=== PATIENT | female | born 1955 | race Caucasian/White ===

== ENCOUNTER 2017-11-02 14:14 | Inpatient (IN) | payer OTHER ==
[~2017-11-02] VITALS: Ht 167.6 cm; Wt 173.3 kg
[~2017-11-02 14:14] MED LIST: AMT25 PO; ASCO500T3 PO; ASPI81TA28 PO; COEN1CAP PO; FRS/40 PO; GABA-113 PO; INSDGIPEN SC; LEVO25TA5 PO; LOSA100T65 PO; LSX40 PO; MAGN30TA4 PO; METO50TA7 PO; NVLGI/PEN SC; NVLGIPEN SC; NXM/40 PO
--- NOTE | 2017-11-02 16:45 | DIAGNOSTIC IMAGING REPORT ---
SINGLE VIEW CHEST CLINICAL HISTORY: Lower extremity edema. FINDINGS: An AP, portable, upright chest radiograph is compared to study dated 09/16/2016. The examination is degraded by portable technique, large body habitus, and patient rotation. The heart is enlarged and there is atherosclerotic calcification of the thoracic aorta. There is pulmonary vascular congestion. Small pleural effusions are identified and there are bibasilar airspace opacities. No pneumothorax is seen. The skeletal structures are osteopenic. The bony thorax is grossly intact. IMPRESSION: 1. Cardiomegaly with evidence of congestive failure. 2. Layering pleural effusions. 3. Bibasilar airspace opacities likely represent atelectasis. Correlate clinically for evidence of superimposed pneumonia. Electronically signed by: Rohan Falcon M.D. 11/02/2017 4:43 PM Dictated Date/Time: 11/02/2017 4:42 PM
[2017-11-02 17:08] LABS: BASO % 0.3 %; BASO ABS # 0.03 K/uL (0-0.2); COMPLETE YES; EOS % 1.4 %; HEMATOCRIT 47.5 % (37-47); IG% 0.8 %; LYMPH % 18.7 %; LYMPH ABS # 1.74 K/uL (1.2-3.4); MEAN CELL VOLUME 100.6 fL (80-100); MEAN CORPUSCULAR HEMOGLOBIN 32.4 pg (25-34); MEAN CORPUSCULAR HGB CONC 32.2 g/dl (32-36); MEAN PLATELET VOLUME 10.9 fL (7.4-10.4); MONO % 8.4 %; NEUT % 70.4 %; PLATELET COUNT 162 K/uL (130-400); RED BLOOD COUNT 4.72 M/uL (4.2-5.4)
[2017-11-02 17:42] LABS: ALB/GLOB RATIO 0.7 (0.9-2); ALKALINE PHOSPHATASE 132 U/L (45-117); ALT/SGPT 31 U/L (12-78); BLOOD UREA NITROGEN 66 mg/dl (7-18); BUN/CREATININE RATIO 45.9 (10-20); CALCIUM 9.8 mg/dl (8.5-10.1); CARBON DIOXIDE 30 mmol/L (21-32); CHLORIDE 101 mmol/L (98-107); CREATININE 1.43 mg/dl (0.60-1.20); GLUCOSE 89 mg/dl (70-99); SODIUM 135 mmol/L (136-145)
[2017-11-02 19:08] LABS: POTASSIUM 5.1 mmol/L (3.5-5.1)
[2017-11-02 19:13] LABS: MAGNESIUM 2.5 mg/dl (1.8-2.4)
[2017-11-02 19:41] LABS: MANUAL MICROSCOPIC REQUIRED? NO; REVIEW REQ? NO; URINE APPEARANCE CLEAR (CLEAR); URINE BILIRUBIN NEG (NEG); URINE COLOR YELLOW; URINE EPITHELIAL CELL AUTO >30 /lpf (0-5); URINE NITRITE NEG (NEG); URINE SPECIFIC GRAVITY 1.014 (1.000-1.030); UROBILINOGEN NEG (NEG); ZZUR CULT IF INDIC CLEAN CATCH NO
[2017-11-02] MEDS ORDERED: LEVO50TA6 PO (19:52)
[2017-11-02] MEDS ORDERED: FRS/40 PO (19:58)
[2017-11-02] MEDS ORDERED: NVLGI/PEN SQ (20:04)
[2017-11-02] MEDS ORDERED: INSDGIPEN SQ (20:06)
[2017-11-02] MEDS ORDERED: FUROSEMIDE INJ 60 MG in SYRINGE 0 ML IV STA (20:18)
[2017-11-02 20:37] LABS: PARTIAL THROMBOPLASTIN RATIO 1.1
[2017-11-02] MEDS: FUROSEMIDE 40 MG/4 ML VIAL ONE ×2 (20:43→20:48)
[2017-11-02] MEDS ORDERED: FUROSEMIDE 40 MG/4 ML VIAL ONE (20:45)
[2017-11-02] MEDS ORDERED: DEXTROSE 50% 50 ML SYR IV PRN (22:30)
[2017-11-02] MEDS ORDERED: ACETAMINOPHEN 325 MG TAB PO PRN (22:30)
[2017-11-02] MEDS ORDERED: GLUCOSE 40% GEL 15 GM TUBE PO PRN (22:30)
[2017-11-02] MEDS ORDERED: GLUCOSE 10 TABS/TUBE PO PRN (22:30)
[2017-11-02] MEDS ORDERED: GLUCAGON FOR INJ 1 MG VIAL SQ PRN (22:30)
[2017-11-02] MEDS ORDERED: NITROGLYCERIN 0.4 MG SL PER TAB CHARGE SL PRN (22:30)
[2017-11-02] MEDS ORDERED: HYDROmorphone INJ 0.5 MG/0.5 ML SYR IV PRN (22:45)
[2017-11-02] MEDS ORDERED: TRAMADOL HCL 50 MG TAB PO PRN (22:45)
[2017-11-02] MEDS ORDERED: PROCHLORPERAZINE INJ 5 MG in SYRINGE 4 ML IV PRN (22:45)
[2017-11-02] MEDS ORDERED: INSULIN ASPART 100 UNITS/ML 3 ML PEN SC STA (23:02)
[2017-11-02] MEDS ORDERED: DOXYCYCLINE IV 100 MG in DEXTROSE 5% 100ML 100 ML IV STA (23:03)
[2017-11-02 23:55] LABS: INR 1.1 (0.9-1.1); PROTHROMBIN TIME (PATIENT) 11.1 SECONDS (9.0-12.0)
[2017-11-03] VITALS (10 sets, daily range): BP systolic 144–196; BP diastolic 68–101; PULSE 95–104; TEMP 36.5–37.4; O2SAT 91–96; BMI 65.9; BMI 65.7
--- NOTE | 2017-11-03 00:45 | EMERGENCY ROOM VISIT NOTE ---
History First contact with patient: 15:58 Chief Complaint: SWELLING TO EXTREMITY Stated Complaint: ARF, ELEVATED TROPONIN History of Present Illness The patient is a 62 year old female who presents to the Emergency Room via private vehicle accompanied by male with complaints of "retaining fluid". The patient states that for the past week she has been noticing increased size of her legs bilaterally. It is worse in her feet. She has a history of retaining fluid. She takes Lasix. She states that she double dose the Lasix morning without relief. There is been no shortness of breath or chest pain. She does note that upon her arrival here her oxygen was lowered therefore they placed upon oxygen. Review of Systems A complete 10-point Review of Systems was discussed with the patient, with pertinent positives and negatives listed in the History of Present Illness. All remaining Review of Systems questions can be considered negative unless otherwise specified. Past Medical/Surgical History Medical Problems: (1) ARF (acute renal failure) (2) CKD (chronic kidney disease) stage 2, GFR 60-89 ml/min (3) Depression (4) DM2 (diabetes mellitus, type 2) (5) Elevated troponin (6) HTN (hypertension) (7) Ichthyosis (8) Neuropathy Surgical Problems: (1) H/O bilateral breast reduction surgery (2) H/O oophorectomy (3) H/O: hysterectomy (4) S/P total knee arthroplasty Family History Heart disease Social History Smoking Status: Never Smoker Alcohol Use: none Drug Use: none Marital Status: Housing Status: lives with family Occupation Status: employed Current/Historical Medications Scheduled Amitriptyline HCl (Amitriptyline HCl), 25 MG PO HS Esomeprazole Magnesium (Nexium), 40 MG PO BID Furosemide (Lasix), 40 MG PO DAILY Furosemide (Lasix), 40 MG PO 3XWK Gabapentin (Neurontin), 1,200 MG PO HS Insulin Aspart (Novolog Flexpen), SQ AC Insulin Glargine (Lantus Solostar), 50 UNITS SQ AMPM Levothyroxine Sodium (Levothyroxine Sodium), 50 MCG PO DAILY Losartan Potassium (Cozaar), 100 MG PO DAILY Metoprolol Succ (Toprol Xl) (Toprol-Xl), 50 MG PO BID Physical Exam Vital Signs Date Time Temp Pulse Resp B/P (MAP) Pulse Ox O2 Delivery O2 Flow Rate FiO2 11/02/17 19:30 97 20 128/77 94 Room Air 11/02/17 17:30 95 20 147/69 95 Nasal Cannula 2.0 11/02/17 16:46 98 11/02/17 14:28 Nasal Cannula 2.0 11/02/17 14:26 36.4 97 22 199/77 89 Room Air Physical Exam VITAL SIGNS - Vital signs and nursing notes were reviewed. Hypertensive. Hypoxic. GENERAL -62-year-old female appearing her stated age who is in no acute distress. Communicates well with provider and answers questions appropriately. SKIN - Without rashes. There is evidence of poor vascular return in the lower extremity. HEAD - NC/AT. EYES - Sclera anicteric. EARS - No deformities of external structures noted on gross examination bilaterally. NOSE - Midline and without cyanosis. No epistaxis or purulent drainage noted. MOUTH/OROPHARYNX - Without perioral cyanosis. LUNGS - Chest wall symmetric without accessory muscle use, intercostals retractions, or central cyanosis. Normal vesicular breath sounds CTA B/L. No wheezes, rales, or rhonchi appreciated. CARDIAC - RRR with S1/S2. No murmur, rubs, or gallops appreciated. EXTREMITIES - No clubbing or peripheral cyanosis. There is lower extremity edema noted. NEUROLOGIC - Cranial nerves II through XII grossly intact. Medical Decision & Procedures ER Provider Diagnostic Interpretation: SINGLE VIEW CHEST CLINICAL HISTORY: Lower extremity edema. FINDINGS: An AP, portable, upright chest radiograph is compared to study dated 09/16/2016. The examination is degraded by portable technique, large body habitus, and patient rotation. The heart is enlarged and there is atherosclerotic calcification of the thoracic aorta. There is pulmonary vascular congestion. Small pleural effusions are identified and there are bibasilar airspace opacities. No pneumothorax is seen. The skeletal structures are osteopenic. The bony thorax is grossly intact. IMPRESSION: 1. Cardiomegaly with evidence of congestive failure. 2. Layering pleural effusions. 3. Bibasilar airspace opacities likely represent atelectasis. Correlate clinically for evidence of superimposed pneumonia. Electronically signed by: Rohan Falcon M.D. 11/02/2017 4:43 PM Dictated Date/Time: 11/02/2017 4:42 PM Laboratory Results 11/02/17 16:55 Red Blood Count 4.72, Mean Corpuscular Volume 100.6, Mean Corpuscular Hemoglobin 32.4, Mean Corpuscular Hemoglobin Concent 32.2, Mean Platelet Volume 10.9, Neutrophils (%) (Auto) 70.4, Lymphocytes (%) (Auto) 18.7, Monocytes (%) ( Auto) 8.4, Eosinophils (%) (Auto) 1.4, Basophils (%) (Auto) 0.3, Neutrophils # ( Auto) 6.55, Lymphocytes # (Auto) 1.74, Monocytes # (Auto) 0.78, Eosinophils # ( Auto) 0.13, Basophils # (Auto) 0.03 11/02/17 16:55 11/02/17 18:35 Test 11/02/17 16:39 11/02/17 16:55 11/02/17 18:35 11/02/17 20:50 Urine Color YELLOW Urine Appearance CLEAR (CLEAR) Urine pH 5.0 (4.5-7.5) Urine Specific [place] 1.014 (1.000-1.030) Urine Protein TRACE (NEG) Urine Glucose (UA) NEG (NEG) Urine Ketones NEG (NEG) Urine Occult Blood TRACE (NEG) Urine Nitrite NEG (NEG) Urine Bilirubin NEG (NEG) Urine Urobilinogen NEG (NEG) Urine Leukocyte Esterase SMALL (NEG) Urine WBC (Auto) 1-5 /hpf (0-5) Urine RBC (Auto) 0-4 /hpf (0-4) Urine Hyaline Casts (Auto) 1-5 /lpf (0-5) Urine Epithelial Cells (Auto) >30 /lpf (0-5) Urine Bacteria (Auto) NEG (NEG) White Blood Count 9.30 K/uL (4.8-10.8) Red Blood Count 4.72 M/uL (4.2-5.4) Hemoglobin 15.3 g/dL (12.0-16.0) Hematocrit 47.5 % (37-47) Mean Corpuscular Volume 100.6 fL (80-100) Mean Corpuscular Hemoglobin 32.4 pg (25-34) Mean Corpuscular Hemoglobin Concent 32.2 g/dl (32-36) Platelet Count 162 K/uL (130-400) Mean Platelet Volume 10.9 fL (7.4-10.4) Neutrophils (%) (Auto) 70.4 % Lymphocytes (%) (Auto) 18.7 % Monocytes (%) (Auto) 8.4 % Eosinophils (%) (Auto) 1.4 % Basophils (%) (Auto) 0.3 % Neutrophils # (Auto) 6.55 K/uL (1.4-6.5) Lymphocytes # (Auto) 1.74 K/uL (1.2-3.4) Monocytes # (Auto) 0.78 K/uL (0.11-0.59) Eosinophils # (Auto) 0.13 K/uL (0-0.5) Basophils # (Auto) 0.03 K/uL (0-0.2) RDW Standard Deviation 56.7 fL (36.4-46.3) RDW Coefficient of Variation 15.7 % (11.5-14.5) Immature Granulocyte % (Auto) 0.8 % Immature Granulocyte # (Auto) 0.07 K/uL (0.00-0.02) Prothrombin Time 11.1 SECONDS (9.0-12.0) Prothromb Time International Ratio 1.1 (0.9-1.1) Anion Gap 4.0 mmol/L (3-11) Estimated GFR () 45.7 Estimated GFR (Non- 39.4 BUN/Creatinine Ratio 45.9 (10-20) Calcium Level 9.8 mg/dl (8.5-10.1) Total Bilirubin 1.2 mg/dl (0.2-1) Alanine Aminotransferase (ALT/SGPT) 31 U/L (12-78) Alkaline Phosphatase 132 U/L (45-117) Pro-B-Type Natriuretic Peptide 1919 pg/ml (0-900) Total Protein 8.2 gm/dl (6.4-8.2) Albumin 3.3 gm/dl (3.4-5.0) Globulin 4.9 gm/dl (2.5-4.0) Albumin/Globulin Ratio 0.7 (0.9-2) Activated Partial Thromboplast Time 27.6 SECONDS (21.0-31.0) Partial Thromboplastin Ratio 1.1 Magnesium Level 2.5 mg/dl (1.8-2.4) Aspartate Amino Transf (AST/SGOT) 21 U/L (15-37) Troponin I 0.137 ng/ml (0-0.045) Medications Administered Medications (Trade) Dose Ordered Sig/Vani Route Start Time Stop Time Status Last Admin Dose Admin Furosemide (Lasix Inj) 40 mg STK-MED ONCE .ROUTE 11/02/17 20:31 11/02/17 20:32 DC 11/02/17 20:48 40 MG Furosemide (Lasix Inj) 40 mg STK-MED ONCE .ROUTE 11/02/17 20:45 11/02/17 20:46 DC 11/02/17 20:49 20 MG Medical Decision Patient was seen and evaluated as above. She presents to us today with lower extremity edema. IV access was initiated, and the above workup was performed. Bedside EKG was performed and reveals sinus tachycardia with first-degree AV block. Nonspecific T wave abnormality noted. Chest x-ray reveals congestion. CBC reveals no concern of leukocytosis or anemia. Coag is normal. Metabolic panel reveals creatinine high at 1.43 with BUN high at 66. Bilirubin high at 1.2, troponin I at 0.133. BNP elevated at 1919. Urine reveals trace protein, trace blood, trace leukocytes with epithelial cells. I suspect contaminant sample. I believe that the patient would be better served in the inpatient setting to further delineate the reason for her troponin elevation, and her acute renal failure. I discussed the case with the attending physician and subsequently the on-call radiosonde operator Dr. Tello. I felt the patient should be admitted, therefore was recommended she be admitted to medicine, and the cardiology could be consult. I then consult with Dr. Goldsmith. Please refer to further documentation regarding the patient's stay. In evaluation treatment this patient the following differential diagnoses were entertained: NV, PE, CHF, among others. It is important that the patient did receive a full dose of aspirin prior to coming to the hospital today therefore more was not given. Impression Primary Impression: ARF (acute renal failure) Additional Impressions: Elevated troponin Swelling of lower extremity Departure Information Dispostion Admitted as an inpatient Condition FAIR Referrals Selene Webb D.O. (PCP) Forms WORK / SCHOOL INSTRUCTIONS, HOME CARE DOCUMENTATION FORM, IMPORTANT VISIT INFORMATION Patient Instructions [facility] Problem Qualifiers
--- NOTE | 2017-11-03 03:50 | HISTORY & PHYSICAL EXAMINATION ---
DATE OF ADMISSION: 11/02/2017 PRIMARY CARE DOCTOR: Dr. Selene Webb. CHIEF COMPLAINT: Retaining fluid. HISTORY OF PRESENT ILLNESS: Medical history significant for chronic diastolic heart failure (R side HF as per records, EF 55-60%, TTE 2016), HTN, DM2 insulin requiring, sleep apnea not on CPAP as per patient, DM2 insulin requiring Recent confinement last March 2016 for fluid overload. The patient presented with peripheral edema and shortness of breath for a week and increased abdominal distention, weight gain. A 2D echo showed moderate concentric LVH, LV wall motion, normal mitral valve leaflet, moderately thickened with mild restriction, mild mitral regurgitation, no mitral valve stenosis, trace MR. The patient responded to fluid restriction. The last week, the patient noted increased abdominal distention, bilateral leg swelling again. No chest pain, no shortness of breath. Denies dietary indiscretion or excessive NSAID intake. Both legs noted to be red as per family. No fever no chills. The patient denies cough symptoms. Compliant with home diuretics. Patient brought to the Emergency Room. MEDICAL HISTORY: As above. SURGERIES: She has had bilateral breast reduction, oophorectomy, hysterectomy, knee surgery. HOME MEDICATIONS: Include amitriptyline, Nexium, Lasix, Neurontin, NovoLog, Lantus, levothyroxine, Cozaar, Toprol. ALLERGIES: CEPHALEXIN, MORPHINE, CIPRO. FAMILY HISTORY: Heart disease. PERSONAL AND SOCIAL HISTORY: Nonsmoker, no chronic intake of alcoholic beverages., had a daycare business. REVIEW OF SYSTEMS: As per HPI, all 10 systems reviewed. All other ROS negative. PHYSICAL EXAMINATION: VITAL SIGNS: Blood pressure was noted to be 199/77, pulse rate 95, RR 20, temperature 36.4, sats 89 on room air, later 95 on 3 liters. GENERAL: Noted to be morbidly obese, no respiratory distress, anxious. SKIN: Normal color. Warm. Scaly lesions on both lower extremities. HEENT: [place] palpebral conjunctivae. No ptosis. Dry buccal mucosa. NECK: Short neck. JVD not assessed. No tenderness. LUNGS: Decreased breath sounds. No tenderness. HEART: Regular rate and rhythm. No appreciable murmurs, palpable LE pulses. ABDOMEN: Some distention, nontender. EXTREMITIES: Bilateral lower extremity erythema/induration . Minimal tenderness. No other gross deformities. NEUROLOGIC: Coherent. No gross focality. LABORATORY DATA: Hemoglobin was noted to be 15.3, hematocrit 47.5, white cell count 7.3, platelets noted to be 162. Sodium noted to be 135, potassium 5.1, chloride 101, CO2 30, BUN 16, creatinine 1.4, glucose was noted to be 89. Troponin noted to be 0.133. EKG as per my interpretation 100, normal sinus rhythm, diffuse T-wave flattening , poor R-wave progression, low voltage. Chest x-ray showed cardiomegaly with CHF, left pleural effusion and atelectasis. ASSESSMENT: 1. Fluid retention, weight gain. hx right-sided heart failure, hx [place]YS[place] not on CPAP Decompensated disease ro cirrhosis 2 to NAFLD, history splenomegaly on a CAT scan from few years back 2. Troponin elevation secondary to renal failure. Patient denies chest pain, shortness of breath. 3. Hypoxemic respiratory failure Possibly chronic from sleep-disordered breathing 4. Hypertension, stable. 5 DM2, insulin requiring, suboptimal control as of recent outpatient A1c of 8.1 in August 2017. blood sugars in the lower side, 6. Bilateral lower extremity cellulitis No sepsis, ro dvt PLAN: PCU mainly for troponin elevation. Strict IOs, daily weights, CHF education Diuretic Rx Cardiology consult RE decompensated right-sided heart failure Nephrology consult RE acute renal failure, fluid retention. Abdominal ultrasound RE ascites. Liver ultrasound ro liver cirrhosis. May need GI consult pending above imaging results. Supplemental O2, baseline ABG Updated TTE to rule out underlying pulmonary hypertension not evident on 2016 study Updated sleep study, Pulmonology/sleep medicine evaluation outpatient. basal insulin, ISS BG goal 140-180. May need to recheck a hemoglobin A1c if blood sugars persistently on the lower side. Doxycycline, local measures for bilateral lower extremity cellulitis Lower extremity venous Dopplers rule out DVT DVT prophylaxis, Heparin subQ. Full code. Patient's , Mr. Thomas Enrique, requesting updates from providers. DEEJAYD
[2017-11-03] MEDS: LEVOTHYROXINE 50 MCG TAB PO SCH (05:59)
[2017-11-03] MEDS: HEPARIN SOD 5000 UNIT/0.5 ML CARP SQ SCH ×3 (06:00→21:19)
--- NOTE | 2017-11-03 06:48 | DIAGNOSTIC IMAGING REPORT ---
BILATERAL LOWER EXTREMITY VENOUS DOPPLER HISTORY: Acute swelling of the bilateral lower extremities leg swelling COMPARISON STUDY: Duplex venous Doppler 09/16/2016. FINDINGS: There is normal compressibility, flow, and augmentation within the bilateral lower extremity deep venous systems. The calf vessels are not well seen secondary to patient body habitus. IMPRESSION: No sonographic evidence of deep venous thrombosis within the right or left lower extremity. Electronically signed by: Kervin Reed M.D. 11/03/2017 6:46 AM Dictated Date/Time: 11/03/2017 6:45 AM
--- NOTE | 2017-11-03 06:53 | DIAGNOSTIC IMAGING REPORT ---
CT OF THE ABDOMEN AND PELVIS WITHOUT CONTRAST CLINICAL HISTORY: Abdominal distention. Acute renal failure. Abnormal liver ultrasound. COMPARISON STUDY: CT of the abdomen and pelvis October 30, 2014 and right upper quadrant ultrasound November 02, 2017. TECHNIQUE: Axial images of the abdomen and pelvis were obtained without IV contrast. Images were reviewed in the axial, sagittal, and coronal planes. A dose lowering technique was utilized adhering to the principles of ALARA. FINDINGS: Visualized portions of the lower chest demonstrate small right and trace left pleural effusions. Segmental right lower lobe opacity with volume loss favors atelectasis. Moderate cardiomegaly is noted. Evaluation of the abdomen and pelvis is suboptimal on this unenhanced exam. In addition, the study is compromised due to artifact related to body wall contacting the gantry. The liver is mildly enlarged. A small amount of ascites is noted within the abdomen and pelvis. Mild splenomegaly is unchanged. The liver is not overtly cirrhotic. There may be fatty infiltration of the liver. Unenhanced images of the adrenal glands, kidneys and pancreas are normal. There is no hydronephrosis. Layering hyperdense material is noted within the dependent aspect of the bladder. There is no evidence for a bowel obstruction. No pneumatosis, free air or portal venous gas is present. There is extensive atherosclerotic plaque of the abdominal aorta and major branch vessels. A Gallagher balloon is present within the bladder which is collapsed. There is skin thickening and subcutaneous edema of the lower anterior abdominal wall. There may be tiny radiodensities within the appendix without evidence for acute appendicitis. No suspicious osseous lesions are identified. IMPRESSION: 1. Small right and trace left pleural effusions with findings suggestive of mild pulmonary edema. Segmental right lower lobe opacity favors atelectasis over pneumonia. 2. Mild hepatosplenomegaly. Possible fatty infiltration of the liver. Liver not overtly cirrhotic. 3. Small amount of ascites. 4. Hyperdense material within the dependent aspect of the gallbladder which favors gallstones although sludge could appear similar. No evidence for acute cholecystitis. 5. Study compromised given lack of contrast and artifact from body wall contacting the gantry. 6. Skin thickening and subcutaneous edema of the lower anterior abdominal wall. This may reflect body wall edema and could be related to volume overload. However, cellulitis could appear similar. Electronically signed by: Keshawn Paige M.D. 11/03/2017 6:51 AM Dictated Date/Time: 11/03/2017 6:41 AM
--- NOTE | 2017-11-03 06:57 | DIAGNOSTIC IMAGING REPORT ---
ABDOMINAL ULTRASOUND, RIGHT UPPER QUADRANT HISTORY: Abdominal distention. Evaluate for cirrhosis. COMPARISON: CT of the abdomen and pelvis October 30, 2014. FINDINGS: Liver is mildly enlarged. The liver is not overtly cirrhotic by sonography. A small amount of ascites is noted. There is no biliary ductal dilatation. There may be a 7 mm gallbladder polyp. Layering echogenic nonshadowing material within the gallbladder is noted. There is no gallbladder wall thickening. The pancreatic body is normal. The head and tail are obscured. There is no right hydronephrosis. IMPRESSION: 1. Echogenic layering nonshadowing material within the gallbladder which may reflect gallstones or sludge. No gallbladder wall thickening. No evidence for acute cholecystitis. 2. No biliary ductal dilatation. 3. Mild hepatomegaly. Liver not overtly cirrhotic by sonography. Electronically signed by: Keshawn Paige M.D. 11/03/2017 6:56 AM Dictated Date/Time: 11/03/2017 6:52 AM
--- NOTE | 2017-11-03 07:10 | DIAGNOSTIC IMAGING REPORT ---
ULTRASOUND ASCITES CHECK CLINICAL HISTORY: Abdominal distention. COMPARISON STUDY: Abdominal CT dated 11/02/2017. FINDINGS: Real-time grayscale sonography of all 4 quadrants of the abdomen was performed to assess for abdominal ascites. There is a small volume of abdominal ascites seen in the lower abdomen and pelvis. IMPRESSION: Small volume of abdominopelvic ascites. This is insufficient for paracentesis. Electronically signed by: Rohan Falcon M.D. 11/03/2017 7:08 AM Dictated Date/Time: 11/03/2017 7:07 AM
[2017-11-03] MEDS ORDERED: PERFLUTREN LIPID MICROSPHERE (DEFINITY) IV ONE (07:28)
[2017-11-03 07:50] LABS: ESTIMATED AVERAGE GLUCOSE 174 mg/dl; HA1C FLAG Normal (Normal)
[2017-11-03 08:09] LABS: BASO % 0.5 %; BASO ABS # 0.04 K/uL (0-0.2); EOS % 2.3 %; HEMATOCRIT 46.6 % (37-47); IG% 0.5 %; LYMPH % 23.2 %; LYMPH ABS # 1.88 K/uL (1.2-3.4); MEAN CELL VOLUME 99.8 fL (80-100); MEAN CORPUSCULAR HEMOGLOBIN 32.1 pg (25-34); MEAN CORPUSCULAR HGB CONC 32.2 g/dl (32-36); MEAN PLATELET VOLUME 10.7 fL (7.4-10.4); MONO % 10.4 %; NEUT % 63.1 %; PLATELET COUNT 143 K/uL (130-400); RED BLOOD COUNT 4.67 M/uL (4.2-5.4); WHITE BLOOD COUNT 8.09 K/uL (4.8-10.8)
[2017-11-03 08:10] LABS: ARTERIAL BLD GAS O2 SATURATION 93.5 % (90-95); ARTERIAL BLOOD GAS BASE EXCESS 7.1 mEq/L (-9-1.8); ARTERIAL BLOOD GAS HCO3 34 mmol/L (19-24); ARTERIAL BLOOD GAS PO2 69 mm/Hg (80-95)
[2017-11-03 08:11] LABS: ALLEN TEST POS (POS); O2 ADMINISTRATION 2 L
[2017-11-03] MEDS: INSULIN ASPART 100 UNITS/ML 3 ML PEN SC SCH ×4 (08:31→21:00)
[2017-11-03] MEDS: INSULIN GLARGINE SOLOSTAR 100 UNITS/ML 3 ML PEN SQ SCH ×2 (08:39→21:19)
[2017-11-03] MEDS: FUROSEMIDE INJ 60 MG in SYRINGE 0 ML IV SCH ×2 (08:40→17:35)
[2017-11-03 08:41] LABS: BUN/CREATININE RATIO 46.1 (10-20); CALCIUM 9.9 mg/dl (8.5-10.1); CREATININE 1.07 mg/dl (0.60-1.20); POTASSIUM 4.5 mmol/L (3.5-5.1)
[2017-11-03] MEDS: DOXYCYCLINE HYCLATE 100 MG CAP PO SCH ×2 (08:41→21:13)
[2017-11-03] MEDS: PANTOprazole SOD 40 MG TAB PO SCH ×2 (08:42→21:15)
[2017-11-03 08:44] LABS: COMPLETE YES
--- NOTE | 2017-11-03 08:57 | ECHOCARDIOGRAM REPORT ---
*NOTICE TO RECEIVING DEMOCRAT AGENCY This information is strictly Confidential and protected under [place] law. [place] law prohibits you from making any further disclosure of this information unless further disclosure is expressly permitted by the written consent of the person to whom it pertains or is authorized by law. A general authorization for the release of medical or other information is not sufficient for this purpose. Hospital accepts no responsibility if the information is made available to any other person, INCLUDING THE PATIENT. Interpretation Summary * Name: SANDRA BRANDON Study Date: 11/03/2017 06:48 AM BP: 144/71 mmHg * Patient Location: C.2T\S\S240\S\2 HR: 98 * : 1955 (M/d/y) Gender: Female Height: 66 in * Age: 62 yrs Ethnicity: CA Weight: 408 lb * Ordering Physician: Naveen Car * Referring Physician: Self, Referred * Performed By: Jessie Zayas RDCS * * Reason For Study: ELEVATED TROPONIN * BSA: 2.7 m2 * -- Conclusions -- * The left ventricle is normal in size. * There is moderate concentric left ventricular hypertrophy. * Septal motion is consistent with conduction abnormality. * No regional wall motion abnormalities noted. * Ejection Fraction = 50-55%. * No hemodynamically significant valvular aortic stenosis. * There is mild to moderate mitral annular calcification. * The mitral valve leaflets are moderately thickened with mild restriction in leaflet mobility. * No significant mitral valve stenosis. Procedure Details * A contrast injection of Definity was performed to improve assessment of LV function. * Contrast was injected into an intravenous site in the right arm. * One vial of Definity ultrasound contrast was diluted in normal saline to a total volume of 10 ml. A total of '2' ml of solution was administered during imaging. * Lot # [id number] of Definity utilized for procedure. * Expiration date 1 JAN 18. * The attending nurse who injected the contrast agent was FATOUMATA REDDY. * A complete two-dimensional transthoracic echocardiogram was performed (2D, M-mode, Doppler and color flow Doppler). Left Ventricle * The left ventricle is normal in size. * There is moderate concentric left ventricular hypertrophy. * Ejection Fraction = 50-55%. * Septal motion is consistent with conduction abnormality. * No regional wall motion abnormalities noted. Right Ventricle * The right ventricle is normal in size and function. Atria * The left atrium is mildly dilated. * Right atrial size is normal. * No ASD detected; PFO is not assessed. Mitral Valve * There is mild to moderate mitral annular calcification. * The mitral valve leaflets are moderately thickened with mild restriction in leaflet mobility. * No significant mitral valve stenosis. * There is trace mitral regurgitation. Tricuspid Valve * The tricuspid valve is not well visualized. Aortic Valve * The aortic valve is trileaflet. * No hemodynamically significant valvular aortic stenosis. * No aortic regurgitation is present. Pulmonic Valve * The pulmonic valve is not well visualized. Great Vessels * The aortic root is normal size. Pericardium/Pleural * There is no pericardial effusion. MMode 2D Measurements and Calculations IVSd 1.0 cm IVSs 1.6 cm LVIDd 5.3 cm LVIDs 3.8 cm LVPWd 1.8 cm LVPWs 2.1 cm IVS/LVPW 0.58 FS 27.8 % EDV(Teich) 137.1 ml ESV(Teich) 63.8 ml EF(Teich) 53.5 % EDV(cubed) 151.4 ml ESV(cubed) 56.9 ml EF(cubed) 62.4 % % IVS thick 56.0 % % LVPW thick 18.8 % LV mass(C)d 321.2 grams LV mass(C)dI 118.6 grams/m\S\2 LV mass(C)s 312.0 grams LV mass(C)sI 115.2 grams/m\S\2 SV(Teich) 73.3 ml SI(Teich) 27.1 ml/m\S\2 SV(cubed) 94.5 ml SI(cubed) 34.9 ml/m\S\2 Doppler Measurements and Calculations Ao V2 max 147.7 cm/sec Ao max PG 8.7 mmHg Ao max PG (full) 5.3 mmHg LV V1 max PG 3.4 mmHg LV V1 max 92.5 cm/sec
[2017-11-03] MEDS ORDERED: FUROSEMIDE INJ 60 MG in SYRINGE 0 ML IV SCH (09:00)
[2017-11-03] MEDS ORDERED: METOPROLOL SUCC 50MG EXT REL TAB PO SCH (09:00)
[2017-11-03] MEDS ORDERED: INSULIN GLARGINE SOLOSTAR 100 UNITS/ML 3 ML PEN SQ SCH ×2 (09:00)
--- NOTE | 2017-11-03 11:22 | CARDIOLOGY CONSULTATION ---
DATE OF CONSULTATION: 11/03/2017 DATE OF CONSULTATION: 11/03/2017 REFERRING PHYSICIAN: Dr. Car. INDICATIONS: Worsening lower extremity edema, right heart failure. HISTORY OF PRESENT ILLNESS: The patient is a 62-year-old female whose history is notable for: 1. Morbid obesity with past right heart failure. 2. Longstanding diabetes mellitus, insulin requiring. 3. Hypertension. 4. Hyperlipidemia. 5. Past history of diabetic stasis ulcers now resolved. The patient presents now noting clinical decline over the past 6-12 months' time after treatment of diabetic ulcers as the patient was recommended to remain sedentary and has essentially been immobile since that time with minimal activities. She has had gradual decline, weakness, has increasing shortness of breath, lower extremity edema despite current diuretic dosing, though patient does note some intermittent compliance issues with diuretics. Weight is up at least 10-15 pounds. She denies any chest pains. Notes no tachypalpitations. Notes no dizziness. Has had some increasing edema and erythema of both lower extremities and in addition to lower extremity edema she is now began experiencing symptoms of edema radiating up into the abdomen and legs. She presented to the Emergency Room due to complaints. She is referred now for further evaluation. She notes no fevers, chills or unexplained infections. Notes no melena, hematochezia, dysuria or hematuria. Appetite has been fair. She does not wear oxygen at home. Overnight, she has received IV diuretics with prompt 4 liter diuresis though blood pressures are mildly elevated this morning. REVIEW OF SYSTEMS: Otherwise negative. ALLERGIES: ADHESIVES, CEPHALEXIN, CIPRO, MORPHINE, NYSTATIN. MEDICATIONS: Per reconciliation list include amitriptyline 25 mg at bedtime, Nexium 40 mg b.i.d., furosemide 40 mg p.o. daily with an additional 40 mg 3 days per week though the patient notes intermittent usage only gabapentin 300 mg 4 tablets at bedtime, levothyroxine 50 mcg per day, Cozaar 100 mg p.o. daily, metoprolol succinate 50 mg twice per day. PAST SURGICAL HISTORY: Notable for right total knee replacement in 2002, prior breast biopsy 2013, remote history of bilateral breast reduction and oophorectomy and total abdominal hysterectomy. FAMILY HISTORY: Noncontributory. SOCIAL HISTORY: The patient is a nonsmoker, nondrinker. She has had markedly reduced activity tolerance over the past 6 months. PHYSICAL EXAMINATION: VITAL SIGNS: Heart rate is 90, blood pressure is 199/77 on presentation, 196/98 this morning. HEAD, EYES, EARS, NOSE, AND THROAT EXAMINATION: Normocephalic, atraumatic. Nares without discharge. Throat was clear. NECK: Thick. There is no distinct jugular venous distention, though evaluation limited. LUNGS: Reveal markedly diminished breath sounds. CARDIOVASCULAR EXAMINATION: Regular but tachycardic. There is no audible murmur. There is no S3 gallop. ABDOMEN: Obese with a large panniculus. EXTREMITIES: Reveal 3+ edema of the legs all the way to the hips as well as presacral edema on examination. NEUROLOGIC: The patient is answering questions appropriately. LABORATORY DATA: On presentation, blood gas revealed a pH 74, pCO2 of 55, pO2 69 on 2 liters nasal cannula. White cell count 8.0, hemoglobin is 15.0, hematocrit is 46.6. Sodium is 139, potassium is 4.5 chloride 101, bicarb 32, BUN 49, creatinine 1.0, troponins are elevated but flat at 0.14. EKG reveals sinus and sinus tachycardia with first degree AV block, nonspecific intraventricular conduction delay. Echocardiogram demonstrates conduction changes septum, otherwise ejection fraction of 50-55%. No significant valvular pathology. Chest x-ray on presentation revealed small pleural effusions and increased pulmonary vasculature. CT scan of the abdomen and pelvis demonstrated no acute findings. IMPRESSION: The patient is a 62-year-old female with history of morbid obesity and past right heart failure/Pickwickian phenomena presents now with increasing lower extremity edema, abdominal bloating and leg edema. This appears to be consistent with patient's decreased diuretic dosage and volume overload. Echocardiogram demonstrates generally preserved left ventricular systolic function. No signs of acute myocardial infarction suspected, at least at this time. Will initiate IV diuretics. The patient has at least 20 pounds of known fluid per her own description and by examination and will require several days IV diuretics to push towards normal weight. Oxygen assessment and pulmonary subsequently will be reassessed given CO2 retention on presentation, especially nocturnally. Will continue to follow patient in the hospital.
[2017-11-03] MEDS: NITROGLYCERIN OINT 2% 1GM PACKET EXT SCH ×3 (11:29→22:24)
--- NOTE | 2017-11-03 12:16 | NEPHROLOGY CONSULTATION ---
DATE OF CONSULTATION: 11/03/2017 ATTENDING OF RECORD: Dr. aCr. REASON FOR CONSULTATION: NICOLETTE and volume overload. HISTORY OF PRESENT ILLNESS: This is a 62-year-old female with type 2 diabetes with neuropathy, sleep apnea, and chronic diastolic heart failure with right-sided hypertension, who had a recent echo in house with an EF of 50%-55%, moderate concentric LVH, septal motion consistent with conduction abnormality, no significant mitral stenosis, no significant aortic stenosis. The right ventricle is normal in size and function. The patient's creatinine on admission was 1.43. This morning, it is down to 1.07. Troponins mildly elevated at 0.13. So far, she has diuresed about 5 liters on Lasix 60 mg IV b.i.d. PAST MEDICAL HISTORY: Chronic diastolic heart failure, type 2 diabetes, hypertension, mild sleep apnea, and obesity. PAST SURGICAL HISTORY: Bilateral breast reduction and hysterectomy. FAMILY HISTORY: Significant for heart disease. SOCIAL HISTORY: No smoking, no alcohol, and no drugs. Lives at home with . REVIEW OF SYSTEMS: Positive ambulatory dysfunction. Positive shortness of breath with exertion. Positive significant lower extremity edema. No headaches, no blurry vision, no dysphagia, no nausea or vomiting, no diarrhea or constipation. All other review of systems otherwise negative. CURRENT MEDICATIONS: Elavil 25 mg at night, Neurontin 600 mg at night, Toprol-XL 75 mg twice a day, Protonix 40 mg p.o. b.i.d., doxycycline 100 mg p.o. b.i.d., Lasix 60 mg IV b.i.d., Lantus 10 units subQ b.i.d., levothyroxine 50 mcg daily, and heparin 5000 units subQ q. 8 hours. PHYSICAL EXAMINATION: VITAL SIGNS: Temperature is 36.5, pulse in the 90s, respiratory rate 16, blood pressure 180/78, and satting 96% on room air. GENERAL: Awake, alert, and oriented x3, morbidly obese. EYES: No scleral icterus. ENT: Moist mucous membranes. NECK: Supple. LUNGS: Decreased at the bases. CARDIAC: Regular rate and rhythm. ABDOMEN: Bowel sounds are positive. Does have a pannus with some pitting edema. EXTREMITIES: Significant nonpitting edema with some chronic venous stasis changes of the lower extremities. NEUROLOGICALLY: Does have some neuropathy. LABORATORIES: Sodium level is 139, potassium is 4.5, chloride is 101, bicarb is 32, BUN is 49, creatinine is 1.07, glucose 100, and calcium 9.9. Troponin 0.14. White count is 8, H&H 15 and 46, and platelet count 143. INR is 1.1. UA with specific gravity 1.014, trace protein, trace blood, and small leukocyte esterase. Blood gas shows a pH of 7.4, pCO2 of 55, pO2 of 69, and bicarbonate of 34. Abdominal pelvis CT was done, which showed trace pleural effusions. Mild hepatosplenomegaly with possible fatty liver, possible gallstones, and some body-wall edema, likely related to volume overload. Venous Dopplers of the lower extremities were negative. ASSESSMENT AND PLAN: Acute kidney injury with creatinine 1.4 and this morning is down to 1.0 in the setting of appropriate diuresis. She does have significant lymphedema. Echo of her heart does not show significant right-sided heart failure. So, I feel this is most likely lymphedema from obesity. We will check a TSH level to be thorough. We have an albumin of 3.3 and that could benefit from albumin resuscitation to try to help mobilize the extra fluid. For now, doing well on Lasix 60 IV b.i.d. and we will follow electrolytes and kidney function while we appropriately diurese. We will discuss the case further with the hospitalist. For now, no changes, continue current diuretics with the possibility of adding albumin after we take off appropriate fluid. I appreciate the consultation. TALIA
--- NOTE | 2017-11-03 15:53 | Progress Note ---
Medicine Progress Note Date & Time of Visit: Nov 03, 2017 at 15:22. Subjective Pt was seen and examined Lying in bed with no distress Pt said that she feels good She said that she was more swelling yesterday She put out more than 3L yesterday denies any chest pain, palpitation, dizziness and SOB Objective Last 8 Hrs Date Time Temp Pulse Resp B/P (MAP) Pulse Ox O2 Delivery O2 Flow Rate FiO2 11/03/17 12:00 Nasal Cannula 2.0 11/03/17 11:54 36.8 104 18 163/79 (107) 95 Nasal Cannula 11/03/17 08:31 36.5 102 16 196/98 (130) 96 Room Air 180/78 (112) 11/03/17 08:00 Nasal Cannula 2.0 Physical Exam: General- No acute distress, Head- atraumatic Eyes- PERRL, EOMI ENT- oropharynx clear Neck- supple, no JVD Lungs- No wheezing Heart- regular rhythm Abdomen- normal bowel sounds, Non tenderness Extremities- no calf tenderness Neuro- alert, oriented x 3; PERRL, EOMI; no facial palsy Skin- warm & dry Laboratory Results: Last 24 Hours Test 11/02/17 16:39 11/02/17 16:55 11/02/17 18:35 11/02/17 20:50 Urine Color YELLOW Urine Appearance CLEAR Urine pH 5.0 Urine Specific [place] 1.014 Urine Protein TRACE Urine Glucose (UA) NEG Urine Ketones NEG Urine Occult Blood TRACE Urine Nitrite NEG Urine Bilirubin NEG Urine Urobilinogen NEG Urine Leukocyte Esterase SMALL Urine WBC (Auto) 1-5 /hpf Urine RBC (Auto) 0-4 /hpf Urine Hyaline Casts (Auto) 1-5 /lpf Urine Epithelial Cells (Auto) >30 /lpf Urine Bacteria (Auto) NEG White Blood Count 9.30 K/uL Red Blood Count 4.72 M/uL Hemoglobin 15.3 g/dL Hematocrit 47.5 % Mean Corpuscular Volume 100.6 fL Mean Corpuscular Hemoglobin 32.4 pg Mean Corpuscular Hemoglobin Concent 32.2 g/dl Platelet Count 162 K/uL Mean Platelet Volume 10.9 fL Neutrophils (%) (Auto) 70.4 % Lymphocytes (%) (Auto) 18.7 % Monocytes (%) (Auto) 8.4 % Eosinophils (%) (Auto) 1.4 % Basophils (%) (Auto) 0.3 % Neutrophils # (Auto) 6.55 K/uL Lymphocytes # (Auto) 1.74 K/uL Monocytes # (Auto) 0.78 K/uL Eosinophils # (Auto) 0.13 K/uL Basophils # (Auto) 0.03 K/uL RDW Standard Deviation 56.7 fL RDW Coefficient of Variation 15.7 % Immature Granulocyte % (Auto) 0.8 % Immature Granulocyte # (Auto) 0.07 K/uL Prothrombin Time 11.1 SECONDS Prothromb Time International Ratio 1.1 Sodium Level 135 mmol/L Potassium Level mmol/L 5.1 mmol/L Chloride Level 101 mmol/L Carbon Dioxide Level 30 mmol/L Anion Gap 4.0 mmol/L Blood Urea Nitrogen 66 mg/dl Creatinine 1.43 mg/dl Estimated GFR () 45.7 Estimated GFR (Non- 39.4 BUN/Creatinine Ratio 45.9 Random Glucose 89 mg/dl Estimated Average Glucose 174 mg/dl Hemoglobin A1c 7.7 % Calcium Level 9.8 mg/dl Magnesium Level mg/dl 2.5 mg/dl Total Bilirubin 1.2 mg/dl Aspartate Amino Transf (AST/SGOT) U/L 21 U/L Alanine Aminotransferase (ALT/SGPT) 31 U/L Alkaline Phosphatase 132 U/L Troponin I 0.133 ng/ml 0.137 ng/ml Pro-B-Type Natriuretic Peptide 1919 pg/ml Total Protein 8.2 gm/dl Albumin 3.3 gm/dl Globulin 4.9 gm/dl Albumin/Globulin Ratio 0.7 Activated Partial Thromboplast Time 27.6 SECONDS Partial Thromboplastin Ratio 1.1 Test 11/02/17 23:24 11/02/17 23:52 11/03/17 06:39 11/03/17 07:45 Bedside Glucose 67 mg/dl 72 mg/dl 102 mg/dl White Blood Count 8.09 K/uL Red Blood Count 4.67 M/uL Hemoglobin 15.0 g/dL Hematocrit 46.6 % Mean Corpuscular Volume 99.8 fL Mean Corpuscular Hemoglobin 32.1 pg Mean Corpuscular Hemoglobin Concent 32.2 g/dl Platelet Count 143 K/uL Mean Platelet Volume 10.7 fL Neutrophils (%) (Auto) 63.1 % Lymphocytes (%) (Auto) 23.2 % Monocytes (%) (Auto) 10.4 % Eosinophils (%) (Auto) 2.3 % Basophils (%) (Auto) 0.5 % Neutrophils # (Auto) 5.10 K/uL Lymphocytes # (Auto) 1.88 K/uL Monocytes # (Auto) 0.84 K/uL Eosinophils # (Auto) 0.19 K/uL Basophils # (Auto) 0.04 K/uL RDW Standard Deviation 57.1 fL RDW Coefficient of Variation 15.8 % Immature Granulocyte % (Auto) 0.5 % Immature Granulocyte # (Auto) 0.04 K/uL Nucleated RBC Absolute Count (auto) 0.02 K/uL Nucleated Red Blood Cells % 0.2 % Red Blood Cell Morphology Unremarkable Sodium Level 139 mmol/L Potassium Level 4.5 mmol/L Chloride Level 101 mmol/L Carbon Dioxide Level 32 mmol/L Anion Gap 7.0 mmol/L Blood Urea Nitrogen 49 mg/dl Creatinine 1.07 mg/dl Est Creatinine Clear Calc Drug Dose 95.3 ml/min Estimated GFR () 64.9 Estimated GFR (Non- 56.0 BUN/Creatinine Ratio 46.1 Random Glucose 100 mg/dl Calcium Level 9.9 mg/dl Troponin I 0.140 ng/ml Test 11/03/17 07:55 11/03/17 13:29 Arterial Blood pH 7.40 Arterial Blood Partial Pressure CO2 55 mmHg Arterial Blood Partial Pressure O2 69 mm/Hg Arterial Blood HCO3 34 mmol/L Arterial Blood Oxygen Saturation 93.5 % Arterial Blood Base Excess 7.1 mEq/L Arterial Blood Gas Delivery 2 L Blaise Test POS Troponin I 0.147 ng/ml Assessment & Plan Right sided heart failure Present with weight gain and fluid retention CXR showed cardiomegaly with evidence of congestive failure Received IV lasix Output about 4L Continue diuresis Monitor BMP ECHO showed * The left ventricle is normal in size. * There is moderate concentric left ventricular hypertrophy. * Septal motion is consistent with conduction abnormality. * No regional wall motion abnormalities noted. * Ejection Fraction = 50-55%. * No hemodynamically significant valvular aortic stenosis. * There is mild to moderate mitral annular calcification. * The mitral valve leaflets are moderately thickened with mild restriction in leaflet mobility. * No significant mitral valve stenosis. Elevated Troponin Possible related to acute kidney failure Troponin slightly trending up Denies any chest pain EKG showed no ischemic changes continue monitor in telemetry Acute Kidney Injury Creatine on admission 1.4 creatine today 1 Nephrology on board Continue diuresis Monitor BMP closely Hypertension BP improved stable. DM2 Hba1c 8.1 in 08/2017 On Lantus Continue insulin coverage Bilateral lower extremity erythema Possible related to cellulitis On doxycycline Afebrile, No leukocytosis Stable DVT px on heparin subq Full code. Consultants: Cardio Nephro Current Inpatient Medications: Current Inpatient Medications Medications (Trade) Dose Ordered Sig/Vani Route Start Time Stop Time Status Last Admin Dose Admin Heparin Sodium (Porcine) (Heparin Sq 5000 Unit/0.5ml) 5,000 unit Q8 SQ 11/03/17 06:00 12/03/17 05:59 11/03/17 14:02 5,000 UNIT Acetaminophen (Tylenol Tab) 325 mg Q6H PRN PO 11/02/17 22:30 12/02/17 22:29 Nitroglycerin (Nitrostat Tab) 0.4 mg UD PRN SL 11/02/17 22:30 12/02/17 22:29 Insulin Aspart (novoLOG ASPART) SLIDING SCALE If C... ACHS SC 11/03/17 07:00 12/03/17 06:59 11/03/17 12:07 2 UNITS Glucose (Glucose 40% Gel) 15-30 GRAMS 15 GRAMS... UD PRN PO 11/02/17 22:30 12/02/17 22:29 Glucose (Glucose Chew Tab) 4-8 Tablets 4 Tabl... UD PRN PO 11/02/17 22:30 12/02/17 22:29 Dextrose (Dextrose 50% 50ML Syringe) 25-50ML OF 50% DW IV FOR... UD PRN IV 11/02/17 22:30 12/02/17 22:29 Glucagon (Glucagon Inj) 1 mg UD PRN SQ 11/02/17 22:30 12/02/17 22:29 Amitriptyline HCl (Elavil Tab) 25 mg HS PO 11/03/17 21:00 12/03/17 20:59 Gabapentin (Neurontin Tab) 600 mg HS PO 11/03/17 21:00 12/03/17 20:59 Levothyroxine Sodium (Synthroid Tab) 50 mcg DAILYBB PO 11/03/17 06:00 12/03/17 05:59 11/03/17 05:59 50 MCG Pantoprazole Sodium (Protonix Tab) 40 mg BID PO 11/03/17 09:00 12/03/17 08:59 11/03/17 08:42 40 MG Hydromorphone HCl (Dilaudid Inj) 0.5 mg Q3H PRN IV 11/02/17 22:45 11/16/17 22:44 Tramadol HCl (Ultram Tab) not relieved ... Q6H PRN PO 11/02/17 22:45 12/02/17 22:44 Prochlorperazine Edisylate 5 mg/ Syringe 5 ml @ 5 mls/min Q6H PRN IV 11/02/17 22:45 12/02/17 22:44 Doxycycline Hyclate (Vibramycin Cap) 100 mg BID PO 11/03/17 09:00 11/12/17 23:59 11/03/17 08:41 100 MG Furosemide 60 mg/ Syringe 6 ml @ 4 mls/min BID17 IV 11/03/17 09:00 11/04/17 08:59 11/03/17 08:40 4 MLS/MIN Insulin Glargine (Lantus Solostar Pen) 10 units BID SQ 11/03/17 09:00 12/03/17 08:59 11/03/17 08:39 10 UNITS Metoprolol Succinate (Toprol Xl Tab) 75 mg BID PO 11/03/17 21:00 12/03/17 08:59 Nitroglycerin (Nitroglycerin 2% Oint) 0.5 inch Q6H EXT 11/03/17 11:00 12/03/17 10:59 11/03/17 11:29 0.5 INCH
[2017-11-03] MEDS ORDERED: NURSING VERBAL MED ORDER ONE (17:15)
[2017-11-03] MEDS ORDERED: LABETALOL HCL IV 5 MG/ML 20ML IV ONE (17:30)
[2017-11-03] MEDS: AMITRIPTYLINE HCL 25 MG TAB PO SCH (21:13)
[2017-11-03] MEDS: METOPROLOL SUCC 25MG EXT REL TAB PO SCH (21:14)
[2017-11-03] MEDS: GABAPENTIN 600 MG TAB PO SCH (21:15)
[2017-11-04] VITALS (10 sets, daily range): BP systolic 127–185; BP diastolic 73–95; PULSE 91–95; TEMP 36.4–37.3; O2SAT 93–97
[2017-11-04] MEDS: NITROGLYCERIN OINT 2% 1GM PACKET EXT SCH ×4 (05:14→22:24)
[2017-11-04] MEDS: LEVOTHYROXINE 50 MCG TAB PO SCH (05:15)
[2017-11-04] MEDS: HEPARIN SOD 5000 UNIT/0.5 ML CARP SQ SCH ×3 (05:16→21:03)
[2017-11-04 07:37] LABS: BUN/CREATININE RATIO 35.8 (10-20); CALCIUM 9.8 mg/dl (8.5-10.1); CREATININE 1.06 mg/dl (0.60-1.20); POTASSIUM 4.1 mmol/L (3.5-5.1)
[2017-11-04] MEDS: METOPROLOL SUCC 25MG EXT REL TAB PO SCH (09:22)
[2017-11-04] MEDS: DOXYCYCLINE HYCLATE 100 MG CAP PO SCH ×2 (09:22→20:56)
[2017-11-04] MEDS: PANTOprazole SOD 40 MG TAB PO SCH ×2 (09:22→20:57)
[2017-11-04] MEDS: INSULIN ASPART 100 UNITS/ML 3 ML PEN SC SCH ×4 (09:24→20:59)
[2017-11-04] MEDS: INSULIN GLARGINE SOLOSTAR 100 UNITS/ML 3 ML PEN SQ SCH ×2 (09:26→21:01)
[2017-11-04] MEDS ORDERED: FUROSEMIDE INJ 40 MG in SYRINGE 0 ML IV ONE (12:15)
[2017-11-04] MEDS ORDERED: FUROSEMIDE INJ 60 MG in SYRINGE 0 ML IV ONE (12:30)
--- NOTE | 2017-11-04 12:38 | CARDIOLOGY PROGRESS NOTE ---
DATE: 11/04/2017 DATE: 11/04/2017 The patient seen and examined. Chart, medications, telemetry reviewed. SUBJECTIVE: The patient feels improved this morning, has demonstrated profound diuresis overnight greater than 9 liters. Notes no chest pains, dizziness, lightheadedness, syncope or near syncope. Blood pressures are still trending higher. She is wearing oxygen. OBJECTIVE: VITAL SIGNS: Heart rate is 94, blood pressure is 158/76. NECK: Thick. There is no distinct jugular venous distention, though likely present. LUNGS: Reveal markedly diminished breath sounds. CARDIOVASCULAR: Regular. There is no S3 gallop. ABDOMEN: Obese, soft with large panniculus. EXTREMITIES: Reveal chronic lower extremity edema 3+ slightly improved from prior examination. LABORATORY DATA: Sodium is 140, potassium is 4.1, chloride 99, bicarb 35, BUN is 38, creatinine is 1.06, hemoglobin is 15.0. IMPRESSION: A 62-year-old female with morbid obesity, pickwickian syndrome, admitted with right heart/diastolic heart failure secondary to chronic pulmonary issues, preserved LV systolic function. PLAN: Will increase metoprolol to 100 mg twice per day for heart rate and blood pressure control. This may also need to be intensified. We will continue topical nitrates. Continue IV diuretics. We will hold a.m. dose tomorrow given very prompt diuresis today. I will continue to follow patient in the hospital. Pulmonary evaluation as planned.
--- NOTE | 2017-11-04 20:18 | Progress Note ---
Medicine Progress Note Date & Time of Visit: Nov 04, 2017 at 20:11. Subjective Pt was seen and examined Sitting in bed with no distress Pt said that she feels better Denies any chest pain, palpitation, dizziness and SOB Objective Last 8 Hrs Date Time Temp Pulse Resp B/P (MAP) Pulse Ox O2 Delivery O2 Flow Rate FiO2 11/04/17 19:19 37.1 95 20 185/95 (125) 97 Nasal Cannula 2.0 11/04/17 16:00 96 Nasal Cannula 2.0 11/04/17 15:33 37.3 91 18 150/77 (101) 96 Nasal Cannula 2.0 Physical Exam: General- No acute distress, Head- atraumatic Eyes- PERRL, EOMI ENT- oropharynx clear Neck- supple, no JVD Lungs- No wheezing Heart- regular rhythm Abdomen- normal bowel sounds, Non tenderness Extremities- no calf tenderness Neuro- alert, oriented x 3; PERRL, EOMI; no facial palsy Skin- warm & dry Laboratory Results: Last 24 Hours Test 11/03/17 20:14 11/04/17 06:19 11/04/17 06:50 11/04/17 11:11 Bedside Glucose 174 mg/dl 141 mg/dl 229 mg/dl Sodium Level 140 mmol/L Potassium Level 4.1 mmol/L Chloride Level 99 mmol/L Carbon Dioxide Level 35 mmol/L Anion Gap 6.0 mmol/L Blood Urea Nitrogen 38 mg/dl Creatinine 1.06 mg/dl Est Creatinine Clear Calc Drug Dose 93.4 ml/min Estimated GFR () 65.6 Estimated GFR (Non- 56.6 BUN/Creatinine Ratio 35.8 Random Glucose 148 mg/dl Calcium Level 9.8 mg/dl Troponin I 0.125 ng/ml Test 11/04/17 16:07 Bedside Glucose 161 mg/dl Assessment & Plan Right sided heart failure Present with weight gain and fluid retention CXR showed cardiomegaly with evidence of congestive failure Received IV lasix Output about 13L Continue diuresis Lasix 40mg IV today Hold in am to assess renal function Cardiology on board Monitor BMP ECHO showed * The left ventricle is normal in size. * There is moderate concentric left ventricular hypertrophy. * Septal motion is consistent with conduction abnormality. * No regional wall motion abnormalities noted. * Ejection Fraction = 50-55%. * No hemodynamically significant valvular aortic stenosis. * There is mild to moderate mitral annular calcification. * The mitral valve leaflets are moderately thickened with mild restriction in leaflet mobility. * No significant mitral valve stenosis. Elevated Troponin Possible related to acute kidney failure Troponin trending down Denies any chest pain EKG showed no ischemic changes continue monitor in telemetry Acute Kidney Injury Creatine on admission 1.4 creatine today 1 Nephrology on board Continue diuresis Monitor BMP closely Hypertension Metoprolol increased to 100mg BID stable. DM2 Hba1c 8.1 in 08/2017 On Lantus Continue insulin coverage Bilateral lower extremity erythema Pt said that it is chronic On doxycycline Afebrile, No leukocytosis Stable DVT px on heparin subq Full code. Consultants: Cardio Nephro Current Inpatient Medications: Current Inpatient Medications Medications (Trade) Dose Ordered Sig/Vani Route Start Time Stop Time Status Last Admin Dose Admin Heparin Sodium (Porcine) (Heparin Sq 5000 Unit/0.5ml) 5,000 unit Q8 SQ 11/03/17 06:00 12/03/17 05:59 11/04/17 12:14 5,000 UNIT Acetaminophen (Tylenol Tab) 325 mg Q6H PRN PO 11/02/17 22:30 12/02/17 22:29 Nitroglycerin (Nitrostat Tab) 0.4 mg UD PRN SL 11/02/17 22:30 12/02/17 22:29 Insulin Aspart (novoLOG ASPART) SLIDING SCALE If C... ACHS SC 11/03/17 07:00 12/03/17 06:59 11/04/17 12:14 3 UNITS Glucose (Glucose 40% Gel) 15-30 GRAMS 15 GRAMS... UD PRN PO 11/02/17 22:30 12/02/17 22:29 Glucose (Glucose Chew Tab) 4-8 Tablets 4 Tabl... UD PRN PO 11/02/17 22:30 12/02/17 22:29 Dextrose (Dextrose 50% 50ML Syringe) 25-50ML OF 50% DW IV FOR... UD PRN IV 11/02/17 22:30 12/02/17 22:29 Glucagon (Glucagon Inj) 1 mg UD PRN SQ 11/02/17 22:30 12/02/17 22:29 Amitriptyline HCl (Elavil Tab) 25 mg HS PO 11/03/17 21:00 12/03/17 20:59 12/5/17 21:13 25 MG Gabapentin (Neurontin Tab) 600 mg HS PO 11/03/17 21:00 12/03/17 20:59 11/03/17 21:15 600 MG Levothyroxine Sodium (Synthroid Tab) 50 mcg DAILYBB PO 11/03/17 06:00 12/03/17 05:59 11/04/17 05:15 50 MCG Pantoprazole Sodium (Protonix Tab) 40 mg BID PO 11/03/17 09:00 12/03/17 08:59 11/04/17 09:22 40 MG Hydromorphone HCl (Dilaudid Inj) 0.5 mg Q3H PRN IV 11/02/17 22:45 11/16/17 22:44 Tramadol HCl (Ultram Tab) not relieved ... Q6H PRN PO 11/02/17 22:45 12/02/17 22:44 Prochlorperazine Edisylate 5 mg/ Syringe 5 ml @ 5 mls/min Q6H PRN IV 11/02/17 22:45 12/02/17 22:44 Doxycycline Hyclate (Vibramycin Cap) 100 mg BID PO 11/03/17 09:00 11/12/17 23:59 11/04/17 09:22 100 MG Insulin Glargine (Lantus Solostar Pen) 10 units BID SQ 11/03/17 09:00 12/03/17 08:59 11/04/17 09:26 10 UNITS Nitroglycerin (Nitroglycerin 2% Oint) 0.5 inch Q6H EXT 11/03/17 11:00 12/03/17 10:59 11/04/17 16:31 0.5 INCH Metoprolol Succinate (Toprol Xl Tab) 100 mg BID PO 11/04/17 21:00 12/03/17 08:59
[2017-11-04] MEDS: METOPROLOL SUCC 50MG EXT REL TAB PO SCH (20:56)
[2017-11-04] MEDS: AMITRIPTYLINE HCL 25 MG TAB PO SCH (20:56)
[2017-11-04] MEDS: GABAPENTIN 600 MG TAB PO SCH (20:57)
[2017-11-05] VITALS (8 sets, daily range): BP systolic 128–178; BP diastolic 72–98; PULSE 85–89; TEMP 36.4–37; O2SAT 90–100
[2017-11-05] MEDS ORDERED: ZOLPIDEM TARTRATE 5 MG TAB PO PRN
[2017-11-05] MEDS: NITROGLYCERIN OINT 2% 1GM PACKET EXT SCH ×4 (06:09→23:36)
[2017-11-05] MEDS: LEVOTHYROXINE 50 MCG TAB PO SCH (06:10)
[2017-11-05] MEDS: HEPARIN SOD 5000 UNIT/0.5 ML CARP SQ SCH ×3 (06:10→20:23)
[2017-11-05] MEDS: INSULIN ASPART 100 UNITS/ML 3 ML PEN SC SCH ×4 (07:00→20:16)
[2017-11-05 08:21] LABS: BUN/CREATININE RATIO 31.2 (10-20); CALCIUM 9.6 mg/dl (8.5-10.1); CREATININE 1.02 mg/dl (0.60-1.20); POTASSIUM 3.7 mmol/L (3.5-5.1)
[2017-11-05] MEDS: DOXYCYCLINE HYCLATE 100 MG CAP PO SCH (09:01)
[2017-11-05] MEDS: METOPROLOL SUCC 50MG EXT REL TAB PO SCH ×2 (09:01→20:22)
[2017-11-05] MEDS: PANTOprazole SOD 40 MG TAB PO SCH ×2 (09:02→20:22)
[2017-11-05] MEDS: INSULIN GLARGINE SOLOSTAR 100 UNITS/ML 3 ML PEN SQ SCH ×2 (09:07→20:23)
[2017-11-05] MEDS ORDERED: SPIRONOLACTONE 25 MG TAB PO ONE (09:45)
[2017-11-05] MEDS ORDERED: FUROSEMIDE INJ 40 MG in SYRINGE 0 ML IV ONE (09:45)
[2017-11-05] MEDS ORDERED: POTASSIUM CHLORIDE 10 MEQ TABCR PO STA (12:51)
--- NOTE | 2017-11-05 13:18 | CARDIOLOGY PROGRESS NOTE ---
DATE: 11/05/2017 DATE: 11/05/2017 The patient seen and examined. Chart, medications, telemetry reviewed. SUBJECTIVE: The patient once again demonstrates improvement. Weight is down 10 kilograms with significant diuresis over 2 days to proportion. She is wearing oxygen at night. Notes no chest pains. Notes no dizziness or lightheadedness. Notes no fevers or chills. OBJECTIVE: VITAL SIGNS: Heart rate is 87, blood pressure is 162/80, pulse ox 95% on 2 liters nasal cannula. HEAD, EYES, EARS, NOSE, AND THROAT: Normocephalic, atraumatic. NECK: Thick. LUNGS: Reveal diminished breath sounds diffusely. CARDIOVASCULAR: Regular with distant heart sounds. ABDOMEN: Soft, obese with large panniculus. EXTREMITIES: Reveal chronic stasis changes in lower extremities, significant improvement in lower extremity edema. LABORATORY DATA: Sodium is 139, potassium is 3.7, chloride is 99, bicarb 36, BUN is 32, creatinine is 1.02. IMPRESSION: A 62-year-old female with history of morbid obesity, acute on chronic right heart failure secondary to pickwickian phenomena clinically responding to IV diuretics. We will give an additional dose of IV furosemide today, spironolactone will be added at 12.5 mg daily for diuretic purposes as well as to aid in potassium retention. Additional 20 mEq of potassium will be also given. Will follow patient as clinical responds. Blood pressures are trending slightly higher during hospitalization. She has been treated with increased dose of metoprolol succinate and topical nitrates. We will continue topical nitrates for time being. Further antihypertensive regimen may be warranted. Suspect blood pressure may improve as volume status improves.
--- NOTE | 2017-11-05 17:26 | Progress Note ---
Medicine Progress Note Date & Time of Visit: Nov 05, 2017 at 10:49. Subjective Pt was seen and examined Sitting in the recliner chair with no distress Pt said that she feels much better Denies any chest pain, palpitation, dizziness sob Objective Last 8 Hrs Date Time Temp Pulse Resp B/P (MAP) Pulse Ox O2 Delivery O2 Flow Rate FiO2 11/05/17 15:40 37.0 88 22 172/82 (112) 94 178/98 (124) 11/05/17 12:00 100 Nasal Cannula 2.0 11/05/17 11:39 36.4 86 20 178/74 (108) 97 11/05/17 08:00 36.9 87 20 162/80 (107) 95 Nasal Cannula 2.0 11/05/17 08:00 95 Nasal Cannula 2.0 Physical Exam: General- No acute distress, Head- atraumatic Eyes- PERRL, EOMI ENT- oropharynx clear Neck- supple, no JVD Lungs- No wheezing Heart- regular rhythm Abdomen- normal bowel sounds, Non tenderness Extremities- no calf tenderness Neuro- alert, oriented x 3; PERRL, EOMI; no facial palsy Skin- warm & dry Laboratory Results: Last 24 Hours Test 11/04/17 16:07 11/04/17 20:23 11/05/17 06:15 11/05/17 07:13 Bedside Glucose 161 mg/dl 150 mg/dl 144 mg/dl Sodium Level 139 mmol/L Potassium Level 3.7 mmol/L Chloride Level 99 mmol/L Carbon Dioxide Level 36 mmol/L Anion Gap 5.0 mmol/L Blood Urea Nitrogen 32 mg/dl Creatinine 1.02 mg/dl Est Creatinine Clear Calc Drug Dose 96.4 ml/min Estimated GFR () 68.8 Estimated GFR (Non- 59.3 BUN/Creatinine Ratio 31.2 Random Glucose 156 mg/dl Calcium Level 9.6 mg/dl Test 11/05/17 11:39 Bedside Glucose 154 mg/dl Assessment & Plan Right sided heart failure Present with weight gain and fluid retention CXR showed cardiomegaly with evidence of congestive failure Received IV lasix Output about 15L Continue diuresis Lasix 40mg IV given today starting on spironolactone 12.5 mg daily Creatine has been stable Hold in am to assess renal function Cardiology on board Monitor BMP ECHO showed * The left ventricle is normal in size. * There is moderate concentric left ventricular hypertrophy. * Septal motion is consistent with conduction abnormality. * No regional wall motion abnormalities noted. * Ejection Fraction = 50-55%. * No hemodynamically significant valvular aortic stenosis. * There is mild to moderate mitral annular calcification. * The mitral valve leaflets are moderately thickened with mild restriction in leaflet mobility. * No significant mitral valve stenosis. Elevated Troponin Possible related to acute kidney failure Troponin trending down Denies any chest pain EKG showed no ischemic changes continue monitor in telemetry Acute Kidney Injury Creatine on admission 1.4 creatine stable Nephrology on board Continue diuresis Monitor BMP closely Hypertension Metoprolol increased to 100mg BID stable. DM2 Hba1c 8.1 in 08/2017 On Lantus Continue insulin coverage Bilateral lower extremity erythema Pt said that it is chronic Does not look like cellulitis Will D/C doxycycline Afebrile, No leukocytosis Stable DVT px on heparin subq Full code. Consultants: Cardio Nephro Current Inpatient Medications: Current Inpatient Medications Medications (Trade) Dose Ordered Sig/Vani Route Start Time Stop Time Status Last Admin Dose Admin Heparin Sodium (Porcine) (Heparin Sq 5000 Unit/0.5ml) 5,000 unit Q8 SQ 11/03/17 06:00 12/03/17 05:59 11/05/17 12:59 5,000 UNIT Acetaminophen (Tylenol Tab) 325 mg Q6H PRN PO 11/02/17 22:30 12/02/17 22:29 11/04/17 20:54 325 MG Nitroglycerin (Nitrostat Tab) 0.4 mg UD PRN SL 11/02/17 22:30 12/02/17 22:29 Insulin Aspart (novoLOG ASPART) SLIDING SCALE If C... ACHS SC 11/03/17 07:00 12/03/17 06:59 11/04/17 12:14 3 UNITS Glucose (Glucose 40% Gel) 15-30 GRAMS 15 GRAMS... UD PRN PO 11/02/17 22:30 12/02/17 22:29 Glucose (Glucose Chew Tab) 4-8 Tablets 4 Tabl... UD PRN PO 11/02/17 22:30 12/02/17 22:29 Dextrose (Dextrose 50% 50ML Syringe) 25-50ML OF 50% DW IV FOR... UD PRN IV 11/02/17 22:30 1/3/18 22:29 Glucagon (Glucagon Inj) 1 mg UD PRN SQ 11/02/17 22:30 12/02/17 22:29 Amitriptyline HCl (Elavil Tab) 25 mg HS PO 11/03/17 21:00 12/03/17 20:59 11/04/17 20:56 25 MG Gabapentin (Neurontin Tab) 600 mg HS PO 11/03/17 21:00 12/03/17 20:59 11/04/17 20:57 600 MG Levothyroxine Sodium (Synthroid Tab) 50 mcg DAILYBB PO 11/03/17 06:00 12/03/17 05:59 11/05/17 06:10 50 MCG Pantoprazole Sodium (Protonix Tab) 40 mg BID PO 11/03/17 09:00 12/03/17 08:59 11/05/17 09:02 40 MG Hydromorphone HCl (Dilaudid Inj) 0.5 mg Q3H PRN IV 11/02/17 22:45 11/16/17 22:44 Tramadol HCl (Ultram Tab) not relieved ... Q6H PRN PO 11/02/17 22:45 12/02/17 22:44 Prochlorperazine Edisylate 5 mg/ Syringe 5 ml @ 5 mls/min Q6H PRN IV 11/02/17 22:45 12/02/17 22:44 Doxycycline Hyclate (Vibramycin Cap) 100 mg BID PO 11/03/17 09:00 11/12/17 23:59 11/05/17 09:01 100 MG Nitroglycerin (Nitroglycerin 2% Oint) 0.5 inch Q6H EXT 11/03/17 11:00 12/03/17 10:59 11/05/17 10:14 0.5 INCH Metoprolol Succinate (Toprol Xl Tab) 100 mg BID PO 11/04/17 21:00 12/03/17 08:59 11/05/17 09:01 100 MG Insulin Glargine (Lantus Solostar Pen) 30 units BID SQ 11/04/17 21:00 12/03/17 08:59 11/05/17 09:07 30 UNITS Zolpidem Tartrate (Ambien Tab) 5 mg HS PRN PO 11/05/17 00:00 12/05/17 00:00 11/05/17 00:28 5 MG Spironolactone (Aldactone Tab) 12.5 mg QAM PO 11/06/17 09:00 12/06/17 08:59
[2017-11-05] MEDS: AMITRIPTYLINE HCL 25 MG TAB PO SCH (20:21)
[2017-11-05] MEDS: GABAPENTIN 600 MG TAB PO SCH (20:21)
[2017-11-06] VITALS (7 sets, daily range): BP systolic 129–163; BP diastolic 60–85; PULSE 78–89; TEMP 36.7–37.1; O2SAT 93–95
[2017-11-06] MEDS: LEVOTHYROXINE 50 MCG TAB PO SCH (06:16)
[2017-11-06] MEDS: NITROGLYCERIN OINT 2% 1GM PACKET EXT SCH ×4 (06:16→22:48)
[2017-11-06] MEDS: HEPARIN SOD 5000 UNIT/0.5 ML CARP SQ SCH ×3 (06:17→21:41)
[2017-11-06] MEDS: GABAPENTIN 600 MG TAB PO SCH (07:41)
[2017-11-06] MEDS: SPIRONOLACTONE 25 MG TAB PO SCH (07:42)
[2017-11-06] MEDS: METOPROLOL SUCC 50MG EXT REL TAB PO SCH ×2 (07:42→21:36)
[2017-11-06] MEDS: PANTOprazole SOD 40 MG TAB PO SCH ×2 (07:42→21:35)
[2017-11-06] MEDS: INSULIN GLARGINE SOLOSTAR 100 UNITS/ML 3 ML PEN SQ SCH ×2 (07:44→21:39)
[2017-11-06] MEDS: INSULIN ASPART 100 UNITS/ML 3 ML PEN SC SCH ×4 (07:44→21:39)
--- NOTE | 2017-11-06 09:41 | CARDIOLOGY PROGRESS NOTE ---
DATE: 11/06/2017 DATE: 11/06/2017 The patient seen and examined. Chart, medications, telemetry reviewed. SUBJECTIVE: The patient once again feels improved. Blood pressures remain mildly elevated. She notes no chest pain or shortness of breath. Did desaturate significantly last night on nocturnal oximetry. She has continued to manifest good diuresis. Electrolytes and renal function are pending from this morning. PHYSICAL EXAMINATION: VITAL SIGNS: Heart rate 88, blood pressure is 161/72 and O2 saturations are 95% on 2 liters nasal cannula. Weight is 175.3 kilograms today. HEAD, EYES, EARS, NOSE, AND THROAT: Normocephalic, atraumatic. NECK: Thick. LUNGS: Reveal diminished breath sounds in all lung downey. CARDIOVASCULAR: Regular. There is no S3 gallop. ABDOMEN: Obese, soft with large panniculus. EXTREMITIES: Without cyanosis or clubbing. There are chronic stasis changes and 3+ lower extremity edema. IMPRESSION: A 62-year-old female with issues as follows: 1. Marked right heart failure secondary to obesity hypoventilation syndrome (Pickwickian) manifesting good diuresis as noted on nocturnal oximetry, significant nocturnal hypoxia will need to be addressed. Dietary assessment has been requested by patient to aid in diet caloric and sodium restriction. 2. Hypertension. We will continue diuretics depending on results of BMP this morning. Will likely supplement magnesium in addition to potassium to hopefully avoid atrial arrhythmias. PLAN: Will be to switch topical nitrates to oral antihypertensive depending on what the results of renal function testing. Will follow patient as clinical course progresses.
[2017-11-06 09:56] LABS: BUN/CREATININE RATIO 30.2 (10-20); CALCIUM 9.7 mg/dl (8.5-10.1); CREATININE 1.02 mg/dl (0.60-1.20); POTASSIUM 3.7 mmol/L (3.5-5.1)
--- NOTE | 2017-11-06 16:11 | Progress Note ---
Medicine Progress Note Date & Time of Visit: Nov 06, 2017 at 16:06. Subjective Pt was seen and examined Lying in bed comfortable with at bedside Pt said that she feels fine Denies any chest pain, palpitation and SOB Objective Last 8 Hrs Date Time Temp Pulse Resp B/P (MAP) Pulse Ox O2 Delivery O2 Flow Rate FiO2 11/06/17 12:00 Nasal Cannula 2.0 11/06/17 12:00 36.8 78 19 129/73 (91) 93 Nasal Cannula 2.0 Physical Exam: General- No acute distress, Head- atraumatic Eyes- PERRL, EOMI ENT- oropharynx clear Neck- supple, no JVD Lungs- No wheezing Heart- regular rhythm Abdomen- normal bowel sounds, Non tenderness Extremities- no calf tenderness Neuro- alert, oriented x 3; PERRL, EOMI; no facial palsy Skin- warm & dry Laboratory Results: Last 24 Hours Test 11/05/17 16:19 11/05/17 20:11 11/06/17 06:53 11/06/17 08:49 Bedside Glucose 137 mg/dl 147 mg/dl 141 mg/dl Sodium Level 136 mmol/L Potassium Level 3.7 mmol/L Chloride Level 97 mmol/L Carbon Dioxide Level 31 mmol/L Anion Gap 8.0 mmol/L Blood Urea Nitrogen 31 mg/dl Creatinine 1.02 mg/dl Est Creatinine Clear Calc Drug Dose 96.6 ml/min Estimated GFR () 68.8 Estimated GFR (Non- 59.3 BUN/Creatinine Ratio 30.2 Random Glucose 151 mg/dl Calcium Level 9.7 mg/dl Test 11/06/17 11:16 Bedside Glucose 134 mg/dl Assessment & Plan Right sided heart failure Present with weight gain and fluid retention CXR showed cardiomegaly with evidence of congestive failure Received IV lasix Output about 15L Continue diuresis Lasix 40mg IV given today Continue spironolactone 12.5 mg daily Creatine has been stable Hold in am to assess renal function Cardiology on board Monitor BMP ECHO showed * The left ventricle is normal in size. * There is moderate concentric left ventricular hypertrophy. * Septal motion is consistent with conduction abnormality. * No regional wall motion abnormalities noted. * Ejection Fraction = 50-55%. * No hemodynamically significant valvular aortic stenosis. * There is mild to moderate mitral annular calcification. * The mitral valve leaflets are moderately thickened with mild restriction in leaflet mobility. * No significant mitral valve stenosis. Hypoxia overnight pulse oximetry suggest pt is qualify for oxygen case discuss with case picker to arrange for oxygen on discharge Will need a sleep study test for CPAP Will need to follow with pulmonary Elevated Troponin Possible related to acute kidney failure Troponin trending down Denies any chest pain EKG showed no ischemic changes continue monitor in telemetry Acute Kidney Injury Creatine on admission 1.4 creatine stable Nephrology on board Continue diuresis Monitor BMP closely Hypertension Metoprolol increased to 100mg BID stable. DM2 Hba1c 8.1 in 08/2017 On Lantus Continue insulin coverage Bilateral lower extremity erythema Pt said that it is chronic Does not look like cellulitis Will D/C doxycycline Afebrile, No leukocytosis Stable DVT px on heparin subq Full code. Consultants: Cardio Nephro Current Inpatient Medications: Current Inpatient Medications Medications (Trade) Dose Ordered Sig/Vani Route Start Time Stop Time Status Last Admin Dose Admin Heparin Sodium (Porcine) (Heparin Sq 5000 Unit/0.5ml) 5,000 unit Q8 SQ 11/03/17 06:00 12/03/17 05:59 11/06/17 13:21 5,000 UNIT Acetaminophen (Tylenol Tab) 325 mg Q6H PRN PO 11/02/17 22:30 12/02/17 22:29 11/04/17 20:54 325 MG Nitroglycerin (Nitrostat Tab) 0.4 mg UD PRN SL 11/02/17 22:30 12/02/17 22:29 Insulin Aspart (novoLOG ASPART) SLIDING SCALE If C... ACHS SC 11/03/17 07:00 12/03/17 06:59 11/06/17 07:44 1 UNITS Glucose (Glucose 40% Gel) 15-30 GRAMS 15 GRAMS... UD PRN PO 11/02/17 22:30 12/02/17 22:29 Glucose (Glucose Chew Tab) 4-8 Tablets 4 Tabl... UD PRN PO 11/02/17 22:30 12/02/17 22:29 Dextrose (Dextrose 50% 50ML Syringe) 25-50ML OF 50% DW IV FOR... UD PRN IV 11/02/17 22:30 12/02/17 22:29 Glucagon (Glucagon Inj) 1 mg UD PRN SQ 11/02/17 22:30 12/02/17 22:29 Amitriptyline HCl (Elavil Tab) 25 mg HS PO 11/03/17 21:00 12/03/17 20:59 11/05/17 20:21 25 MG Gabapentin (Neurontin Tab) 600 mg HS PO 11/03/17 21:00 12/03/17 20:59 11/06/17 07:41 600 MG Levothyroxine Sodium (Synthroid Tab) 50 mcg DAILYBB PO 11/03/17 06:00 12/03/17 05:59 11/06/17 06:16 50 MCG Pantoprazole Sodium (Protonix Tab) 40 mg BID PO 11/03/17 09:00 12/03/17 08:59 11/06/17 07:42 40 MG Hydromorphone HCl (Dilaudid Inj) 0.5 mg Q3H PRN IV 11/02/17 22:45 11/16/17 22:44 Tramadol HCl (Ultram Tab) not relieved ... Q6H PRN PO 11/02/17 22:45 12/02/17 22:44 Prochlorperazine Edisylate 5 mg/ Syringe 5 ml @ 5 mls/min Q6H PRN IV 11/02/17 22:45 12/02/17 22:44 Nitroglycerin (Nitroglycerin 2% Oint) 0.5 inch Q6H EXT 11/03/17 11:00 12/03/17 10:59 11/06/17 10:32 0.5 INCH Metoprolol Succinate (Toprol Xl Tab) 100 mg BID PO 11/04/17 21:00 12/03/17 08:59 11/06/17 07:42 100 MG Insulin Glargine (Lantus Solostar Pen) 30 units BID SQ 11/04/17 21:00 12/03/17 08:59 11/06/17 07:44 30 UNITS Zolpidem Tartrate (Ambien Tab) 5 mg HS PRN PO 11/05/17 00:00 12/05/17 00:00 11/05/17 00:28 5 MG Spironolactone (Aldactone Tab) 12.5 mg QAM PO 11/06/17 09:00 12/06/17 08:59 11/06/17 07:42 12.5 MG
[2017-11-06] MEDS ORDERED: FUROSEMIDE INJ 40 MG in SYRINGE 0 ML IV ONE (16:45)
[2017-11-06] MEDS ORDERED: POTASSIUM CHLORIDE 20 MEQ TABCR PO ONE (16:45)
[2017-11-06] MEDS: AMITRIPTYLINE HCL 25 MG TAB PO SCH (21:35)
[2017-11-07 03:50] VITALS: BP 147/72; PULSE 96; TEMP 37.2; O2SAT 93
[2017-11-07] MEDS: NITROGLYCERIN OINT 2% 1GM PACKET EXT SCH ×2 (06:06→10:47)
[2017-11-07] MEDS: LEVOTHYROXINE 50 MCG TAB PO SCH (06:06)
[2017-11-07] MEDS: HEPARIN SOD 5000 UNIT/0.5 ML CARP SQ SCH ×3 (06:09→20:35)
[2017-11-07 07:15] LABS: BUN/CREATININE RATIO 27.5 (10-20); CALCIUM 9.4 mg/dl (8.5-10.1); CREATININE 1.03 mg/dl (0.60-1.20); POTASSIUM 3.8 mmol/L (3.5-5.1)
[2017-11-07 07:25] VITALS: BP 162/78; PULSE 79; TEMP 37; O2SAT 92
[2017-11-07] MEDS: INSULIN ASPART 100 UNITS/ML 3 ML PEN SC SCH ×4 (07:57→20:34)
[2017-11-07] MEDS: METOPROLOL SUCC 50MG EXT REL TAB PO SCH ×2 (08:02→20:33)
[2017-11-07] MEDS: SPIRONOLACTONE 25 MG TAB PO SCH (08:02)
[2017-11-07] MEDS: PANTOprazole SOD 40 MG TAB PO SCH ×2 (08:02→20:33)
[2017-11-07] MEDS: INSULIN GLARGINE SOLOSTAR 100 UNITS/ML 3 ML PEN SQ SCH ×2 (08:04→20:35)
[2017-11-07] MEDS ORDERED: POTASSIUM CHLORIDE 20 MEQ TABCR PO ONE (10:00)
[2017-11-07] MEDS ORDERED: FUROSEMIDE INJ 40 MG in SYRINGE 0 ML IV ONE (10:00)
[2017-11-07] MEDS ORDERED: LISINOPRIL 5 MG TAB PO ONE (10:45)
--- NOTE | 2017-11-07 11:02 | CARDIOLOGY PROGRESS NOTE ---
DATE: 11/07/2017 DATE: 11/07/2017 The patient seen and examined. Chart, medications, telemetry reviewed. SUBJECTIVE: The patient notes no complaints, lower extremity edema is improving though still feels like the balls of her feet are full. I's and O's reflect negative outputs. OBJECTIVE: VITAL SIGNS: Heart rate 79, blood pressure is 162/78. NECK: Thick. There is no distinct jugular venous distention. LUNGS: Reveal diminished breath sounds. CARDIOVASCULAR: Regular. There is no S3 gallop. ABDOMEN: Soft, nontender. EXTREMITIES: Without cyanosis or clubbing. There are chronic stasis changes and edema. LABORATORY DATA: Sodium is 137, potassium 3.8, chloride 99, bicarbonate 32, BUN is 28, creatinine is 1.0. IMPRESSION: A 62-year-old female with significant right heart failure secondary to hypoventilation obesity syndrome. The patient is gradually diuresing. Once again will continue IV diuretics increasing furosemide to 40 mg twice per day today. We will add lisinopril 5 mg per day to begin today for additional blood pressure control. Topical nitrates will be changed to oral MTDD
[2017-11-07 12:00] VITALS: BP 178/89; PULSE 82; TEMP 36.4; O2SAT 94
[2017-11-07] MEDS: ISOSORBIDE DINITRATE 20 MG TAB PO SCH (13:23)
[2017-11-07] MEDS ORDERED: FUROSEMIDE INJ 40 MG in SYRINGE 0 ML IV SCH (16:00)
[2017-11-07 16:09] VITALS: BP 168/80; PULSE 74; TEMP 36.9; O2SAT 96
--- NOTE | 2017-11-07 18:28 | Progress Note ---
Medicine Progress Note Date & Time of Visit: Nov 07, 2017 at 09:19. Subjective Pt was seen and examined Lying in chair with no distress Pt said that she feels much better Denies any chest pain, palpitation and SOB Objective Last 8 Hrs Date Time Temp Pulse Resp B/P (MAP) Pulse Ox O2 Delivery O2 Flow Rate FiO2 11/07/17 16:09 36.9 74 18 168/80 (109) 96 11/07/17 16:00 Nasal Cannula 2.0 11/07/17 12:00 36.4 82 20 178/89 (118) 94 Nasal Cannula 2.0 11/07/17 12:00 Nasal Cannula 2.0 Physical Exam: General- No acute distress, Head- atraumatic Eyes- PERRL, EOMI ENT- oropharynx clear Neck- supple, no JVD Lungs- No wheezing Heart- regular rhythm Abdomen- normal bowel sounds, Non tenderness Extremities- no calf tenderness Neuro- alert, oriented x 3; PERRL, EOMI; no facial palsy Skin- warm & dry Laboratory Results: Last 24 Hours Test 11/06/17 20:08 11/07/17 06:26 11/07/17 07:02 11/07/17 16:31 Bedside Glucose 215 mg/dl 137 mg/dl 136 mg/dl Sodium Level 137 mmol/L Potassium Level 3.8 mmol/L Chloride Level 99 mmol/L Carbon Dioxide Level 32 mmol/L Anion Gap 6.0 mmol/L Blood Urea Nitrogen 28 mg/dl Creatinine 1.03 mg/dl Est Creatinine Clear Calc Drug Dose 95.7 ml/min Estimated GFR () 67.9 Estimated GFR (Non- 58.6 BUN/Creatinine Ratio 27.5 Random Glucose 139 mg/dl Calcium Level 9.4 mg/dl Assessment & Plan Right sided heart failure Present with weight gain and fluid retention CXR showed cardiomegaly with evidence of congestive failure Received IV lasix Output about 17L Continue diuresis Will get lasix 40mg BID IV today Continue spironolactone 12.5 mg daily Creatine has been stable Hold in am to assess renal function Cardiology on board Monitor BMP ECHO showed * The left ventricle is normal in size. * There is moderate concentric left ventricular hypertrophy. * Septal motion is consistent with conduction abnormality. * No regional wall motion abnormalities noted. * Ejection Fraction = 50-55%. * No hemodynamically significant valvular aortic stenosis. * There is mild to moderate mitral annular calcification. * The mitral valve leaflets are moderately thickened with mild restriction in leaflet mobility. * No significant mitral valve stenosis. Hypoxia overnight pulse oximetry suggest pt is qualify for oxygen case discuss with director of casework services to arrange for oxygen on discharge Will need a sleep study test for CPAP as an outpatient Will need to follow with pulmonary to arrange for the sleep study Elevated Troponin Possible related to acute kidney failure Troponin trending down Denies any chest pain EKG showed no ischemic changes continue monitor in telemetry Acute Kidney Injury Creatine on admission 1.4 creatine stable at 1.03 Nephrology on board Continue diuresis Monitor BMP closely Hypertension BP elevated Metoprolol increased to 100mg BID On spironolactone 12.5 mg Starting on Lisinopril 5 mg stable. DM2 Hba1c 8.1 in 08/2017 On Lantus Continue insulin coverage Diabetic education consult Bilateral lower extremity erythema Pt said that it is chronic Does not look like cellulitis D/C doxycycline Afebrile, No leukocytosis Stable DVT px on heparin subq Full code. Disposition Will transfer to medical Consultants: Cardio Nephro Current Inpatient Medications: Current Inpatient Medications Medications (Trade) Dose Ordered Sig/Vani Route Start Time Stop Time Status Last Admin Dose Admin Heparin Sodium (Porcine) (Heparin Sq 5000 Unit/0.5ml) 5,000 unit Q8 SQ 11/03/17 06:00 12/03/17 05:59 11/07/17 13:27 5,000 UNIT Acetaminophen (Tylenol Tab) 325 mg Q6H PRN PO 11/02/17 22:30 12/02/17 22:29 11/04/17 20:54 325 MG Nitroglycerin (Nitrostat Tab) 0.4 mg UD PRN SL 11/02/17 22:30 12/02/17 22:29 Insulin Aspart (novoLOG ASPART) SLIDING SCALE If C... ACHS SC 11/03/17 07:00 12/03/17 06:59 11/06/17 21:39 2 UNITS Glucose (Glucose 40% Gel) 15-30 GRAMS 15 GRAMS... UD PRN PO 11/02/17 22:30 12/02/17 22:29 Glucose (Glucose Chew Tab) 4-8 Tablets 4 Tabl... UD PRN PO 11/02/17 22:30 12/02/17 22:29 Dextrose (Dextrose 50% 50ML Syringe) 25-50ML OF 50% DW IV FOR... UD PRN IV 11/02/17 22:30 12/02/17 22:29 Glucagon (Glucagon Inj) 1 mg UD PRN SQ 11/02/17 22:30 12/02/17 22:29 Amitriptyline HCl (Elavil Tab) 25 mg HS PO 11/03/17 21:00 12/03/17 20:59 11/06/17 21:35 25 MG Gabapentin (Neurontin Tab) 600 mg HS PO 11/03/17 21:00 12/03/17 20:59 11/06/17 07:41 600 MG Levothyroxine Sodium (Synthroid Tab) 50 mcg DAILYBB PO 11/03/17 06:00 12/03/17 05:59 11/07/17 06:06 50 MCG Pantoprazole Sodium (Protonix Tab) 40 mg BID PO 11/03/17 09:00 12/03/17 08:59 11/07/17 08:02 40 MG Hydromorphone HCl (Dilaudid Inj) 0.5 mg Q3H PRN IV 11/02/17 22:45 11/16/17 22:44 Tramadol HCl (Ultram Tab) not relieved ... Q6H PRN PO 11/02/17 22:45 12/02/17 22:44 Prochlorperazine Edisylate 5 mg/ Syringe 5 ml @ 5 mls/min Q6H PRN IV 11/02/17 22:45 12/02/17 22:44 Metoprolol Succinate (Toprol Xl Tab) 100 mg BID PO 11/04/17 21:00 12/03/17 08:59 11/07/17 08:02 100 MG Insulin Glargine (Lantus Solostar Pen) 30 units BID SQ 11/04/17 21:00 12/03/17 08:59 11/07/17 08:04 30 UNITS Zolpidem Tartrate (Ambien Tab) 5 mg HS PRN PO 11/05/17 00:00 12/05/17 00:00 11/05/17 00:28 5 MG Spironolactone (Aldactone Tab) 12.5 mg QAM PO 11/06/17 09:00 12/06/17 08:59 12/9/17 08:02 12.5 MG Lisinopril (Zestril Tab) 5 mg QAM PO 11/08/17 09:00 12/08/17 08:59 Isosorbide Dinitrate (Isordil Tab) 20 mg BID@0700,1200 PO 11/07/17 12:00 12/07/17 11:59 11/07/17 13:23 20 MG
[2017-11-07 19:34] VITALS: BP 161/74; PULSE 79; TEMP 36.8; O2SAT 95
[2017-11-07] MEDS: AMITRIPTYLINE HCL 25 MG TAB PO SCH (20:33)
[2017-11-07] MEDS: GABAPENTIN 600 MG TAB PO SCH (20:33)
[2017-11-08] VITALS (7 sets, daily range): BP systolic 135–180; BP diastolic 63–85; PULSE 74–92; TEMP 36.5–36.9; O2SAT 89–98
[2017-11-08 06:19] LABS: BUN/CREATININE RATIO 28.4 (10-20); CALCIUM 9.5 mg/dl (8.5-10.1); CREATININE 1.12 mg/dl (0.60-1.20); MAGNESIUM 1.7 mg/dl (1.8-2.4); POTASSIUM 3.6 mmol/L (3.5-5.1)
[2017-11-08] MEDS: LEVOTHYROXINE 50 MCG TAB PO SCH (06:33)
[2017-11-08] MEDS: HEPARIN SOD 5000 UNIT/0.5 ML CARP SQ SCH ×3 (06:35→21:25)
[2017-11-08] MEDS: INSULIN ASPART 100 UNITS/ML 3 ML PEN SC SCH ×4 (08:00→21:00)
[2017-11-08] MEDS: LISINOPRIL 5 MG TAB PO SCH (08:06)
[2017-11-08] MEDS: METOPROLOL SUCC 50MG EXT REL TAB PO SCH ×2 (08:06→19:33)
[2017-11-08] MEDS: PANTOprazole SOD 40 MG TAB PO SCH ×2 (08:06→19:36)
[2017-11-08] MEDS: ISOSORBIDE DINITRATE 20 MG TAB PO SCH ×2 (08:06→11:29)
[2017-11-08] MEDS: SPIRONOLACTONE 25 MG TAB PO SCH (08:07)
[2017-11-08] MEDS: INSULIN GLARGINE SOLOSTAR 100 UNITS/ML 3 ML PEN SQ SCH ×2 (08:08→21:24)
[2017-11-08] MEDS ORDERED: POTASSIUM CHLORIDE 10 MEQ TABCR PO ONE (08:30)
[2017-11-08] MEDS ORDERED: MAGNESIUM OXIDE 400 MG TAB PO ONE ×2 (08:30→21:00)
[2017-11-08] MEDS ORDERED: FUROSEMIDE 80 MG TAB PO ONE (10:42)
[2017-11-08] MEDS ORDERED: SPIRONOLACTONE 25 MG TAB PO ONE (10:45)
--- NOTE | 2017-11-08 12:55 | PROGRESS NOTE ---
DATE: 11/08/2017 CARDIOLOGY CONSULTATION FOLLOWUP NOTE The patient seen and examined. Chart, medications, telemetry reviewed. SUBJECTIVE: The patient continues to demonstrate ongoing diuresis and improvement in leg edema and abdominal bloating. Weight now down 12 kilograms. She denies fevers, chills or productive cough. She is tolerating current medications well. OBJECTIVE: VITAL SIGNS: Heart rate is 74, blood pressure is 147/85, O2 saturations 93% on room air. NECK: Thick. There is no distinct jugular venous distention. LUNGS: Reveal diminished breath sounds diffusely, but are clear. CARDIOVASCULAR: Regular. There is no S3 gallop. ABDOMEN: Obese, soft with large panniculus, less distended. EXTREMITIES: Reveal chronic stasis changes and 2+ lower extremity edema improved, prior presacral leg edema and thigh edema is improved. IMPRESSION: A 62-year-old female with morbid obesity, admitted with hypoventilation syndrome, pickwickian syndrome induced right heart failure. The patient is clinically responding. We will discontinue IV diuretics today. Would begin on oral furosemide 80 mg twice per day, increase spironolactone 25 mg per day. Gradually increasing activity in hospital, given generally sedentary status, accessibility to ambulate and proceed safely at home as clinical course progresses.
[2017-11-08] MEDS: FUROSEMIDE 80 MG TAB PO SCH (17:00)
--- NOTE | 2017-11-08 17:13 | Progress Note ---
Medicine Progress Note Date & Time of Visit: Nov 08, 2017 at 17:02. Subjective Pt was seen and examined Lying in bed with no distress with at bedside Pt cried yesterday after mentioning that i would transfer her to medical Pt said that she had a bad experience at another floor She said that we have been very nice to her in telemetry and she does not want to leave to go to another floor. Pt said that she feels fine Denies any chest pain, palpitation, dizziness and SOB Objective Last 8 Hrs Date Time Temp Pulse Resp B/P (MAP) Pulse Ox O2 Delivery O2 Flow Rate FiO2 11/08/17 15:56 36.5 80 22 149/63 (91) 98 11/08/17 15:27 Room Air 11/08/17 12:00 Room Air 11/08/17 10:58 36.8 74 20 147/85 (105) 93 Room Air Physical Exam: General- No acute distress, Head- atraumatic Eyes- PERRL, EOMI ENT- oropharynx clear Neck- supple, no JVD Lungs- No wheezing Heart- regular rhythm Abdomen- normal bowel sounds, Non tenderness Extremities- no calf tenderness Neuro- alert, oriented x 3; PERRL, EOMI; no facial palsy Skin- warm & dry Laboratory Results: Last 24 Hours Test 11/07/17 20:29 11/08/17 05:28 11/08/17 06:28 11/08/17 10:43 Bedside Glucose 132 mg/dl 146 mg/dl 146 mg/dl Sodium Level 136 mmol/L Potassium Level 3.6 mmol/L Chloride Level 98 mmol/L Carbon Dioxide Level 33 mmol/L Anion Gap 5.0 mmol/L Blood Urea Nitrogen 32 mg/dl Creatinine 1.12 mg/dl Est Creatinine Clear Calc Drug Dose 87.3 ml/min Estimated GFR () 61.4 Estimated GFR (Non- 53.0 BUN/Creatinine Ratio 28.4 Random Glucose 148 mg/dl Calcium Level 9.5 mg/dl Magnesium Level 1.7 mg/dl Assessment & Plan Right sided heart failure Present with weight gain and fluid retention CXR showed cardiomegaly with evidence of congestive failure Received IV Lasix Output about 19L has been getting IV Lasix and diuresis well Continue diuresis Lasix changed to 80mg BID Continue spironolactone 12.5 mg daily Creatine has been stable Continue monitor BMP Cardiology on board ECHO showed * The left ventricle is normal in size. * There is moderate concentric left ventricular hypertrophy. * Septal motion is consistent with conduction abnormality. * No regional wall motion abnormalities noted. * Ejection Fraction = 50-55%. * No hemodynamically significant valvular aortic stenosis. * There is mild to moderate mitral annular calcification. * The mitral valve leaflets are moderately thickened with mild restriction in leaflet mobility. * No significant mitral valve stenosis. Hypoxia overnight pulse oximetry suggest pt is qualify for oxygen case discuss with embedded case manager to arrange for oxygen on discharge Will need a sleep study test for CPAP as an outpatient Will need to follow with pulmonary to arrange for the sleep study As per case lorrieer pulse oximetry needs to repeat if pt does not discharge within 48hrs after the last overnight pulse oximetry will schedule for overnight pulse oximetry again Elevated Troponin Possible related to acute kidney failure Troponin trending down Denies any chest pain EKG showed no ischemic changes continue monitor in telemetry Acute Kidney Injury Creatine on admission 1.4 creatine stable at 1.12 Nephrology on board Continue diuresis Monitor [facility] closely Electrolytes Imbalance Mg and K replaced Continue monitor Hypertension BP elevated Metoprolol increased to 100mg BID On spironolactone 12.5 mg Starting on Lisinopril 5 mg stable. DM2 Hba1c 8.1 in 08/2017 On Lantus Continue insulin coverage Diabetic education consult Bilateral lower extremity erythema Pt said that it is chronic Does not look like cellulitis D/C doxycycline Afebrile, No leukocytosis Stable DVT px on heparin subq Full code. Disposition Possible discharge tomorrow is stable Consultants: Cardio Nephro Current Inpatient Medications: Current Inpatient Medications Medications (Trade) Dose Ordered Sig/Vani Route Start Time Stop Time Status Last Admin Dose Admin Heparin Sodium (Porcine) (Heparin Sq 5000 Unit/0.5ml) 5,000 unit Q8 SQ 11/03/17 06:00 12/03/17 05:59 11/08/17 13:15 5,000 UNIT Acetaminophen (Tylenol Tab) 325 mg Q6H PRN PO 11/02/17 22:30 12/02/17 22:29 11/04/17 20:54 325 MG Nitroglycerin (Nitrostat Tab) 0.4 mg UD PRN SL 11/02/17 22:30 12/02/17 22:29 Insulin Aspart (novoLOG ASPART) SLIDING SCALE If C... ACHS SC 11/03/17 07:00 12/03/17 06:59 11/08/17 11:47 3 UNITS Glucose (Glucose 40% Gel) 15-30 GRAMS 15 GRAMS... UD PRN PO 11/02/17 22:30 12/02/17 22:29 Glucose (Glucose Chew Tab) 4-8 Tablets 4 Tabl... UD PRN PO 11/02/17 22:30 12/02/17 22:29 Dextrose (Dextrose 50% 50ML Syringe) 25-50ML OF 50% DW IV FOR... UD PRN IV 11/02/17 22:30 12/02/17 22:29 Glucagon (Glucagon Inj) 1 mg UD PRN SQ 11/02/17 22:30 12/02/17 22:29 Amitriptyline HCl (Elavil Tab) 25 mg HS PO 11/03/17 21:00 12/03/17 20:59 11/07/17 20:33 25 MG Gabapentin (Neurontin Tab) 600 mg HS PO 11/03/17 21:00 12/03/17 20:59 11/07/17 20:33 600 MG Levothyroxine Sodium (Synthroid Tab) 50 mcg DAILYBB PO 11/03/17 06:00 12/03/17 05:59 11/08/17 06:33 50 MCG Pantoprazole Sodium (Protonix Tab) 40 mg BID PO 11/03/17 09:00 12/03/17 08:59 11/08/17 08:06 40 MG Hydromorphone HCl (Dilaudid Inj) 0.5 mg Q3H PRN IV 11/02/17 22:45 11/16/17 22:44 Tramadol HCl (Ultram Tab) not relieved ... Q6H PRN PO 11/02/17 22:45 12/02/17 22:44 Prochlorperazine Edisylate 5 mg/ Syringe 5 ml @ 5 mls/min Q6H PRN IV 11/02/17 22:45 12/02/17 22:44 Metoprolol Succinate (Toprol Xl Tab) 100 mg BID PO 11/04/17 21:00 12/03/17 08:59 11/08/17 08:06 100 MG Insulin Glargine (Lantus Solostar Pen) 30 units BID SQ 11/04/17 21:00 12/03/17 08:59 11/08/17 08:08 30 UNITS Zolpidem Tartrate (Ambien Tab) 5 mg HS PRN PO 11/05/17 00:00 12/05/17 00:00 11/05/17 00:28 5 MG Lisinopril (Zestril Tab) 5 mg QAM PO 11/08/17 09:00 12/08/17 08:59 11/08/17 08:06 5 MG Isosorbide Dinitrate (Isordil Tab) 20 mg BID@0700,1200 PO 11/07/17 12:00 12/07/17 11:59 11/08/17 11:29 20 MG Spironolactone (Aldactone Tab) 25 mg QAM PO 11/09/17 09:00 12/06/17 08:59 Furosemide (Lasix Tab) 80 mg BID17 PO 11/08/17 17:00 12/08/17 16:59
[2017-11-08] MEDS: AMITRIPTYLINE HCL 25 MG TAB PO SCH (19:31)
[2017-11-08] MEDS: GABAPENTIN 600 MG TAB PO SCH (19:32)
[2017-11-09] VITALS (8 sets, daily range): BP systolic 144–163; BP diastolic 73–80; PULSE 80–89; TEMP 36.6–37.1; O2SAT 87–94; Ht 167.6 cm; Wt 173.3 kg
[2017-11-09] MEDS: LEVOTHYROXINE 50 MCG TAB PO SCH (05:42)
[2017-11-09] MEDS: HEPARIN SOD 5000 UNIT/0.5 ML CARP SQ SCH ×2 (05:44→12:17)
[2017-11-09] MEDS: ISOSORBIDE DINITRATE 20 MG TAB PO SCH ×2 (07:35→12:15)
[2017-11-09] MEDS: PANTOprazole SOD 40 MG TAB PO SCH (07:36)
[2017-11-09] MEDS: METOPROLOL SUCC 50MG EXT REL TAB PO SCH (07:36)
[2017-11-09] MEDS: FUROSEMIDE 80 MG TAB PO SCH (07:36)
[2017-11-09] MEDS: LISINOPRIL 5 MG TAB PO SCH (07:36)
[2017-11-09 07:42] LABS: CALCIUM 9.6 mg/dl (8.5-10.1); CREATININE 1.26 mg/dl (0.60-1.20); MAGNESIUM 1.9 mg/dl (1.8-2.4); POTASSIUM 3.8 mmol/L (3.5-5.1)
[2017-11-09] MEDS: INSULIN ASPART 100 UNITS/ML 3 ML PEN SC SCH ×3 (07:42→17:34)
[2017-11-09] MEDS: INSULIN GLARGINE SOLOSTAR 100 UNITS/ML 3 ML PEN SQ SCH (07:42)
[2017-11-09] MEDS ORDERED: SPIRONOLACTONE 25 MG TAB PO SCH (09:00)
--- NOTE | 2017-11-09 14:08 | CARDIOLOGY PROGRESS NOTE ---
DATE: 11/09/2017 CARDIOLOGY CONSULTATION FOLLOWUP NOTE The patient seen and examined. Chart, medications, telemetry reviewed. SUBJECTIVE: The patient feels improved. Weight demonstrated dramatic decline, now down nearly 12 kilograms, ongoing diuresis. Notes no chest pains, dizziness, lightheadedness, syncope or near syncope. OBJECTIVE: VITAL SIGNS: Heart rate is 80, blood pressure is 144/75 and O2 saturations 93% on room air with prompt desaturation with ambulation. NECK: Thick. LUNGS: Notable for diminished breath sounds diffusely. CARDIOVASCULAR: Regular. There is no S3 gallop. ABDOMEN: Soft, obese with large panniculus. EXTREMITIES: Without cyanosis or clubbing. There are chronic stasis changes. IMPRESSION AND PLAN: A 62-year-old female with obesity hypoventilation syndrome and associated marked right heart failure, clinically responding to diuresis. The patient anticipates discharge today. We would recommend discharge on 80 mg furosemide once per day and continue dosing of spironolactone 25 mg per day, lisinopril 5 mg per day for blood pressure. Renal function should be checked later this week to assess potassium and electrolytes. Follow up with primary care physician in the next 1- to 2-week's time. Cardiology would be glad to follow the patient, aid in management of underlying pulmonary issues. Recommend referral to high-risk obesity clinic. Congestive heart failure instructions were given to the patient including sodium restriction and daily weight recommendations.
--- NOTE | 2017-11-09 14:50 | Progress Note ---
Medicine Progress Note Date & Time of Visit: Nov 09, 2017 at 14:20. Subjective Pt was seen and examined Lying in bed comfortable with no distress Pt said that she is feeling much better today She said that she feels ready to go home Pt said that she is not going to use the oxygen during the day and no need to get the 2 steps to order oxygen during day Denies any chest pain, palpitation, dizziness and SOB Objective Last 8 Hrs Date Time Temp Pulse Resp B/P (MAP) Pulse Ox O2 Delivery O2 Flow Rate FiO2 11/09/17 12:00 90 Room Air 11/09/17 10:53 36.6 80 20 144/75 (98) 93 Room Air 11/09/17 08:00 89 Room Air 11/09/17 07:27 37.1 89 22 146/77 (100) 88 Room Air Physical Exam: General- No acute distress, Head- atraumatic Eyes- PERRL, EOMI ENT- oropharynx clear Neck- supple, no JVD Lungs- No wheezing Heart- regular rhythm Abdomen- normal bowel sounds, Non tenderness Extremities- no calf tenderness Neuro- alert, oriented x 3; PERRL, EOMI; no facial palsy Skin- warm & dry Laboratory Results: Last 24 Hours Test 11/08/17 16:16 11/08/17 20:14 11/09/17 06:39 11/09/17 06:53 Bedside Glucose 164 mg/dl 134 mg/dl 140 mg/dl Sodium Level 136 mmol/L Potassium Level 3.8 mmol/L Chloride Level 98 mmol/L Carbon Dioxide Level 31 mmol/L Anion Gap 7.0 mmol/L Blood Urea Nitrogen 37 mg/dl Creatinine 1.26 mg/dl Est Creatinine Clear Calc Drug Dose 77.6 ml/min Estimated GFR () 53.3 Estimated GFR (Non- 45.9 BUN/Creatinine Ratio 29.0 Random Glucose 146 mg/dl Calcium Level 9.6 mg/dl Magnesium Level 1.9 mg/dl Test 11/09/17 11:23 Bedside Glucose 131 mg/dl Assessment & Plan Right sided heart failure Present with weight gain and fluid retention CXR showed cardiomegaly with evidence of congestive failure Output about 19.5L has been getting IV Lasix and diuresis well Continue diuresis Will discharge on lasx 80mg daily Spironolactone increased to 25mg daily Will monitor renal function and electrolytes Check BMP within 1 week Cardiology on board ECHO showed * The left ventricle is normal in size. * There is moderate concentric left ventricular hypertrophy. * Septal motion is consistent with conduction abnormality. * No regional wall motion abnormalities noted. * Ejection Fraction = 50-55%. * No hemodynamically significant valvular aortic stenosis. * There is mild to moderate mitral annular calcification. * The mitral valve leaflets are moderately thickened with mild restriction in leaflet mobility. * No significant mitral valve stenosis. Hypoxia Obesity hypoventilation overnight pulse oximetry suggest pt is qualify for oxygen case discuss with case managers to arrange for oxygen on discharge Will need a sleep study test for CPAP as an outpatient Will need to follow with pulmonary to arrange for the sleep study Overnight oximetry done and suggests pt qualified for nocturnal oxygen Pt said that she will not use the oxygen during the day because she cannot tolerate it She said no need to do the 2 steps exercise to get oxygen during the day She agreed to wear it at bedtime Complications discussed with patient about low oxygen saturation such as SOB and cause increase work load on the heart Elevated Troponin Possible related to acute kidney failure Troponin trending down Denies any chest pain EKG showed no ischemic changes continue monitor in telemetry Acute Kidney Injury Creatine on admission 1.4 creatine slightly increase today to 1.2 Nephrology on board Continue diuresis Monitor BMP closely Electrolytes Imbalance Mg and K replaced Continue monitor Hypertension BP elevated Metoprolol increased to 100mg BID Spironolactone 25mg daily On Lisinopril 5 mg stable. DM2 Hba1c 8.1 in 08/2017 On Lantus Continue insulin coverage Diabetic education consult Bilateral lower extremity erythema Pt said that it is chronic Does not look like cellulitis D/C doxycycline Afebrile, No leukocytosis Stable DVT px on heparin subq Full code. Disposition Will discharge home today Consultants: Cardio Nephro Current Inpatient Medications: Current Inpatient Medications Medications (Trade) Dose Ordered Sig/Vani Route Start Time Stop Time Status Last Admin Dose Admin Heparin Sodium (Porcine) (Heparin Sq 5000 Unit/0.5ml) 5,000 unit Q8 SQ 11/03/17 06:00 12/03/17 05:59 11/09/17 12:17 5,000 UNIT Acetaminophen (Tylenol Tab) 325 mg Q6H PRN PO 11/02/17 22:30 12/02/17 22:29 11/04/17 20:54 325 MG Nitroglycerin (Nitrostat Tab) 0.4 mg UD PRN SL 11/02/17 22:30 12/02/17 22:29 Insulin Aspart (novoLOG ASPART) SLIDING SCALE If C... ACHS SC 11/03/17 07:00 12/03/17 06:59 11/09/17 12:17 1 UNITS Glucose (Glucose 40% Gel) 15-30 GRAMS 15 GRAMS... UD PRN PO 11/02/17 22:30 12/02/17 22:29 Glucose (Glucose Chew Tab) 4-8 Tablets 4 Tabl... UD PRN PO 11/02/17 22:30 12/02/17 22:29 Dextrose (Dextrose 50% 50ML Syringe) 25-50ML OF 50% DW IV FOR... UD PRN IV 11/02/17 22:30 12/02/17 22:29 Glucagon (Glucagon Inj) 1 mg UD PRN SQ 11/02/17 22:30 12/02/17 22:29 Amitriptyline HCl (Elavil Tab) 25 mg HS PO 11/03/17 21:00 12/03/17 20:59 11/08/17 19:31 25 MG Gabapentin (Neurontin Tab) 600 mg HS PO 11/03/17 21:00 12/03/17 20:59 11/08/17 19:32 600 MG Levothyroxine Sodium (Synthroid Tab) 50 mcg DAILYBB PO 11/03/17 06:00 12/03/17 05:59 11/09/17 05:42 50 MCG Pantoprazole Sodium (Protonix Tab) 40 mg BID PO 11/03/17 09:00 12/03/17 08:59 11/09/17 07:36 40 MG Hydromorphone HCl (Dilaudid Inj) 0.5 mg Q3H PRN IV 11/02/17 22:45 11/16/17 22:44 Tramadol HCl (Ultram Tab) not relieved ... Q6H PRN PO 11/02/17 22:45 12/02/17 22:44 Prochlorperazine Edisylate 5 mg/ Syringe 5 ml @ 5 mls/min Q6H PRN IV 11/02/17 22:45 12/02/17 22:44 Metoprolol Succinate (Toprol Xl Tab) 100 mg BID PO 11/04/17 21:00 12/03/17 08:59 11/09/17 07:36 100 MG Insulin Glargine (Lantus Solostar Pen) 30 units BID SQ 11/04/17 21:00 12/03/17 08:59 11/09/17 07:42 30 UNITS Zolpidem Tartrate (Ambien Tab) 5 mg HS PRN PO 11/05/17 00:00 12/05/17 00:00 11/05/17 00:28 5 MG Lisinopril (Zestril Tab) 5 mg QAM PO 11/08/17 09:00 12/08/17 08:59 11/09/17 07:36 5 MG Isosorbide Dinitrate (Isordil Tab) 20 mg BID@0700,1200 PO 11/07/17 12:00 12/07/17 11:59 11/09/17 12:15 20 MG Spironolactone (Aldactone Tab) 25 mg QAM PO 11/09/17 09:00 12/06/17 08:59 11/09/17 07:36 25 MG Furosemide (Lasix Tab) 80 mg DAILY PO 11/10/17 09:00 12/08/17 16:59 UNV
[2017-11-09] MEDS ORDERED: SPR25 PO (15:03)
[2017-11-09] MEDS ORDERED: ISR20 PO (15:03)
[2017-11-09] MEDS ORDERED: LSX80 PO (15:03)
[2017-11-09] MEDS ORDERED: TPRSR50 PO (15:03)
[2017-11-09] MEDS ORDERED: LSN5 PO (15:03)
--- NOTE | 2017-11-09 15:20 | Discharge Instructions ---
Discharge Instructions Date of Service Nov 09, 2017. Admission Reason for Admission: Arf, Elevated Troponin Discharge Discharge Diagnosis / Problem: Right sided heart failure, Hypoxia/ Obesity/ Elevated troponin/ Diabetes Discharge Goals Goal(s): Decrease discomfort, Improve function, Improve disease control Activity Recommendations Activity Limitations: resume your previous activity (as tolerated) . Instructions / Follow-Up Instructions / Follow-Up Follow up with your primary care provider Dr. Webb on 11/12 @ 2:05 You will need to follow with Pulmonary to arrange for a sleep study ( Your physician will arrange for the referral) Call to schedule follow up appointment with cardiology in the next few weeks Check BMP within 3-5 days to check renal function and electrolytes Follow up with the Obesity clinic ( Clinic will call you for the appointment) Continue using oxygen at bedtime Follow up a low salt diet and check your weight regularly Monitor your blood sugar Follow up a low carb diet and limited concentrated sugar intake Current Hospital Diet Patient's current hospital diet: Diabetes Type 2 Diet, Low Sodium Diet (2gm Na) Discharge Diet Recommended Diet: AHA Diet (Heart Healthy), Low Sodium Diet (2gm Na), Diabetes Type 2 Diet Pending Studies Studies pending at discharge: no Laboratory Results Hemoglobin A1c Test 11/02/17 16:55 Range/Units Estimated Average Glucose 174 mg/dl Hemoglobin A1c 7.7 H 4.5-5.6 % Medical Emergencies . Who to Call and When: Medical Emergencies: If at any time you feel your situation is an emergency, please call 911 immediately. . Non-Emergent Contact Non-Emergency issues call your: Primary Care Provider Call Non-Emergent contact if: you have any medication questions . . "Provider Documentation" section prepared by Lexy Mcmahan. . VTE Core Measure Inpt VTE Proph given/why not?: Unfractionated heparin SQ
[2017-11-10] MEDS ORDERED: FUROSEMIDE 80 MG TAB PO SCH (09:00)
== END 2017-11-09 18:25 | disposition home or self-care (01) | DRG 292 ==
LOC: C.EDB 14:18 → C.2T 21:06 → ENRESERV 21:20
PROVIDERS: ADMIT Internal Medicine; ATTEND Internal Medicine
DX: I13.0 Hypertensive heart and chronic kidney disease with heart failure and stage 1 through stage 4 chronic kidney disease, or unspecified chronic kidney disease (principal); N17.9 Acute kidney failure, unspecified; I50.32 Chronic diastolic (congestive) heart failure; L03.116 Cellulitis of left lower limb; L03.115 Cellulitis of right lower limb; Z68.44 Body mass index [BMI] 60.0-69.9, adult; E66.2 Morbid (severe) obesity with alveolar hypoventilation; N18.2 Chronic kidney disease, stage 2 (mild); F32.9 Major depressive disorder, single episode, unspecified; E11.22 Type 2 diabetes mellitus with diabetic chronic kidney disease; E11.40 Type 2 diabetes mellitus with diabetic neuropathy, unspecified; Z79.4 Long term (current) use of insulin; Z79.899 Other long term (current) drug therapy

== ENCOUNTER 2019-10-21 01:24 | Inpatient (IN) ==
--- NOTE | 2019-10-21 01:51 | Emergency Department Note ---
History of Present Illness General Chief complaint: Back Injury/Pain Stated complaint: BACK PAIN,CHILLS History of Present Illness Maximum Pain Intensity: 5 This 64-year-old presents to the ER complaining of shortness of breath and upper back pain with subjective fever and chills and generalized weakness for the past few days steadily getting worse Location: Upper back and chest and mid abdomen Quality: Hard to breathe Severity: Moderate Duration: Past few days Timing: Started few days ago Context: Patient was worried she was having a heart attack and came in Modifying factors: better with rest; worse with activity Patient states she saw the chiropractor today because of her back pain with no change in symptoms. She has pain in her upper mid back. She feels short of breath. She has a history of heart failure. Patient states she is more winded than normal. Patient states her upper abdomen has been more comfortable for her recently has not been drinking any fluids. She has been moving her bowels. Patient denies prior heart attack, stroke, blood clot. She does not smoke. Patient denies vomiting, diarrhea. Patient states she feels weak with chills. Home Medications Home Medications Medication Instructions Recorded Confirmed Type Esomeprazole Magnesium (Nexium) 40 mg PO BID #0 cap 10/26/14 History Gabapentin (Neurontin) 600 mg PO HS #0 cap 10/26/14 History Amitriptyline HCl 25 mg PO HS #0 04/27/16 History Insulin Aspart (NOVOLOG FLEXPEN) SUBCUT AC #0 11/02/17 History Insulin Glargine (Lantus Solostar) 35 unit SUBCUT AMPM #0 pen 11/02/17 History LEVOTHYROXINE SODIUM 50 mcg PO DAILY #0 tab 11/02/17 History Furosemide 80 mg PO DAILY 30 Days #30 tab 11/09/17 Rx ISOSORBIDE DINITRATE (ISORDIL) 20 mg PO BID@0700,1200 30 Days #0 11/09/17 Rx tab Lisinopril 5 mg PO QAM 30 Days #30 tab 11/09/17 Rx Metoprolol Succinate (Metoprolol 100 mg PO BID 30 Days #0 11/09/17 Rx Succinate ER) Spironolactone 25 mg PO QAM 30 Days #30 tab 11/09/17 Rx Allergies Allergy/AdvReac Type Severity Reaction Status Date / Time adhesive Allergy Mild RASH Verified 04/27/16 14:14 Cipro Allergy Unknown HIVES Verified 06/19/16 14:58 nystatin Allergy Unknown MYCOLOG Verified 04/27/16 14:14 CREAM cephalexin AdvReac Intermediate GI SYMPTOMS Verified 08/12/16 09:23 morphine AdvReac Mild N/V Verified 04/27/16 14:14 CONFUSION Past Med/Surg History Social History Preferred Language: Arabic Feels Safe at Home: Yes Smoking Status: Never smoker Review of Systems A total of 10 systems reviewed and were otherwise negative Physical Exam Vital Signs Vital Signs - 24 hr 10/21/19 01:26 10/21/19 01:47 10/21/19 01:56 Temperature 37.2 C Temperature Source Oral Pulse Rate 87 Pulse Rate [Apical] 82 Pulse Rhythm [Apical] Regular Respiratory Rate 18 19 Respiratory Effort / Characteristics Respiratory Depth Normal Blood Pressure 100/54 L Blood Pressure [Left Arm] 135/53 L Blood Pressure Mean 69 Blood Pressure Mean [Left Arm] 80 Pulse Oximetry 98 96 Oxygen Delivery Method Room Air Room Air Room Air Sepsis Recent Fever Within 48 Hours No Sepsis New/Unexplained Change in Mental Status No Sepsis Action Taken by Nursing No Action Required 10/21/19 02:53 Temperature Temperature Source Pulse Rate Pulse Rate [Apical] 68 Pulse Rhythm [Apical] Regular Respiratory Rate 16 Respiratory Effort / Characteristics Non-Labored Spontaneous Respiratory Depth Normal Blood Pressure Blood Pressure [Left Arm] 109/52 L Blood Pressure Mean Blood Pressure Mean [Left Arm] 71 Pulse Oximetry 96 Oxygen Delivery Method Room Air Sepsis Recent Fever Within 48 Hours Sepsis New/Unexplained Change in Mental Status Sepsis Action Taken by Nursing VITALS: Vitals are noted on the nurse's note and reviewed by myself. Vital si gns stable. GENERAL: Pleasant female working to breathe, in no acute distress, nondiaphoretic, well-developed well-nourished. SKIN: Capillary reflex less than 2 seconds. HEENT: Normocephalic. PERRLA. EOMI. Nares patent. Mucous membranes moist. Neck is supple without nuchal rigidity. HEART: Regular rate and rhythm LUNGS: Clear to auscultation bilaterally without wheezes, rales or rhonchi. No retractions or accessory muscle use. ABDOMEN: Positive bowel sounds x 4. Normal tympanic percussion. Soft, nontender, without masses or organomegaly. Jackson sign negative. No guarding or rebound tenderness. MUSCULOSKELETAL: No gross musculoskeletal defects. NEURO: Patient was alert and oriented to person place and time. Normal sensation to light and sharp touch. Deep tendon reflexes 2+[]. No focal neurological deficits. Medical Decision Making Medical Records Attestation: I reviewed the patient's medical records. Home Medications Current Medication List: was personally reviewed by me Laboratory Data Attestation: I reviewed the patient's lab results. Result diagrams: 10/21/19 01:48 10/21/19 01:48 Lab Results 10/21/19 10/21/19 10/21/19 Range/Units 01:48 01:48 01:55 WBC 16.59 H (4.8-10.8) K/uL RBC 3.71 L (4.2-5.4) M/uL Hgb 12.5 (12.0-16.0) g/dL POC Hgb (12.0-16.0) g/dl Hct 37.0 (37-47) % POC Hct (37-47) % MCV 99.7 (80-100) fL MCH 33.7 (25-34) pg MCHC 33.8 (32-36) g/dL RDW Std Deviation 49.3 H (36.4-46.3) fL RDW Coeff of Avery 13.7 (11.5-14.5) % Plt Count 171 (130-400) K/uL MPV 10.7 H (7.4-10.4) fL Immature Gran % (Auto) 0.4 % Neut % (Auto) 79.1 % Lymph % (Auto) 10.0 % [place] % (Auto) 9.9 % Eos % (Auto) 0.4 % Baso % (Auto) 0.2 % Immature Gran # (Auto) 0.07 H (0.00-0.02) K/uL Neut # (Auto) 13.13 H (1.4-6.5) K/uL Lymph # (Auto) 1.66 (1.2-3.4) K/uL [place] # (Auto) 1.64 H (0.11-0.59) K/uL Eos # (Auto) 0.06 (0-0.5) K/uL Baso # (Auto) 0.03 (0-0.2) K/uL POC Sodium (135-144) mEq/L Sodium 134 L (136-145) mmol/L POC Potassium (3.3-5.0) mEq/L Potassium 3.9 (3.5-5.1) mmol/L POC Chloride (101-112) mEq/L Chloride 99 (98-107) mmol/L Carbon Dioxide 27 (21-32) mmol/L POC Total CO2 (24-31) mEq/l Anion Gap 8.0 (3-11) POC Anion Gap (16-25) mmol/L POC BUN (7-18) mg/dl BUN 45 H (7-18) mg/dl Creatinine 2.30 H (0.6-1.2) mg/dl POC Creatinine (0.6-1.3) mg/dl Est Cr Clr Drug Dosing 40.1 ml/min Est GFR ( Amer) 25.4 Est GFR (Non-Af Amer) 21.9 BUN/Creatinine Ratio 19.7 (10-20) Glucose 66 L (70-99) mg/dl POC Glucose (70-99) POC Glucose (other) (70-99) mg/dl Calcium 10.0 (8.5-10.1) mg/dl POC Ioniz Calcium Nadeem (1.12-1.32) mmol/l Magnesium 2.1 (1.8-2.4) mg/dl Total Bilirubin 1.3 H (0.2-1) mg/dl AST 13 L (15-37) U/L ALT 19 (12-78) U/L Alkaline Phosphatase 90 (45-117) U/L Total Creatine Kinase 92 (26-192) U/L POC Troponin I < 0.03 (0-0.045) ng/ml Troponin I 0.016 (0-0.045) ng/ml NT-Pro-B Natriuret Pep 891 (0-900) pg/ml Total Protein 7.7 (6.4-8.2) gm/dl Albumin 3.1 L (3.4-5.0) gm/dl Globulin 4.6 H (2.5-4.0) gm/dl Albumin/Globulin Ratio 0.7 L (0.9-2) Lipase 55 L (73-393) U/L TSH 3.040 (0.300-4.500) uIu/ml 10/21/19 10/21/19 Range/Units 01:58 02:01 WBC (4.8-10.8) K/uL RBC (4.2-5.4) M/uL Hgb (12.0-16.0) g/dL POC Hgb 12.6 (12.0-16.0) g/dl Hct (37-47) % POC Hct 37 (37-47) % MCV (80-100) fL MCH (25-34) pg MCHC (32-36) g/dL RDW Std Deviation (36.4-46.3) fL RDW Coeff of Avery (11.5-14.5) % Plt Count (130-400) K/uL MPV (7.4-10.4) fL Immature Gran % (Auto) % Neut % (Auto) % Lymph % (Auto) % [place] % (Auto) % Eos % (Auto) % Baso % (Auto) % Immature Gran # (Auto) (0.00-0.02) K/uL Neut # (Auto) (1.4-6.5) K/uL Lymph # (Auto) (1.2-3.4) K/uL [place] # (Auto) (0.11-0.59) K/uL Eos # (Auto) (0-0.5) K/uL Baso # (Auto) (0-0.2) K/uL POC Sodium 134 L (135-144) mEq/L Sodium (136-145) mmol/L POC Potassium 4.0 (3.3-5.0) mEq/L Potassium (3.5-5.1) mmol/L POC Chloride 98 L (101-112) mEq/L Chloride (98-107) mmol/L Carbon Dioxide (21-32) mmol/L POC Total CO2 27 (24-31) mEq/l Anion Gap (3-11) POC Anion Gap 15.0 L (16-25) mmol/L POC BUN 40 H (7-18) mg/dl BUN (7-18) mg/dl Creatinine (0.6-1.2) mg/dl POC Creatinine 2.5 H (0.6-1.3) mg/dl Est Cr Clr Drug Dosing ml/min Est GFR ( Amer) Est GFR (Non-Af Amer) BUN/Creatinine Ratio (10-20) Glucose (70-99) mg/dl POC Glucose 80 (70-99) POC Glucose (other) 66 L* (70-99) mg/dl Calcium (8.5-10.1) mg/dl POC Ioniz Calcium Nadeem 1.21 (1.12-1.32) mmol/l Magnesium (1.8-2.4) mg/dl Total Bilirubin (0.2-1) mg/dl AST (15-37) U/L ALT (12-78) U/L Alkaline Phosphatase (45-117) U/L Total Creatine Kinase (26-192) U/L POC Troponin I (0-0.045) ng/ml Troponin I (0-0.045) ng/ml NT-Pro-B Natriuret Pep (0-900) pg/ml Total Protein (6.4-8.2) gm/dl Albumin (3.4-5.0) gm/dl Globulin (2.5-4.0) gm/dl Albumin/Globulin Ratio (0.9-2) Lipase (73-393) U/L TSH (0.300-4.500) uIu/ml Imaging Data Attestation: I personally reviewed and interpreted this imaging study as follows: MDM Narrative Prior records/ancillary studies reviewed and summarized above. Nursing notes reviewed. Additional history obtained from family. The patient's history was concerning for dyspnea, upper back pain, weakness and chills. Differential diagnosis: Etiologies such as metabolic, infection, hypo/hyperglycemia, electrolyte abnormalities, cardiac sources, intracerebral event, toxicologic, neurologic, as well as others were entertained. Physical examination: As above. ER treatment provided: IV Lock, zantac, zofran po fluids On reassessment the patient felt better. Diagnostics interpretation by me: ECG: Ordered for dyspnea EKG: Normal sinus, occasional sinus arrhythmia, no acute ST-T wave changes, rate of 89. Impression normal sinus rhythm with occasional sinus arrhythmia interpreted by myself I think arrhythmia is unlikely. EKG shows normal sinus rhythm with no interval abnormalities such as QT prolongation or WPW. There are no findings to suggest Brugada syndrome. Cardiac monitoring in the emergency department reveals no tachycardic or bradycardic dysrhythmia. Hypertrophic cardiomyopathy was considered but there are no clear historical elements pointing toward this. EKG is not suggestive. The QRS voltage is not extremely large and there are no suggestive Q waves. The labs revealed fingerstick is 80. Glucose in the lab was 66 but repeat was 80. Leukocytosis. Elevated creatinine. I did review the records in the [facility] system and patient normally has a creatinine of 1.2. Imaging studies: Chest x-ray with some pulmonary congestion without overt consolidation or pneumothorax per my interpretation CT CHEST Without Contrast: Subsegmental linear changes in the inferior and posterior lingular segments is presumed subsegmental atelectasis. No lobar consolidation. No pleural effusion or pneumothorax. No radiographic evidence for florid CHF. The thoracic aorta demonstrates atherosclerotic calcification without enl argement. The cardiac chambers are unremarkable. No pericardial effusion. No significant mediastinal adenopathy with nonspecific paratracheal lymph nodes. No acute osseous or significant overlying soft tissue abnormality identified with incidental multilevel degenerative changes of the thoracic spine. Radiologist: Jah Lemos MD CT ABDOMEN & PELVIS Without Contrast: Limited by patient body habitus with partial obscuration and beam hardening artifact involving the anterior and left anterolateral abdomen from direct contact of soft tissues with the CT gantry. No evidence for bowel obstruction. Evaluation of bowel mucosa is limited without contrast. However, no significant focal abnormality identified or significant interval change from the examination dated 11/03/2017. No intraperitoneal fluid or obvious pneumoperitoneum. Minimal hyperdensity in the gallbladder is presumed echogenic sludge or small gallstones, stable. No CT evidence for pericholecystic fluid or biliary dilatation. The unenhanced liver, pancreas, spleen, adrenal glands and kidneys demonstrate no significant abnormality or interval change from the previous exam. The bladder is mildly distended without significant wall abnormalities. Degenerative changes of the thoracic spine. No acute osseous abnormality. No obvious significant acute overlying soft tissue abnormality, where visible. Minimal dermal thickening in the periumbilical region and anterior pelvic region is similar suggesting dependent edema. Radiologist: Jah Lemos MD Consultation: A consultation was placed with the hospitalist, Dr Car. The case was discussed and diagnostics were reviewed. The patient was evaluated in the ER for further treatment. Exam and history seem consistent with acute renal failure. No acute findings on CT imaging. Medicine was consulted. Patient is agreeable to treatment plan of admission. By the evaluation outlined above emergent etiologies such as infection, electrolyte abnormalities, cardiac sources, intracerebral event, toxologic, neurologic, as well as others were deemed relatively unlikely. The pt informed about the findings as listed above. All questions were answered and pleased with the treatment. Case reviewed with my attending The chart was completed utilizing [employer] Speech voice recognition software. Grammatical errors, random word insertions, pronoun errors, and incomplete sentences are an occassional consequence of this system due to software limitations, ambient noise, and hardware issues. Any formal questions or concerns about the content, text, or information contained within the body of this dictation should be directly addressed to the physician assistant to the vice president for clarification. Impression & Plan ARF (acute renal failure), DM2 (diabetes mellitus, type 2), Acute dyspnea Discharge Plan Visit Data Chief Complaint: Back Injury/Pain Stated Complaint: BACK PAIN,CHILLS ED Provider: Jeimy Siddiqui ED Midlevel Provider: Maureen Riggs Discharge Problem: ARF (acute renal failure), DM2 (diabetes mellitus, type 2), Acute dyspnea Patient Disposition: Being Evaluated by Hospitalist Condition: Fair Forms Stand Alone Forms: My [facility] Prescriptions Prescriptions: No Action Esomeprazole Magnesium (Nexium) 40 MG CONTR REL CAP 40 mg PO BID Qty: 0 RF: 0 Gabapentin (Neurontin) 300 MG capsule 600 mg PO HS Qty: 0 RF: 0 Amitriptyline HCl 25 MG tablet 25 mg PO HS Qty: 0 RF: 0 LEVOTHYROXINE SODIUM 50 MCG tablet 50 mcg PO DAILY Qty: 0 RF: 0 Insulin Aspart (NOVOLOG FLEXPEN) 100 UNITS/ML INJECTION subcut AC Qty: 0 RF: 0 Insulin Glargine (Lantus Solostar) 100 UNIT/ML INJECTION 35 unit subcut AMPM Qty: 0 RF: 0 Furosemide 80 MG tablet 80 mg PO DAILY 30 Days Qty: 30 RF: 0 ISOSORBIDE DINITRATE (ISORDIL) 20 MG tablet 20 mg PO BID@0700,1200 30 Days Qty: 0 RF: 0 Lisinopril 5 MG tablet 5 mg PO QAM 30 Days Qty: 30 RF: 0 Metoprolol Succinate (Metoprolol Succinate ER) 50 MG OIAMN-IFY-LPB 100 mg PO BID 30 Days Qty: 0 RF: 0 Spironolactone 25 MG tablet 25 mg PO QAM 30 Days Qty: 30 RF: 0 Referrals Referrals: Selene Webb DO [Primary Care Provider] - Discharge Problem: ARF (acute renal failure) Qualifiers: Acute renal failure type: unspecified Qualified Code(s): N17.9 - Acute kidney failure, unspecified
[2019-10-21 01:59] LABS: Basophils # (auto) 0.03 K/uL (0-0.2); Basophils % (auto) 0.2 %; Eosinophils # (auto) 0.06 K/uL (0-0.5); Eosinophils % (auto) 0.4 %; Hemoglobin 12.5 g/dL (12.0-16.0); Immature Granulocytes # (auto) 0.07 K/uL (0.00-0.02); Immature Granulocytes % (auto) 0.4 %; Lymphocytes # (auto) 1.66 K/uL (1.2-3.4); Mean Corpuscular Hemoglobin 33.7 pg (25-34); Mean Corpuscular Hgb Conc 33.8 g/dL (32-36); Mean Corpuscular Volume 99.7 fL (80-100); Mean Platelet Volume 10.7 fL (7.4-10.4); Monocytes # (auto) 1.64 K/uL (0.11-0.59); Monocytes % (auto) 9.9 %; Neutrophils # (auto) 13.13 K/uL (1.4-6.5); Neutrophils % (auto) 79.1 %; Platelet Count 171 K/uL (130-400); RDW Coefficient of Variation 13.7 % (11.5-14.5); RDW Standard Deviation 49.3 fL (36.4-46.3); Red Blood Count 3.71 M/uL (4.2-5.4); White Blood Count 16.59 K/uL (4.8-10.8)
[2019-10-21 02:11] LABS: iSTAT Creatinine 2.5 mg/dl (0.6-1.3); iSTAT Hemoglobin 12.6 g/dl (12.0-16.0); iSTAT Ionized Calcium 1.21 mmol/l (1.12-1.32)
[2019-10-21 02:15] LABS: Albumin Level 3.1 gm/dl (3.4-5.0); BUN Creatinine Ratio 19.7 (10-20); Creatinine Clr Calc Pharmacy 40.1 ml/min; Est GFR (African American) 25.4; Est GFR (Non-African American) 21.9; Magnesium 2.1 mg/dl (1.8-2.4); Potassium 3.9 mmol/L (3.5-5.1)
[2019-10-21 02:26] LABS: Albumin Globulin Ratio 0.7 (0.9-2); Bilirubin,Total 1.3 mg/dl (0.2-1); Globulin 4.6 gm/dl (2.5-4.0); Thyroid Stimulating Hormone 3.04 uIu/ml (0.300-4.500); Total Protein 7.7 gm/dl (6.4-8.2); Troponin I 0.016 ng/ml (0-0.045)
[2019-10-21] MEDS ORDERED: ONDANSETRON INJ 2 MG/ML 2 ML VIAL IV STA (03:22)
[2019-10-21] MEDS ORDERED: SODIUM CHLORIDE 0.9% 1000ML 1,000 ML IV STA (03:35)
--- NOTE | 2019-10-21 04:24 | History & Physical Report ---
Date of Service October 21, 2019 Assessment & Plan (1) ARF (acute renal failure): ARF on CRI ? Possible viral illness Home medications contributory chronic diastolic heart failure, patient on the dry side OHS as per records, patient yet to schedule sleep study HTN, BP on the lower side DM2 insulin requiring, hypoglycemia noted on admission blood work. Well-controlled as of recent outpatient hemoglobin A1c of 5.07 November 2018 OBS as per case management GMF Baseline UA, monitor creatinine response to IV fluids Appropriate to hold home diuretics and lisinopril for now until creatinine at baseline Nephrology consult if kidney function does not improve Appropriate to hold hold basal insulin for now given hypoglycemia, ISS BG goal 140-180, update hemoglobin A1c (Home insulin dose may need titration pending updated hemoglobin A1c result to avert hypoglycemia at home.) Patient counseled about need to pursue outpatient sleep study recommended by PCP upon discharge from the hospital. DVT prophylaxis. Heparin subcu Full code History of Present Illness Primary Care Provider: Selene Webb, History obtained from patient, family, and records. Medical history significant for chronic diastolic heart failure (R side HF as per records, EF 50-55%, TTE 2017), OHS as per records, HTN, DM2 insulin requiring, CRI (baseline creatinine 1.2 ) Recent confinement October 2017 for right-sided heart failure. Few days history of generalized weakness, poor appetite, upper/mid back pain from dry heaving food. Short of breath from generalized weakness. No actual chest pain as per patient. Patient denies abdominal pain. No fluid retention. Patient brought to the Emergency Room by her .. MEDICAL HISTORY: As above. SURGERIES: She has had bilateral breast reduction, oophorectomy, hysterectomy, knee surgery. FAMILY HISTORY: Heart disease. PERSONAL AND SOCIAL HISTORY: Nonsmoker, no chronic intake of alcoholic beverages., had a daycare business. Allergies Allergy/AdvReac Type Severity Reaction Status Date / Time adhesive Allergy Mild RASH Verified 10/21/19 04:06 Cipro Allergy Unknown HIVES Verified 06/19/16 14:58 ciprofloxacin Allergy Unknown HIVES Verified 10/21/19 04:06 nystatin Allergy Unknown MYCOLOG Verified 10/21/19 04:06 CREAM cephalexin AdvReac Intermediate GI SYMPTOMS Verified 10/21/19 04:06 morphine AdvReac Mild N/V Verified 10/21/19 04:06 CONFUSION Home Medications Home Medications Medication Instructions Recorded Confirmed Type esomeprazole magnesium 40 mg PO BID 10/21/19 10/21/19 History furosemide 80 mg PO QAM 10/21/19 10/21/19 History insulin aspart U-100 [Novolog 0 unit SUBCUT AC 10/21/19 10/21/19 History Flexpen U-100 Insulin] insulin glargine [Lantus Solostar 50 unit SUBCUT AMPM 10/21/19 10/21/19 History U-100 Insulin] isosorbide dinitrate 20 mg PO BID 10/21/19 10/21/19 History levothyroxine 50 mcg PO DAILY 10/21/19 10/21/19 History lisinopril 5 mg PO DAILY 10/21/19 10/21/19 History metoprolol succinate 100 mg PO BID 10/21/19 10/21/19 History spironolactone 25 mg PO QAM 10/21/19 10/21/19 History Past Med/Surg History Social History Preferred Language: [place] Communication Ability: Effective Production Repairer Required: No Beliefs That Will Affect Care: None Current Living Situation: Spouse Feels Safe at Home: Yes Safety Concerns: Feels Safe At This Time Smoking Status: Never smoker Hx Alcohol Use: No Hx Substance Use: No Review of Systems Review of Systems: As per HPI, all 10 systems reviewed, all other ROS negative Physical Exam Physical Exam: GENERAL: Comfortable, morbidly obese, no respiratory distress SKIN: Normal color, warm HEENT: [place] palpebral conjunctivae, no ptosis, dry buccal mucosa NECK : Supple, short neck, no tenderness CHEST : Decreased breath sounds, no tenderness HEART : RRR, no obvious murmurs ABDOMEN: distention, nontender EXTREMITIES : Bilateral LE swelling, no LE tenderness, no other conspicuous deformities noted NEUROLOGIC : Coherent, no facial asymmetry, no other gross focality Results & Data Vital Signs (Past 12 Hours) Vital Signs Temp Pulse Pulse Resp BP BP Pulse Ox 10/21/19 03:48 86 18 106/58 L 96 10/21/19 02:53 68 16 109/52 L 96 10/21/19 01:56 82 19 135/53 L 96 10/21/19 01:26 37.2 C 87 18 100/54 L 98 Laboratory Results Laboratory Results WBC 16.59 K/uL (4.8-10.8) H 10/21/19 01:48 RBC 3.71 M/uL (4.2-5.4) L 10/21/19 01:48 Hgb 12.5 g/dL (12.0-16.0) 10/21/19 01:48 POC Hgb 12.6 g/dl (12.0-16.0) 10/21/19 01:58 Hct 37.0 % (37-47) 10/21/19 01:48 POC Hct 37 % (37-47) 10/21/19 01:58 MCV 99.7 fL (80-100) 10/21/19 01:48 MCH 33.7 pg (25-34) 10/21/19 01:48 MCHC 33.8 g/dL (32-36) 10/21/19 01:48 RDW Std Deviation 49.3 fL (36.4-46.3) H 10/21/19 01:48 RDW Coeff of Avery 13.7 % (11.5-14.5) 10/21/19 01:48 Plt Count 171 K/uL (130-400) 10/21/19 01:48 MPV 10.7 fL (7.4-10.4) H 10/21/19 01:48 Immature Gran % (Auto) 0.4 % 10/21/19 01:48 Neut % (Auto) 79.1 % 10/21/19 01:48 Lymph % (Auto) 10.0 % 10/21/19 01:48 [place] % (Auto) 9.9 % 10/21/19 01:48 Eos % (Auto) 0.4 % 10/21/19 01:48 Baso % (Auto) 0.2 % 10/21/19 01:48 Immature Gran # (Auto) 0.07 K/uL (0.00-0.02) H 10/21/19 01:48 Neut # (Auto) 13.13 K/uL (1.4-6.5) H 10/21/19 01:48 Lymph # (Auto) 1.66 K/uL (1.2-3.4) 10/21/19 01:48 [place] # (Auto) 1.64 K/uL (0.11-0.59) H 10/21/19 01:48 Eos # (Auto) 0.06 K/uL (0-0.5) 10/21/19 01:48 Baso # (Auto) 0.03 K/uL (0-0.2) 10/21/19 01:48 POC Sodium 134 mEq/L (135-144) L 10/21/19 01:58 Sodium 134 mmol/L (136-145) L 10/21/19 01:48 POC Potassium 4.0 mEq/L (3.3-5.0) 10/21/19 01:58 Potassium 3.9 mmol/L (3.5-5.1) 10/21/19 01:48 POC Chloride 98 mEq/L (101-112) L 10/21/19 01:58 Chloride 99 mmol/L (98-107) 10/21/19 01:48 Carbon Dioxide 27 mmol/L (21-32) 10/21/19 01:48 POC Total CO2 27 mEq/l (24-31) 10/21/19 01:58 Anion Gap 8.0 (3-11) 10/21/19 01:48 POC Anion Gap 15.0 mmol/L (16-25) L 10/21/19 01:58 POC BUN 40 mg/dl (7-18) H 10/21/19 01:58 BUN 45 mg/dl (7-18) H 10/21/19 01:48 Creatinine 2.30 mg/dl (0.6-1.2) H 10/21/19 01:48 POC Creatinine 2.5 mg/dl (0.6-1.3) H 10/21/19 01:58 Est Cr Clr Drug Dosing 40.1 ml/min 10/21/19 01:48 Est GFR ( Amer) 25.4 10/21/19 01:48 Est GFR (Non-Af Amer) 21.9 10/21/19 01:48 BUN/Creatinine Ratio 19.7 (10-20) 10/21/19 01:48 Glucose 66 mg/dl (70-99) L 10/21/19 01:48 POC Glucose 80 (70-99) 10/21/19 02:01 POC Glucose (other) 66 mg/dl (70-99) L* 10/21/19 01:58 Calcium 10.0 mg/dl (8.5-10.1) 10/21/19 01:48 POC Ioniz Calcium Nadeem 1.21 mmol/l (1.12-1.32) 10/21/19 01:58 Magnesium 2.1 mg/dl (1.8-2.4) 10/21/19 01:48 Total Bilirubin 1.3 mg/dl (0.2-1) H 10/21/19 01:48 AST 13 U/L (15-37) L 10/21/19 01:48 ALT 19 U/L (12-78) 10/21/19 01:48 Alkaline Phosphatase 90 U/L (45-117) 10/21/19 01:48 Total Creatine Kinase 92 U/L (26-192) 10/21/19 01:48 POC Troponin I < 0.03 ng/ml (0-0.045) 10/21/19 01:55 Troponin I 0.016 ng/ml (0-0.045) 10/21/19 01:48 NT-Pro-B Natriuret Pep 891 pg/ml (0-900) 10/21/19 01:48 Total Protein 7.7 gm/dl (6.4-8.2) 10/21/19 01:48 Albumin 3.1 gm/dl (3.4-5.0) L 10/21/19 01:48 Globulin 4.6 gm/dl (2.5-4.0) H 10/21/19 01:48 Albumin/Globulin Ratio 0.7 (0.9-2) L 10/21/19 01:48 Lipase 55 U/L (73-393) L 10/21/19 01:48 TSH 3.040 uIu/ml (0.300-4.500) 10/21/19 01:[address] chest initial read: Subsegmental linear changes in the inferior and posterior lingular segments presumed to be subsegmental atelectasis. No lobar consolidation. No pleural effusion or pneumothorax. No radiographic evidence of florid CHF. Thoracic aorta demonstrates atherosclerotic calcification without enlargement. Cardiac chambers are unremarkable. No pericardial effusion. No significant mediastinal adenopathy with nonspecific paratracheal lymph nodes. CT abdomen pelvis initial read limited by patient body habitus/partial obs curation. No evidence of bowel obstruction. No significant focal abnormality from October 2017 exam. Minimal hyperdensity gallbladder presumed echogenic sludge or small gallstones stable. No CT evidence of pericholecystic fluid or biliary dilatation. Bladder is mildly distended without significant abnormalities. Minimal dermal thickening periumbilical region and anterior pelvic region suggesting dependent edema. Degenerative changes of the spine. EKG as per my interpretation: Rate 90, NSR, normal axis, incomplete LBBB, T wave flattening lateral leads (1) ARF (acute renal failure) Acute renal failure type: unspecified Qualified Code(s): N17.9 - Acute kidney failure, unspecified
[2019-10-21] MEDS ORDERED: PROMETHAZINE HCL 12.5 MG in SODIUM CHLORIDE 0.9% 50 ML IV PRN (05:21)
[2019-10-21] MEDS ORDERED: CARBOHYDRATES FOR HYPOGLYCEMIA PO PRN (05:21)
[2019-10-21] MEDS ORDERED: DEXTROSE 50% 50 ML SYRINGE IV PRN (05:21)
[2019-10-21] MEDS ORDERED: GLUCOSE 40% GEL 15 GM TUBE PO PRN (05:21)
[2019-10-21] MEDS ORDERED: GLUCAGON FOR INJ 1 MG VIAL SQ PRN (05:21)
[2019-10-21] MEDS ORDERED: GLUCOSE 10 TABS/TUBE PO PRN (05:21)
[2019-10-21] MEDS: INSULIN ASPART 100 UNITS/ML 3 ML PEN SC SCH ×5 (05:31→21:12)
[2019-10-21] MEDS ORDERED: NSS + 20MEQ KCL 20 MEQ/1,000 ML BAG IV ONE (05:45)
[2019-10-21] MEDS: HEPARIN SOD 5,000 UNIT/0.5 ML VIAL SQ SCH ×3 (05:47→20:12)
[2019-10-21] MEDS: LEVOTHYROXINE SODIUM 50 MCG TABLET PO SCH (05:47)
--- NOTE | 2019-10-21 06:23 | CT Scan Report ---
CT abd pelvis wo con CT DOSE: HISTORY: Pain mid abd pian TECHNIQUE: Multiaxial CT images of the abdomen and pelvis were performed without contrast. A dose lo wering technique was utilized adhering to the principles of ALARA. COMPARISON STUDY: 11/03/2017 FINDINGS: Minimal atelectasis anterior aspect right base as well as central aspect left base. Liver s pleen and pancreas are unremarkable. Liver is moderately enlarged. Probable gallbladder sludge. Nonobstructive bowel pattern. Kidneys negative for hydronephrosis. There is atherosclerotic change ab dominal and pelvic arterial vasculature. IMPRESSION: 1. Gallbladder sludge. 2. Nonobstructive bowel pattern. 3. Minimal bibasilar atelectatic and/or infiltrative change. 4. Otherwise negative study. The above report was generated using voice recognition software. It may contain grammatical, syntax or spelling errors. Electronically signed by: Raphael Turner M.D. 10/21/2019 6:22 AM
[2019-10-21 06:43] LABS: Estimated Average Glucose 146 mg/dl; Hemoglobin A1C 6.7 % (4.5-5.6)
[2019-10-21 07:01] LABS: Appearance Urine Cloudy (Clear); Bacteria Urine Automated 4+ (Negative); Bilirubin Urine Negative (Negative); Blood Urine Negative (Negative); Color Urine Dark Yellow; Epithelial Cell Urine Auto >30 /lpf (0-5); Glucose Urine UA Negative (Negative); Ketones Urine Trace (Negative); Leukocyte Esterase Urine 3+ (Negative); Nitrite Urine Negative (Negative); Protein Urine Negative (Negative); RBC Urine Automated 0-4 /hpf (0-4); Urobilinogen Urine Negative (Negative); WBC Urine Automated >30 /hpf (0-5)
--- NOTE | 2019-10-21 07:14 | CT Scan Report ---
CT chest wo con CT DOSE: 4550.84 mGy.cm HISTORY: Shortness of breath. Upper back pain. TECHNIQUE: Multiaxial CT images of the chest were performed without contrast. A dose lowering techni que was utilized adhering to the principles of ALARA. COMPARISON: None. FINDINGS: No pneumothorax. No pleural effusions. The central airways are patent. A 5 mm subpleural no dule within the right upper lobe anteriorly on image 132. There is a 4 mm subpleural nodule within th e right minor fissure on image 140. Bibasilar linear densities likely represent subsegmental atelecta sis. Otherwise, no focal lung consolidations to suggest pneumonia. No suspicious lytic or blastic oss eous lesions. The visualized unenhanced spleen and adrenal glands are unremarkable. There is a 2 cm h ypodense lesion within the right hepatic dome. This is incompletely characterized on this noncontrast study. No mediastinal or hilar lymphadenopathy. Normal esophagus. The heart is mildly enlarged. No p ericardial effusion. Mild calcified plaque within the normal caliber thoracic aorta. IMPRESSION: 1. Bibasilar linear densities likely represent subsegmental atelectasis. 2. Mild cardiomegaly. 3. A 2 cm hypodense lesion within the right hepatic dome. This is incompletely characterized on this noncontrast study 4. There are 2 subcentimeter indeterminate pulmonary nodule within the right lung with the largest me asuring 5 mm. Please refer to the chart below for recommended follow-up. Please refer to below summary of Fleischner criteria recommendations for follow-up of incidental CT n odules (Luc Castro, Guidelines for management of small pulmonary nodules detected on CT scans: A sta tement from the Fleischner Society, Radiology 237: [id number].) SOLID NODULES Solitary nodule size: <6 mm * Low risk patients: no follow-up needed * high risk patients: optional CT at 12 months Solitary nodule size: 6-8 mm * Low risk patients: follow-up at 6-12 months, then consider further follow-up at 18-24 months * high risk patients: initial follow-up CT at 6-12 months and then at 18-24 months if no change Solitary nodule size: >8 mm * either low or high risk patients - consider follow-up CT at 3 months, and/or CT-PET, and/or biopsy Multiple nodules size: <6 mm * Low risk patients: no routine follow-up * high risk patients: optional CT at 12 months Multiple nodules size: 6-8 mm * Low risk patients: follow-up at 3-6 months, then consider further follow-up at 18-24 months * high risk patients: follow-up at 3-6 months, then at 18-24 months if no change Multiple nodules size: >8 mm * Low risk patients: follow-up at 3-6 months, then consider further follow-up at 18-24 months * high risk patients: follow-up at 3-6 months, then at 18-24 months if no change Note: newly detected indeterminate nodule in persons 35 years of age or older. * Low risk patients: minimal or absent history of smoking and/or other known risk factors * high risk patients: history of smoking or of other known risk factors (e.g. first degree relative with lung cancer, or exposure to asbestos, radon, uranium) * if a nodule up to 8 mm is partly solid or is ground glass further follow-up is required after [address] to exclude possible slow growing adenocarcinoma (TRACI) SUBSOLID NODULES Solitary pure ground-glass nodule * nodule size <6 mm - no CT follow-up required * nodule size >=6 mm - follow-up CT at 6-12 months, then every 2 years until 5 years Solitary part-solid nodule * nodule size <6 mm - no CT follow-up required * nodule size >=6 mm - follow-up CT at 3-6 months. If unchanged, and solid component remains <6 mm, then annual follow-up for 5 years Multiple subsolid nodules * nodule size <6 mm - follow-up CT at 3-6 months, consider further follow-up at 2 and 4 years if sta ble * nodule size >=6 mm - follow-up CT at 3-6 months, subsequent management based on the most suspiciou s nodule(s) Electronically signed by: Estuardo Gupta M.D. 10/21/2019 7:12 AM
--- NOTE | 2019-10-21 07:20 | XRay Report ---
XR chest 1V portable CLINICAL HISTORY: 64 years-old Female presenting with Chest Pain. TECHNIQUE: Portable upright AP view of the chest was obtained. COMPARISON: 11/02/2017. FINDINGS: Atherosclerosis of the aortic arch. Cardiac silhouette enlarged. Pulmonary vascular prominence. Mild if any interstitial prominence is evident. No focal opacity. No large effusion or pneumothorax. Degen erative changes of the thoracic spine. Upper abdomen normal. IMPRESSION: 1. Cardiomegaly with volume overload. No advanced congestive change or laura pulmonary edema. Electronically signed by: Geo Sherman M.D. 10/21/2019 7:19 AM
[2019-10-21 07:24] LABS: BUN Creatinine Ratio 21.2 (10-20); Creatinine Clr Calc Pharmacy 41.8 ml/min; Est GFR (African American) 26.6; Potassium 3.9 mmol/L (3.5-5.1)
[2019-10-21] MEDS: ISOSORBIDE DINITRATE 20 MG TAB PO SCH ×2 (08:16→16:16)
[2019-10-21] MEDS: ACETAMINOPHEN 325 MG TAB PO PRN ×3 (08:16→21:11)
[2019-10-21] MEDS: PANTOprazole 40 MG TAB PO SCH ×2 (08:16→20:13)
[2019-10-21] MEDS: METOPROLOL SUCC 25MG EXT REL TAB PO SCH ×2 (08:17→20:12)
[2019-10-21] MEDS: TRAMADOL HCL 50 MG TABLET PO PRN ×3 (10:28→21:11)
[2019-10-21 16:11] LABS: BUN Creatinine Ratio 20.7 (10-20); Calcium 9.9 mg/dl (8.5-10.1); Creatinine Clr Calc Pharmacy 40.7 ml/min; Est GFR (African American) 25.8; Est GFR (Non-African American) 22.2; Potassium 4.4 mmol/L (3.5-5.1)
[2019-10-21] MEDS: SODIUM CHLORIDE 0.9% 1000ML 1,000 ML IV SCH (20:15)
--- NOTE | 2019-10-21 20:19 | Communication Note ---
Date of Service: October 21, 2019 Patient seen and examined by me at the bedside. Patient is an obese female sitting in the chair, comfortable in no acute distress. She complains about some lower back pain, mentions that she saw a chiropractor yesterday because of back pain and says that he "really worked on her", and wonders if she might have back pain from that as well. She is breathing comfortably, on room air, lung sounds are clear without any wheezing or rhonchi. Heart sounds regular no murmurs noted. Abdomen is very obese, and difficult to examine however soft on palpation and nontender to palpation. Normal bowel sounds. Patient received IV fluids after admission, rechecked her BMP this afternoon unfortunately creatinine is essentially unchanged, barely improved. Reviewed her labs and CT scan, patient had CT of the abdomen and pelvis, did not show any obstruction or hydronephrosis. Also updated her at the bedside. Will provide more IV fluids, patient mentions that she was not able to eat or drink for past 4 to 5 days which suggests dehydration. We will recheck her renal function in the morning.
[2019-10-21] MEDS ORDERED: SULFAMETHOXAZOLE/TRIMETHOPRIM DS 800/160MG TAB PO SCH (21:00)
[2019-10-21] MEDS ORDERED: AZTREONAM 2,000 MG in DEXTROSE 5% 100 ML IV STA (22:57)
--- NOTE | 2019-10-21 22:59 | Hospitalist Progress Note ---
Date of Service October 21, 2019 Results & Data Vital Signs (Past 12 Hours) Vital Signs Temp Pulse Resp BP Pulse Ox 10/21/19 20:36 37.9 C H 106 H 20 138/70 92 10/21/19 15:14 37.5 C 106 H 20 140/82 95
[2019-10-22] MEDS: SODIUM CHLORIDE 0.9% 1000ML 1,000 ML IV SCH ×2 (03:07→11:29)
[2019-10-22] MEDS: LEVOTHYROXINE SODIUM 50 MCG TABLET PO SCH (05:39)
[2019-10-22] MEDS: HEPARIN SOD 5,000 UNIT/0.5 ML VIAL SQ SCH ×3 (05:39→22:29)
[2019-10-22 06:03] LABS: Basophils # (auto) 0.02 K/uL (0-0.2); Basophils % (auto) 0.1 %; Eosinophils # (auto) 0.04 K/uL (0-0.5); Eosinophils % (auto) 0.2 %; Hematocrit (blood only) 35.5 % (37-47); Hemoglobin 11.5 g/dL (12.0-16.0); Immature Granulocytes # (auto) 0.08 K/uL (0.00-0.02); Immature Granulocytes % (auto) 0.3 %; Lymphocytes # (auto) 2.14 K/uL (1.2-3.4); Lymphocytes % (auto) 8.7 %; Mean Corpuscular Hemoglobin 32.8 pg (25-34); Mean Corpuscular Hgb Conc 32.4 g/dL (32-36); Mean Corpuscular Volume 101.1 fL (80-100); Mean Platelet Volume 11.3 fL (7.4-10.4); Monocytes # (auto) 2.61 K/uL (0.11-0.59); Monocytes % (auto) 10.6 %; Neutrophils # (auto) 19.84 K/uL (1.4-6.5); Neutrophils % (auto) 80.1 %; Platelet Count 183 K/uL (130-400); RDW Coefficient of Variation 13.9 % (11.5-14.5); RDW Standard Deviation 50.9 fL (36.4-46.3); Red Blood Count 3.51 M/uL (4.2-5.4); White Blood Count 24.73 K/uL (4.8-10.8)
[2019-10-22 06:36] LABS: BUN Creatinine Ratio 19.6 (10-20); Calcium 9.4 mg/dl (8.5-10.1); Creatinine Clr Calc Pharmacy 37.4 ml/min; Est GFR (African American) 23.3; Est GFR (Non-African American) 20.1; Potassium 4.6 mmol/L (3.5-5.1)
[2019-10-22] MEDS ORDERED: PIPERACILL/TAZOBAC CONSULT ACTIVE PRN (06:55)
--- NOTE | 2019-10-22 07:01 | Hospitalist Progress Note ---
Date of Service October 22, 2019 Assessment & Plan (1) Sepsis: Urosepsis Sepsis secondary to NICOLETTE Last night patient spiked fever, T-max 37.9 Celsius, tachypnea RR 20, tachycardia HR over 100 White blood cell count increased from 16.6K to 24.7K Creatinine elevated on admission, at 2.27 and increased to 2.48 (despite IVF) -UA positive for leuk esterase and bacteria, images of chest, abdomen pelvis negative - blood cltx obtained and antibiotic broadened to zosyn - will cont. to closely monitor (2) UTI (urinary tract infection): UA positive for leuk. esterase, and bacteria, nitrites negative Urine culture positive for E. coli, sensitivities pending - currently on zosyn d/t above (received one dose of Bactrim last night, as pt has multiple drug allergies, WBC increased then overnight to 24k) - Plan to narrow down antibiotics, after sensitivities available (3) NICOLETTE (acute kidney injury): Creatinine 2.27 -Possibly secondary to dehydration, patient reports poor p.o. intake for the past 4 to 5 days -However not much improved after IV hydration, therefore most likely secondary to above (UTI) -hold home diuretics -We will continue IV hydration, and antibiotics -We will continue to monitor renal function, will try to avoid nephrotoxic agents, such as NSAIDs and contrast (4) DM2 (diabetes mellitus, type 2): - DM2 insulin requiring, hypoglycemia noted on admission blood work - well controlled, Hemoglobin A1c 6.7% (10/21) - cont. SSI, plan to re-start basal insulin if BS poorly controlled - cont. to monitor BSG closely Chronic diastolic heart failure, patient on the dry side OHS as per records, patient yet to schedule sleep study HTN - BP on the lower side on admission - currently acceptable BP, in the setting of sepsis DVT prophylaxis. Heparin subcu Full code Subjective Patient was admitted, with NICOLETTE, creatinine elevated to 2.27 she was getting IVF and yesterday evening felt well, little bit weak with some backache. Patient felt that her back ache was musculoskeletal in origin, went to see chiropractor prior to admission. Her UA was found positive though for UTI and she was started on Bactrim last night (patient has multiple antibiotic allergies listed). However she developed fever yesterday, tachypnea tachycardia, and her white blood cell count which was already elevated increased overnight. This morning blood cultures were obtained, and antibiotic coverage was broadened to Zosyn, Bactrim was discontinued. She says that she feels better today, denies chest pain, shortness of breath, abdominal pain. However she still feels quite weak and complains of right-sided lower back pain. Review of Systems 2 Review of Systems: All systems reviewed & are unremarkable except as noted in HPI & below Constitutional: + chills and + body aches; no fever Respiratory: no cough and no dyspnea Cardiovascular: no chest pain, no dyspnea on exertion and no palpitations Gastrointestinal: no abdominal pain, no nausea and no vomiting Musculoskeletal: + back pain (Right lower back) Physical Exam Physical Exam: Morbidly obese female sitting up in the bed, tachypneic, tachycardic Constitutional: well developed, well nourished and + obese Neck: Supple Respiratory: Auscultation: lungs clear to auscultation bilaterally; no crackles, no rhonchi and no wheezes Tachypneic Cardiovascular: Tachycardic, regular, no murmurs noted Chest (Breasts): Chest: normal inspection of chest Gastrointestinal (Abdomen): Obese abdomen, soft, nontender, nondistended, normal bowel sounds, no guarding Musculoskeletal: Head/Neck/Chest: normocephalic, head atraumatic and neck supple Moves all 4 extremities spontaneously Skin: Warm, dry, with some rash/lesions in between her skin folds Neurologic: PERRL, EOMI, accommodation nl, no face palsy, no dysarthria moves all extremities Psychiatric: A+Ox3, euthymic affect Speech: normal rate/rhythm/volume of speech Genitourinary: + CVA tenderness (Right-sided) Lymphatic: + lymphedema (Bilateral lower extremity) Results & Data Vital Signs (Past 12 Hours) Vital Signs Temp Pulse Resp BP Pulse Ox 10/21/19 23:49 36.5 C 102 H 20 142/53 H 90 10/21/19 20:36 37.9 C H 106 H 20 138/70 92 Laboratory Results 10/22/19 10/22/19 10/21/19 Range/Units 05:14 05:14 20:35 WBC 24.73 H (4.8-10.8) K/uL RBC 3.51 L (4.2-5.4) M/uL Hgb 11.5 L (12.0-16.0) g/dL Hct 35.5 L (37-47) % MCV 101.1 H (80-100) fL MCH 32.8 (25-34) pg MCHC 32.4 (32-36) g/dL RDW Std Deviation 50.9 H (36.4-46.3) fL RDW Coeff of Avery 13.9 (11.5-14.5) % Plt Count 183 (130-400) K/uL MPV 11.3 H (7.4-10.4) fL Immature Gran % (Auto) 0.3 % Neut % (Auto) 80.1 % Lymph % (Auto) 8.7 % [place] % (Auto) 10.6 % Eos % (Auto) 0.2 % Baso % (Auto) 0.1 % Immature Gran # (Auto) 0.08 H (0.00-0.02) K/uL Neut # (Auto) 19.84 H (1.4-6.5) K/uL Lymph # (Auto) 2.14 (1.2-3.4) K/uL [place] # (Auto) 2.61 H (0.11-0.59) K/uL Eos # (Auto) 0.04 (0-0.5) K/uL Baso # (Auto) 0.02 (0-0.2) K/uL Sodium 132 L (136-145) mmol/L Potassium 4.6 (3.5-5.1) mmol/L Chloride 99 (98-107) mmol/L Carbon Dioxide 27 (21-32) mmol/L Anion Gap 6.0 (3-11) BUN 48 H (7-18) mg/dl Creatinine 2.47 H (0.6-1.2) mg/dl Est Cr Clr Drug Dosing 37.4 ml/min Est GFR ( Amer) 23.3 Est GFR (Non-Af Amer) 20.1 BUN/Creatinine Ratio 19.6 (10-20) Glucose 151 H (70-99) mg/dl POC Glucose 193 H (70-99) Calcium 9.4 (8.5-10.1) mg/dl Urine Color Urine Appearance (Clear) Urine pH (4.5-7.5) Ur Specific [place] (1.000-1.030) Urine Protein (Negative) Urine Glucose (UA) (Negative) Urine Ketones (Negative) Urine Blood (Negative) Urine Nitrite (Negative) Urine Bilirubin (Negative) Urine Urobilinogen (Negative) Ur Leukocyte Esterase (Negative) Urine WBC (Auto) (0-5) /hpf Urine RBC (Auto) (0-4) /hpf U Hyaline Cast (Auto) (0-5) /lpf U Epithel Cells (Auto) (0-5) /lpf Urine Bacteria (Auto) (Negative) Urine Yeast Hepatitis C Ab Screen (Neg) 10/21/19 10/21/19 10/21/19 Range/Units 16:30 15:36 12:38 WBC (4.8-10.8) K/uL RBC (4.2-5.4) M/uL Hgb (12.0-16.0) g/dL Hct (37-47) % MCV (80-100) fL MCH (25-34) pg MCHC (32-36) g/dL RDW Std Deviation (36.4-46.3) fL RDW Coeff of Avery (11.5-14.5) % Plt Count (130-400) K/uL MPV (7.4-10.4) fL Immature Gran % (Auto) % Neut % (Auto) % Lymph % (Auto) % [place] % (Auto) % Eos % (Auto) % Baso % (Auto) % Immature Gran # (Auto) (0.00-0.02) K/uL Neut # (Auto) (1.4-6.5) K/uL Lymph # (Auto) (1.2-3.4) K/uL [place] # (Auto) (0.11-0.59) K/uL Eos # (Auto) (0-0.5) K/uL Baso # (Auto) (0-0.2) K/uL Sodium 130 L (136-145) mmol/L Potassium 4.4 (3.5-5.1) mmol/L Chloride 97 L (98-107) mmol/L Carbon Dioxide 26 (21-32) mmol/L Anion Gap 8.0 (3-11) BUN 47 H (7-18) mg/dl Creatinine 2.27 H (0.6-1.2) mg/dl Est Cr Clr Drug Dosing 40.7 ml/min Est GFR ( Amer) 25.8 Est GFR (Non-Af Amer) 22.2 BUN/Creatinine Ratio 20.7 H (10-20) Glucose 164 H (70-99) mg/dl POC Glucose 161 H 176 H (70-99) Calcium 9.9 (8.5-10.1) mg/dl Urine Color Urine Appearance (Clear) Urine pH (4.5-7.5) Ur Specific [place] (1.000-1.030) Urine Protein (Negative) Urine Glucose (UA) (Negative) Urine Ketones (Negative) Urine Blood (Negative) Urine Nitrite (Negative) Urine Bilirubin (Negative) Urine Urobilinogen (Negative) Ur Leukocyte Esterase (Negative) Urine WBC (Auto) (0-5) /hpf Urine RBC (Auto) (0-4) /hpf U Hyaline Cast (Auto) (0-5) /lpf U Epithel Cells (Auto) (0-5) /lpf Urine Bacteria (Auto) (Negative) Urine Yeast Hepatitis C Ab Screen (Neg) 10/21/19 10/21/19 10/21/19 Range/Units 07:20 06:09 06:09 WBC (4.8-10.8) K/uL RBC (4.2-5.4) M/uL Hgb (12.0-16.0) g/dL Hct (37-47) % MCV (80-100) fL MCH (25-34) pg MCHC (32-36) g/dL RDW Std Deviation (36.4-46.3) fL RDW Coeff of Avery (11.5-14.5) % Plt Count (130-400) K/uL MPV (7.4-10.4) fL Immature Gran % (Auto) % Neut % (Auto) % Lymph % (Auto) % [place] % (Auto) % Eos % (Auto) % Baso % (Auto) % Immature Gran # (Auto) (0.00-0.02) K/uL Neut # (Auto) (1.4-6.5) K/uL Lymph # (Auto) (1.2-3.4) K/uL [place] # (Auto) (0.11-0.59) K/uL Eos # (Auto) (0-0.5) K/uL Baso # (Auto) (0-0.2) K/uL Sodium 132 L (136-145) mmol/L Potassium 3.9 (3.5-5.1) mmol/L Chloride 98 (98-107) mmol/L Carbon Dioxide 27 (21-32) mmol/L Anion Gap 8.0 (3-11) BUN 47 H (7-18) mg/dl Creatinine 2.21 H (0.6-1.2) mg/dl Est Cr Clr Drug Dosing 41.8 ml/min Est GFR ( Amer) 26.6 Est GFR (Non-Af Amer) 23.0 BUN/Creatinine Ratio 21.2 H (10-20) Glucose 110 H (70-99) mg/dl POC Glucose 121 H (70-99) Calcium 10.0 (8.5-10.1) mg/dl Urine Color Urine Appearance (Clear) Urine pH (4.5-7.5) Ur Specific [place] (1.000-1.030) Urine Protein (Negative) Urine Glucose (UA) (Negative) Urine Ketones (Negative) Urine Blood (Negative) Urine Nitrite (Negative) Urine Bilirubin (Negative) Urine Urobilinogen (Negative) Ur Leukocyte Esterase (Negative) Urine WBC (Auto) (0-5) /hpf Urine RBC (Auto) (0-4) /hpf U Hyaline Cast (Auto) (0-5) /lpf U Epithel Cells (Auto) (0-5) /lpf Urine Bacteria (Auto) (Negative) Urine Yeast Hepatitis C Ab Screen Neg (Neg) 10/21/19 Range/Units 05:40 WBC (4.8-10.8) K/uL RBC (4.2-5.4) M/uL Hgb (12.0-16.0) g/dL Hct (37-47) % MCV (80-100) fL MCH (25-34) pg MCHC (32-36) g/dL RDW Std Deviation (36.4-46.3) fL RDW Coeff of Avery (11.5-14.5) % Plt Count (130-400) K/uL MPV (7.4-10.4) fL Immature Gran % (Auto) % Neut % (Auto) % Lymph % (Auto) % [place] % (Auto) % Eos % (Auto) % Baso % (Auto) % Immature Gran # (Auto) (0.00-0.02) K/uL Neut # (Auto) (1.4-6.5) K/uL Lymph # (Auto) (1.2-3.4) K/uL [place] # (Auto) (0.11-0.59) K/uL Eos # (Auto) (0-0.5) K/uL Baso # (Auto) (0-0.2) K/uL Sodium (136-145) mmol/L Potassium (3.5-5.1) mmol/L Chloride (98-107) mmol/L Carbon Dioxide (21-32) mmol/L Anion Gap (3-11) BUN (7-18) mg/dl Creatinine (0.6-1.2) mg/dl Est Cr Clr Drug Dosing ml/min Est GFR ( Amer) Est GFR (Non-Af Amer) BUN/Creatinine Ratio (10-20) Glucose (70-99) mg/dl POC Glucose (70-99) Calcium (8.5-10.1) mg/dl Urine Color Dark Yellow Urine Appearance Cloudy A (Clear) Urine pH 5.0 (4.5-7.5) Ur Specific [place] 1.020 (1.000-1.030) Urine Protein Negative (Negative) Urine Glucose (UA) Negative (Negative) Urine Ketones Trace H (Negative) Urine Blood Negative (Negative) Urine Nitrite Negative (Negative) Urine Bilirubin Negative (Negative) Urine Urobilinogen Negative (Negative) Ur Leukocyte Esterase 3+ H (Negative) Urine WBC (Auto) >30 H (0-5) /hpf Urine RBC (Auto) 0-4 (0-4) /hpf U Hyaline Cast (Auto) 1-5 (0-5) /lpf U Epithel Cells (Auto) >30 H (0-5) /lpf Urine Bacteria (Auto) 4+ H (Negative) Urine Yeast Not Reportable Hepatitis C Ab Screen (Neg) Diagnostic Findings CT abdomen pelvis - initial read limited by patient body habitus/partial obscuration. No evidence of bowel obstruction. No significant focal abnormality from October 2017 exam. Minimal hyperdensity gallbladder presumed echogenic sludge or small gallstones stable. No CT evidence of pericholecystic fluid or biliary dilatation. Bladder is mildly distended without significant abnormalities. Minimal dermal thickening periumbilical region and anterior pelvic region suggesting dependent edema. Degenerative changes of the spine. FINDINGS: Minimal atelectasis anterior aspect right base as well as central aspect left base. Liver spleen and pancreas are unremarkable. Liver is moderately enlarged. Probable gallbladder sludge. Nonobstructive bowel pattern. Kidneys negative for hydronephrosis. There is atherosclerotic change abdominal and pelvic arterial vasculature. IMPRESSION: 1. Gallbladder sludge. 2. Nonobstructive bowel pattern. 3. Minimal bibasilar atelectatic and/or infiltrative change. 4. Otherwise negative study. Medications Administered Current Inpatient Medications Acetaminophen (Tylenol) 650 mg PO Q4H PRN PRN Reason: pain/fever Stop: 11/20/19 05:20 Last Admin: 10/21/19 21:11 Dose: 650 mg Documented by: Dextrose (Dextrose 50%) 25 - 50 ml IV UD PRN; Protocol PRN Reason: Hypoglycemia Protocol Stop: 11/20/19 05:20 Glucagon (Glucagen) 1 mg SQ UD PRN; Protocol PRN Reason: Hypoglycemia Protocol Stop: 11/20/19 05:20 Glucose (Dex4 Glucose) 4 - 8 tabs PO UD PRN; Protocol PRN Reason: Hypoglycemia Protocol Stop: 11/20/19 05:20 Glucose (Glucose 40%) 15 - 30 gm PO UD PRN; Protocol PRN Reason: Hypoglycemia Protocol Stop: 11/20/19 05:20 Heparin Sodium (Porcine) (Heparin Sodium (Porcine)) 5,000 units SQ Q8 JUANA Stop: 11/20/19 05:59 Last Admin: 10/22/19 05:39 Dose: 5,000 units Documented by: Promethazine HCl 12.5 mg/ (Sodium Chloride) 50.5 mls @ 202 mls/hr IV Q6H PRN PRN Reason: Nausea And Vomiting Stop: 11/20/19 05:20 Sodium Chloride (Nss 1000ml) 1,000 mls @ 125 mls/hr IV .Q8H JUANA Stop: 11/20/19 19:29 Last Admin: 10/22/19 03:07 Dose: 125 mls/hr Documented by: Piperacillin Sod/Tazobactam (Sod 3.375 gm/ Dextrose) 115 mls @ 28.75 mls/hr IV Q8H JUANA; Protocol Stop: 10/24/19 06:59 Insulin Aspart (Novolog Flexpen) 0 units SC ACHS [facility] Stop: 11/20/19 05:20 Last Admin: 10/21/19 21:12 Dose: 1 units Documented by: Isosorbide Dinitrate (Isordil) 20 mg PO BID17 [facility] Stop: 11/20/19 08:59 Last Admin: 10/21/19 16:16 Dose: 20 mg Documented by: Levothyroxine Sodium (Synthroid) 50 mcg PO DAILYBB [facility] Stop: 11/20/19 06:29 Last Admin: 10/22/19 05:39 Dose: 50 mcg Documented by: Metoprolol Succinate (Toprol Xl) 25 mg PO BID [facility] Stop: 11/20/19 08:59 Last Admin: 10/21/19 20:12 Dose: 25 mg Documented by: Miscellaneous (Carbohydrates For Hypoglycemia) 15 - 30 gm PO UD PRN PRN Reason: Hypoglycemia Protocol Stop: 11/20/19 05:20 Miscellaneous Information (Consult) 1 ea N/A UD PRN PRN Reason: Consult Stop: 11/21/19 06:54 Pantoprazole Sodium (Protonix) 40 mg PO BID [facility] Stop: 11/20/19 08:59 Last Admin: 10/21/19 20:13 Dose: 40 mg Documented by: Tramadol HCl (Ultram) 25 - 50 mg PO Q4H PRN PRN Reason: Pain Stop: 11/20/19 05:20 Last Admin: 10/21/19 21:11 Dose: 50 mg Documented by:
[2019-10-22] MEDS ORDERED: PIPERACILLIN/TAZOBACTAM 3.375 GM in DEXTROSE 5% 100 ML IV ONE (07:30)
[2019-10-22] MEDS: TRAMADOL HCL 50 MG TABLET PO PRN ×3 (07:47→16:37)
[2019-10-22] MEDS: ACETAMINOPHEN 325 MG TAB PO PRN ×2 (07:47→20:49)
[2019-10-22] MEDS: PANTOprazole 40 MG TAB PO SCH ×2 (07:48→20:50)
[2019-10-22] MEDS: ISOSORBIDE DINITRATE 20 MG TAB PO SCH ×2 (07:48→17:46)
[2019-10-22] MEDS: METOPROLOL SUCC 25MG EXT REL TAB PO SCH ×2 (07:48→21:39)
[2019-10-22] MEDS: INSULIN ASPART 100 UNITS/ML 3 ML PEN SC SCH ×4 (08:26→21:14)
[2019-10-22] MEDS ORDERED: CONSULT PHARMACY SCH (09:00)
[2019-10-22 11:15] LABS: Creatinine Clr Calc Pharmacy 37.2 ml/min; Est GFR (African American) 23.2
[2019-10-22] MEDS: PIPERACILLIN/TAZOBACTAM 3.375 GM in DEXTROSE 5% 100 ML IV SCH ×2 (12:52→20:49)
[2019-10-22] MEDS: MICONAZOLE NITRATE POWDER 43 GM EXT PRN (12:53)
[2019-10-22 17:33] LABS: Basophils # (auto) 0.04 K/uL (0-0.2); Basophils % (auto) 0.2 %; Eosinophils # (auto) 0.12 K/uL (0-0.5); Eosinophils % (auto) 0.6 %; Hematocrit (blood only) 33.7 % (37-47); Hemoglobin 11.4 g/dL (12.0-16.0); Immature Granulocytes # (auto) 0.08 K/uL (0.00-0.02); Immature Granulocytes % (auto) 0.4 %; Lymphocytes # (auto) 1.25 K/uL (1.2-3.4); Lymphocytes % (auto) 5.7 %; Mean Corpuscular Hemoglobin 33.5 pg (25-34); Mean Corpuscular Hgb Conc 33.8 g/dL (32-36); Mean Corpuscular Volume 99.1 fL (80-100); Mean Platelet Volume 10.5 fL (7.4-10.4); Monocytes # (auto) 1.44 K/uL (0.11-0.59); Monocytes % (auto) 6.6 %; Neutrophils # (auto) 18.87 K/uL (1.4-6.5); Neutrophils % (auto) 86.5 %; Platelet Count 181 K/uL (130-400); RDW Coefficient of Variation 13.7 % (11.5-14.5); RDW Standard Deviation 49.5 fL (36.4-46.3)
[2019-10-22 17:54] LABS: BUN Creatinine Ratio 20.2 (10-20); Calcium 9.3 mg/dl (8.5-10.1); Creatinine Clr Calc Pharmacy 38.3 ml/min; Est GFR (Non-African American) 20.7; Magnesium 1.9 mg/dl (1.8-2.4); Potassium 4.5 mmol/L (3.5-5.1)
[2019-10-22] MEDS ORDERED: ALBUMIN 25% 50 ML IV ONE (21:01)
[2019-10-22] MEDS ORDERED: NALOXONE HCL 0.4 MG/1 ML VIAL/CARP IV STA (21:06)
--- NOTE | 2019-10-22 21:07 | Hospitalist Progress Note ---
Date of Service October 22, 2019 Subjective Around 9 PM, patient noted to be lethargic, hypoxemic, tachycardic, and febrile as per RN. Falling asleep while on the commode. AP Encephalopathy Multifactorial : Sepsis secondary to complicated UTI, ongoing treatment with Zosyn Hyponatremia Respiratory failure, rule out hypercapnia, hx possible GREYSON as per records Tramadol intake Medical telemetry transfer for closer monitoring Continue Zosyn check serum sodium Chest x-ray, ABG Hold tramadol for now, Narcan trial Will relay to AM provider. Results & Data Vital Signs (Past 12 Hours) Vital Signs Temp Pulse Resp BP BP Pulse Ox 10/22/19 20:48 25 H 92 10/22/19 20:40 38.3 C H 114 H 25 H 106/61 91 10/22/19 20:14 111 H 92 10/22/19 20:11 38.2 C H 85 L 10/22/19 15:00 37.5 C 103 H 20 142/67 H 92
[2019-10-22] MEDS ORDERED: MAGNESIUM SULFATE / D5W 1 GM/100 ML BAG IV ONE (21:15)
--- NOTE | 2019-10-22 21:34 | XRay Report ---
SINGLE VIEW CHEST CLINICAL HISTORY: Hypoxia. FINDINGS: An AP, portable, upright chest radiograph is compared to chest x-ray and chest CT dated . The examination is degraded by portable technique, large body habitus, apical lordotic posit ioning, and patient rotation. The heart is enlarged noting atherosclerotic calcification of the thora cic aorta. There is pulmonary vascular congestion. There is pulmonary vascular congestion. Scarring/a telectasis is noted at the lung bases. No airspace consolidation or large pleural effusion is identif ied. No pneumothorax is seen. The skeletal structures are osteopenic. The bony thorax is grossly inta ct. IMPRESSION: 1. Cardiomegaly with mild pulmonary vascular congestion. 2. No airspace consolidation or large pleural effusion is identified.. Electronically signed by: Rohan Falcon M.D. 10/22/2019 9:32 PM
[2019-10-22 22:39] LABS: Base Excess ABG -3.2 mEq/L (-9-1.8); HCO3 ABG 21 mmol/L (19-24); Oxygen Saturation ABG 95.6 % (90-95); PCO2 ABG 37 mmHg (35-46); PO2 ABG 87 mm/Hg (80-95); pH ABG 7.38 (7.35-7.45)
[2019-10-22] MEDS: ALBUMIN 25% 50 ML IV ONE ×2 (22:39→23:46)
[2019-10-22 22:40] LABS: Allen Test Pos (Pos)
[2019-10-22 22:47] LABS: BUN Creatinine Ratio 20.8 (10-20); Calcium 9.1 mg/dl (8.5-10.1); Creatinine Clr Calc Pharmacy 38.2 ml/min; Est GFR (African American) 23.9; Est GFR (Non-African American) 20.6; Potassium 4.5 mmol/L (3.5-5.1)
[2019-10-22] MEDS ORDERED: INSULIN GLARGINE SOLOSTAR 100 UNITS/ML 3 ML PEN SC STA (23:06)
[2019-10-22] MEDS ORDERED: SODIUM CHLORIDE 0.9% 500 ML IV ONE (23:06)
[2019-10-23] MEDS: ACETAMINOPHEN 325 MG TAB PO PRN ×3 (01:28→16:20)
[2019-10-23] MEDS: PIPERACILLIN/TAZOBACTAM 3.375 GM in DEXTROSE 5% 100 ML IV SCH (05:31)
[2019-10-23] MEDS: HEPARIN SOD 5,000 UNIT/0.5 ML VIAL SQ SCH ×3 (05:32→20:26)
[2019-10-23 06:17] LABS: Basophils # (auto) 0.03 K/uL (0-0.2); Basophils % (auto) 0.2 %; Eosinophils # (auto) 0.07 K/uL (0-0.5); Eosinophils % (auto) 0.4 %; Hematocrit (blood only) 31.4 % (37-47); Hemoglobin 10.5 g/dL (12.0-16.0); Immature Granulocytes # (auto) 0.09 K/uL (0.00-0.02); Immature Granulocytes % (auto) 0.5 %; Lymphocytes # (auto) 1.59 K/uL (1.2-3.4); Lymphocytes % (auto) 8.3 %; Mean Corpuscular Hgb Conc 33.4 g/dL (32-36); Mean Corpuscular Volume 98.7 fL (80-100); Mean Platelet Volume 10.2 fL (7.4-10.4); Monocytes # (auto) 1.07 K/uL (0.11-0.59); Monocytes % (auto) 5.6 %; Platelet Count 175 K/uL (130-400); RDW Coefficient of Variation 13.7 % (11.5-14.5); Red Blood Count 3.18 M/uL (4.2-5.4); White Blood Count 19.25 K/uL (4.8-10.8)
[2019-10-23] MEDS: LEVOTHYROXINE SODIUM 50 MCG TABLET PO SCH (06:30)
[2019-10-23 06:53] LABS: BUN Creatinine Ratio 20.7 (10-20); Calcium 9.5 mg/dl (8.5-10.1); Creatinine Clr Calc Pharmacy 35.5 ml/min; Est GFR (African American) 21.9; Est GFR (Non-African American) 18.9; Potassium 4.4 mmol/L (3.5-5.1)
--- NOTE | 2019-10-23 07:06 | Hospitalist Progress Note ---
Date of Service October 23, 2019 Assessment & Plan (1) Sepsis: Sepsis secondary to pyelonephritis patient spiked fever, T-max 37.9 Celsius, tachypnea RR 20, tachycardia HR over 100 White blood cell count increased from 16.6K to 24.7K (now downtrending) Creatinine elevated on admission, at 2.27 and increased to 2.48 (despite IVF), continues to increase, currently 2.7 -UA positive for leuk esterase and bacteria, images of chest, abdomen pelvis negative -Urine culture positive for E. coli, antibiotics switched to Rocephin today (10/23) - blood cltx- pending - will cont. to closely monitor (2) UTI (urinary tract infection): Pyelonephritis UA positive for leuk. esterase, and bacteria, nitrites negative Urine culture positive for E. coli, sensitivities available now - pt received one dose of Bactrim (as pt has multiple drug allergies, WBC increased then overnight to 24k), she was then switched to Zosyn yesterday (10/22) - pt continues to have fevers while on zosyn (and hypoxic event last night) - now sensitivities are available for urine culture, E.coli sensit. to Rocephin, will switch to this antibiotic today (10/23) (3) NICOLETTE (acute kidney injury): Creatinine 2.27 on admission -Initially believed to be secondary to dehydration, as patient reported poor p.o. intake for the past 4 to 5 days prior to admission -However not much improved after IV hydration, therefore most likely secondary to above (urinary infection) -FeNa 0.2%, suggesting prerenal etiology, however urine sodium very low, 19, (and consequently low FeNa), suggests non-volume depleted state, and in fact can be secondary to ATN in this clinical setting -We will cont. IV antibiotics -We will continue to monitor renal function, will try to avoid nephrotoxic agents, such as NSAIDs and contrast -We will consider nephrology consult given worsening creatinine despite IV fluids and IV antibiotics (4) DM2 (diabetes mellitus, type 2): - DM2 insulin requiring, hypoglycemia noted on admission blood work - well controlled, Hemoglobin A1c 6.7% (10/21) - cont. SSI, plan to re-start basal insulin (with lower doses) - cont. to monitor BSG closely Chronic diastolic heart failure -Continue to monitor for fluid overload -Daily standing weights and strict I's and O's -Per current records, weight increased, patient received IV Lasix today however on physical exam did not seem to be fluid overloaded -Symmetrical to assess for fluid, given patient's body habitus Morbid obesity BMI over 60 Recommend weight loss, and significant lifestyle modifications OHS as per records - patient yet to schedule sleep study - Had hypoxic event last night (possibly secondary to tramadol use, or sepsis), was placed on 4 L of oxygen, however this morning back at room air HTN - BP on the lower side on admission - currently acceptable BP, in the setting of sepsis - We will continue to closely monitor DVT prophylaxis. Heparin subcu Full code Subjective Last evening, around 9 PM, patient became more lethargic, hypoxemic, tachycardic and febrile per RN, night physician Dr. Goldsmith was called, patient was falling asleep while on the commode. Supplemental oxygen was provided, 4 L/min, previously patient was on room air. Patient has been taking tramadol for pain, she was given Marcaine which helped somewhat her mental status. She was upgraded for closer monitoring. On my examination this morning, patient is sitting up in bed, comfortable, in no acute distress, also breathing comfortably on room air. Patient's at the bedside. On my review of data, patient's weight's been quite elevated, and there is concern for volume overload. Chest x-ray was obtained however seem to be unchanged from previous. On lung exam patient does not have rhonchi, crackles or wheezing. Serum creatinine continues to be slowly rising. Urine culture now positive for E. coli, updated the patient and her . White blood cell count continues to be elevated, however decreased from previous. Cont. strict I/Os and daily standing weight. Update: This evening, around 7 PM, informed 1 of the blood cultures being positive for gram positive cocci in clusters, repeated blood cultures and started patient on daptomycin. Review of Systems Constitutional: + fever and + chills Respiratory: no cough, no dyspnea and no pain on inspiration Cardiovascular: no chest pain and no palpitations Gastrointestinal: no abdominal pain, no nausea and no vomiting Musculoskeletal: + back pain (Right lower back pain) Physical Exam Constitutional: well developed, well nourished and + obese Eyes: PERRL, conjunctivae normal, anicteric sclerae ENMT: external ear and nose normal, oropharynx normal Neck: supple Respiratory: Auscultation: lungs clear to auscultation bilaterally; no crackles, no rhonchi and no wheezes Cardiovascular: Rate/Rhythm: regular rate and regular rhythm Heart Sounds: no murmur Chest (Breasts): Chest: normal inspection of chest Gastrointestinal (Abdomen): Inspection/Auscultation: normal bowel sounds Percussion/Palpation: abdomen soft; abdomen nontender and no guarding obese Musculoskeletal: Head/Neck/Chest: normocephalic, head atraumatic and neck supple Skin: Warm, dry,rash/lesions in between skin folds Neurologic: PERRL, EOMI, accommodation nl, no face palsy, no dysarthria moves all extremities Psychiatric: A+Ox3, euthymic affect Speech: normal rate/rhythm/volume of speech Genitourinary: + CVA tenderness (Right-sided) Lymphatic: + lymphedema (Bilateral lower extremity) Results & Data Vital Signs (Past 12 Hours) Vital Signs Temp Pulse Pulse Resp BP BP Pulse Ox 10/23/19 04:44 36.6 C 86 16 146/74 H 96 10/22/19 22:36 104 H 10/22/19 22:12 38.9 C H 104 H 22 144/67 H 95 10/22/19 20:48 25 H 92 10/22/19 20:40 38.3 C H 114 H 25 H 106/61 91 10/22/19 20:14 111 H 92 10/22/19 20:11 38.2 C H 85 L Laboratory Results 10/23/19 10/23/19 10/23/19 Range/Units 06:07 06:07 06:07 WBC 19.25 H (4.8-10.8) K/uL RBC 3.18 L (4.2-5.4) M/uL Hgb 10.5 L (12.0-16.0) g/dL Hct 31.4 L (37-47) % MCV 98.7 (80-100) fL MCH 33.0 (25-34) pg MCHC 33.4 (32-36) g/dL RDW Std Deviation 50.0 H (36.4-46.3) fL RDW Coeff of Avery 13.7 (11.5-14.5) % Plt Count 175 (130-400) K/uL MPV 10.2 (7.4-10.4) fL Immature Gran % (Auto) 0.5 % Neut % (Auto) 85.0 % Lymph % (Auto) 8.3 % [place] % (Auto) 5.6 % Eos % (Auto) 0.4 % Baso % (Auto) 0.2 % Immature Gran # (Auto) 0.09 H (0.00-0.02) K/uL Neut # (Auto) 16.40 H (1.4-6.5) K/uL Lymph # (Auto) 1.59 (1.2-3.4) K/uL [place] # (Auto) 1.07 H (0.11-0.59) K/uL Eos # (Auto) 0.07 (0-0.5) K/uL Baso # (Auto) 0.03 (0-0.2) K/uL ABG pH (7.35-7.45) ABG pCO2 (35-46) mmHg ABG pO2 (80-95) mm/Hg ABG HCO3 (19-24) mmol/L ABG O2 Saturation (90-95) % ABG Base Excess (-9-1.8) mEq/L Blaise Test (Pos) Barometric Pressure mm/Hg Oxygen Given Sodium 129 L (136-145) mmol/L Potassium 4.4 (3.5-5.1) mmol/L Chloride 98 (98-107) mmol/L Carbon Dioxide 23 (21-32) mmol/L Anion Gap 8.0 (3-11) BUN 54 H (7-18) mg/dl Creatinine 2.60 H (0.6-1.2) mg/dl Est Cr Clr Drug Dosing 35.5 ml/min Est GFR ( Amer) 21.9 Est GFR (Non-Af Amer) 18.9 BUN/Creatinine Ratio 20.7 H (10-20) Glucose 171 H (70-99) mg/dl POC Glucose (70-99) Osmolality (280-300) mOsm/kg Lactate (0.4-2.0) mmol/L Calcium 9.5 (8.5-10.1) mg/dl Magnesium (1.8-2.4) mg/dl Ammonia 37.1 H (11-32) umol/L Ur Random Creatinine mg/dl Ur Random Sodium mmol/L 10/22/19 10/22/19 10/22/19 Range/Units 22:47 21:25 21:24 WBC (4.8-10.8) K/uL RBC (4.2-5.4) M/uL Hgb (12.0-16.0) g/dL Hct (37-47) % MCV (80-100) fL MCH (25-34) pg MCHC (32-36) g/dL RDW Std Deviation (36.4-46.3) fL RDW Coeff of Avery (11.5-14.5) % Plt Count (130-400) K/uL MPV (7.4-10.4) fL Immature Gran % (Auto) % Neut % (Auto) % Lymph % (Auto) % [place] % (Auto) % Eos % (Auto) % Baso % (Auto) % Immature Gran # (Auto) (0.00-0.02) K/uL Neut # (Auto) (1.4-6.5) K/uL Lymph # (Auto) (1.2-3.4) K/uL [place] # (Auto) (0.11-0.59) K/uL Eos # (Auto) (0-0.5) K/uL Baso # (Auto) (0-0.2) K/uL ABG pH 7.38 (7.35-7.45) ABG pCO2 37 (35-46) mmHg ABG pO2 87 (80-95) mm/Hg ABG HCO3 21 (19-24) mmol/L ABG O2 Saturation 95.6 H (90-95) % ABG Base Excess -3.2 (-9-1.8) mEq/L Blaise Test Pos (Pos) Barometric Pressure 722.3 mm/Hg Oxygen Given 4L Sodium (136-145) mmol/L Potassium (3.5-5.1) mmol/L Chloride (98-107) mmol/L Carbon Dioxide (21-32) mmol/L Anion Gap (3-11) BUN (7-18) mg/dl Creatinine (0.6-1.2) mg/dl Est Cr Clr Drug Dosing ml/min Est GFR ( Amer) Est GFR (Non-Af Amer) BUN/Creatinine Ratio (10-20) Glucose (70-99) mg/dl POC Glucose (70-99) Osmolality 288 (280-300) mOsm/kg Lactate (0.4-2.0) mmol/L Calcium (8.5-10.1) mg/dl Magnesium (1.8-2.4) mg/dl Ammonia 42.7 H (11-32) umol/L Ur Random Creatinine mg/dl Ur Random Sodium mmol/L 10/22/19 10/22/19 10/22/19 Range/Units 21:24 20:02 17:17 WBC (4.8-10.8) K/uL RBC (4.2-5.4) M/uL Hgb (12.0-16.0) g/dL Hct (37-47) % MCV (80-100) fL MCH (25-34) pg MCHC (32-36) g/dL RDW Std Deviation (36.4-46.3) fL RDW Coeff of Avery (11.5-14.5) % Plt Count (130-400) K/uL MPV (7.4-10.4) fL Immature Gran % (Auto) % Neut % (Auto) % Lymph % (Auto) % [place] % (Auto) % Eos % (Auto) % Baso % (Auto) % Immature Gran # (Auto) (0.00-0.02) K/uL Neut # (Auto) (1.4-6.5) K/uL Lymph # (Auto) (1.2-3.4) K/uL [place] # (Auto) (0.11-0.59) K/uL Eos # (Auto) (0-0.5) K/uL Baso # (Auto) (0-0.2) K/uL ABG pH (7.35-7.45) ABG pCO2 (35-46) mmHg ABG pO2 (80-95) mm/Hg ABG HCO3 (19-24) mmol/L ABG O2 Saturation (90-95) % ABG Base Excess (-9-1.8) mEq/L Blaise Test (Pos) Barometric Pressure mm/Hg Oxygen Given Sodium 128 L (136-145) mmol/L Potassium 4.5 (3.5-5.1) mmol/L Chloride 97 L (98-107) mmol/L Carbon Dioxide 22 (21-32) mmol/L Anion Gap 9.0 (3-11) BUN 50 H (7-18) mg/dl Creatinine 2.42 H (0.6-1.2) mg/dl Est Cr Clr Drug Dosing 38.2 ml/min Est GFR ( Amer) 23.9 Est GFR (Non-Af Amer) 20.6 BUN/Creatinine Ratio 20.8 H (10-20) Glucose 184 H (70-99) mg/dl POC Glucose 169 H (70-99) Osmolality (280-300) mOsm/kg Lactate 1.2 (0.4-2.0) mmol/L Calcium 9.1 (8.5-10.1) mg/dl Magnesium (1.8-2.4) mg/dl Ammonia (11-32) umol/L Ur Random Creatinine mg/dl Ur Random Sodium mmol/L 10/22/19 10/22/19 10/22/19 Range/Units 17:17 17:17 16:45 WBC 21.80 H (4.8-10.8) K/uL RBC 3.40 L (4.2-5.4) M/uL Hgb 11.4 L (12.0-16.0) g/dL Hct 33.7 L (37-47) % MCV 99.1 (80-100) fL MCH 33.5 (25-34) pg MCHC 33.8 (32-36) g/dL RDW Std Deviation 49.5 H (36.4-46.3) fL RDW Coeff of Avery 13.7 (11.5-14.5) % Plt Count 181 (130-400) K/uL MPV 10.5 H (7.4-10.4) fL Immature Gran % (Auto) 0.4 % Neut % (Auto) 86.5 % Lymph % (Auto) 5.7 % [place] % (Auto) 6.6 % Eos % (Auto) 0.6 % Baso % (Auto) 0.2 % Immature Gran # (Auto) 0.08 H (0.00-0.02) K/uL Neut # (Auto) 18.87 H (1.4-6.5) K/uL Lymph # (Auto) 1.25 (1.2-3.4) K/uL [place] # (Auto) 1.44 H (0.11-0.59) K/uL Eos # (Auto) 0.12 (0-0.5) K/uL Baso # (Auto) 0.04 (0-0.2) K/uL ABG pH (7.35-7.45) ABG pCO2 (35-46) mmHg ABG pO2 (80-95) mm/Hg ABG HCO3 (19-24) mmol/L ABG O2 Saturation (90-95) % ABG Base Excess (-9-1.8) mEq/L Blaise Test (Pos) Barometric Pressure mm/Hg Oxygen Given Sodium 128 L (136-145) mmol/L Potassium 4.5 (3.5-5.1) mmol/L Chloride 97 L (98-107) mmol/L Carbon Dioxide 22 (21-32) mmol/L Anion Gap 9.0 (3-11) BUN 49 H (7-18) mg/dl Creatinine 2.41 H (0.6-1.2) mg/dl Est Cr Clr Drug Dosing 38.3 ml/min Est GFR ( Amer) 24.0 Est GFR (Non-Af Amer) 20.7 BUN/Creatinine Ratio 20.2 H (10-20) Glucose 172 H (70-99) mg/dl POC Glucose 182 H (70-99) Osmolality (280-300) mOsm/kg Lactate (0.4-2.0) mmol/L Calcium 9.3 (8.5-10.1) mg/dl Magnesium 1.9 (1.8-2.4) mg/dl Ammonia (11-32) umol/L Ur Random Creatinine mg/dl Ur Random Sodium mmol/L 10/22/19 10/22/19 10/22/19 Range/Units 11:26 11:00 11:00 WBC (4.8-10.8) K/uL RBC (4.2-5.4) M/uL Hgb (12.0-16.0) g/dL Hct (37-47) % MCV (80-100) fL MCH (25-34) pg MCHC (32-36) g/dL RDW Std Deviation (36.4-46.3) fL RDW Coeff of Avery (11.5-14.5) % Plt Count (130-400) K/uL MPV (7.4-10.4) fL Immature Gran % (Auto) % Neut % (Auto) % Lymph % (Auto) % [place] % (Auto) % Eos % (Auto) % Baso % (Auto) % Immature Gran # (Auto) (0.00-0.02) K/uL Neut # (Auto) (1.4-6.5) K/uL Lymph # (Auto) (1.2-3.4) K/uL [place] # (Auto) (0.11-0.59) K/uL Eos # (Auto) (0-0.5) K/uL Baso # (Auto) (0-0.2) K/uL ABG pH (7.35-7.45) ABG pCO2 (35-46) mmHg ABG pO2 (80-95) mm/Hg ABG HCO3 (19-24) mmol/L ABG O2 Saturation (90-95) % ABG Base Excess (-9-1.8) mEq/L Blaise Test (Pos) Barometric Pressure mm/Hg Oxygen Given Sodium (136-145) mmol/L Potassium (3.5-5.1) mmol/L Chloride (98-107) mmol/L Carbon Dioxide (21-32) mmol/L Anion Gap (3-11) BUN (7-18) mg/dl Creatinine (0.6-1.2) mg/dl Est Cr Clr Drug Dosing ml/min Est GFR ( Amer) Est GFR (Non-Af Amer) BUN/Creatinine Ratio (10-20) Glucose (70-99) mg/dl POC Glucose 187 H (70-99) Osmolality (280-300) mOsm/kg Lactate (0.4-2.0) mmol/L Calcium (8.5-10.1) mg/dl Magnesium (1.8-2.4) mg/dl Ammonia (11-32) umol/L Ur Random Creatinine 168.0 mg/dl Ur Random Sodium 19 mmol/L 10/22/19 10/22/19 Range/Units 10:35 07:33 WBC (4.8-10.8) K/uL RBC (4.2-5.4) M/uL Hgb (12.0-16.0) g/dL Hct (37-47) % MCV (80-100) fL MCH (25-34) pg MCHC (32-36) g/dL RDW Std Deviation (36.4-46.3) fL RDW Coeff of Avery (11.5-14.5) % Plt Count (130-400) K/uL MPV (7.4-10.4) fL Immature Gran % (Auto) % Neut % (Auto) % Lymph % (Auto) % [place] % (Auto) % Eos % (Auto) % Baso % (Auto) % Immature Gran # (Auto) (0.00-0.02) K/uL Neut # (Auto) (1.4-6.5) K/uL Lymph # (Auto) (1.2-3.4) K/uL [place] # (Auto) (0.11-0.59) K/uL Eos # (Auto) (0-0.5) K/uL Baso # (Auto) (0-0.2) K/uL ABG pH (7.35-7.45) ABG pCO2 (35-46) mmHg ABG pO2 (80-95) mm/Hg ABG HCO3 (19-24) mmol/L ABG O2 Saturation (90-95) % ABG Base Excess (-9-1.8) mEq/L Blaise Test (Pos) Barometric Pressure mm/Hg Oxygen Given Sodium (136-145) mmol/L Potassium (3.5-5.1) mmol/L Chloride (98-107) mmol/L Carbon Dioxide (21-32) mmol/L Anion Gap (3-11) BUN (7-18) mg/dl Creatinine 2.48 H (0.6-1.2) mg/dl Est Cr Clr Drug Dosing 37.2 ml/min Est GFR ( Amer) 23.2 Est GFR (Non-Af Amer) 20.0 BUN/Creatinine Ratio (10-20) Glucose (70-99) mg/dl POC Glucose 166 H (70-99) Osmolality (280-300) mOsm/kg Lactate (0.4-2.0) mmol/L Calcium (8.5-10.1) mg/dl Magnesium (1.8-2.4) mg/dl Ammonia (11-32) umol/L Ur Random Creatinine mg/dl Ur Random Sodium mmol/L Diagnostic Findings Urine culture (10/21) positive for E. coli Update : blood culture (10/22) x1 positive for gram-positive cocci in clusters Medications Administered Current Inpatient Medications Acetaminophen (Tylenol) 650 mg PO Q4H PRN PRN Reason: pain/fever Stop: 11/20/19 05:20 Last Admin: 10/23/19 01:28 Dose: 650 mg Documented by: Dextrose (Dextrose 50%) 25 - 50 ml IV UD PRN; Protocol PRN Reason: Hypoglycemia Protocol Stop: 11/20/19 05:20 Glucagon (Glucagen) 1 mg SQ UD PRN; Protocol PRN Reason: Hypoglycemia Protocol Stop: 11/20/19 05:20 Glucose (Dex4 Glucose) 4 - 8 tabs PO UD PRN; Protocol PRN Reason: Hypoglycemia Protocol Stop: 11/20/19 05:20 Glucose (Glucose 40%) 15 - 30 gm PO UD PRN; Protocol PRN Reason: Hypoglycemia Protocol Stop: 11/20/19 05:20 Heparin Sodium (Porcine) (Heparin Sodium (Porcine)) 5,000 units SQ Q8 JUANA Stop: 11/20/19 05:59 Last Admin: 10/23/19 05:32 Dose: 5,000 units Documented by: Promethazine HCl 12.5 mg/ (Sodium Chloride) 50.5 mls @ 202 mls/hr IV Q6H PRN PRN Reason: Nausea And Vomiting Stop: 11/20/19 05:20 Piperacillin Sod/Tazobactam (Sod 3.375 gm/ Dextrose) 115 mls @ 28.75 mls/hr IV Q8H JUANA; Protocol Stop: 10/24/19 12:59 Last Admin: 10/23/19 05:31 Dose: 28.8 mls/hr Documented by: Sodium Chloride (Nss) 500 mls @ 50 mls/hr IV .Q10H ONE Stop: 10/23/19 09:05 Last Admin: 10/23/19 04:43 Dose: Not Given Documented by: Insulin Aspart (Novolog Flexpen) 0 units SC ACHS [facility] Stop: 11/20/19 05:20 Last Admin: 10/22/19 21:14 Dose: Not Given Documented by: Insulin Glargine (Lantus Solostar Pen) 5 units SC [facility] Stop: 11/22/19 20:59 Isosorbide Dinitrate (Isordil) 20 mg PO BID17 [facility] Stop: 11/20/19 08:59 Last Admin: 10/22/19 17:46 Dose: 20 mg Documented by: Levothyroxine Sodium (Synthroid) 50 mcg PO DAILYBB [facility] Stop: 11/20/19 06:29 Last Admin: 10/23/19 06:30 Dose: 50 mcg Documented by: Metoprolol Succinate (Toprol Xl) 25 mg PO BID [facility] Stop: 11/20/19 08:59 Last Admin: 10/22/19 21:39 Dose: 25 mg Documented by: Miconazole Nitrate (Desenex) 1 appln EXT PRN PRN PRN Reason: Affected Skin Folds Stop: 11/21/19 11:17 Last Admin: 10/22/19 12:53 Dose: 1 appln Documented by: Miscellaneous (Carbohydrates For Hypoglycemia) 15 - 30 gm PO UD PRN PRN Reason: Hypoglycemia Protocol Stop: 11/20/19 05:20 Miscellaneous Information (Consult) 1 ea N/A UD PRN PRN Reason: Consult Stop: 11/21/19 06:54 Pantoprazole Sodium (Protonix) 40 mg PO BID [facility] Stop: 11/20/19 08:59 Last Admin: 10/22/19 20:50 Dose: 40 mg Documented by:
[2019-10-23] MEDS ORDERED: FUROSEMIDE 40 MG in SYRINGE 0 ML IV STA (07:44)
--- NOTE | 2019-10-23 08:09 | XRay Report ---
XR chest 1V portable CLINICAL HISTORY: acute hypoxia dyspnea COMPARISON STUDY: 10/22/2019 FINDINGS: Stable cardiomegaly. Prominent pulmonary vasculature. Diaphragms are smooth. IMPRESSION: Stable cardiomegaly. Mild pulmonary venous congestion/congestive failure also unchanged The above report was generated using voice recognition software. It may contain grammatical, syntax or spelling errors. Electronically signed by: Raphael Turner M.D. 10/23/2019 8:07 AM
[2019-10-23] MEDS: ISOSORBIDE DINITRATE 20 MG TAB PO SCH ×2 (08:22→16:21)
[2019-10-23] MEDS: PANTOprazole 40 MG TAB PO SCH ×2 (08:22→20:25)
[2019-10-23] MEDS: METOPROLOL SUCC 25MG EXT REL TAB PO SCH ×2 (08:22→20:26)
[2019-10-23] MEDS: MICONAZOLE NITRATE POWDER 43 GM EXT PRN (08:23)
[2019-10-23] MEDS: INSULIN ASPART 100 UNITS/ML 3 ML PEN SC SCH ×4 (08:57→20:23)
[2019-10-23] MEDS: cefTRIAXone SODIUM 2,000 MG in DEXTROSE 5% 50 ML IV SCH (11:42)
[2019-10-23] MEDS: SACCHAROMYCES BOULARDII 250 MG CAP PO SCH (11:43)
[2019-10-23 18:06] LABS: Basophils # (auto) 0.01 K/uL (0-0.2); Basophils % (auto) 0.1 %; Eosinophils % (auto) 0.6 %; Hematocrit (blood only) 33.2 % (37-47); Immature Granulocytes # (auto) 0.08 K/uL (0.00-0.02); Immature Granulocytes % (auto) 0.5 %; Lymphocytes # (auto) 1.11 K/uL (1.2-3.4); Lymphocytes % (auto) 6.4 %; Mean Corpuscular Hemoglobin 32.6 pg (25-34); Mean Corpuscular Hgb Conc 33.1 g/dL (32-36); Mean Corpuscular Volume 98.5 fL (80-100); Mean Platelet Volume 10.9 fL (7.4-10.4); Monocytes # (auto) 1.09 K/uL (0.11-0.59); Monocytes % (auto) 6.3 %; Neutrophils # (auto) 14.84 K/uL (1.4-6.5); Neutrophils % (auto) 86.1 %; Platelet Count 195 K/uL (130-400); RDW Coefficient of Variation 13.8 % (11.5-14.5); RDW Standard Deviation 49.3 fL (36.4-46.3); Red Blood Count 3.37 M/uL (4.2-5.4); White Blood Count 17.23 K/uL (4.8-10.8)
[2019-10-23] MEDS ORDERED: TRAMADOL HCL 50 MG TABLET PO PRN (18:12)
[2019-10-23 18:21] LABS: BUN Creatinine Ratio 19.6 (10-20); Calcium 9.6 mg/dl (8.5-10.1); Creatinine Clr Calc Pharmacy 35.3 ml/min; Est GFR (African American) 20.9; Potassium 4.3 mmol/L (3.5-5.1)
[2019-10-23] MEDS ORDERED: TRAMADOL HCL 50 MG TABLET PO ONE (20:00)
[2019-10-23] MEDS ORDERED: DAPTOmycin 425 MG in SYRINGE 0 ML IV SCH (20:00)
[2019-10-23] MEDS: DAPTOmycin 625 MG in SYRINGE 0 ML IV SCH (20:15)
[2019-10-23] MEDS ORDERED: INSULIN GLARGINE SOLOSTAR 100 UNITS/ML 3 ML PEN SC SCH ×2 (21:00)
[2019-10-24] MEDS: TRAMADOL HCL 50 MG TABLET PO PRN ×2 (04:06→12:26)
[2019-10-24] MEDS: ACETAMINOPHEN 325 MG TAB PO PRN ×2 (05:08→22:06)
[2019-10-24] MEDS: LEVOTHYROXINE SODIUM 50 MCG TABLET PO SCH (05:37)
[2019-10-24] MEDS: HEPARIN SOD 5,000 UNIT/0.5 ML VIAL SQ SCH ×3 (05:37→21:23)
[2019-10-24 06:19] LABS: Basophils # (auto) 0.03 K/uL (0-0.2); Basophils % (auto) 0.2 %; Eosinophils # (auto) 0.16 K/uL (0-0.5); Eosinophils % (auto) 0.9 %; Hematocrit (blood only) 30.3 % (37-47); Hemoglobin 10.3 g/dL (12.0-16.0); Immature Granulocytes # (auto) 0.11 K/uL (0.00-0.02); Immature Granulocytes % (auto) 0.6 %; Lymphocytes # (auto) 1.27 K/uL (1.2-3.4); Lymphocytes % (auto) 7.4 %; Mean Corpuscular Volume 97.1 fL (80-100); Mean Platelet Volume 10.6 fL (7.4-10.4); Monocytes # (auto) 1.24 K/uL (0.11-0.59); Monocytes % (auto) 7.3 %; Neutrophils # (auto) 14.26 K/uL (1.4-6.5); Neutrophils % (auto) 83.6 %; Platelet Count 210 K/uL (130-400); RDW Coefficient of Variation 13.6 % (11.5-14.5); RDW Standard Deviation 48.5 fL (36.4-46.3); Red Blood Count 3.12 M/uL (4.2-5.4); White Blood Count 17.07 K/uL (4.8-10.8)
[2019-10-24 06:51] LABS: BUN Creatinine Ratio 22.4 (10-20); Calcium 9.7 mg/dl (8.5-10.1); Creatinine Clr Calc Pharmacy 40.4 ml/min; Est GFR (African American) 24.5; Est GFR (Non-African American) 21.1
--- NOTE | 2019-10-24 07:04 | Hospitalist Progress Note ---
Date of Service October 24, 2019 Assessment & Plan (1) Sepsis: Sepsis secondary to pyelonephritis patient spiked fever, T-max 37.9 Celsius, tachypnea RR 20, tachycardia HR over 100 White blood cell count increased from 16.6K to 24.7K (now downtrending) Creatinine elevated on admission, at 2.27 and increased to 2.48 (despite IVF), continues to increase, currently 2.7 -UA positive for leuk esterase and bacteria, images of chest, abdomen pelvis negative -Urine culture (10/21) positive for E. coli, antibiotics switched to Rocephin (10/23) Bacteremia (w/ coag. negative Staph) - blood cltx x1 positive for Staph (not MRSA) -patient started on daptomycin last night (10/23) ID consulted, and new set of blood cultures obtained -Possibly contaminant, will await next blood cultures, until then we will continue daptomycin - will cont. to closely monitor (2) UTI (urinary tract infection): Pyelonephritis UA positive for leuk. esterase, and bacteria, nitrites negative Urine culture positive for E. coli, sensitivities available now - pt received one dose of Bactrim (as pt has multiple drug allergies, WBC increased then overnight to 24k), she was then switched to Zosyn yesterday (10/22) - pt continues to have fevers while on zosyn (and hypoxic event last night) - now sensitivities are available for urine culture, E.coli sensit. to Rocephin, switched to this antibiotic (10/23) (3) NICOLETTE (acute kidney injury): Creatinine 2.27 on admission - then cont. to increase despite IVF - today finally improved to 2.3 from 2.7 yesterday (10/23) -Initially believed to be secondary to dehydration, as patient reported poor p.o. intake for the past 4 to 5 days prior to admission -However not much improved after IV hydration, therefore most likely secondary to above (urinary infection) -FeNa 0.2%, suggesting prerenal etiology, however urine sodium very low, 19, (and consequently low FeNa), suggests non-volume depleted state, and in fact can be secondary to ATN in this clinical setting -We will cont. IV antibiotics -We will continue to monitor renal function, will try to avoid nephrotoxic agents, such as NSAIDs and contrast -We will consider nephrology consult given worsening creatinine despite IV fluids and IV antibiotics Hyponatremia - poss. d/t incr. fluid status and/or diuretic use - will cont. to monitor - if not improving, will ask nephrology for their input (4) DM2 (diabetes mellitus, type 2): - DM2 insulin requiring, hypoglycemia noted on admission blood work - well controlled, Hemoglobin A1c 6.7% (10/21) - cont. SSI, plan to re-start basal insulin (with lower doses) - cont. to monitor BSG closely Chronic diastolic heart failure -Continue to monitor for fluid overload -Daily standing weights and strict I's and O's -Per current records, weight increased, patient received IV Lasix today however on physical exam did not seem to be fluid overloaded -Symmetrical to assess for fluid, given patient's body habitus Morbid obesity BMI over 60 Recommend weight loss, and significant lifestyle modifications OHS as per records - patient yet to schedule sleep study - Had hypoxic event last night (possibly secondary to tramadol use, or sepsis), was placed on 4 L of oxygen, however this morning back at room air HTN - BP on the lower side on admission - currently acceptable BP, in the setting of sepsis - We will continue to closely monitor DVT prophylaxis. Heparin subcu Full code Subjective Pt developed nausea, last evening. Hypertensive,tachycardic, on admission her metoprolol succinate was decreased to 25 bid, at home takes 100 bid. Diuretics were held on admission. IV lasix given yesterday for concern of incr.fluid status. Cont. home PO lasix. She otherwise denies any chest pain, shortness of breath, abdominal pain. She continues to have lower back pain. Review of Systems Review of Systems: All systems reviewed & are unremarkable except as noted in HPI & below Constitutional: no fever Respiratory: no cough, no dyspnea and no pain on inspiration Cardiovascular: no chest pain, no radiating jaw, neck or arm pain, no dyspnea on exertion and no palpitations Gastrointestinal: + nausea; no abdominal pain and no vomiting Musculoskeletal: + back pain (Lower back pain) Physical Exam Constitutional: well developed, well nourished and + obese Eyes: PERRL, conjunctivae normal, anicteric sclerae ENMT: external ear and nose normal, oropharynx normal Respiratory: Auscultation: lungs clear to auscultation bilaterally; no crackles, no rhonchi and no wheezes Cardiovascular: Rate/Rhythm: regular rate and regular rhythm Heart Sounds: no murmur Chest (Breasts): Chest: normal inspection of chest Gastrointestinal (Abdomen): Inspection/Auscultation: normal bowel sounds Percussion/Palpation: abdomen soft; abdomen nontender and no guarding Musculoskeletal: Head/Neck/Chest: normocephalic, head atraumatic and neck supple Neurologic: PERRL, EOMI, accommodation nl, no face palsy, no dysarthria moves all extremities Psychiatric: A+Ox3, euthymic affect Speech: normal rate/rhythm/volume of speech Genitourinary: + CVA tenderness (Right-sided) Lymphatic: + lymphedema (Bilateral lower extremity) Results & Data Vital Signs (Past 12 Hours) Vital Signs Temp Pulse Pulse Pulse Pulse Resp BP 10/24/19 04:49 37.9 C H 105 H 19 179/83 H 10/24/19 00:19 37.5 C 98 H 20 180/68 H 10/23/19 22:22 100 H 10/23/19 20:25 101 H 116/64 10/23/19 19:47 37.2 C 103 H 19 BP Pulse Ox 10/24/19 04:49 89 L 10/24/19 00:19 92 10/23/19 22:22 10/23/19 20:25 10/23/19 19:47 144/75 H 93 Laboratory Results 10/24/19 10/24/19 10/23/19 Range/Units 05:45 05:45 20:21 WBC 17.07 H (4.8-10.8) K/uL RBC 3.12 L (4.2-5.4) M/uL Hgb 10.3 L (12.0-16.0) g/dL Hct 30.3 L (37-47) % MCV 97.1 (80-100) fL MCH 33.0 (25-34) pg MCHC 34.0 (32-36) g/dL RDW Std Deviation 48.5 H (36.4-46.3) fL RDW Coeff of Avery 13.6 (11.5-14.5) % Plt Count 210 (130-400) K/uL MPV 10.6 H (7.4-10.4) fL Immature Gran % (Auto) 0.6 % Neut % (Auto) 83.6 % Lymph % (Auto) 7.4 % Green[place] % (Auto) 7.3 % Eos % (Auto) 0.9 % Baso % (Auto) 0.2 % Immature Gran # (Auto) 0.11 H (0.00-0.02) K/uL Neut # (Auto) 14.26 H (1.4-6.5) K/uL Lymph # (Auto) 1.27 (1.2-3.4) K/uL Greenwood # (Auto) 1.24 H (0.11-0.59) K/uL Eos # (Auto) 0.16 (0-0.5) K/uL Baso # (Auto) 0.03 (0-0.2) K/uL Sodium 128 L (136-145) mmol/L Potassium 4.0 (3.5-5.1) mmol/L Chloride 96 L (98-107) mmol/L Carbon Dioxide 22 (21-32) mmol/L Anion Gap 10.0 (3-11) BUN 53 H (7-18) mg/dl Creatinine 2.37 H D (0.6-1.2) mg/dl Est Cr Clr Drug Dosing 40.4 ml/min Est GFR ( Amer) 24.5 Est GFR (Non-Af Amer) 21.1 BUN/Creatinine Ratio 22.4 H (10-20) Glucose 179 H (70-99) mg/dl POC Glucose 230 H (70-99) Calcium 9.7 (8.5-10.1) mg/dl Bld Cult Staph aureus PCR (Negative) Blood Culture MRSA PCR (Negative) 10/23/19 10/23/19 10/23/19 Range/Units 17:38 17:38 16:20 WBC 17.23 H (4.8-10.8) K/uL RBC 3.37 L (4.2-5.4) M/uL Hgb 11.0 L (12.0-16.0) g/dL Hct 33.2 L (37-47) % MCV 98.5 (80-100) fL MCH 32.6 (25-34) pg MCHC 33.1 (32-36) g/dL RDW Std Deviation 49.3 H (36.4-46.3) fL RDW Coeff of Avery 13.8 (11.5-14.5) % Plt Count 195 (130-400) K/uL MPV 10.9 H (7.4-10.4) fL Immature Gran % (Auto) 0.5 % Neut % (Auto) 86.1 % Lymph % (Auto) 6.4 % Greenwood % (Auto) 6.3 % Eos % (Auto) 0.6 % Baso % (Auto) 0.1 % Immature Gran # (Auto) 0.08 H (0.00-0.02) K/uL Neut # (Auto) 14.84 H (1.4-6.5) K/uL Lymph # (Auto) 1.11 L (1.2-3.4) K/uL Greenwood # (Auto) 1.09 H (0.11-0.59) K/uL Eos # (Auto) 0.10 (0-0.5) K/uL Baso # (Auto) 0.01 (0-0.2) K/uL Sodium 129 L (136-145) mmol/L Potassium 4.3 (3.5-5.1) mmol/L Chloride 96 L (98-107) mmol/L Carbon Dioxide 22 (21-32) mmol/L Anion Gap 11.0 (3-11) BUN 53 H (7-18) mg/dl Creatinine 2.70 H (0.6-1.2) mg/dl Est Cr Clr Drug Dosing 35.3 ml/min Est GFR ( Amer) 20.9 Est GFR (Non-Af Amer) 18.0 BUN/Creatinine Ratio 19.6 (10-20) Glucose 199 H (70-99) mg/dl POC Glucose 229 H (70-99) Calcium 9.6 (8.5-10.1) mg/dl Bld Cult Staph aureus PCR (Negative) Blood Culture MRSA PCR (Negative) 10/23/19 10/23/19 10/22/19 Range/Units 12:01 08:08 07:29 WBC (4.8-10.8) K/uL RBC (4.2-5.4) M/uL Hgb (12.0-16.0) g/dL Hct (37-47) % MCV (80-100) fL MCH (25-34) pg MCHC (32-36) g/dL RDW Std Deviation (36.4-46.3) fL RDW Coeff of Avery (11.5-14.5) % Plt Count (130-400) K/uL MPV (7.4-10.4) fL Immature Gran % (Auto) % Neut % (Auto) % Lymph % (Auto) % Green[place] % (Auto) % Eos % (Auto) % Baso % (Auto) % Immature Gran # (Auto) (0.00-0.02) K/uL Neut # (Auto) (1.4-6.5) K/uL Lymph # (Auto) (1.2-3.4) K/uL Green[place] # (Auto) (0.11-0.59) K/uL Eos # (Auto) (0-0.5) K/uL Baso # (Auto) (0-0.2) K/uL Sodium (136-145) mmol/L Potassium (3.5-5.1) mmol/L Chloride (98-107) mmol/L Carbon Dioxide (21-32) mmol/L Anion Gap (3-11) BUN (7-18) mg/dl Creatinine (0.6-1.2) mg/dl Est Cr Clr Drug Dosing ml/min Est GFR ( Amer) Est GFR (Non-Af Amer) BUN/Creatinine Ratio (10-20) Glucose (70-99) mg/dl POC Glucose 217 H 183 H (70-99) Calcium (8.5-10.1) mg/dl Bld Cult Staph aureus PCR Negative (Negative) Blood Culture MRSA PCR Negative (Negative) Medications Administered Current Inpatient Medications Acetaminophen (Tylenol) 650 mg PO Q4H PRN PRN Reason: pain/fever Stop: 11/20/19 05:20 Last Admin: 10/24/19 05:08 Dose: 650 mg Documented by: Dextrose (Dextrose 50%) 25 - 50 ml IV UD PRN; Protocol PRN Reason: Hypoglycemia Protocol Stop: 11/20/19 05:20 Furosemide (Lasix) 80 mg PO ONE ONE Stop: 10/24/19 08:02 Glucagon (Glucagen) 1 mg SQ UD PRN; Protocol PRN Reason: Hypoglycemia Protocol Stop: 11/20/19 05:20 Glucose (Dex4 Glucose) 4 - 8 tabs PO UD PRN; Protocol PRN Reason: Hypoglycemia Protocol Stop: 11/20/19 05:20 Glucose (Glucose 40%) 15 - 30 gm PO UD PRN; Protocol PRN Reason: Hypoglycemia Protocol Stop: 11/20/19 05:20 Heparin Sodium (Porcine) (Heparin Sodium (Porcine)) 5,000 units SQ Q8 [facility] Stop: 11/20/19 05:59 Last Admin: 10/24/19 05:37 Dose: 5,000 units Documented by: Promethazine HCl 12.5 mg/ (Sodium Chloride) 50.5 mls @ 202 mls/hr IV Q6H PRN PRN Reason: Nausea And Vomiting Stop: 11/20/19 05:20 Ceftriaxone Sodium 2,000 mg/ (Dextrose) 70 mls @ 100 mls/hr IV DAILY [facility]; Protocol Stop: 11/02/19 11:59 Last Infusion: 10/23/19 12:26 Dose: Infused Documented by: Daptomycin 625 mg/ Syringe 12.5 mls @ 6.25 mls/min IV Q24H [facility]; Protocol Stop: 11/06/19 19:59 Last Admin: 10/23/19 20:15 Dose: 6.25 mls/min Documented by: Insulin Aspart (Novolog Flexpen) 0 units SC ACHS [facility] Stop: 11/20/19 05:20 Last Admin: 10/23/19 20:23 Dose: 1 units Documented by: Insulin Glargine (Lantus Solostar Pen) 10 units SC HS [facility] Stop: 11/22/19 20:59 Last Admin: 10/23/19 21:36 Dose: 10 units Documented by: Isosorbide Dinitrate (Isordil) 20 mg PO BID17 [facility] Stop: 11/20/19 08:59 Last Admin: 10/23/19 16:21 Dose: 20 mg Documented by: Levothyroxine Sodium (Synthroid) 50 mcg PO DAILYBB [facility] Stop: 11/20/19 06:29 Last Admin: 10/24/19 05:37 Dose: 50 mcg Documented by: Metoprolol Succinate (Toprol Xl) 25 mg PO BID [facility] Stop: 11/20/19 08:59 Last Admin: 10/23/19 20:26 Dose: 25 mg Documented by: Miconazole Nitrate (Desenex) 1 appln EXT PRN PRN PRN Reason: Affected Skin Folds Stop: 11/21/19 11:17 Last Admin: 10/23/19 08:23 Dose: 1 appln Documented by: Miscellaneous (Carbohydrates For Hypoglycemia) 15 - 30 gm PO UD PRN PRN Reason: Hypoglycemia Protocol Stop: 11/20/19 05:20 Pantoprazole Sodium (Protonix) 40 mg PO BID [facility] Stop: 11/20/19 08:59 Last Admin: 10/23/19 20:25 Dose: 40 mg Documented by: Saccharomyces Boulardii (Florastor) 250 mg PO DAILY [facility] Stop: 11/22/19 09:59 Last Admin: 10/23/19 11:43 Dose: 250 mg Documented by: Tramadol HCl (Ultram) 50 mg PO Q4H PRN PRN Reason: Pain Stop: 11/22/19 18:11 Last Admin: 10/24/19 04:06 Dose: 50 mg Documented by:
[2019-10-24] MEDS ORDERED: FUROSEMIDE 80 MG TAB PO ONE (08:01)
[2019-10-24] MEDS: ISOSORBIDE DINITRATE 20 MG TAB PO SCH ×2 (08:28→17:12)
[2019-10-24] MEDS: SACCHAROMYCES BOULARDII 250 MG CAP PO SCH (08:28)
[2019-10-24] MEDS: METOPROLOL SUCC 25MG EXT REL TAB PO SCH (08:29)
[2019-10-24] MEDS: PANTOprazole 40 MG TAB PO SCH ×2 (08:29→20:20)
[2019-10-24] MEDS: cefTRIAXone SODIUM 2,000 MG in DEXTROSE 5% 50 ML IV SCH (08:31)
[2019-10-24] MEDS: INSULIN ASPART 100 UNITS/ML 3 ML PEN SC SCH ×4 (08:38→21:22)
--- NOTE | 2019-10-24 10:11 | Infectious Disease Consult ---
Date of Consultation October 24, 2019 Assessment & Plan (1) UTI (urinary tract infection): would continue rocephin for now, especially with nausea and poor po intake, when appetite at baseline would suggest transition to either omnicef 300mg po bid or macrobid 100mg po bid to complete a 7 day course for uti. would avoid bactrim due to jahaira. Suspect STREAMING MEDIA SPECIALIST in blood cultures represents skin contaminant, if repeat blood cultures from 10/23 negative would stop dapto. 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 In ER was found to have temp 37.9. 10/22 38.9, now low grade fevers, denies f/c at home. Had wbc 24 in ER, blood and urine cultures done. UA >30 wbc +4 bacteria, culture grew E. coli - resistant to augmentin and cefazolin only. She has been on rocephin and dapto, tolerating well. wbc improved to 17. Blood cultures from ER grew STREAMING MEDIA SPECIALIST in 1/2 sets, ID consulted for + blood cultures. She states overall she is feeling much better but continues to have nausea but denies any vomiting. she also states poor po intake. no f/c currently, no cp, sob, cough. 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 Nephro following, CXR negative. She has allergy to cipro - hives and keflex, gi upset. Allergies Allergy/AdvReac Type Severity Reaction Status Date / Time adhesive Allergy Mild RASH Verified 10/21/19 04:06 Cipro Allergy Unknown HIVES Verified 06/19/16 14:58 ciprofloxacin Allergy Unknown HIVES Verified 10/21/19 04:06 nystatin Allergy Unknown MYCOLOG Verified 10/21/19 04:06 CREAM cephalexin AdvReac Intermediate GI SYMPTOMS Verified 10/21/19 04:06 morphine AdvReac Mild N/V Verified 10/21/19 04:06 CONFUSION Home Medications Home Medications Medication Instructions Recorded Confirmed Type esomeprazole magnesium 40 mg PO BID 10/21/19 10/21/19 History furosemide 80 mg PO QAM 10/21/19 10/21/19 History insulin aspart U-100 [Novolog 0 unit SUBCUT AC 10/21/19 10/21/19 History Flexpen U-100 Insulin] insulin glargine [Lantus Solostar 50 unit SUBCUT AMPM 10/21/19 10/21/19 History U-100 Insulin] isosorbide dinitrate 20 mg PO BID 10/21/19 10/21/19 History levothyroxine 50 mcg PO DAILY 10/21/19 10/21/19 History lisinopril 5 mg PO DAILY 10/21/19 10/21/19 History metoprolol succinate 100 mg PO BID 10/21/19 10/21/19 History spironolactone 25 mg PO QAM 10/21/19 10/21/19 History Patient History Social History Preferred Language: Kinyarwanda Communication Ability: Effective Php Mysql Web Developer Required: No Beliefs That Will Affect Care: None Current Living Situation: Spouse Feels Safe at Home: Yes Safety Concerns: Feels Safe At This Time Smoking Status: Never smoker Hx Alcohol Use: No Hx Substance Use: No Review of Systems Review of Systems: All systems reviewed & are unremarkable except as noted in HPI & below Physical Exam Constitutional: WD/WN, vitals as above Eyes: PERRL, conjunctivae normal, anicteric sclerae ENMT: external ear and nose normal, oropharynx normal Neck: normal visual inspection Respiratory: normal respiratory effort, lungs clear to auscultation Cardiovascular: RRR, no murmur, no edema Gastrointestinal (Abdomen): normal bowel sounds, soft, nontender, no hepatosplenomegaly Musculoskeletal: no cyanosis or clubbing, extremities motor strength 5/5 Skin: no rashes, warm and dry Psychiatric: A+Ox3, euthymic affect Results & Data Vital Signs (Past 12 Hours) Vital Signs Temp Pulse Pulse Resp BP Pulse Ox 10/24/19 07:39 103 H 10/24/19 07:31 37.0 C 100 H 20 177/76 H 92 10/24/19 04:49 37.9 C H 105 H 19 179/83 H 89 L 10/24/19 00:19 37.5 C 98 H 20 180/68 H 92 10/23/19 22:22 100 H Laboratory Results Microbiology 10/22/19 07:29 Blood Aerobic Blood Culture - Preliminary Coag neg staph not lugdunensis 10/22/19 07:29 Blood Anaerobic Blood Culture - Preliminary No growth in Anaerobic bottle after 48 hours. 10/22/19 07:29 Blood Aerobic Blood Culture - Preliminary No growth in Aerobic bottle after 48 hours. 10/22/19 07:29 Blood Anaerobic Blood Culture - Preliminary No growth in Anaerobic bottle after 48 hours. 10/22/19 11:00 Urine,Straight Cath Urine Culture - Final Escherichia coli 10/21/19 05:40 Urine,Clean Catch Urine Culture - Final Escherichia coli PG Care Time/CCT Total # of Minutes Spent Total Time Spent with Patient: Total time spent is greater than 50% in coordination of care (as documented) at patient's floor/unit and/or counseling patient:
[2019-10-24] MEDS: INSULIN GLARGINE SOLOSTAR 100 UNITS/ML 3 ML PEN SC SCH ×2 (10:30→21:21)
[2019-10-24] MEDS ORDERED: METOPROLOL TARTRATE 25 MG TAB PO ONE (12:45)
[2019-10-24] MEDS ORDERED: HydrALAZINE HCL 20 MG/ML VIAL IV ONE (17:00)
[2019-10-24] MEDS ORDERED: FUROSEMIDE 20 MG in SYRINGE 0 ML IV ONE (19:15)
--- NOTE | 2019-10-24 19:41 | Nephrology Consultation ---
Date of Consultation October 24, 2019 Assessment & Plan (1) NICOLETTE (acute kidney injury): NICOLETTE due to ischemic ATN insetting of sepsis, NSAIDs and diuresis. Baseline cr 1.2. Cr peak at 2.7. Cr is down trending to 2.3 today. -Monitor RF with daily BMP -No NSAIDs even after discharge -Monitor input/output (2) UTI (urinary tract infection): Continue Rocephin per primary team and ID. No need for renal dosing. (3) HTN (hypertension): BP is above target. Patient also with tachycardia. -Add hydralazine 25mg po bid (4) CHF (congestive heart failure): Continue holding lasix due to NICOLETTE. Low salt diet and monitor weight History of Present Illness Reason for Consultation: NICOLETTE Requesting Physician: Jose Eduardo Dasilva MD Attending Physician: Jose Eduardo Dasilva MD History of Present Illness This is 64YoF with PMH of diastolic CHF with EF of 50-55%, obesity, DM2 for over 20yrs, CKD 3 with baseline cr 1.2 as of Oct 2018 who was admitted on 10/21/19 with weakness found to have E.coli sepsis and NICOLETTE. Cr on admission was 2.3, peaked to 2.7 and now down trending to 2.3. She had lots of IV fluids initially due to sepsis and later got lasix for volume overload. She took a dose of motrin on day of admission. She had been unwell with poor intake for several days prior to admission. She was also taking lasix 80 mg daily. She feels better now, denies SOB or pain. No vomiting or diarrhoea. She was doing PT. Allergies Allergy/AdvReac Type Severity Reaction Status Date / Time adhesive Allergy Mild RASH Verified 10/21/19 04:06 Cipro Allergy Unknown HIVES Verified 06/19/16 14:58 ciprofloxacin Allergy Unknown HIVES Verified 10/21/19 04:06 nystatin Allergy Unknown MYCOLOG Verified 10/21/19 04:06 CREAM cephalexin AdvReac Intermediate GI SYMPTOMS Verified 10/21/19 04:06 morphine AdvReac Mild N/V Verified 10/21/19 04:06 CONFUSION Home Medications Home Medications Medication Instructions Recorded Confirmed Type esomeprazole magnesium 40 mg PO BID 10/21/19 10/21/19 History furosemide 80 mg PO QAM 10/21/19 10/21/19 History insulin aspart U-100 [Novolog 0 unit SUBCUT AC 10/21/19 10/21/19 History Flexpen U-100 Insulin] insulin glargine [Lantus Solostar 50 unit SUBCUT AMPM 10/21/19 10/21/19 History U-100 Insulin] isosorbide dinitrate 20 mg PO BID 10/21/19 10/21/19 History levothyroxine 50 mcg PO DAILY 10/21/19 10/21/19 History lisinopril 5 mg PO DAILY 10/21/19 10/21/19 History metoprolol succinate 100 mg PO BID 10/21/19 10/21/19 History spironolactone 25 mg PO QAM 10/21/19 10/21/19 History Patient History Social History Preferred Language: Mozambican Communication Ability: Effective 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 Gastrointestinal: Abdomen is soft, non distended, non tender, bowel sounds are present CVS: Regular rate and rhythm. No murmurs, rubs or gallops Musculoskeletal: No joint or muscle tenderness Extremities: Non tender, no edema, peripheral pulses are present Neuro: Oriented, no tremors, no focal neurological deficits Skin: No rashes Results & Data Vital Signs (Past 12 Hours) Vital Signs Temp Pulse Pulse Resp BP BP Pulse Ox 10/24/19 16:52 161/77 H 10/24/19 16:31 104 H 10/24/19 15:25 37.8 C H 112 H 18 182/62 H 87 L 10/24/19 11:59 37.5 C 110 H 19 181/90 H 93 10/24/19 07:39 103 H Diagnostic Findings Laboratory Results - last 24 hr 10/23/19 10/24/19 10/24/19 20:21 05:45 05:45 WBC 17.07 H RBC 3.12 L Hgb 10.3 L Hct 30.3 L MCV 97.1 MCH 33.0 MCHC 34.0 RDW Std Deviation 48.5 H RDW Coeff of Avery 13.6 Plt Count 210 MPV 10.6 H Immature Gran % (Auto) 0.6 Neut % (Auto) 83.6 Lymph % (Auto) 7.4 Casey % (Auto) 7.3 Eos % (Auto) 0.9 Baso % (Auto) 0.2 Immature Gran # (Auto) 0.11 H Neut # (Auto) 14.26 H Lymph # (Auto) 1.27 Casey # (Auto) 1.24 H Eos # (Auto) 0.16 Baso # (Auto) 0.03 Sodium 128 L Potassium 4.0 Chloride 96 L Carbon Dioxide 22 Anion Gap 10.0 BUN 53 H Creatinine 2.37 H D Est Cr Clr Drug Dosing 40.4 Est GFR ( Amer) 24.5 Est GFR (Non-Af Amer) 21.1 BUN/Creatinine Ratio 22.4 H Glucose 179 H POC Glucose 230 H Calcium 9.7 10/24/19 10/24/19 10/24/19 08:01 11:26 16:43 WBC RBC Hgb Hct MCV MCH MCHC RDW Std Deviation RDW Coeff of Avery Plt Count MPV Immature Gran % (Auto) Neut % (Auto) Lymph % (Auto) Casey % (Auto) Eos % (Auto) Baso % (Auto) Immature Gran # (Auto) Neut # (Auto) Lymph # (Auto) Casey # (Auto) Eos # (Auto) Baso # (Auto) Sodium Potassium Chloride Carbon Dioxide Anion Gap BUN Creatinine Est Cr Clr Drug Dosing Est GFR ( Amer) Est GFR (Non-Af Amer) BUN/Creatinine Ratio Glucose POC Glucose 178 H 199 H 220 H Calcium
[2019-10-24] MEDS: DAPTOmycin 625 MG in SYRINGE 0 ML IV SCH (20:19)
[2019-10-24] MEDS ORDERED: METOPROLOL SUCC 50MG EXT REL TAB PO SCH (21:00)
[2019-10-25] MEDS: HEPARIN SOD 5,000 UNIT/0.5 ML VIAL SQ SCH ×3 (06:34→21:11)
[2019-10-25] MEDS: LEVOTHYROXINE SODIUM 50 MCG TABLET PO SCH (06:35)
[2019-10-25] MEDS: ISOSORBIDE DINITRATE 20 MG TAB PO SCH ×2 (07:38→12:14)
[2019-10-25] MEDS: INSULIN GLARGINE SOLOSTAR 100 UNITS/ML 3 ML PEN SC SCH ×2 (08:26→21:12)
[2019-10-25] MEDS: INSULIN ASPART 100 UNITS/ML 3 ML PEN SC SCH ×4 (08:26→21:11)
[2019-10-25 08:28] LABS: Basophils # (auto) 0.05 K/uL (0-0.2); Basophils % (auto) 0.3 %; Eosinophils # (auto) 0.26 K/uL (0-0.5); Eosinophils % (auto) 1.7 %; Hematocrit (blood only) 32.2 % (37-47); Hemoglobin 10.7 g/dL (12.0-16.0); Immature Granulocytes # (auto) 0.16 K/uL (0.00-0.02); Immature Granulocytes % (auto) 1.1 %; Lymphocytes # (auto) 1.49 K/uL (1.2-3.4); Lymphocytes % (auto) 9.8 %; Mean Corpuscular Hgb Conc 33.2 g/dL (32-36); Mean Corpuscular Volume 99.4 fL (80-100); Mean Platelet Volume 10.1 fL (7.4-10.4); Monocytes # (auto) 1.01 K/uL (0.11-0.59); Monocytes % (auto) 6.7 %; Neutrophils # (auto) 12.17 K/uL (1.4-6.5); Neutrophils % (auto) 80.4 %; Platelet Count 246 K/uL (130-400); RDW Coefficient of Variation 13.4 % (11.5-14.5); RDW Standard Deviation 48.8 fL (36.4-46.3); Red Blood Count 3.24 M/uL (4.2-5.4); White Blood Count 15.14 K/uL (4.8-10.8)
[2019-10-25] MEDS: PANTOprazole 40 MG TAB PO SCH ×2 (08:28→21:13)
[2019-10-25] MEDS: METOPROLOL SUCC 25MG EXT REL TAB PO SCH ×2 (08:28→21:13)
[2019-10-25] MEDS: cefTRIAXone SODIUM 2,000 MG in DEXTROSE 5% 50 ML IV SCH (08:30)
[2019-10-25 08:58] LABS: BUN Creatinine Ratio 27.3 (10-20); Est GFR (African American) 27.2; Est GFR (Non-African American) 23.5; Potassium 3.8 mmol/L (3.5-5.1)
--- NOTE | 2019-10-25 10:57 | Hospitalist Progress Note ---
Date of Service October 25, 2019 Assessment & Plan (1) Sepsis: Sepsis secondary to pyelonephritis patient spiked fever, T-max 37.9 Celsius, tachypnea RR 20, tachycardia HR over 100 White blood cell count increased from 16.6K to 24.7K (now downtrending) Creatinine elevated on admission, at 2.27 and increased to 2.48 (despite IVF), continued to increase to 2.7, now downtrending to 2.17 -UA positive for leuk esterase and bacteria, images of chest, abdomen pelvis negative -Urine culture (10/21) positive for E. coli, antibiotics switched to Rocephin (10/23) Bacteremia (w/ coag. negative Staph) - blood cltx x1 positive for Staph (not MRSA) -patient started on daptomycin on (10/23) ID consulted, and new set of blood cultures obtained - these are negative, therefore believed to be contaminant - daptomycin discontinued (10/25) - will cont. to closely monitor (2) UTI (urinary tract infection): Pyelonephritis UA positive for leuk. esterase, and bacteria, nitrites negative Urine culture positive for E. coli, sensitivities available now - pt received one dose of Bactrim (as pt has multiple drug allergies, WBC increased then overnight to 24k), she was then switched to Zosyn (10/22) - pt continues to have fevers while on zosyn (and hypoxic event at night) - hypoxic and also possibly secondary to GREYSON, patient was not evaluated for this yet, and tramadol use for back pain - now sensitivities are available for urine culture, E.coli sensit. to Rocephin, switched to this antibiotic (10/23) - Back pain resolved today, patient however still had T-max of 38 Celsius yesterday evening (10/24) (3) NICOLETTE (acute kidney injury): Creatinine 2.27 on admission - then cont. to increase despite IVF, up to 2.7 - now downtrending, improved to 2.3 (10/23) and 2.17 today (10/25) -Initially believed to be secondary to dehydration, as patient reported poor p.o. intake for the past 4 to 5 days prior to admission -However not much improved after IV hydration, therefore most likely secondary to above (urinary infection) -FeNa 0.2%, suggesting prerenal etiology, however urine sodium very low, 19, (and consequently low FeNa), suggests non-volume depleted state, and in fact can be secondary to ATN in this clinical setting -We will cont. IV antibiotics -We will continue to monitor renal function, will try to avoid nephrotoxic agents, such as NSAIDs and contrast -nephrology consulted Hyponatremia - poss. d/t incr. fluid status and/or diuretic use - will cont. to monitor - if not improving, will ask nephrology for their input (4) DM2 (diabetes mellitus, type 2): - DM2 insulin requiring, hypoglycemia noted on admission blood work - well controlled, Hemoglobin A1c 6.7% (10/21) - basal insulin held initially on admission d/t hypoglycemia - cont. SSI, re-started basal insulin (with lower doses) - pt's oral intake poor d/t nausea, currently incr. her basal insulin to 15 units bid - cont. to monitor BSG closely Chronic diastolic heart failure -Continue to monitor for fluid overload -Daily standing weights and strict I's and O's -Difficult to assess for fluid, given patient's body habitus, however she does not seem to have crackles on physical exam, is breathing comfortably on room air, and her weight is now decreasing Morbid obesity BMI over 60 Encourage weight loss, and significant lifestyle modifications [facility] as per records - patient yet to schedule sleep study - Had one hypoxic event night (possibly secondary to tramadol use, or sepsis), was placed on 4 L of oxygen, however in the morning back at room air HTN - BP on the lower side on admission - then acceptable BP, in the setting of sepsis - currently hypertensive, restarted her home metoprolol 100 mg bid (on admission dose decreased to 25 bid) - also give hydralazine prn (may schedule hydralazine 25 bid if continues to be hypertensive) - We will continue to closely monitor DVT prophylaxis. Heparin subcu Full code Subjective No acute events overnight, except patient spiked fever again in the evening to 38 C. Patient sitting on the bed, comfortable and in no acute distress. Denies any chest pain, shortness of breath, abdominal pain. She says that her back pain has resolved. She still has some nausea, however no vomiting. She ate eggs this morning. White blood cell count decreasing and creatinine decreasing Review of Systems Review of Systems: All systems reviewed & are unremarkable except as noted in HPI & below Constitutional: + fever (last evening); no chills Respiratory: no cough, no dyspnea and no pain on inspiration Cardiovascular: no chest pain, no radiating jaw, neck or arm pain, no dyspnea on exertion and no palpitations Gastrointestinal: + nausea; no abdominal pain and no vomiting Genitourinary: no dysuria and no flank pain Physical Exam Constitutional: well developed, well nourished and + obese Eyes: PERRL, conjunctivae normal, anicteric sclerae ENMT: external ear and nose normal, oropharynx normal Neck: trachea midline, no thyromegaly Respiratory: Auscultation: lungs clear to auscultation bilaterally; no crackles, no rhonchi and no wheezes Cardiovascular: Rate/Rhythm: regular rate and regular rhythm Heart Sounds: no murmur Chest (Breasts): Chest: normal inspection of chest Gastrointestinal (Abdomen): Inspection/Auscultation: normal bowel sounds Percussion/Palpation: abdomen soft; abdomen nontender and no guarding Musculoskeletal: Head/Neck/Chest: normocephalic, head atraumatic and neck supple Skin: Warm, dry, some rash/lesion in between skin folds Neurologic: PERRL, EOMI, accommodation nl, no face palsy, no dysarthria moves all extremities Psychiatric: A+Ox3, euthymic affect Speech: normal rate/rhythm/volume of speech Genitourinary: no CVA tenderness Lymphatic: + lymphedema (Bilateral lower extremity) Results & Data Vital Signs (Past 12 Hours) Vital Signs Temp Pulse Resp BP BP Pulse Ox 10/25/19 07:35 36.9 C 88 16 176/65 H 94 10/25/19 03:14 37.0 C 89 19 160/70 H 92 10/24/19 23:31 37.4 C 10/24/19 23:06 37.8 C H 95 H 18 154/66 H 90 Laboratory Results 10/25/19 10/25/19 10/25/19 Range/Units 08:01 08:01 07:36 WBC 15.14 H (4.8-10.8) K/uL RBC 3.24 L (4.2-5.4) M/uL Hgb 10.7 L (12.0-16.0) g/dL Hct 32.2 L (37-47) % MCV 99.4 (80-100) fL MCH 33.0 (25-34) pg MCHC 33.2 (32-36) g/dL RDW Std Deviation 48.8 H (36.4-46.3) fL RDW Coeff of Avery 13.4 (11.5-14.5) % Plt Count 246 (130-400) K/uL MPV 10.1 (7.4-10.4) fL Immature Gran % (Auto) 1.1 % Neut % (Auto) 80.4 % Lymph % (Auto) 9.8 % [place] % (Auto) 6.7 % Eos % (Auto) 1.7 % Baso % (Auto) 0.3 % Immature Gran # (Auto) 0.16 H (0.00-0.02) K/uL Neut # (Auto) 12.17 H (1.4-6.5) K/uL Lymph # (Auto) 1.49 (1.2-3.4) K/uL [place] # (Auto) 1.01 H (0.11-0.59) K/uL Eos # (Auto) 0.26 (0-0.5) K/uL Baso # (Auto) 0.05 (0-0.2) K/uL Sodium 131 L (136-145) mmol/L Potassium 3.8 (3.5-5.1) mmol/L Chloride 98 (98-107) mmol/L Carbon Dioxide 24 (21-32) mmol/L Anion Gap 9.0 (3-11) BUN 59 H (7-18) mg/dl Creatinine 2.17 H (0.6-1.2) mg/dl Est Cr Clr Drug Dosing 44.0 ml/min Est GFR ( Amer) 27.2 Est GFR (Non-Af Amer) 23.5 BUN/Creatinine Ratio 27.3 H (10-20) Glucose 147 H (70-99) mg/dl POC Glucose 143 H (70-99) Calcium 10.0 (8.5-10.1) mg/dl 10/24/19 10/24/19 10/24/19 Range/Units 20:56 16:43 11:26 WBC (4.8-10.8) K/uL RBC (4.2-5.4) M/uL Hgb (12.0-16.0) g/dL Hct (37-47) % MCV (80-100) fL MCH (25-34) pg MCHC (32-36) g/dL RDW Std Deviation (36.4-46.3) fL RDW Coeff of Avery (11.5-14.5) % Plt Count (130-400) K/uL MPV (7.4-10.4) fL Immature Gran % (Auto) % Neut % (Auto) % Lymph % (Auto) % [place] % (Auto) % Eos % (Auto) % Baso % (Auto) % Immature Gran # (Auto) (0.00-0.02) K/uL Neut # (Auto) (1.4-6.5) K/uL Lymph # (Auto) (1.2-3.4) K/uL [place] # (Auto) (0.11-0.59) K/uL Eos # (Auto) (0-0.5) K/uL Baso # (Auto) (0-0.2) K/uL Sodium (136-145) mmol/L Potassium (3.5-5.1) mmol/L Chloride (98-107) mmol/L Carbon Dioxide (21-32) mmol/L Anion Gap (3-11) BUN (7-18) mg/dl Creatinine (0.6-1.2) mg/dl Est Cr Clr Drug Dosing ml/min Est GFR ( Amer) Est GFR (Non-Af Amer) BUN/Creatinine Ratio (10-20) Glucose (70-99) mg/dl POC Glucose 186 H 220 H 199 H (70-99) Calcium (8.5-10.1) mg/dl
--- NOTE | 2019-10-25 13:59 | Infectious Disease Progress Nt ---
Date of Service October 25, 2019 Assessment & Plan (1) UTI (urinary tract infection): would continue rocephin for now, especially with nausea and poor po intake, when appetite at baseline would suggest transition to either omnicef 300mg po bid or macrobid 100mg po bid to complete a 7 day course for uti. would avoid bactrim due to jahaira. 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 Subjective tmax overnight 38. remains on rocephin and dapto. wbc improved to 15. 10/21 and 10/22 urine culture growing E. coli. 10/22 blood cultures growing ACCOUNT ASSISTANT in 1 bottle. repeat cultures negative to date. Results & Data Vital Signs (Past 12 Hours) Vital Signs Temp Pulse Resp BP BP Pulse Ox 10/25/19 12:07 36.8 C 90 18 180/71 H 95 10/25/19 07:35 36.9 C 88 16 176/65 H 94 10/25/19 03:14 37.0 C 89 19 160/70 H 92 Laboratory Results Microbiology 10/23/19 19:54 Blood Aerobic Blood Culture - Preliminary No growth in Aerobic bottle after 24 hours. 10/23/19 19:54 Blood Anaerobic Blood Culture - Preliminary No growth in Anaerobic bottle after 24 hours. 10/23/19 19:41 Blood Aerobic Blood Culture - Preliminary No growth in Aerobic bottle after 24 hours. 10/23/19 19:41 Blood Anaerobic Blood Culture - Preliminary No growth in Anaerobic bottle after 24 hours. 10/22/19 07:29 Blood Aerobic Blood Culture - Preliminary Coag neg staph not lugdunensis 10/22/19 07:29 Blood Anaerobic Blood Culture - Preliminary No growth in Anaerobic bottle after 48 hours. 10/22/19 07:29 Blood Aerobic Blood Culture - Preliminary No growth in Aerobic bottle after 48 hours. 10/22/19 07:29 Blood Anaerobic Blood Culture - Preliminary No growth in Anaerobic bottle after 48 hours. 10/22/19 11:00 Urine,Straight Cath Urine Culture - Final Escherichia coli 10/21/19 05:40 Urine,Clean Catch Urine Culture - Final Escherichia coli PG Care Time/CCT Total # of Minutes Spent Total Time Spent with Patient: Total time spent is greater than 50% in coordination of care (as documented) at patient's floor/unit and/or counseling patient:
--- NOTE | 2019-10-25 17:33 | Nephrology Progress Note ---
Date of Service October 25, 2019 Assessment & Plan (1) NICOLETTE (acute kidney injury): NICOLETTE due to ischemic ATN insetting of sepsis, NSAIDs and diuresis. Baseline cr 1.2. Cr peak at 2.7. Cr is down trending to 2.1 today. -Monitor RF with daily BMP -No NSAIDs even after discharge -Monitor input/output (2) UTI (urinary tract infection): Continue Rocephin per primary team and ID. No need for renal dosing. (3) HTN (hypertension): BP is above target. Patient also with tachycardia. -If BP is still high tomorrow qill Add hydralazine 25mg po bid (4) CHF (congestive heart failure): Continue holding lasix due to NICOLETTE. Low salt diet and monitor weight Subjective Seen in the morning. She feels better. No SOB. Still fever and labile BPs. Review of Systems Review of Systems: All systems reviewed & are unremarkable except as noted in HPI & below Physical Exam Physical Exam: General exam: Appears comfortable, no acute distress HEENT: Pupils are equal and reactive to light Neck: No JVD, neck is supple trachea is midline Respiratory system: Clear breath sounds bilaterally. Gastrointestinal: Abdomen is soft, non distended, non tender, bowel sounds are present CVS: Regular rate and rhythm. No murmurs, rubs or gallops Musculoskeletal: No joint or muscle tenderness Extremities: Non tender, no edema, peripheral pulses are present Neuro: Oriented, no tremors, no focal neurological deficits Skin: No rashes Results & Data Vital Signs (Past 12 Hours) Vital Signs Temp Pulse Resp BP BP Pulse Ox 10/25/19 15:39 37.2 C 101 H 18 164/69 H 90 10/25/19 12:07 36.8 C 90 18 180/71 H 95 10/25/19 07:35 36.9 C 88 16 176/65 H 94 Laboratory Results Laboratory Results - last 24 hr 10/24/19 10/25/19 10/25/19 20:56 07:36 08:01 WBC 15.14 H RBC 3.24 L Hgb 10.7 L Hct 32.2 L MCV 99.4 MCH 33.0 MCHC 33.2 RDW Std Deviation 48.8 H RDW Coeff of Avery 13.4 Plt Count 246 MPV 10.1 Immature Gran % (Auto) 1.1 Neut % (Auto) 80.4 Lymph % (Auto) 9.8 [place] % (Auto) 6.7 Eos % (Auto) 1.7 Baso % (Auto) 0.3 Immature Gran # (Auto) 0.16 H Neut # (Auto) 12.17 H Lymph # (Auto) 1.49 [place] # (Auto) 1.01 H Eos # (Auto) 0.26 Baso # (Auto) 0.05 Sodium Potassium Chloride Carbon Dioxide Anion Gap BUN Creatinine Est Cr Clr Drug Dosing Est GFR ( Amer) Est GFR (Non-Af Amer) BUN/Creatinine Ratio Glucose POC Glucose 186 H 143 H Calcium 10/25/19 10/25/19 10/25/19 08:01 11:36 16:46 WBC RBC Hgb Hct MCV MCH MCHC RDW Std Deviation RDW Coeff of Avery Plt Count MPV Immature Gran % (Auto) Neut % (Auto) Lymph % (Auto) [place] % (Auto) Eos % (Auto) Baso % (Auto) Immature Gran # (Auto) Neut # (Auto) Lymph # (Auto) [place] # (Auto) Eos # (Auto) Baso # (Auto) Sodium 131 L Potassium 3.8 Chloride 98 Carbon Dioxide 24 Anion Gap 9.0 BUN 59 H Creatinine 2.17 H Est Cr Clr Drug Dosing 44.0 Est GFR ( Amer) 27.2 Est GFR (Non-Af Amer) 23.5 BUN/Creatinine Ratio 27.3 H Glucose 147 H POC Glucose 180 H 219 H Calcium 10.0
[2019-10-25] MEDS ORDERED: FUROSEMIDE 40 MG TAB PO ONE (21:54)
[2019-10-26] MEDS: LEVOTHYROXINE SODIUM 50 MCG TABLET PO SCH (06:05)
[2019-10-26] MEDS: ISOSORBIDE DINITRATE 20 MG TAB PO SCH ×2 (06:05→12:38)
[2019-10-26] MEDS: HEPARIN SOD 5,000 UNIT/0.5 ML VIAL SQ SCH ×3 (06:05→21:09)
[2019-10-26 07:12] LABS: Hematocrit (blood only) 31.9 % (37-47); Hemoglobin 10.8 g/dL (12.0-16.0); Mean Corpuscular Hgb Conc 33.9 g/dL (32-36); Mean Corpuscular Volume 97.6 fL (80-100); Mean Platelet Volume 10.1 fL (7.4-10.4); Platelet Count 296 K/uL (130-400); RDW Coefficient of Variation 13.5 % (11.5-14.5); Red Blood Count 3.27 M/uL (4.2-5.4); White Blood Count 14.51 K/uL (4.8-10.8)
[2019-10-26 07:50] LABS: BUN Creatinine Ratio 34.3 (10-20); Creatinine Clr Calc Pharmacy 52.8 ml/min; Est GFR (African American) 34.3; Est GFR (Non-African American) 29.6; Magnesium 2.2 mg/dl (1.8-2.4); Potassium 3.8 mmol/L (3.5-5.1)
[2019-10-26] MEDS: INSULIN ASPART 100 UNITS/ML 3 ML PEN SC SCH ×4 (08:41→21:07)
[2019-10-26] MEDS: PANTOprazole 40 MG TAB PO SCH ×2 (08:44→21:08)
[2019-10-26] MEDS: METOPROLOL SUCC 50MG EXT REL TAB PO SCH ×2 (08:46→21:09)
[2019-10-26] MEDS ORDERED: INSULIN GLARGINE SOLOSTAR 100 UNITS/ML 3 ML PEN SC SCH (09:00)
--- NOTE | 2019-10-26 10:04 | Nephrology Progress Note ---
Date of Service October 26, 2019 Assessment & Plan (1) NICOLETTE (acute kidney injury): NICOLETTE due to ischemic ATN insetting of sepsis, NSAIDs and diuresis. Baseline cr 1.2. Cr peak at 2.7. Cr is down trending to 1.7 today. -Restart Lasix 80 mg p.o. daily, home dose -Monitor RF with daily BMP -No NSAIDs even after discharge -Monitor input/output (2) UTI (urinary tract infection): Continue Rocephin per primary team and ID. No need for renal dosing. (3) HTN (hypertension): BP is controlled. Continue metoprolol 100 mg twice daily. (4) CHF (congestive heart failure): Resume p.o. Lasix 80 mg daily. Low salt diet and monitor weight Subjective Patient feels better today. No shortness of breath. She has mild leg swelling. Creatinine downtrending to 1.7 Review of Systems Review of Systems: All systems reviewed & are unremarkable except as noted in HPI & below Physical Exam Physical Exam: General exam: Obese female, appears comfortable, no acute distress HEENT: Pupils are equal and reactive to light Neck: No JVD, neck is supple trachea is midline Respiratory system: Clear breath sounds bilaterally. Gastrointestinal: Abdomen is soft, non distended, non tender, bowel sounds are present CVS: Regular rate and rhythm. No murmurs, rubs or gallops Musculoskeletal: No joint or muscle tenderness Extremities: Non tender, no edema, peripheral pulses are present Neuro: Oriented, no tremors, no focal neurological deficits Skin: No rashes Results & Data Vital Signs (Past 12 Hours) Vital Signs Temp Pulse Pulse Resp BP BP Pulse Ox 10/26/19 07:25 36.5 C 84 20 131/62 94 10/26/19 06:04 36.7 C 83 22 138/66 94 10/26/19 03:25 36.8 C 83 18 162/72 H 93 10/26/19 00:05 88 10/25/19 23:42 37 C 90 16 136/70 96 Laboratory Results Laboratory Results - last 24 hr 10/25/19 10/25/19 10/25/19 11:36 16:46 20:52 WBC RBC Hgb Hct MCV MCH MCHC RDW Std Deviation RDW Coeff of Avery Plt Count MPV Sodium Potassium Chloride Carbon Dioxide Anion Gap BUN Creatinine Est Cr Clr Drug Dosing Est GFR ( Amer) Est GFR (Non-Af Amer) BUN/Creatinine Ratio Glucose POC Glucose 180 H 219 H 198 H Calcium Magnesium 10/26/19 10/26/19 10/26/19 06:47 06:47 07:45 WBC 14.51 H RBC 3.27 L Hgb 10.8 L Hct 31.9 L MCV 97.6 MCH 33.0 MCHC 33.9 RDW Std Deviation 48.0 H RDW Coeff of Avery 13.5 Plt Count 296 MPV 10.1 Sodium 132 L Potassium 3.8 Chloride 99 Carbon Dioxide 23 Anion Gap 10.0 BUN 61 H Creatinine 1.79 H D Est Cr Clr Drug Dosing 52.8 Est GFR ( Amer) 34.3 Est GFR (Non-Af Amer) 29.6 BUN/Creatinine Ratio 34.3 H Glucose 165 H POC Glucose 179 H Calcium 10.0 Magnesium 2.2
--- NOTE | 2019-10-26 10:23 | Infectious Disease Progress Nt ---
Date of Service October 26, 2019 Assessment & Plan (1) UTI (urinary tract infection): would continue rocephin for now, upon d/c can transition to either omnicef 300mg po bid or macrobid 100mg po bid to complete a 7 day course for uti. would avoid bactrim due to jahaira. 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 Ok for d/c from ID standpoint when otherwise stable. Subjective pt seen in followup, doing much better. afebrile overnight. did not sleep well but overall feeling better. no n/v, eating and drinking. creat improved to 1.7 today, wbc decreased to 14. repeat blood cultures remain negative, urine culture growing E.coli. remains on ctx. Review of Systems Review of Systems: All systems reviewed & are unremarkable except as noted in HPI & below Physical Exam Constitutional: WD/WN, vitals as above Eyes: PERRL, conjunctivae normal, anicteric sclerae ENMT: external ear and nose normal, oropharynx normal Neck: normal visual inspection Respiratory: normal respiratory effort, lungs clear to auscultation Cardiovascular: RRR, no murmur, no edema Gastrointestinal (Abdomen): normal bowel sounds, soft, nontender, no hepatosplenomegaly Musculoskeletal: no cyanosis or clubbing, extremities motor strength 5/5 Skin: no rashes, warm and dry Psychiatric: A+Ox3, euthymic affect Results & Data Vital Signs (Past 12 Hours) Vital Signs Temp Pulse Pulse Resp BP BP Pulse Ox 10/26/19 07:25 36.5 C 84 20 131/62 94 10/26/19 06:04 36.7 C 83 22 138/66 94 10/26/19 03:25 36.8 C 83 18 162/72 H 93 10/26/19 00:05 88 10/25/19 23:42 37 C 90 16 136/70 96 Laboratory Results Microbiology 10/23/19 19:54 Blood Aerobic Blood Culture - Preliminary No growth in Aerobic bottle after 48 hours. 10/23/19 19:54 Blood Anaerobic Blood Culture - Preliminary No growth in Anaerobic bottle after 48 hours. 10/23/19 19:41 Blood Aerobic Blood Culture - Preliminary No growth in Aerobic bottle after 48 hours. 10/23/19 19:41 Blood Anaerobic Blood Culture - Preliminary No growth in Anaerobic bottle after 48 hours. 10/22/19 07:29 Blood Aerobic Blood Culture - Preliminary Coag neg staph not lugdunensis 10/22/19 07:29 Blood Anaerobic Blood Culture - Preliminary No growth in Anaerobic bottle after 48 hours. 10/22/19 07:29 Blood Aerobic Blood Culture - Preliminary No growth in Aerobic bottle after 48 hours. 10/22/19 07:29 Blood Anaerobic Blood Culture - Preliminary No growth in Anaerobic bottle after 48 hours. 10/22/19 11:00 Urine,Straight Cath Urine Culture - Final Escherichia coli 10/21/19 05:40 Urine,Clean Catch Urine Culture - Final Escherichia coli PG Care Time/CCT Total # of Minutes Spent Total Time Spent with Patient: Total time spent is greater than 50% in coordination of care (as documented) at patient's floor/unit and/or counseling patient:
[2019-10-26] MEDS: cefTRIAXone SODIUM 2,000 MG in DEXTROSE 5% 50 ML IV SCH (10:32)
[2019-10-26] MEDS: FUROSEMIDE 80 MG TAB PO SCH (10:32)
--- NOTE | 2019-10-26 17:23 | Hospitalist Progress Note ---
Date of Service October 26, 2019 Assessment & Plan (1) Sepsis: Sepsis secondary to UTI Last T-max 38 Celsius on 10/24/19 White blood cell count increased from 16.6K to 24.7K (now downtrending) Currently 14K Creatinine elevated on admission, at 2.27 and increased to 2.48 (despite IVF), continued to increase to 2.7, now downtrending to 1.79 Images of chest, abdomen pelvis negative Urine culture (10/21) positive for E. coli, antibiotics switched to Rocephin (10/23) Bacteremia (w/ coag. negative Staph) x1. Thought to be contaminant. Daptomycin discontinued Plan to discharge on macrobid per ID recs to complete 1 week (2) UTI (urinary tract infection): As above (3) NICOLETTE (acute kidney injury): Creatinine 2.27 on admission Now 1.79 Likely due to ATN in the setting of sepsis, diuretics Resumed home lasix po today Avoid nephrotoxins (4) DM2 (diabetes mellitus, type 2): DM2 insulin requiring, hypoglycemia noted on admission blood work Well controlled, Hemoglobin A1c 6.7% (10/21) Basal insulin held initially on admission d/t hypoglycemia. Restarted at lower dose of 15U bid.Will increase to 20U BID to achieve better glycemic control Cont. SSI (5) Hyponatremia: Currently 132. Was 134 on admission and dropped to 128 (6) Morbid obesity: BMI over 60 Encouraged weight loss, and significant lifestyle modifications O[facility] as per records Advised patient about sleep study. She stated she plans to schedule it on discharge Currently on 2L/min nasal cannula. Discussed with RN to wean off oxygen. Will do 2 step and overnight pulse ox to assess o2 requirement with exertion and sleep respectively (7) HTN (hypertension): Currently hypertensive, home metoprolol 100 mg bid (on admission dose was decreased to 25 bid) restarted Still holding lisinopril due to NICOLETTE Continue to monitor (8) Chronic diastolic heart failure: Right sided heart failure per records Continue to monitor for fluid overload i/o 1070/750 yesterday Continue home lasix 80mg daily Low salt diet (9) DVT prophylaxis: Heparin subcu Full code Subjective Patient seen and examined Patient has no complaints today Denied any fevers, chills, nausea, vomiting, abdominal pain Review of Systems Constitutional: no fever and no chills Eyes: no problem reported Respiratory: no cough, no dyspnea and no wheezing Cardiovascular: no chest pain, no chest pain at rest and no dyspnea Gastrointestinal: no problem reported Genitourinary: no problem reported Physical Exam Physical Exam: General: Morbid obesity, no acute distress Eyes: PERRL, conjunctivae normal, not pale, anicteric sclerae, EOM intact bilaterally ENMT: External ear and nose normal, oropharynx normal Neck: Normal visual inspection, no tracheal deviation Respiratory: Normal respiratory effort, no respiratory distress, Nasal cannula in situ on 2L/min, lungs clear to auscultation, no crackles and no wheezes Cardiovascular: Pulse is RRR. Difficult to appreciate heart sounds due to body habitus. Chest (Breasts): Chest: normal inspection of chest Gastrointestinal (Abdomen): Abdomen is distended, soft, non-tender to palpation, no guarding, no palpable hepatosplenomegaly, normal bowel sounds Musculoskeletal: No cyanosis or clubbing, all extremities motor strength 5/5 Skin: No rash noted on gross inspection, No ulcers noted Neurologic: Alert and oriented x 3, No focal weakness, sensation grossly intact Psychiatric: Alert and oriented x 3, euthymic affect, no depressed affect Results & Data Vital Signs (Past 12 Hours) Vital Signs Temp Pulse Resp BP BP Pulse Ox 10/26/19 15:53 36.4 C L 84 12 151/85 H 91 10/26/19 11:21 36.5 C 84 20 140/67 95 10/26/19 07:25 36.5 C 84 20 131/62 94 10/26/19 06:04 36.7 C 83 22 138/66 94 Laboratory Results Abnormal lab results 10/25/19 10/25/19 10/26/19 Range/Units 16:46 20:52 06:47 WBC 14.51 H (4.8-10.8) K/uL RBC 3.27 L (4.2-5.4) M/uL Hgb 10.8 L (12.0-16.0) g/dL Hct 31.9 L (37-47) % RDW Std Deviation 48.0 H (36.4-46.3) fL Sodium (136-145) mmol/L BUN (7-18) mg/dl Creatinine (0.6-1.2) mg/dl BUN/Creatinine Ratio (10-20) Glucose (70-99) mg/dl POC Glucose 219 H 198 H (70-99) 10/26/19 10/26/19 10/26/19 Range/Units 06:47 07:45 11:40 WBC (4.8-10.8) K/uL RBC (4.2-5.4) M/uL Hgb (12.0-16.0) g/dL Hct (37-47) % RDW Std Deviation (36.4-46.3) fL Sodium 132 L (136-145) mmol/L BUN 61 H (7-18) mg/dl Creatinine 1.79 H D (0.6-1.2) mg/dl BUN/Creatinine Ratio 34.3 H (10-20) Glucose 165 H (70-99) mg/dl POC Glucose 179 H 215 H (70-99) 10/26/19 Range/Units 16:50 WBC (4.8-10.8) K/uL RBC (4.2-5.4) M/uL Hgb (12.0-16.0) g/dL Hct (37-47) % RDW Std Deviation (36.4-46.3) fL Sodium (136-145) mmol/L BUN (7-18) mg/dl Creatinine (0.6-1.2) mg/dl BUN/Creatinine Ratio (-20) Glucose (70-99) mg/dl POC Glucose 230 H (70-99)
[2019-10-26] MEDS: INSULIN GLARGINE SOLOSTAR 100 UNITS/ML 3 ML PEN SC SCH (21:04)
[2019-10-27] MEDS ORDERED: METOPROLOL SUCC 50MG EXT REL TAB PO SCH (04:00)
[2019-10-27] MEDS: HEPARIN SOD 5,000 UNIT/0.5 ML VIAL SQ SCH (05:29)
[2019-10-27] MEDS: LEVOTHYROXINE SODIUM 50 MCG TABLET PO SCH (05:31)
[2019-10-27] MEDS: ISOSORBIDE DINITRATE 20 MG TAB PO SCH ×2 (06:37→08:39)
[2019-10-27 07:20] LABS: Calcium 10.2 mg/dl (8.5-10.1); Creatinine Clr Calc Pharmacy 67.5 ml/min; Est GFR (African American) 46.2; Est GFR (Non-African American) 39.9; Potassium 3.8 mmol/L (3.5-5.1)
[2019-10-27] MEDS: cefTRIAXone SODIUM 2,000 MG in DEXTROSE 5% 50 ML IV SCH (08:39)
[2019-10-27] MEDS: FUROSEMIDE 80 MG TAB PO SCH (08:39)
[2019-10-27] MEDS: PANTOprazole 40 MG TAB PO SCH (08:39)
[2019-10-27] MEDS: INSULIN GLARGINE SOLOSTAR 100 UNITS/ML 3 ML PEN SC SCH (08:40)
[2019-10-27] MEDS: INSULIN ASPART 100 UNITS/ML 3 ML PEN SC SCH ×2 (08:41→12:57)
--- NOTE | 2019-10-27 16:04 | Discharge Summary ---
Date of Service October 27, 2019 Admission HPI Per Admitting Provider History obtained from patient, family, and records. Medical history significant for chronic diastolic heart failure (R side HF as per records, EF 50-55%, TTE 2017), OHS as per records, HTN, DM2 insulin requiring, CRI (baseline creatinine 1.2 ) Recent confinement October 2017 for right-sided heart failure. Few days history of generalized weakness, poor appetite, upper/mid back pain from dry heaving food. Short of breath from generalized weakness. No actual chest pain as per patient. Patient denies abdominal pain. No fluid retention. Patient brought to the Emergency Room by her .. MEDICAL HISTORY: As above. SURGERIES: She has had bilateral breast reduction, oophorectomy, hysterectomy, knee surgery. FAMILY HISTORY: Heart disease. PERSONAL AND SOCIAL HISTORY: Nonsmoker, no chronic intake of alcoholic beverages., had a daycare business. Admission Exam Per Admitting Provider GENERAL: Comfortable, morbidly obese, no respiratory distress SKIN: Normal color, warm HEENT: [place] palpebral conjunctivae, no ptosis, dry buccal mucosa NECK : Supple, short neck, no tenderness CHEST : Decreased breath sounds, no tenderness HEART : RRR, no obvious murmurs ABDOMEN: distention, nontender EXTREMITIES : Bilateral LE swelling, no LE tenderness, no other conspicuous deformities noted NEUROLOGIC : Coherent, no facial asymmetry, no other gross focality Principal Diagnosis Sepsis Urinary Tract Infection Acute Kidney Injury Chronic diastolic heart failure/ Right heart failure Obesity hypoventilation syndrome Discharge Exam General: Morbid obesity, no acute distress Eyes: PERRL, conjunctivae normal, not pale, anicteric sclerae, EOM intact bilaterally ENMT: External ear and nose normal, oropharynx normal Neck: Normal visual inspection, no tracheal deviation Respiratory: Normal respiratory effort, no respiratory distress, Nasal cannula in situ on 2L/min, lungs clear to auscultation, no crackles and no wheezes Cardiovascular: Pulse is RRR. Difficult to appreciate heart sounds due to body habitus. Gastrointestinal (Abdomen): Abdomen is distended, soft, non-tender to palpation, no guarding, no palpable hepatosplenomegaly, normal bowel sounds Musculoskeletal: No cyanosis or clubbing Skin: No rash noted on gross inspection, No ulcers noted Neurologic: Alert and oriented x 3, No focal weakness, sensation grossly intact Psychiatric: Alert and oriented x 3, euthymic affect, no depressed affect Discharge Data Allergies Allergy/AdvReac Type Severity Reaction Status Date / Time adhesive Allergy Mild RASH Verified 10/21/19 04:06 Cipro Allergy Unknown HIVES Verified 06/19/16 14:58 ciprofloxacin Allergy Unknown HIVES Verified 10/21/19 04:06 nystatin Allergy Unknown MYCOLOG Verified 10/21/19 04:06 CREAM cephalexin AdvReac Intermediate GI SYMPTOMS Verified 10/21/19 04:06 morphine AdvReac Mild N/V Verified 10/21/19 04:06 CONFUSION Consultations 10/21/19 03:22 ED Decision to Admit Stat 10/24/19 08:31 Consult Nephrology Routine 10/24/19 08:36 Consult Infectious Diseases Routine Ordered Studies 10/21/19 02:19 CT abd pelvis wo con Urgent CT chest wo con Urgent Hospital Course (1) Sepsis: Sepsis secondary to UTI Last T-max 38 Celsius on 10/24/19 White blood cell count increased from 16.6K to 24.7K (now downtrending) to 14K Creatinine elevated on admission, at 2.27 and increased to 2.48 (despite IVF), continued to increase to 2.7, now downtrending to 1.4 Images of chest, abdomen pelvis negative Urine culture (10/21) positive for E. coli, antibiotics switched to Rocephin (10/23). Discharged on cefdinir to complete 7 days therapy Bacteremia (w/ coag. negative Staph) x1. Thought to be contaminant. Daptomycin discontinued (2) UTI (urinary tract infection): As above (3) NICOLETTE (acute kidney injury): Creatinine 2.27 on admission Now 1.4 Likely due to ATN in the setting of sepsis, diuretics Resumed home lasix po yesterday Will discharge on home spironolactone as well. Will continue to hold lisnopril for now until follow up with PCP. To recheck BMP next week prior to PCP follow up before possible resumption of lisinopril Avoid nephrotoxins (4) DM2 (diabetes mellitus, type 2): DM2 insulin requiring, hypoglycemia noted on admission blood work Well controlled, Hemoglobin A1c 6.7% (10/21) Basal insulin held initially on admission d/t hypoglycemia. Resumed at lower dose Continue home regimen on discharge. Denied any hypoglycemic recordings at home (5) Hyponatremia: Resolved. Now 136. Was 134 on admission and dropped to 128 (6) Morbid obesity: BMI over 60 Encouraged weight loss, and significant lifestyle modifications OHS as per records Advised patient about sleep study. She stated she plans to schedule it on disch arge 2 Step pulse oximetry - patient desaturated to low 80s on room air with activity and required 2L/min Patient also had nocturnal hypoxia on overnight pulse ox. Arrangements made for discharge on 2L/min nasal oxygen with activity and bedtime Discussed with patient that she likely has GREYSON and will likely need CPAP after sleep study. PCP to follow up evaluation and further management of these (7) HTN (hypertension): Some of BP measurement likely erroneous due to body habitus and inappropriate cuff One I measured shortly after one the high recordings was normal Continue home metoprolol succinate 100 mg bid Still holding lisinopril due to NICOLETTE Continue to monitor at home and keep a BP log for PCP to optimize management (8) Chronic diastolic heart failure: Right sided heart failure per records Continue to monitor for fluid overload Continue home lasix 80mg daily and spironolactone Low salt diet Total Time Total Time Spent Total Time Spent (In Minutes): 40 Total Time Includes: Examination of the Patient, Discharge Planning and Medication Reconciliation Discharge Plan Discharge Items Patient Disposition: Home - Home Health Services Reason For Visit: Acute renal failure Discharge Diagnosis: Sepsis Urinary Tract Infection Acute Kidney Injury Chronic diastolic heart failure/ Right heart failure Obesity hypoventilation syndrome Condition on Discharge: Fair Activity: Resume your previous activity Activity Comment: Use oxygen at 2l/min with activity Bathing: No limitations Exercise/Sports: As tolerated Weightbearing Comment: As tolerated Non-emergency contact: Primary Care Provider Call non-emergency contact if: you have any medication questions and your symptoms worsen Follow-up/Referrals: Selene Webb DO [Primary Care Provider] - Diet: Carb Consistent or DM2 and Heart Healthy Ambulatory Orders: Basic Metabolic Panel (Routine) Timeframe: 20191031 Location: Determined by Patient Ordered By: Pinky Kim Attending Provider Instructions: Mrs. Fisher You came to the hospital for generalized weakness, poor appetite, shortness of breath. Extensive evaluation in the hospital showed you had acute kidney injury. You were also found to have urinary tract infection. You were treated with antibiotics and some IV fluids. Your symptoms improved. You were also noted to require oxygen during your hospitalization with activity. A test called nocturnal pulse oximetry showed that you need oxygen at bedtime. You likely have obstructive sleep apnea and will need a proper sleep study for further evaluation. We also discussed the possibility of needing CPAP in the future. For now, you are being discharged on oxygen to be used with nasal cannula at 2Liters/min to be used with activity and at bedtime. It is very important you follow up with your Primary Doctor. Please continue to take your medications as prescribed Please take the antibiotic to complete treatment. Due to your acute kidney injury, your lisinopril was suspended for now. Please do not resume this until you see your Primary Doctor. Please do the blood test (Basic metabolic Panel) on 10/30/19 to monitor your kidney function. It was a pleasure taking care of you Pending Studies at Discharge: No Stand-Alone Forms: My [facility], Smoking Cessation Medications and DC Order Prescriptions: New cefdinir 300 mg capsule 300 mg PO BID 2 Days Qty: 4 RF: 0 Continued spironolactone 25 mg tablet 25 mg PO QAM RF: 0 levothyroxine 50 mcg tablet 50 mcg PO DAILY RF: 0 esomeprazole magnesium 40 mg capsule,delayed release(DR/EC) 40 mg PO BID RF: 0 metoprolol succinate 50 mg tablet extended release 24 hr 100 mg PO BID RF: 0 furosemide 80 mg tablet 80 mg PO QAM RF: 0 isosorbide dinitrate 20 mg tablet 20 mg PO BID RF: 0 Novolog Flexpen U-100 Insulin 100 unit/mL (3 mL) insulin pen 0 unit SUBCUT AC RF: 0 Lantus Solostar U-100 Insulin 100 unit/mL (3 mL) insulin pen 50 unit SUBCUT AMPM RF: 0 Discontinued lisinopril 5 mg tablet 5 mg PO DAILY RF: 0 Discharge Orders: Discharge Order (Routine); Ordered 10/27/19 Ordered By: Pinky Sanabria/Other Patient Handouts: Hypoglycemia, A1C Admission Data Admit Date/Time: 10/22/19 07:41 Attending Provider: Pinky Sutton I. Admit Provider: Naveen Car Primary Care Provider: Selene Webb Other Providers: Naveen Car ; Gisela Tolentino ; Rodrick Valdivia Elissa R. ; [place] Rahman Japheth E. ; Amauri Mahmood ; Maricel Almanza ; Jose Eduardo Dasilva ; [place] Other Interventions: Discharge Summary Assessment (RN) Last Done: 10/27/19 14:09 DC Date/Time DO NOT enter until pt leaves facility: 10/27/19 15:37
== END 2019-10-27 15:37 | disposition home health service (06) | DRG 871 ==
LOC: 4W 01:24 → ED 01:24 → SUATTDRO 04:34 → 4W 04:59 → SUATTDRO 10-22 07:41 → 2N 10-22 21:10

== ENCOUNTER 2019-10-31 11:17 | Inpatient (IN) ==
[2019-10-31] MEDS ORDERED: SODIUM CHLORIDE 0.9% 1000ML 2,000 ML IV ONE (11:43)
[2019-10-31] MEDS ORDERED: DAPTOmycin 600 MG in SYRINGE 0 ML IV ONE ×2 (12:03→12:15)
[2019-10-31] MEDS ORDERED: PIPERACILLIN/TAZOBACTAM 4.5 GM/120 ML BAG IV ONE (12:09)
[2019-10-31] MEDS ORDERED: PIPERACILL/TAZOBAC CONSULT ACTIVE PRN ×2 (12:09→19:16)
[2019-10-31 12:38] LABS: Basophils # (auto) 0.03 K/uL (0-0.2); Basophils % (auto) 0.2 %; Eosinophils % (auto) 1.6 %; Hematocrit (blood only) 37.3 % (37-47); Hemoglobin 12.1 g/dL (12.0-16.0); Immature Granulocytes # (auto) 0.29 K/uL (0.00-0.02); Immature Granulocytes % (auto) 2.4 %; Lymphocytes # (auto) 1.72 K/uL (1.2-3.4); Mean Corpuscular Hemoglobin 32.9 pg (25-34); Mean Corpuscular Hgb Conc 32.4 g/dL (32-36); Mean Corpuscular Volume 101.4 fL (80-100); Mean Platelet Volume 9.4 fL (7.4-10.4); Monocytes # (auto) 0.77 K/uL (0.11-0.59); Monocytes % (auto) 6.3 %; Neutrophils % (auto) 75.5 %; Platelet Count 305 K/uL (130-400); RDW Coefficient of Variation 13.9 % (11.5-14.5); RDW Standard Deviation 51.5 fL (36.4-46.3); Red Blood Count 3.68 M/uL (4.2-5.4); White Blood Count 12.31 K/uL (4.8-10.8)
--- NOTE | 2019-10-31 12:49 | XRay Report ---
SINGLE VIEW CHEST CLINICAL HISTORY: Infection. FINDINGS: 2 AP, portable, upright chest radiographs are compared to study dated 10/23/2019. Correlati on is made with chest CT dated 2 10/21/2019. The examination is degraded by portable technique, large body habitus, and patient rotation. The heart is enlarged noting atherosclerotic calcification of th e thoracic aorta. There is pulmonary vascular congestion. Bibasilar airspace opacities likely represe nt atelectasis. No large pleural effusion or pneumothorax is seen. The skeletal structures are osteop enic. The bony thorax is grossly intact. IMPRESSION: 1. Cardiomegaly with mild pulmonary gastric congestion. 2. Bibasilar airspace opacities likely represent atelectasis. Clinical correlation will be required. Electronically signed by: Rohan Falcon M.D. 10/31/2019 12:47 PM
[2019-10-31 12:51] LABS: Prothrombin Time 10.6 Seconds (9.0-12.0)
[2019-10-31 12:55] LABS: Albumin Level 2.6 gm/dl (3.4-5.0); BUN Creatinine Ratio 21.3 (10-20); Calcium 10.8 mg/dl (8.5-10.1); Creatinine Clr Calc Pharmacy 79.2 ml/min; Est GFR (African American) 57.4; Est GFR (Non-African American) 49.6; Potassium 4.4 mmol/L (3.5-5.1)
[2019-10-31 12:58] LABS: Albumin Globulin Ratio 0.5 (0.9-2); Bilirubin,Total 0.6 mg/dl (0.2-1); C Reactive Protein 4.62 mg/dl (0-0.29); Globulin 5.2 gm/dl (2.5-4.0); Total Protein 7.8 gm/dl (6.4-8.2)
--- NOTE | 2019-10-31 13:05 | Emergency Department Note ---
History of Present Illness General Chief complaint: Pilonidal Cyst Stated complaint: CYST, DRAINING REFFERED BY DOCTOR Time Seen by Provider: 10/31/19 11:26 History of Present Illness Maximum Pain Intensity: 1 64-year-old female who presents to the emergency department for evaluation of t he right inner thigh wound and foul-smelling drainage. The patient reports that she was recently admitted to our facility for a urinary tract infection. Vision was admitted for 6 days, and discharged on Thanksgiving (4 days ago). The patient reports that while she was in the hospital, she constantly was pinching the skin folds between her thighs when sitting on the toilet. Hospital staff were able to find a larger toilet for the patient. Since that time, the patient reports that the swelling and pain has progressively worsened. She now reports foul-smelling reddish and brownish drainage from the region, usually whenever she sits or stands. The patient denies any prior history of recurrent skin infections. She was seen by her PCP yesterday, and reports that skin cultures were collected. She was not started on an antibiotic. They recommended that she follow-up with a surgeon for further evaluation, but was told that her surgeon could not see her in prompt fashion, and was referred to the emergency department. The reports that they have been checking her temperature at home, and the patient has not been febrile. She denies any pain extending into the distal thigh/knee region, pelvis or buttock. She denies any vaginal pain. She reports that her urinary symptoms have improved. The patient is diabetic with chronic kidney disease stage II. She also has a history of ichthyosis. The patient denies any significant pain, rating her discomfort a 1 out of 10. Home Medications Home Medications Medication Instructions Recorded Confirmed Type Lantus Solostar U-100 Insulin 50 unit SUBCUT AMPM 10/21/19 10/31/19 History Novolog Flexpen U-100 Insulin 0 unit SUBCUT AC 10/21/19 10/31/19 History esomeprazole magnesium 40 mg PO BID 10/21/19 10/31/19 History furosemide 80 mg PO QAM 10/21/19 10/31/19 History isosorbide dinitrate 20 mg PO BID 10/21/19 10/31/19 History levothyroxine 50 mcg PO QAM 10/21/19 10/31/19 History metoprolol succinate 100 mg PO BID 10/21/19 10/31/19 History spironolactone 25 mg PO QAM 10/21/19 10/31/19 History B-complex with vitamin C [Super B 1 tab PO QAM 10/31/19 10/31/19 History Complex-Vitamin C] C,E,zinc,copper [id number] 1 cap PO QAM 10/31/19 10/31/19 History [Ocuvite Adult 50 Plus] Potassium 99mg 99 mg PO QAM 10/31/19 10/31/19 History ascorbic acid (vitamin C) [Vitamin 0 mg PO BID 10/31/19 10/31/19 History C] aspirin 81 mg PO HS 10/31/19 10/31/19 History coenzyme Q10 [CoQ-10] 100 mg PO QAM 10/31/19 10/31/19 History folic acid 0 mg PO QAM 10/31/19 10/31/19 History lisinopril 5 mg PO QAM 10/31/19 10/31/19 History zinc 50 mg PO QAM 10/31/19 10/31/19 History Allergies Allergy/AdvReac Type Severity Reaction Status Date / Time adhesive Allergy Mild RASH Verified 10/21/19 04:06 Cipro Allergy Unknown HIVES Verified 06/19/16 14:58 ciprofloxacin Allergy Unknown HIVES Verified 10/21/19 04:06 nystatin Allergy Unknown MYCOLOG Verified 10/21/19 04:06 CREAM cephalexin AdvReac Intermediate GI SYMPTOMS Verified 10/21/19 04:06 morphine AdvReac Mild N/V Verified 10/21/19 04:06 CONFUSION Past Med/Surg History Medical History CHF (congestive heart failure) Chronic diastolic heart failure CKD (chronic kidney disease) stage 3, GFR 30-59 ml/min Depression (Chronic) DM2 (diabetes mellitus, type 2) (Chronic) HTN (hypertension) (Chronic) Ichthyosis (Chronic) Morbid obesity Neuropathy (Chronic) Right heart failure Surgical History H/O bilateral breast reduction surgery (Chronic) H/O: hysterectomy (Chronic) S/P total knee arthroplasty (Chronic) Family History Father Coronary heart disease Crohn's disease, Onset Age: 40 Brother Crohn's disease, Onset Age: 28 Brother Crohn's disease, Onset Age: 35 Social History Preferred Language: Wallisian Communication Ability: Effective Illuminating Engineer Required: No Beliefs That Will Affect Care: None marital status: Current Living Situation: Spouse Feels Safe at Home: Yes Smoking Status: Former smoker Hx Alcohol Use: No Hx Substance Use: No Review of Systems 10 system review was performed and was negative except for pertinent positives and negatives as indicated in history of present illness Physical Exam Vital Signs Vital Signs - 24 hr 10/31/19 11:20 10/31/19 12:42 10/31/19 14:19 Temperature 36.7 C Temperature Source Oral Pulse Rate 77 Pulse Rate [Right Finger] 74 86 Respiratory Rate 16 20 20 Respiratory Effort / Characteristics Non-Labored Spontaneous Non-Labored Respiratory Depth Normal Normal Blood Pressure 175/80 H Blood Pressure [Right Arm] 139/63 153/63 H Blood Pressure Mean 111 Blood Pressure Mean [Right Arm] 88 93 Blood Pressure Position Sitting Pulse Oximetry 93 96 95 Oxygen Delivery Method Room Air Room Air Room Air Sepsis Recent Fever Within 48 Hours No Sepsis Action Taken by Nursing No Action Required CONSTITUTIONAL: Healthy and well nourished. Alert and oriented X 3. She does not appear in any acute distress. HEENT: Normocephalic, atraumatic. Pupils equal, round and reactive. No scleral icterus or conjunctival injection/pallor. NECK: Full active range of motion without discomfort. LYMPHATICS: No cervical chain adenopathy. RESPIRATORY: Clear to auscultation bilaterally with no wheezing, crackles, rhonchi or stridor. CARDIOVASCULAR: Regular rate and rhythm with no murmurs, rubs or gallops. GASTROINTESTINAL: Bowel sounds present in all quadrants. Soft and nontender to palpation. MUSCULOSKELETAL: Full range of motion of all joints without discomfort. Patient has no worsening pain with logroll of the right hip. INTEGUMENTARY: Examination of the proximal right inner thigh shows a large pannus with overriding erythema, fluctuance and drainage. She also appears to have an overgrowth of white drainage as well. The area is mildly tender to palpation. The erythema extends to the midfoot and up to the inguinal fold. HEMATOLOGIC: No ecchymosis or petechiae. PSYCHIATRIC: Positive affect. NEUROLOGIC: No focal neurologic deficits noted. Course Course Patient history and physical exam were performed. Nurse's notes were reviewed. Vital signs were reviewed and were normal. Also review documentation from the patient's last hospital admission. The patient was discharged on Omnicef antibiotics after receiving IV Rocephin in the hospital. I also do not see any prior history of MRSA in hospital records. I expressed my concern to the pat ient for a significant infection, and recommended additional extensive work-up for sepsis, and further imaging to rule out underlying abscess or extension into the pelvis. The patient and were in agreement. IV access was established, and labs were drawn, including blood cultures x2. The patient refused any analgesics. The case was further discussed with our clinical pharmacist, who recommended administering IV Zosyn, daptomycin and fluconazole, with dosing recommendations provided by our pharmacist. The patient was hydrated with a liter normal saline bolus. A portable chest x-ray did not show any consolidations. Cardiomegaly and mild pulmonary vascular congestion is noted. Review of labs shows a leukocytosis with left shift and bandemia. Coagulation studies are normal, as is CMP. C-reactive protein and BNP are elevated. Procalcitonin and lactate are normal. CT imaging of the right femur and pelvis shows subcutaneous infiltration and gas within the proximal and medial femoral soft tissue, raising concern for possible gangrene. No fluid collections are appreciated. Findings were discussed with Dr. Argueta, ED attending physician, who recommended surgical and hospitalist consultation. I initially discussed the case with the [facility] hospitalist group, who agreed to admit the patient. They did request that I discuss the case with the on-call general surgeon, Dr. Almazan. The patient was evaluated in the emergency department and deemed a nonsurgical at this time. Please see the hospitalist dictations for further treatment and final disposition. Administered Medications Discontinued Medications Sodium Chloride (Nss 1000ml) 2,000 mls @ 999 mls/hr IV .Q2H1M ONE Stop: 10/31/19 13:43 Last Infusion: 10/31/19 16:22 Dose: 0 mls/hr Documented by: [id number] Admin: 10/31/19 12:38 Dose: 999 mls/hr Documented by: [id number] Fluconazole (Diflucan) 200 mg in 100 mls @ 100 mls/hr IV Q1H [facility] Stop: 10/31/19 14:14 Last Infusion: 10/31/19 16:22 Dose: 0 mls/hr Documented by: [id number] Admin: 10/31/19 14:47 Dose: 100 mls/hr Documented by: [id number] Infusion: 10/31/19 14:46 Dose: 100 mls/hr Documented by: [id number] Admin: 10/31/19 13:33 Dose: 100 mls/hr Documented by: [id number] Daptomycin 600 mg/ Syringe 12 mls @ 6 mls/min IV NOW ONE; Protocol Stop: 10/31/19 12:16 Last Admin: 10/31/19 12:46 Dose: 6 mls/min Documented by: [id number] Piperacillin Sod/Tazobactam Sod (Zosyn) 4.5 gm in 120 mls @ 240 mls/hr IV NOW ONE Stop: 10/31/19 12:38 Last Infusion: 10/31/19 13:36 Dose: 0 mls/hr Documented by: [id number] Admin: 10/31/19 12:38 Dose: 240 mls/hr Documented by: [id number] Daptomycin 600 mg/ Syringe 12 mls @ 6 mls/min IV NOW ONE; Protocol Stop: 10/31/19 12:04 Last Admin: 10/31/19 12:46 Dose: Not Given Documented by: [id number] Dextrose (D5w) 500 mls @ 80 mls/hr IV .Q6H15M [facility] Stop: 11/30/19 15:29 Last Admin: 10/31/19 16:22 Dose: Not Given Documented by: [id number] Medical Decision Making Medical Records Attestation: I reviewed the patient's medical records. Home Medications Current Medication List: was personally reviewed by me Laboratory Data Attestation: I reviewed the patient's lab results. Result diagrams: 10/31/19 12:18 10/31/19 12:18 Lab Results 10/31/19 10/31/19 10/31/19 Range/Units 12:09 12: 12:18 WBC 12.31 H (4.8-10.8) K/uL RBC 3.68 L (4.2-5.4) M/uL Hgb 12.1 (12.0-16.0) g/dL Hct 37.3 (37-47) % MCV 101.4 H (80-100) fL MCH 32.9 (25-34) pg MCHC 32.4 (32-36) g/dL RDW Std Deviation 51.5 H (36.4-46.3) fL RDW Coeff of Avery 13.9 (11.5-14.5) % Plt Count 305 (130-400) K/uL MPV 9.4 (7.4-10.4) fL Immature Gran % (Auto) 2.4 % Neut % (Auto) 75.5 % Lymph % (Auto) 14.0 % [place] % (Auto) 6.3 % Eos % (Auto) 1.6 % Baso % (Auto) 0.2 % Immature Gran # (Auto) 0.29 H (0.00-0.02) K/uL Neut # (Auto) 9.30 H (1.4-6.5) K/uL Lymph # (Auto) 1.72 (1.2-3.4) K/uL [place] # (Auto) 0.77 H (0.11-0.59) K/uL Eos # (Auto) 0.20 (0-0.5) K/uL Baso # (Auto) 0.03 (0-0.2) K/uL PT (9.0-12.0) Seconds INR (0.9-1.1) Sodium (136-145) mmol/L Potassium (3.5-5.1) mmol/L Chloride (98-107) mmol/L Carbon Dioxide (21-32) mmol/L Anion Gap (3-11) BUN (7-18) mg/dl Creatinine (0.6-1.2) mg/dl Est Cr Clr Drug Dosing ml/min Est GFR ( Amer) Est GFR (Non-Af Amer) BUN/Creatinine Ratio (10-20) Glucose (70-99) mg/dl Lactate (0.4-2.0) mmol/L Calcium (8.5-10.1) mg/dl Total Bilirubin (0.2-1) mg/dl AST (15-37) U/L ALT (12-78) U/L Alkaline Phosphatase (45-117) U/L C-Reactive Protein (0-0.29) mg/dl NT-Pro-B Natriuret Pep (0-900) pg/ml Total Protein (6.4-8.2) gm/dl Albumin (3.4-5.0) gm/dl Globulin (2.5-4.0) gm/dl Albumin/Globulin Ratio (0.9-2) Procalcitonin (0-0.5) ng/ml Influenza Type A Ag Neg for Influ A (Neg) Influenza Type A (PCR) Neg for Influ A (Neg) Influenza Type B Ag Neg for Influ B (Neg) Influenza Type B (PCR) Neg for Influ B (Neg) 10/31/19 10/31/19 10/31/19 Range/Units 12:18 12:18 12:18 WBC (4.8-10.8) K/uL RBC (4.2-5.4) M/uL Hgb (12.0-16.0) g/dL Hct (37-47) % MCV (80-100) fL MCH (25-34) pg MCHC (32-36) g/dL RDW Std Deviation (36.4-46.3) fL RDW Coeff of Avery (11.5-14.5) % Plt Count (130-400) K/uL MPV (7.4-10.4) fL Immature Gran % (Auto) % Neut % (Auto) % Lymph % (Auto) % [place] % (Auto) % Eos % (Auto) % Baso % (Auto) % Immature Gran # (Auto) (0.00-0.02) K/uL Neut # (Auto) (1.4-6.5) K/uL Lymph # (Auto) (1.2-3.4) K/uL [place] # (Auto) (0.11-0.59) K/uL Eos # (Auto) (0-0.5) K/uL Baso # (Auto) (0-0.2) K/uL PT 10.6 (9.0-12.0) Seconds INR 1.0 (0.9-1.1) Sodium 140 (136-145) mmol/L Potassium 4.4 (3.5-5.1) mmol/L Chloride 105 (98-107) mmol/L Carbon Dioxide 33 H (21-32) mmol/L Anion Gap 2.0 L (3-11) BUN 25 H (7-18) mg/dl Creatinine 1.17 (0.6-1.2) mg/dl Est Cr Clr Drug Dosing 79.2 ml/min Est GFR ( Amer) 57.4 Est GFR (Non-Af Amer) 49.6 BUN/Creatinine Ratio 21.3 H (10-20) Glucose 65 L (70-99) mg/dl Lactate (0.4-2.0) mmol/L Calcium 10.8 H (8.5-10.1) mg/dl Total Bilirubin 0.6 (0.2-1) mg/dl AST 18 (15-37) U/L ALT 28 (12-78) U/L Alkaline Phosphatase 130 H (45-117) U/L C-Reactive Protein 4.62 H (0-0.29) mg/dl NT-Pro-B Natriuret Pep (0-900) pg/ml Total Protein 7.8 (6.4-8.2) gm/dl Albumin 2.6 L (3.4-5.0) gm/dl Globulin 5.2 H (2.5-4.0) gm/dl Albumin/Globulin Ratio 0.5 L (0.9-2) Procalcitonin 0.05 (0-0.5) ng/ml Influenza Type A Ag (Neg) Influenza Type A (PCR) (Neg) Influenza Type B Ag (Neg) Influenza Type B (PCR) (Neg) 10/31/19 10/31/19 Range/Units 12:18 12:22 WBC (4.8-10.8) K/uL RBC (4.2-5.4) M/uL Hgb (12.0-16.0) g/dL Hct (37-47) % MCV (80-100) fL MCH (25-34) pg MCHC (32-36) g/dL RDW Std Deviation (36.4-46.3) fL RDW Coeff of Avery (11.5-14.5) % Plt Count (130-400) K/uL MPV (7.4-10.4) fL Immature Gran % (Auto) % Neut % (Auto) % Lymph % (Auto) % [place] % (Auto) % Eos % (Auto) % Baso % (Auto) % Immature Gran # (Auto) (0.00-0.02) K/uL Neut # (Auto) (1.4-6.5) K/uL Lymph # (Auto) (1.2-3.4) K/uL [place] # (Auto) (0.11-0.59) K/uL Eos # (Auto) (0-0.5) K/uL Baso # (Auto) (0-0.2) K/uL PT (9.0-12.0) Seconds INR (0.9-1.1) Sodium (136-145) mmol/L Potassium (3.5-5.1) mmol/L Chloride (98-107) mmol/L Carbon Dioxide (21-32) mmol/L Anion Gap (3-11) BUN (7-18) mg/dl Creatinine (0.6-1.2) mg/dl Est Cr Clr Drug Dosing ml/min Est GFR ( Amer) Est GFR (Non-Af Amer) BUN/Creatinine Ratio (10-20) Glucose (70-99) mg/dl Lactate 1.3 (0.4-2.0) mmol/L Calcium (8.5-10.1) mg/dl Total Bilirubin (0.2-1) mg/dl AST (15-37) U/L ALT (12-78) U/L Alkaline Phosphatase (45-117) U/L C-Reactive Protein (0-0.29) mg/dl NT-Pro-B Natriuret Pep 1375 H (0-900) pg/ml Total Protein (6.4-8.2) gm/dl Albumin (3.4-5.0) gm/dl Globulin (2.5-4.0) gm/dl Albumin/Globulin Ratio (0.9-2) Procalcitonin (0-0.5) ng/ml Influenza Type A Ag (Neg) Influenza Type A (PCR) (Neg) Influenza Type B Ag (Neg) Influenza Type B (PCR) (Neg) Imaging Data Attestation: I personally reviewed and interpreted this imaging study as follows : My Impression: My interpretation of a portable chest x-ray does not show any consolidations or pneumothorax. Cardiomegaly and mild pulmonary vascular congestion is noted. Noncontrast CT of the pelvis and femur does not show any fluid collection within the medial thigh. There is notable air concerning for possible gangrene. Radiologist reports were reviewed. Radiologist's Impression: SINGLE VIEW CHEST CLINICAL HISTORY: Infection. FINDINGS: 2 AP, portable, upright chest radiographs are compared to study dated 10/23/2019. Correlation is made with chest CT dated 2 10/21/2019. The examination is degraded by portable technique, large body habitus, and patient rotation. The heart is enlarged noting atherosclerotic calcification of the thoracic aorta. There is pulmonary vascular congestion. Bibasilar airspace opacities likely represent atelectasis. No large pleural effusion or pneumothorax is seen. The skeletal structures are osteopenic. The bony thorax is grossly intact. IMPRESSION: 1. Cardiomegaly with mild pulmonary gastric congestion. 2. Bibasilar airspace opacities likely represent atelectasis. Clinical correlation will be required. CT pelvis wo con CT DOSE: 3589.00 mGy.cm CLINICAL HISTORY: Right abdominal wall and thigh tenderness infection. Evaluate for abscess. TECHNIQUE: Helical images were obtained through the pelvis. No intravenous contrast was administered. A dose lowering technique was utilized adhering to the principles of ALARA. COMPARISON STUDY: CT scan of the abdomen and pelvis dated 10/21/2019 FINDINGS: The examination is somewhat limited from a technical standpoint due to the patient's large body habitus. Portions of the left abdomen are not visualized. Incidental note is made of cholelithiasis. There is no ascites. The appendix appears normal. There is no evidence of abdominal aortic aneurysm. The visualized portions of the kidney reveal no evidence of hydronephrosis. There is no ascites. There is no acute diverticulitis. There is a tiny fat-containing umbilical hernia. There is anterior abdominal wall skin thickening. There are no fluid collections to indicate an abscess. Degenerative changes are present within the lumbar spine. There is multilevel spinal stenosis. There is infiltration of the fat within the right medial thigh. There is gas present within the soft tissues consistent with an infectious process. IMPRESSION: 1. Lower anterior abdominal wall skin thickening. 2. Infiltration of the subcutaneous fat involving the right medial thigh. There is gas present within the soft tissues, a finding which may indicate gangrene. 3. No evidence of abscess. 4. Cholelithiasis 5. Degenerative changes within the cervical spine with multilevel spinal stenos is CT femur RT wo con CT DOSE: CLINICAL HISTORY: Right inner thigh infection. Cellulitis versus abscess. TECHNIQUE: Helical images were acquired in the transverse plane. Sagittal coronal reformatted images were acquired. A dose lowering technique was utilized adhering to the principles of ALARA. COMPARISON STUDY: None. FINDINGS: No fractures are visualized. There are postsurgical changes of a total right knee arthroplasty. Within the upper medial right thigh, there is infiltration of the subcutaneous tissues and there is gas present within the subcutaneous fat extending down to the muscular fascial layer. The findings may indicate gangrene. There are no focal fluid collections to indicate a drainable abscess. IMPRESSION: 1. Infiltration of the subcutaneous tissues involving the upper medial right thigh. There is associated gas within the subcutaneous fat extending down to the muscular fascial layer. The findings are consistent with an infectious process and may indicate gangrene. Surgical consultation is recommended in follow-up. Blood Pressure Blood Pressure Findings: Normal blood pressure MDM Narrative Patient presents to emergency department with complaint of an infection of the right upper medial thigh after sustaining soft tissue trauma during her last admission to our facility, when she reports that her pannus was being pinched every time she sat down on the toilet. The patient subsequently developed an infection at home, which has spontaneously started to drain. CT imaging today does not show evidence for fluid or abscess collection, but she does have a notable cellulitis on exam. Fortunately the patient is afebrile and does not have elevated lactic acid to suggest major infection. I do not feel that she is septic. I did elect to draw blood cultures x2, and was then empirically treated with daptomycin, Zosyn and fluconazole. CT imaging does not show any obvious extension into the pelvis, although developing Abdirashid's gangrene was also a concern. Surgical consultation does not feel that further debridement or I&D procedure was necessary initially, and will follow as the patient receives IV antibiotics. It is noted that wound cultures were collected by the PCP yes terday, and should hopefully be resulted by tomorrow. Impression & Plan Abscess of right thigh, CHF (congestive heart failure), Chronic kidney disease (CKD), stage III (moderate), Diabetes mellitus, type II, insulin dependent Discharge Plan Visit Data *Final* Discharge Date/Time: 10/31/19 18:29 Chief Complaint: Pilonidal Cyst Stated Complaint: CYST, DRAINING REFFERED BY DOCTOR ED Provider: Aubrey Argueta ED Midlevel Provider: Tan Ricks Discharge Problem: Abscess of right thigh, CHF (congestive heart failure), Chronic kidney disease (CKD), stage III (moderate), Diabetes mellitus, type II, insulin dependent Patient Disposition: Admitted As Inpatient Discharge Instructions Interventions: ED Discharge Assessment Last Done: 10/31/19 18:29 Discharge Problem: CHF (congestive heart failure) Qualifiers: Heart failure type: right-sided Heart failure chronicity: chronic Qualified Code(s): I50.812 - Chronic right heart failure
[2019-10-31 13:33] LABS: Influenza A virus by PCR Neg for Influ A (Neg); Influenza B virus by PCR Neg for Influ B (Neg)
[2019-10-31] MEDS: FLUCONAZOLE 200 MG/100 ML BAG IV SCH ×2 (13:33→14:47)
--- NOTE | 2019-10-31 13:43 | CT Scan Report ---
CT pelvis wo con CT DOSE: 3589.00 mGy.cm CLINICAL HISTORY: Right abdominal wall and thigh tenderness infection. Evaluate for abscess. TECHNIQUE: Helical images were obtained through the pelvis. No intravenous contrast was administered. A dose lowering technique was utilized adhering to the principles of ALARA. COMPARISON STUDY: CT scan of the abdomen and pelvis dated 10/21/2019 FINDINGS: The examination is somewhat limited from a technical standpoint due to the patient's large body habit us. Portions of the left abdomen are not visualized. Incidental note is made of cholelithiasis. There is no ascites. The appendix appears normal. There is no evidence of abdominal aortic aneurysm. The visualized portions of the kidney reveal no evidence of hydronephrosis. There is no ascites. There is no acute diverticulitis. There is a tiny fat-containing umbilical hernia. There is anterior abdominal wall skin thickening. There are no fluid collections to indicate an abscess. Degenerative changes are present within the lumbar spine. There is multilevel spinal stenosis. There is infiltration of the fat within the right medial thigh. There is gas present within the soft tissues consistent with an infectious process. IMPRESSION: 1. Lower anterior abdominal wall skin thickening. 2. Infiltration of the subcutaneous fat involving the right medial thigh. There is gas present within the soft tissues, a finding which may indicate gangrene. 3. No evidence of abscess. 4. Cholelithiasis 5. Degenerative changes within the cervical spine with multilevel spinal stenosis Electronically signed by: Darci Adair M.D. 10/31/2019 1:41 PM
--- NOTE | 2019-10-31 13:46 | CT Scan Report ---
CT femur RT wo con CT DOSE: CLINICAL HISTORY: Right inner thigh infection. Cellulitis versus abscess. TECHNIQUE: Helical images were acquired in the transverse plane. Sagittal coronal reformatted images were acquired. A dose lowering technique was utilized adhering to the principles of ALARA. COMPARISON STUDY: None. FINDINGS: No fractures are visualized. There are postsurgical changes of a total right knee arthroplasty. Within the upper medial right thigh, there is infiltration of the subcutaneous tissues and there is g as present within the subcutaneous fat extending down to the muscular fascial layer. The findings may indicate gangrene. There are no focal fluid collections to indicate a drainable abscess. IMPRESSION: 1. Infiltration of the subcutaneous tissues involving the upper medial right thigh. There is associat ed gas within the subcutaneous fat extending down to the muscular fascial layer. The findings are con sistent with an infectious process and may indicate gangrene. Surgical consultation is recommended in follow-up. Electronically signed by: Darci Adair M.D. 10/31/2019 1:44 PM
[2019-10-31] MEDS ORDERED: DEXTROSE 5% 500 ML IV SCH (15:30)
--- NOTE | 2019-10-31 15:39 | History & Physical Report ---
Date of Service October 31, 2019 Assessment & Plan (1) Open wound of inguinal region: This is a 64-year-old female who has significant past medical history of insulin-dependent type 2 DM, obesity hypoventilation syndrome, chronic right heart failure, CKD stage III, HTN, morbid obesity who presents to [facility] ED secondary to foul-smelling wound in right inguinal region x6 days. In ED patient was found to have large right inguinal wound with foul-smelling purulent drainage, nontoxic appearing. She remained hemodynamically stable, but did exhibit mild leukocytosis 12.3 1K. Further notable lab abnormalities include CRP 4.62, proBNP 1375, improvement in BUN/creatinine 25 and 1.17, glucose 65, corrected calcium 11.9. Chest x-ray revealed cardiomegaly with mild pulmonary vascular congestion and bibasilar airspace opacities likely secondary to atelectasis. CT scan of femur and pelvis reveal infiltration of subcutaneous fat involving right medial thigh, gas present within soft tissues, a finding which may indicate gangrene, no evidence of abscess. She received IV antibiotics in ED including daptomycin and Zosyn along with antifungal fluconazole. admit to Med/Surg General Surgery Dr. Almazan consulted - pt seen by Cass Lopez PA-C No surgical intervention at this time obtain wound culture (culture pending from outpt culture done 10/30) blood culture pending continue IV Daptomycin, Zosyn and Fluconazole for broad spectrum coverage wound nurse consulted trend WBC (2) DM2 (diabetes mellitus, type 2): Last A1c 6.7 on 10/21 Outpatient regimen of Lantus 50 units twice daily and NovoLog 15 units AC as per sliding scale Continue Lantus/NovoLog per protocol (3) CHF (congestive heart failure): Patient with history of diastolic CHF along with right heart failure in setting of obesity hypoventilation syndrome She did qualify for O2 at bedtime and with activity during last admission Weight today 166 kg, appears euvolemic Continue Lasix, Aldactone, metoprolol, Imdur Daily weights And I's and O's Heart healthy low-sodium diet (4) CKD (chronic kidney disease) stage 3, GFR 30-59 ml/min: Baseline creatinine 1.2 BUN/creatinine 25 and 1.17 today Last admission creatinine peaked 2.48 likely secondary to ATN in setting of sepsis and dehydration Monitor BMP (5) HTN (hypertension): Blood pressure 153/63 in ED Continue metoprolol, Imdur, Aldactone, Lasix Resume lisinopril in light of improved renal function Monitor K level given TADEO plus Aldactone (6) Hypercalcemia: Corrected calcium 11.9 Repeat calcium in a.m. Monitor (7) Morbid obesity: Encourage lifestyle modification BMI 59.1 (8) DVT prophylaxis: Heparin SCD/teds Disposition: Admit to med/surg Follow-up: PCP Dr. Yeager upon discharge Patient was seen and examined in collaboration with Dr. Samayoa, please see addendum History of Present Illness Chief Complaint: Foul-smelling wound in right groin x6 days. Primary Care Provider: Selene Webb, This is a 64-year-old female who has significant past medical history of insulin-dependent type 2 DM, obesity hypoventilation syndrome, chronic right heart failure, CKD stage III, HTN, morbid obesity who presents to [facility] ED secondary to foul-smelling wound in right inguinal region x6 days. Of significance patient recently confined 10/21 to 10/27/2019 secondary to sepsis from E. coli UTI, NICOLETTE secondary to ATN in setting of sepsis. She was treated with IV antibiotics and IV fluids. Her creatinine peaked at 2.48 and was downtrending at time of discharge. She was placed on IV antibiotics and transition to oral cefdinir in which she completed her course in the outpatient setting. Furthermore she did have a overnight pulse oximetry and two-step which revealed oxygen desaturation and she was prescribed 2 L of O2 at discharge. She was seen in outpatient clinic yesterday by PCP secondary to foul-smelling wound in right groin. Patient states wound started 2 days prior to discharge secondary to sitting on a toilet that was too small for her and, "my fat being pinched by the toilet seat." She denies significant pain, 12/09. Wound continue to worsen with significant purulent drainage. Approximately 2 days ago she noticed foul-smelling which has continued to worsen. This prompted her presentation today. She denies any fever, chills, sweats, lightheadedness, dizziness, syncope, chest pain, shortness of breath at rest, palpitations, cough, hemoptysis, nausea, vomiting, abdominal pain. She does have increased urgency and frequency with urination secondary to Lasix but denies dysuria or hematuria. Last BM was 2 days ago which is normal for her. In ED patient was found to have large right inguinal wound with foul-smelling purulent drainage. She remained hemodynamically stable, but did exhibit mild leukocytosis 12.3 1K. Further notable lab abnormalities include CRP 4.62, proBNP 1375, improvement in BUN/creatinine 25 and 1.17, glucose 65, corrected calcium 11.9. Chest x-ray revealed cardiomegaly with mild pulmonary vascular congestion and bibasilar airspace opacities likely secondary to atelectasis. CT scan of femur and pelvis reveal infiltration of subcutaneous fat involving right medial thigh, gas present within soft tissues, a finding which may indicat e gangrene, no evidence of abscess. She received IV antibiotics in ED including daptomycin and Zosyn along with antifungal fluconazole. Allergies Allergy/AdvReac Type Severity Reaction Status Date / Time adhesive Allergy Mild RASH Verified 10/21/19 04:06 Cipro Allergy Unknown HIVES Verified 06/19/16 14:58 ciprofloxacin Allergy Unknown HIVES Verified 10/21/19 04:06 nystatin Allergy Unknown MYCOLOG Verified 10/21/19 04:06 CREAM cephalexin AdvReac Intermediate GI SYMPTOMS Verified 10/21/19 04:06 morphine AdvReac Mild N/V Verified 10/21/19 04:06 CONFUSION Home Medications Home Medications Medication Instructions Recorded Confirmed Type Lantus Solostar U-100 Insulin 50 unit SUBCUT AMPM 10/21/19 10/31/19 History Novolog Flexpen U-100 Insulin 0 unit SUBCUT AC 10/21/19 10/31/19 History esomeprazole magnesium 40 mg PO BID 10/21/19 10/31/19 History furosemide 80 mg PO QAM 10/21/19 10/31/19 History isosorbide dinitrate 20 mg PO BID 10/21/19 10/31/19 History levothyroxine 50 mcg PO QAM 10/21/19 10/31/19 History metoprolol succinate 100 mg PO BID 10/21/19 10/31/19 History spironolactone 25 mg PO QAM 10/21/19 10/31/19 History B-complex with vitamin C [Super B 1 tab PO QAM 10/31/19 10/31/19 History Complex-Vitamin C] C,E,zinc,copper [id number] 1 cap PO QAM 10/31/19 10/31/19 History [Ocuvite Adult 50 Plus] Potassium 99mg 99 mg PO QAM 10/31/19 10/31/19 History ascorbic acid (vitamin C) [Vitamin 0 mg PO BID 10/31/19 10/31/19 History C] aspirin 81 mg PO HS 10/31/19 10/31/19 History coenzyme Q10 [CoQ-10] 100 mg PO QAM 10/31/19 10/31/19 History folic acid 0 mg PO QAM 10/31/19 10/31/19 History lisinopril 5 mg PO QAM 10/31/19 10/31/19 History zinc 50 mg PO QAM 10/31/19 10/31/19 History Past Med/Surg History Medical History CHF (congestive heart failure) Chronic diastolic heart failure CKD (chronic kidney disease) stage 3, GFR 30-59 ml/min Depression (Chronic) DM2 (diabetes mellitus, type 2) (Chronic) HTN (hypertension) (Chronic) Ichthyosis (Chronic) Morbid obesity Neuropathy (Chronic) Right heart failure Surgical History H/O bilateral breast reduction surgery (Chronic) H/O: hysterectomy (Chronic) S/P total knee arthroplasty (Chronic) Family History Father Coronary heart disease Crohn's disease, Onset Age: 40 Brother Crohn's disease, Onset Age: 28 Brother Crohn's disease, Onset Age: 35 Social History Preferred Language: Japanese Communication Ability: Effective Entry Level Web Developer Required: No Beliefs That Will Affect Care: None marital status: Current Living Situation: Spouse Feels Safe at Home: Yes Smoking Status: Former smoker Hx Alcohol Use: No Hx Substance Use: No Review of Systems Review of Systems: All systems reviewed & are unremarkable except as noted in HPI & below Physical Exam Physical Exam: Constitutional: WD/WN, morbidly obese, female, vitals as above, NAD, sitting up in bed, pleasant, conversing easily Head: Normocephalic, Atraumatic Eyes: PERRL, conjunctivae normal, anicteric sclerae ENMT: external ear and nose normal, oropharynx normal Neck: trachea midline, no thyromegaly normal visual inspection Respiratory: normal respiratory effort, lungs clear to auscultation, no wheeze, rales, rhonchi. Normal insp/exp effort, no accessory muscle use Cardiovascular: RRR, 1/6 MAX noted RUSB, no S3-S4, no edema Vessels: no JVD or carotid bruit Chest: normal inspection of chest Abdomen: Distended abdomen secondary to obesity, normal bowel sounds, firm, nontender, no hepatosplenomegaly Musculoskeletal: no cyanosis or clubbing Skin: no rashes, warm and dry normal turgor Neurologic: PERRL, EOMI, accommodation nl, no face palsy, no dysarthria CN's II-XI intact bilaterally and moves all extremities Psychiatric: A+Ox3, euthymic affect Lymphatic: no cervical or axillary lymphadenopathy : Right inguinal wound starting middle aspect of right groin and extending medially to posterior buttock, erythematous, purulent drainage, nontender. Bilateral hyperpigmentation to bilateral groin. Significant foul-smelling wound. Results & Data Vital Signs (Past 12 Hours) Vital Signs Temp Pulse Pulse Resp BP BP Pulse Ox 10/31/19 14:19 86 20 153/63 H 95 10/31/19 12:42 74 20 139/63 96 10/31/19 11:20 36.7 C 77 16 175/80 H 93 Laboratory Results Short CBC 10/31/19 Range/Units 12:18 WBC 12.31 H (4.8-10.8) K/uL Hgb 12.1 (12.0-16.0) g/dL Hct 37.3 (37-47) % Plt Count 305 (130-400) K/uL BMP 10/31/19 12:18 Sodium 140 Potassium 4.4 Chloride 105 Carbon Dioxide 33 H BUN 25 H Creatinine 1.17 Glucose 65 L Calcium 10.8 H Liver Function 10/31/19 Range/Units 12:18 Total Bilirubin 0.6 (0.2-1) mg/dl AST 18 (15-37) U/L ALT 28 (12-78) U/L Alkaline Phosphatase 130 H (45-117) U/L Albumin 2.6 L (3.4-5.0) gm/dl Diagnostic Findings CXR: IMPRESSION: 1. Cardiomegaly with mild pulmonary gastric congestion. 2. Bibasilar airspace opacities likely represent atelectasis. Clinical cor relation will be required.\\ Femur CT: IMPRESSION: 1. Infiltration of the subcutaneous tissues involving the upper medial right thigh. There is associated gas within the subcutaneous fat extending down to the muscular fascial layer. The findings are consistent with an infectious process and may indicate gangrene. Surgical consultation is recommended in follow-up. Pelvis CT: IMPRESSION: 1. Lower anterior abdominal wall skin thickening. 2. Infiltration of the subcutaneous fat involving the right medial thigh. There is gas present within the soft tissues, a finding which may indicate gangrene. 3. No evidence of abscess. 4. Cholelithiasis 5. Degenerative changes within the cervical spine with multilevel spinal stenosis Medications Administered Discontinued Medications Sodium Chloride (Nss 1000ml) 2,000 mls @ 999 mls/hr IV .Q2H1M ONE Stop: 10/31/19 13:43 Last Admin: 10/31/19 12:38 Dose: 999 mls/hr Documented by: [id number] Fluconazole (Diflucan) 200 mg in 100 mls @ 100 mls/hr IV Q1H JUANA Stop: 10/31/19 14:14 Last Admin: 10/31/19 14:47 Dose: 100 mls/hr Documented by: [id number] Infusion: 10/31/19 14:46 Dose: 100 mls/hr Documented by: [id number] Admin: 10/31/19 13:33 Dose: 100 mls/hr Documented by: [id number] Daptomycin 600 mg/ Syringe 12 mls @ 6 mls/min IV NOW ONE; Protocol Stop: 10/31/19 12:16 Last Admin: 10/31/19 12:46 Dose: 6 mls/min Documented by: [id number] Piperacillin Sod/Tazobactam Sod (Zosyn) 4.5 gm in 120 mls @ 240 mls/hr IV NOW ONE Stop: 10/31/19 12:38 Last Infusion: 10/31/19 13:36 Dose: 0 mls/hr Documented by: [id number] Admin: 10/31/19 12:38 Dose: 240 mls/hr Documented by: [id number] Daptomycin 600 mg/ Syringe 12 mls @ 6 mls/min IV NOW ONE; Protocol Stop: 10/31/19 12:04 Last Admin: 10/31/19 12:46 Dose: Not Given Documented by: [id number] Code Status & VTE Plan Code Status Full Code VTE Prophylaxis Plan VTE Prophylaxis will be ordered: Yes Supervising Physician Co-Signing Physician Notes HISTORY: Record reviewed. Patient interviewed and examined. Care coordinated with Chica Lowe PA-C. Please refer to her documentation for complete history. Briefly, 64 YO female with history of right-sided heart failure, hypertension, CKD, DM, and other problems. Recently admitted with sepsis from UTI, complicated by NICOLETTE. Presented to ED with draining from right inguinal wound. No fever/chills/sweats. EXAM: General- no distress Lungs- clear to auscultation; no respiratory distress Cardiovascular- RRR; 1+ pretibial edema Abdomen- + bowel sounds, soft, nontender Extremities- no cyanosis; no calf tenderness: open wound right inguinal / proximal thigh with purulent drainage Neuro- alert, oriented Skin- warm & dry; 1 cm ulcer right lateral malleolus DATA: Hgb 12.1, WBC 12,310, platelet count 305,000. Normal electrolytes, BUN 25, creatinine 1.17, random glucose 65. Serum lactate 1.3. C-reactive protein 4.62. Procalcitonin 0.05. Other lab studies as noted. Chest x-ray reviewed and demonstrated cardiomegaly and pulmonary vascular congestion. CT of pelvis and right thigh interpreted by Radiology: IMPRESSION: 1. Lower anterior abdominal wall skin thickening. 2. Infiltration of the subcutaneous fat involving the right medial thigh. There is gas present within the soft tissues, a finding which may indicate gangrene. 3. No evidence of abscess. 4. Cholelithiasis 5. Degenerative changes within the cervical spine with multilevel spinal stenosis Electronically signed by: Darci Adair M.D. 10/31/2019 1:41 PM ASSESSMENT AND PLAN: Draining wound right inguinal / proximal thigh. Does not meet criteria for sepsis and does not appear to be toxic. Blood cultures obtained. Check wound culture as well. Gas noted in soft tissues of right proximal thigh; could have gangrene, but favor sinus tract from wound. Received IV daptomycin and piperacillin / tazobactam in ED which will be continued. (best to avoid vancomycin because of recent ATN) Will add clindamycin pending cultures. General Surgery and Wound Care nursing consulted. Please refer to ADRIAN Lowe's documentation for discussion of other issues.
--- NOTE | 2019-10-31 15:55 | Surgery Consultation ---
Date of Consultation October 31, 2019 Assessment & Plan (1) Open wound of inguinal region: This is a 64y F with DM2, HTN, CKD, CHF and morbid obesity who presents to the [facility] ED with a foul smelling and draining wound of her right upper thigh. The patient was evaluated in the ED and a CT scan revealed infiltration of the subcutaneous fat involving the right medial thigh consistent with an infectious process. On examination wound is open and draining. Patient was seen by medicine who agreed to admit the patient. At this time we would recommend patient continue on IV abx and have an infectious disease consultation placed for ongoing guidance. Place a wound care consult for packing & dressing of the wound and further wound care recommendations. We will hold off on taking the patient to the OR at this time as wound is open and draining. We will continue to follow along. History of Present Illness History of Present Illness This is a 64y F with a PMH of CHF, DM2, CKD, morbid obesity, and HTN who presents to the [facility] ED on 10/31/19 with complaints of foul-smelling drainage coming from her right upper thigh. Of note the patient was recently here for a UTI and was discharged on 10/26. Patient reports that during her admission she was voiding frequently and was getting her thigh skin pinched when using the toilet hat which caused the area to get sore. After discharge she noticed drainage from her right upper thigh, which she initially thought was urine. The drainage changed to a brownish/red and developed a foul smell which prompted her to come to the ED. She and her noticed that a wound opened up on her right upper thigh either last or Thursday. In the ED patient underwent a CT scan of the pelvis and femur that revealed infiltration of the subcutaneous tissues involving the upper medial right thigh. There is associated gas within the subcutaneous fat extending down to the muscular fascial layer, consistent with an infectious process or possible gangrene. WBC 12.3 and patient afebrile. She rates the pain 1/10. She denies any fevers, chills, nausea, vomiting, urinary symptoms, chest pain, change in bowel habits, or shortness or breath. She states that the area is a little bit more red than normal, but she has a history of ichthyosis which causes her to have some abnormal skin coloring at baseline. Allergies Allergy/AdvReac Type Severity Reaction Status Date / Time adhesive Allergy Mild RASH Verified 10/21/19 04:06 Cipro Allergy Unknown HIVES Verified 06/19/16 14:58 ciprofloxacin Allergy Unknown HIVES Verified 10/21/19 04:06 nystatin Allergy Unknown MYCOLOG Verified 10/21/19 04:06 CREAM cephalexin AdvReac Intermediate GI SYMPTOMS Verified 10/21/19 04:06 morphine AdvReac Mild N/V Verified 10/21/19 04:06 CONFUSION Home Medications Home Medications Medication Instructions Recorded Confirmed Type Lantus Solostar U-100 Insulin 50 unit SUBCUT AMPM 10/21/19 10/31/19 History Novolog Flexpen U-100 Insulin 0 unit SUBCUT AC 10/21/19 10/31/19 History esomeprazole magnesium 40 mg PO BID 10/21/19 10/31/19 History furosemide 80 mg PO QAM 10/21/19 10/31/19 History isosorbide dinitrate 20 mg PO BID 10/21/19 10/31/19 History levothyroxine 50 mcg PO QAM 10/21/19 10/31/19 History metoprolol succinate 100 mg PO BID 10/21/19 10/31/19 History spironolactone 25 mg PO QAM 10/21/19 10/31/19 History B-complex with vitamin C [Super B 1 tab PO QAM 10/31/19 10/31/19 History Complex-Vitamin C] C,E,zinc,copper [id number] 1 cap PO QAM 10/31/19 10/31/19 History [Ocuvite Adult 50 Plus] Potassium 99mg 99 mg PO QAM 10/31/19 10/31/19 History ascorbic acid (vitamin C) [Vitamin 0 mg PO BID 10/31/19 10/31/19 History C] aspirin 81 mg PO HS 10/31/19 10/31/19 History coenzyme Q10 [CoQ-10] 100 mg PO QAM 10/31/19 10/31/19 History folic acid 0 mg PO QAM 10/31/19 10/31/19 History lisinopril 5 mg PO QAM 10/31/19 10/31/19 History zinc 50 mg PO QAM 10/31/19 10/31/19 History Patient History Medical History CHF (congestive heart failure) Chronic diastolic heart failure CKD (chronic kidney disease) stage 3, GFR 30-59 ml/min Depression (Chronic) DM2 (diabetes mellitus, type 2) (Chronic) HTN (hypertension) (Chronic) Ichthyosis (Chronic) Morbid obesity Neuropathy (Chronic) Right heart failure Surgical History H/O bilateral breast reduction surgery (Chronic) H/O: hysterectomy (Chronic) S/P total knee arthroplasty (Chronic) Family History Father Coronary heart disease Crohn's disease, Onset Age: 40 Brother Crohn's disease, Onset Age: 28 Brother Crohn's disease, Onset Age: 35 Social History Preferred Language: [place] Communication Ability: Effective Oil Pumper Required: No Beliefs That Will Affect Care: None marital status: Current Living Situation: Spouse Feels Safe at Home: Yes Safety Concerns: Feels Safe At This Time Smoking Status: Never smoker Hx Alcohol Use: No Hx Substance Use: No Review of Systems Constitutional: no fever and no chills Cardiovascular: no chest pain Gastrointestinal: no abdominal pain, no nausea, no vomiting and no change in bowel habits Genitourinary: reports no urinary symptoms Integumentary: right upper thigh wound- with brownish/red drainage. 12/09 painful. Physical Exam Physical Exam: awake/alert Constitutional: well nourished and + morbidly obese; no acute distress Respiratory: normal respiratory effort Gastrointestinal (Abdomen): Percussion/Palpation: abdomen soft; abdomen nontender Skin: upper right medial groin wound, mild erythema, opened about ~5in superiorly to inferiorly, non tender, associated with purulent discharge, foul smelling Results & Data Vital Signs (Past 12 Hours) Vital Signs Temp Pulse Pulse Resp BP BP Pulse Ox 10/31/19 14:19 86 20 153/63 H 95 10/31/19 12:42 74 20 139/63 96 10/31/19 11:20 36.7 C 77 16 175/[address] femur RT wo con CT DOSE: CLINICAL HISTORY: Right inner thigh infection. Cellulitis versus abscess. TECHNIQUE: Helical images were acquired in the transverse plane. Sagittal coronal reformatted images were acquired. A dose lowering technique was utilized adhering to the principles of ALARA. COMPARISON STUDY: None. FINDINGS: No fractures are visualized. There are postsurgical changes of a total right knee arthroplasty. Within the upper medial right thigh, there is infiltration of the subcutaneous tissues and there is gas present within the subcutaneous fat extending down to the muscular fascial layer. The findings may indicate gangrene. There are no focal fluid collections to indicate a drainable abscess. IMPRESSION: 1. Infiltration of the subcutaneous tissues involving the upper medial right thigh. There is associated gas within the subcutaneous fat extending down to the muscular fascial layer. The findings are consistent with an infectious process and may indicate gangrene. Surgical consultation is recommended in follow-up. Electronically signed by: Darci Adair M.D. 10/31/2019 1:44 PM Dictated: 10/31/19 1342 Transcribed: 10/31/[address] pelvis wo con CT DOSE: 3589.00 mGy.cm CLINICAL HISTORY: Right abdominal wall and thigh tenderness infection. Evaluate for abscess. TECHNIQUE: Helical images were obtained through the pelvis. No intravenous contrast was administered. A dose lowering technique was utilized adhering to the principles of ALARA. COMPARISON STUDY: CT scan of the abdomen and pelvis dated 10/21/2019 FINDINGS: The examination is somewhat limited from a technical standpoint due to the patient's large body habitus. Portions of the left abdomen are not visualized. Incidental note is made of cholelithiasis. There is no ascites. The appendix appears normal. There is no evidence of abdominal aortic aneurysm. The visualized portions of the kidney reveal no evidence of hydronephrosis. There is no ascites. There is no acute diverticulitis. There is a tiny fat-containing umbilical hernia. There is anterior abdominal wall skin thickening. There are no fluid collections to indicate an abscess. Degenerative changes are present within the lumbar spine. There is multilevel spinal stenosis. There is infiltration of the fat within the right medial thigh. There is gas present within the soft tissues consistent with an infectious process. IMPRESSION: 1. Lower anterior abdominal wall skin thickening. 2. Infiltration of the subcutaneous fat involving the right medial thigh. There is gas present within the soft tissues, a finding which may indicate gangrene. 3. No evidence of abscess. 4. Cholelithiasis 5. Degenerative changes within the cervical spine with multilevel spinal stenosis Electronically signed by: Darci Adair M.D. 10/31/2019 1:41 PM PG Care Time/CCT Total # of Minutes Spent Total Time Spent with Patient: Total time spent is greater than 50% in coordination of care (as documented) at patient's floor/unit and/or counseling patient:
[2019-10-31] MEDS ORDERED: DEXTROSE 50% 50 ML SYRINGE IV PRN (19:16)
[2019-10-31] MEDS ORDERED: ACETAMINOPHEN 325 MG TAB PO PRN (19:16)
[2019-10-31] MEDS ORDERED: POLYETHYLENE (MIRALAX) 17 GM PACK PO PRN (19:16)
[2019-10-31] MEDS ORDERED: ALUMINUM/MAGNESIUM SUSP 30 ML UDC PO PRN (19:16)
[2019-10-31] MEDS ORDERED: GLUCOSE 40% GEL 15 GM TUBE PO PRN (19:16)
[2019-10-31] MEDS ORDERED: GLUCAGON FOR INJ 1 MG VIAL SQ PRN (19:16)
[2019-10-31] MEDS ORDERED: MAGNESIUM HYDROXIDE SUSP 30 ML UDC PO PRN (19:16)
[2019-10-31] MEDS ORDERED: GLUCOSE 10 TABS/TUBE PO PRN (19:16)
[2019-10-31] MEDS ORDERED: ONDANSETRON INJ 2 MG/ML 2 ML VIAL IV PRN (19:16)
[2019-10-31] MEDS ORDERED: CARBOHYDRATES FOR HYPOGLYCEMIA PO PRN (19:16)
[2019-10-31] MEDS ORDERED: DAPTOMYCIN CONSULT ACTIVE PRN (19:38)
[2019-10-31] MEDS ORDERED: PIPERACILLIN/TAZOBACTAM 4.5 GM in DEXTROSE 5% 100 ML IV ONE (20:15)
[2019-10-31] MEDS ORDERED: FLUCONAZOLE 100 MG TAB PO ONE (20:30)
[2019-10-31] MEDS: ASPIRIN 81 MG ECTAB PO SCH (20:58)
[2019-10-31] MEDS: METOPROLOL SUCC 50MG EXT REL TAB PO SCH (20:59)
[2019-10-31] MEDS: PANTOprazole 40 MG TAB PO SCH (20:59)
[2019-10-31] MEDS: ASCORBIC ACID 500 MG TAB PO SCH (20:59)
[2019-10-31] MEDS: INSULIN ASPART 100 UNITS/ML 3 ML PEN SC SCH (21:02)
[2019-10-31] MEDS: INSULIN GLARGINE SOLOSTAR 100 UNITS/ML 3 ML PEN SC SCH (21:04)
[2019-10-31] MEDS: HEPARIN SOD 5,000 UNIT/0.5 ML VIAL SQ SCH (21:05)
[2019-10-31] MEDS: CLINDAMYCIN 900 MG in DEXTROSE 5% 50 ML IV SCH (22:00)
[2019-11-01] MEDS: PIPERACILLIN/TAZOBACTAM 4.5 GM in DEXTROSE 5% 100 ML IV SCH ×3 (02:18→19:45)
[2019-11-01] MEDS: ISOSORBIDE DINITRATE 20 MG TAB PO SCH ×2 (05:24→11:24)
[2019-11-01] MEDS: LEVOTHYROXINE SODIUM 50 MCG TABLET PO SCH (05:25)
[2019-11-01] MEDS: HEPARIN SOD 5,000 UNIT/0.5 ML VIAL SQ SCH ×3 (05:27→21:39)
[2019-11-01] MEDS: CLINDAMYCIN 900 MG in DEXTROSE 5% 50 ML IV SCH ×3 (05:38→21:55)
[2019-11-01 06:41] LABS: Basophils # (auto) 0.02 K/uL (0-0.2); Basophils % (auto) 0.2 %; Eosinophils # (auto) 0.19 K/uL (0-0.5); Eosinophils % (auto) 1.7 %; Hematocrit (blood only) 35.5 % (37-47); Hemoglobin 11.2 g/dL (12.0-16.0); Immature Granulocytes # (auto) 0.24 K/uL (0.00-0.02); Immature Granulocytes % (auto) 2.1 %; Lymphocytes # (auto) 1.79 K/uL (1.2-3.4); Mean Corpuscular Hgb Conc 31.5 g/dL (32-36); Mean Corpuscular Volume 101.4 fL (80-100); Mean Platelet Volume 9.2 fL (7.4-10.4); Monocytes % (auto) 7.1 %; Neutrophils # (auto) 8.17 K/uL (1.4-6.5); Neutrophils % (auto) 72.9 %; Platelet Count 284 K/uL (130-400); RDW Coefficient of Variation 13.9 % (11.5-14.5); RDW Standard Deviation 51.2 fL (36.4-46.3); White Blood Count 11.21 K/uL (4.8-10.8)
[2019-11-01 07:21] LABS: Albumin Level 2.4 gm/dl (3.4-5.0); BUN Creatinine Ratio 16.8 (10-20); Calcium 9.7 mg/dl (8.5-10.1); Creatinine Clr Calc Pharmacy 76.6 ml/min; Est GFR (African American) 55.1; Est GFR (Non-African American) 47.6; Potassium 3.5 mmol/L (3.5-5.1)
[2019-11-01 07:25] LABS: Albumin Globulin Ratio 0.5 (0.9-2); Bilirubin,Total 0.7 mg/dl (0.2-1); Globulin 4.6 gm/dl (2.5-4.0)
[2019-11-01] MEDS: ASCORBIC ACID 500 MG TAB PO SCH ×2 (08:33→21:35)
[2019-11-01] MEDS: SPIRONOLACTONE 25 MG TAB PO SCH (08:33)
[2019-11-01] MEDS: FLUCONAZOLE 100 MG TAB PO SCH (08:33)
[2019-11-01] MEDS: FUROSEMIDE 80 MG TAB PO SCH (08:33)
[2019-11-01] MEDS: PANTOprazole 40 MG TAB PO SCH ×2 (08:33→21:35)
[2019-11-01] MEDS: METOPROLOL SUCC 50MG EXT REL TAB PO SCH ×2 (08:33→21:35)
[2019-11-01] MEDS: VITAMIN B COMPLEX TAB PO SCH (08:34)
[2019-11-01] MEDS: ZINC SULFATE 220 MG CAPSULE PO SCH (08:34)
[2019-11-01] MEDS: lisinopriL 5 MG TAB PO SCH (08:34)
[2019-11-01] MEDS: INSULIN GLARGINE SOLOSTAR 100 UNITS/ML 3 ML PEN SC SCH ×2 (08:38→21:38)
[2019-11-01] MEDS: INSULIN ASPART 100 UNITS/ML 3 ML PEN SC SCH ×3 (08:39→21:37)
[2019-11-01] MEDS: CEROVITE ADV FORMULA TAB PO SCH (08:41)
[2019-11-01] MEDS ORDERED: NON-FORMULARY MEDICATION (Coenzyme Q10 [Coq-10] 100 MG) PO SCH (09:00)
--- NOTE | 2019-11-01 09:05 | Surgery Progress Note ---
Date of Service November 01, 2019 Assessment & Plan (1) Abscess of right thigh: will need cleaned up, drained, debridement etc..and likely wound vac discussed options/risks keep npo. will plan this afternoon. continue antibiotics. Subjective pt seen. feeling ok. denies pain at abcess site. Physical Exam Physical Exam: morbid obesity. alert. nad wound with necrotic tissue and surrounding erythema. +purelent drainage with foul smell. Results & Data Vital Signs (Past 12 Hours) Vital Signs Temp Pulse Resp BP Pulse Ox 11/01/19 07:26 36.9 C 78 18 157/76 H 97 10/31/19 23:42 36.9 C 81 22 145/71 H 96 PG Care Time/CCT Total # of Minutes Spent Total Time Spent with Patient: Total time spent is greater than 50% in coordination of care (as documented) at patient's floor/unit and/or counseling patient:
[2019-11-01] MEDS ORDERED: Nursing to Pharmacy Communication ONE ×2 (09:34→14:23)
[2019-11-01] MEDS: DAPTOmycin 600 MG in SYRINGE 0 ML IV SCH (11:24)
[2019-11-01] MEDS ORDERED: LIDOCAINE HCL 2% 2 ML VIAL/AMP(20MG/ML) INFIL ONE (11:34)
[2019-11-01] MEDS ORDERED: PROPOFOL IV EMULSION 10 MG/ML 20 ML VIAL IV ONE (11:34)
[2019-11-01] MEDS ORDERED: fentaNYL citrate 100 MCG/2 ML VIAL ONE (11:34)
[2019-11-01] MEDS ORDERED: SUCCINYLCHOLINE CHLORIDE 20 MG/ML 10 ML VIAL ONE (11:34)
[2019-11-01] MEDS ORDERED: ONDANSETRON INJ 2 MG/ML 2 ML VIAL ONE (11:34)
[2019-11-01] MEDS ORDERED: DEXAMETHASONE SOD INJ 4 MG/ML VIAL ONE (11:34)
--- NOTE | 2019-11-01 11:45 | Anesthesiology Consultation ---
Date of Service November 01, 2019 Assessment & Plan Chart Review Chart Review: Acceptable Risk for Surgery and Patient NOT seen in Pre Admission Testing Consults Requested none ASA ASA4 Proposed Anesthesia Anesthesia Type: General History Surgery Operation Date: 11/01/19 07:00 Proposed Procedures p Right Inguinal / Groin Wound Debridement - Jah Almazan, DO Height/Weight Height: 5 ft 6 in Weight: 166 kg Allergies Allergy/AdvReac Type Severity Reaction Status Date / Time adhesive Allergy Mild RASH Verified 10/21/19 04:06 Cipro Allergy Unknown HIVES Verified 06/19/16 14:58 ciprofloxacin Allergy Unknown HIVES Verified 10/21/19 04:06 nystatin Allergy Unknown MYCOLOG Verified 10/21/19 04:06 CREAM cephalexin AdvReac Intermediate GI SYMPTOMS Verified 10/21/19 04:06 morphine AdvReac Mild N/V Verified 10/21/19 04:06 CONFUSION Medications Home Medications Medication Instructions Recorded Confirmed Last Taken Lantus Solostar U-100 Insulin 50 unit SUBCUT AMPM 10/21/19 10/31/19 10/31/19 Novolog Flexpen U-100 Insulin 0 unit SUBCUT AC 10/21/19 10/31/19 10/31/19 08:30 15 units esomeprazole magnesium 40 mg PO BID 10/21/19 10/31/19 10/31/19 furosemide 80 mg PO QAM 10/21/19 10/31/19 10/31/19 isosorbide dinitrate 20 mg PO BID 10/21/19 10/31/19 10/31/19 levothyroxine 50 mcg PO QAM 10/21/19 10/31/19 10/31/19 metoprolol succinate 100 mg PO BID 10/21/19 10/31/19 10/31/19 spironolactone 25 mg PO QAM 10/21/19 10/31/19 10/31/19 B-complex with vitamin C [Super B 1 tab PO QAM 10/31/19 10/31/19 10/31/19 Complex-Vitamin C] C,E,zinc,copper [id number] 1 cap PO QAM 10/31/19 10/31/19 10/31/19 [Ocuvite Adult 50 Plus] Potassium 99mg 99 mg PO QAM 10/31/19 10/31/19 10/31/19 ascorbic acid (vitamin C) [Vitamin 0 mg PO BID 10/31/19 10/31/19 10/31/19 C] aspirin 81 mg PO HS 10/31/19 10/31/19 10/30/19 coenzyme Q10 [CoQ-10] 100 mg PO QAM 10/31/19 10/31/19 10/31/19 folic acid 0 mg PO QAM 10/31/19 10/31/19 10/31/19 lisinopril 5 mg PO QAM 10/31/19 10/31/19 Unknown zinc 50 mg PO QAM 10/31/19 10/31/19 10/31/19 Active Medications Generic Name Dose Route Start Last Admin Trade Name Freq PRN Reason Stop Dose Admin Ascorbic Acid 500 mg 10/31/19 21:00 11/01/19 08:33 Vitamin C PO 11/30/19 20:59 500 mg BID JUANA Administration Aspirin 81 mg 10/31/19 21:00 10/31/19 20:58 Ecotrin Ectab PO 11/30/19 20:59 81 mg HS JUANA Administration Fluconazole 500 mg 11/01/19 09:00 11/01/19 08:33 Diflucan PO 11/11/19 08:59 500 mg DAILY JUANA Administration Protocol Furosemide 80 mg 11/01/19 09:00 11/01/19 08:33 Lasix PO 12/01/19 08:59 80 mg QAM JUANA Administration Heparin Sodium (Porcine) 5,000 units 10/31/19 22:00 11/01/19 05:27 Heparin Sodium (Porcine) SQ 11/30/19 21:59 5,000 units Q8 JUANA Administration Piperacillin Sod/Tazobactam 120 mls @ 30 mls/hr 11/01/19 02:00 11/01/19 09:55 Sod 4.5 gm/ Dextrose IV 11/11/19 01:59 30 mls/hr Q8H JUANA Administration Protocol Daptomycin 600 mg/ Syringe 12 mls @ 6 mls/min 11/01/19 12:00 11/01/19 11:24 IV 11/11/19 11:59 6 mls/min Q24H JUANA Administration Clindamycin Phosphate 900 mg/ 56 mls @ 112 mls/hr 10/31/19 22:00 11/01/19 06:08 Dextrose IV 11/10/19 21:59 Infused Q8H JUANA Infusion Insulin Glargine 0 - 40 units 10/31/19 21:00 11/01/19 08:38 Lantus Solostar Pen SC 11/30/19 20:59 20 units BID JUANA Administration Protocol Isosorbide Dinitrate 20 mg 11/01/19 07:00 11/01/19 11:24 Isordil PO 12/01/19 06:59 20 mg BID@0700,1200 JUANA Administration Levothyroxine Sodium 50 mcg 11/01/19 06:30 11/01/19 05:25 Synthroid PO 12/01/19 06:29 50 mcg DAILYBB JUANA Administration Lisinopril 5 mg 11/01/19 09:00 11/01/19 08:34 Zestril PO 12/01/19 08:59 5 mg QAM JUANA Administration Metoprolol Succinate 100 mg 10/31/19 21:00 11/01/19 08:33 Toprol Xl PO 11/30/19 20:59 100 mg BID JUANA Administration Multivitamins/Minerals 1 tab 11/01/19 09:00 11/01/19 08:41 Multivitamin W/ Minerals Tab PO 12/01/19 08:59 1 tab QAM JUANA Administration Pantoprazole Sodium 40 mg 10/31/19 21:00 11/01/19 08:33 Protonix PO 11/30/19 20:59 40 mg BID JUANA Administration Spironolactone 25 mg 11/01/19 09:00 11/01/19 08:33 Aldactone PO 12/01/19 08:59 25 mg QAM JUANA Administration Vitamin B Complex 1 tab 11/01/19 09:00 11/01/19 08:34 Vitamin B Complex PO 12/01/19 08:59 1 tab QAM JUANA Administration Zinc Sulfate 220 mg 11/01/19 09:00 11/01/19 08:34 Zinc Sulfate PO 12/01/19 08:59 220 mg QAM JUANA Administration NPO Date Last Intake of Fluids: 11/01/19 Time Last Intake of Fluids: 08:30 Last Intake of Fluids Comment: Sips of water with meds Date Last Intake of Solids: 10/31/19 Time Last Intake of Solids: 20:00 Past Medical History Medical History CHF (congestive heart failure) Chronic diastolic heart failure CKD (chronic kidney disease) stage 3, GFR 30-59 ml/min Depression (Chronic) DM2 (diabetes mellitus, type 2) (Chronic) HTN (hypertension) (Chronic) Ichthyosis (Chronic) Morbid obesity Neuropathy (Chronic) Right heart failure Exercise / Class Metabolic Activity III < 4 Walking/Shop/Light housework Past Family History Family History Father Coronary heart disease Crohn's disease, Onset Age: 40 Brother Crohn's disease, Onset Age: 28 Brother Crohn's disease, Onset Age: 35 Past Surgical History Surgical History H/O bilateral breast reduction surgery (Chronic) H/O: hysterectomy (Chronic) S/P total knee arthroplasty (Chronic) Past Anesthesia History No Hx of Anesthesia Complications and No Family Hx of Anesthesia Complications History of PONV No Hx of PONV and No Hx of Motion Sickness Social History Smoking Status: Never smoker Hx Alcohol Use: No Hx Substance Use: No Physical Exam Vital Signs Last Vital Signs Temp 36.9 C 11/01/19 07:26 Pulse 78 11/01/19 07:26 Resp 18 11/01/19 07:26 BP 157/76 H 11/01/19 07:26 Pulse Ox 97 11/01/19 07:26 Testing Laboratory Results 11/01/19 06:22 11/01/19 06:22 PT 10.6 Seconds (9.0-12.0) 10/31/19 12:18 INR 1.0 (0.9-1.1) 10/31/19 12:18 11/01/19 00:30 Gram Stain - Final Groin 11/01/19 08:06 POC Glucose 132 H Electrocardiogram Date: 10/22/19 Findings: + ST @ (at 109 w/ PAC's;? anterior GA;T wave inversion inferior leads) Chest X-Ray Date: 10/31/19 Findings: + atelectasis (bibasilar), + cardiomegaly, + pulmonary vascular congestion (mild) and + atherosclerosis of thoracic aorta Echocardiogram Date: 11/03/17 EF: 50 RWMA: + none Other Findings: + LVH (moderate) Valvular Disease: + no significant valvular disease
--- NOTE | 2019-11-01 12:24 | History & Physical Bridge Note ---
Date of Service November 01, 2019 History & Physical Bridge Note I have examined the patient, reviewed the History & Physical and in the interval since the performance of the History & Physical I have noted the following changes of clinical significance: no changes noted note: wound extends from right posterior thigh area over to midline and possibly onto left thigh. will debride everything necessary.
[2019-11-01] MEDS ORDERED: MIDAZOLAM HCL 1 MG/ML 2ML VIAL ONE (12:36)
--- NOTE | 2019-11-01 12:56 | Infectious Disease Consult ---
Date of Consultation November 01, 2019 Assessment & Plan (1) Abscess of right thigh: 64-year-old female with developing abscess of right thigh, awaiting incision and drainage. Pending further culture results, current antibiotics will provide appropriate coverage, would continue clindamycin for 48 hours only for potential antitoxin effects. Will adjust antibiotics once cultures are available. Will follow. History of Present Illness Reason for Consultation: Right inguinal wound Attending Physician: Pinky Sutton MD History of Present Illness 64-year-old female with history of insulin-dependent type 2 diabetes mellitus, right heart failure, hypertension, stage III chronic kidney disease, who was recently hospitalized for E. coli urinary tract infection associated with acute kidney injury treated with IV then oral antibiotics. He reports developing a wound in her right groin 2 days ago, which progressively worsened with development of foul-smelling drainage, mild pain rated 1 out of 10 in intensity, not associated with fever and chills. She came to the emergency department, found to have mild leukocytosis, and foul-smelling, draining right groin wound. CT scan of the area shows evidence of underlying infection. She is now scheduled for operative debridement. She has been started empirically on daptomycin and Zosyn. Cultures of the wound and blood are pending. Allergies Allergy/AdvReac Type Severity Reaction Status Date / Time adhesive Allergy Mild RASH Verified 10/21/19 04:06 Cipro Allergy Unknown HIVES Verified 06/19/16 14:58 ciprofloxacin Allergy Unknown HIVES Verified 10/21/19 04:06 nystatin Allergy Unknown MYCOLOG Verified 10/21/19 04:06 CREAM cephalexin AdvReac Intermediate GI SYMPTOMS Verified 10/21/19 04:06 morphine AdvReac Mild N/V Verified 10/21/19 04:06 CONFUSION Home Medications Home Medications Medication Instructions Recorded Confirmed Type Lantus Solostar U-100 Insulin 50 unit SUBCUT AMPM 10/21/19 10/31/19 History Novolog Flexpen U-100 Insulin 0 unit SUBCUT AC 10/21/19 10/31/19 History esomeprazole magnesium 40 mg PO BID 10/21/19 10/31/19 History furosemide 80 mg PO QAM 10/21/19 10/31/19 History isosorbide dinitrate 20 mg PO BID 10/21/19 10/31/19 History levothyroxine 50 mcg PO QAM 10/21/19 10/31/19 History metoprolol succinate 100 mg PO BID 10/21/19 10/31/19 History spironolactone 25 mg PO QAM 10/21/19 10/31/19 History B-complex with vitamin C [Super B 1 tab PO QAM 10/31/19 10/31/19 History Complex-Vitamin C] C,E,zinc,copper [id number] 1 cap PO QAM 10/31/19 10/31/19 History [Ocuvite Adult 50 Plus] Potassium 99mg 99 mg PO QAM 10/31/19 10/31/19 History ascorbic acid (vitamin C) [Vitamin 0 mg PO BID 10/31/19 10/31/19 History C] aspirin 81 mg PO HS 10/31/19 10/31/19 History coenzyme Q10 [CoQ-10] 100 mg PO QAM 10/31/19 10/31/19 History folic acid 0 mg PO QAM 10/31/19 10/31/19 History lisinopril 5 mg PO QAM 10/31/19 10/31/19 History zinc 50 mg PO QAM 10/31/19 10/31/19 History Patient History Medical History CHF (congestive heart failure) Chronic diastolic heart failure CKD (chronic kidney disease) stage 3, GFR 30-59 ml/min Depression (Chronic) DM2 (diabetes mellitus, type 2) (Chronic) HTN (hypertension) (Chronic) Ichthyosis (Chronic) Morbid obesity Neuropathy (Chronic) Right heart failure Surgical History H/O bilateral breast reduction surgery (Chronic) H/O: hysterectomy (Chronic) S/P total knee arthroplasty (Chronic) Family History Father Coronary heart disease Crohn's disease, Onset Age: 40 Brother Crohn's disease, Onset Age: 28 Brother Crohn's disease, Onset Age: 35 Social History Preferred Language: Serbian Communication Ability: Effective [employer] Head Required: No Beliefs That Will Affect Care: None marital status: Current Living Situation: Spouse Feels Safe at Home: Yes Safety Concerns: Feels Safe At This Time Smoking Status: Never smoker Hx Alcohol Use: No Hx Substance Use: No Review of Systems Review of Systems: All systems reviewed & are unremarkable except as noted in HPI & below Physical Exam Constitutional: WD/WN, vitals as above + obese and comfortable; no acute distress Eyes: PERRL, conjunctivae normal, anicteric sclerae ENMT: external ear and nose normal, oropharynx normal Neck: trachea midline, no thyromegaly neck nontender Respiratory: normal respiratory effort, lungs clear to auscultation normal percussion; does not use accessory muscles Cardiovascular: Rate/Rhythm: regular rate and regular rhythm Heart Sounds: normal S1 and normal S2; no gallop, no murmur and no cardiac rub Vessels: normal peripheral pulses; no JVD Gastrointestinal (Abdomen): normal bowel sounds, soft, nontender, no hepatosplenomegaly Musculoskeletal: no cyanosis or clubbing, extremities motor strength 5/5 Spine: thoracic spine normal to inspection and lumbar spine normal to inspection; no cervical spinal tenderness Skin: no rashes, warm and dry normal turgor and + wound (Open wound right groin area with significant surrounding erythema and foul-smelling purulent drainage) Neurologic: patellar DTR's 2+ bilat, sensation intact no focal motor deficits Psychiatric: A+Ox3, euthymic affect Orientation: cooperative Lymphatic: no cervical or axillary lymphadenopathy no inguinal lymphadenopathy Results & Data Vital Signs (Past 12 Hours) Vital Signs Temp Pulse Resp BP Pulse Ox 11/01/19 12:14 36.6 C 79 20 164/76 H 95 11/01/19 07:26 36.9 C 78 18 157/76 H 97 Laboratory Results Short CBC 11/01/19 Range/Units 06:22 WBC 11.21 H (4.8-10.8) K/uL Hgb 11.2 L (12.0-16.0) g/dL Hct 35.5 L (37-47) % Plt Count 284 (130-400) K/uL BMP 11/01/19 06:22 Sodium 141 Potassium 3.5 D Chloride 107 Carbon Dioxide 29 BUN 20 H Creatinine 1.21 H Glucose 127 H Calcium 9.7 Liver Function 10/31/19 11/01/19 Range/Units 12:18 06:22 Total Bilirubin 0.6 0.7 (0.2-1) mg/dl AST 12 L (15-37) U/L ALT 23 (12-78) U/L Alkaline Phosphatase 130 H 110 (45-117) U/L Albumin 2.4 L (3.4-5.0) gm/dl Diagnostic Findings Microbiology 11/01/19 00:30 Groin Gram Stain - Final cc: ~ CT pelvis wo con CT DOSE: 3589.00 mGy.cm CLINICAL HISTORY: Right abdominal wall and thigh tenderness infection. Evaluate for abscess. TECHNIQUE: Helical images were obtained through the pelvis. No intravenous contrast was administered. A dose lowering technique was utilized adhering to the principles of ALARA. COMPARISON STUDY: CT scan of the abdomen and pelvis dated 10/21/2019 FINDINGS: The examination is somewhat limited from a technical standpoint due to the patient's large body habitus. Portions of the left abdomen are not visualized. Incidental note is made of cholelithiasis. There is no ascites. The appendix appears normal. There is no evidence of abdominal aortic aneurysm. The visualized portions of the kidney reveal no evidence of hydronephrosis. There is no ascites. There is no acute diverticulitis. There is a tiny fat-containing umbilical hernia. There is anterior abdominal wall skin thickening. There are no fluid collections to indicate an abscess. Degenerative changes are present within the lumbar spine. There is multilevel spinal stenosis. There is infiltration of the fat within the right medial thigh. There is gas present within the soft tissues consistent with an infectious process. IMPRESSION: 1. Lower anterior abdominal wall skin thickening. 2. Infiltration of the subcutaneous fat involving the right medial thigh. There is gas present within the soft tissues, a finding which may indicate gangrene. 3. No evidence of abscess. 4. Cholelithiasis 5. Degenerative changes within the cervical spine with multilevel spinal stenosis Electronically signed by: Darci Adair M.D. 10/31/2019 1:41 PM Dictated: 10/31/19 1335 Transcribed: 10/31/19 1335 PG Care Time/CCT Total # of Minutes Spent Total Time Spent with Patient: Total time spent is greater than 50% in coordination of care (as documented) at patient's floor/unit and/or counseling patient:
[2019-11-01] MEDS ORDERED: ePHEDrine sulfate 50 MG/ML AMP IV PRN (13:27)
[2019-11-01] MEDS ORDERED: FLUMAZENIL 0.1 MG/1 ML 10 ML VIAL IV PRN (13:27)
[2019-11-01] MEDS ORDERED: ATROPINE SULFATE 0.1 MG/ML 10ML SYR IV PRN (13:27)
[2019-11-01] MEDS ORDERED: NALOXONE HCL 0.4 MG/1 ML VIAL/CARP IV PRN (13:27)
[2019-11-01] MEDS ORDERED: HYDROCODONE/ACETAMOPHEN 5/325MG TAB PO PRN ×2 (13:27)
[2019-11-01] MEDS ORDERED: ONDANSETRON INJ 2 MG/ML 2 ML VIAL IV PRN (13:27)
[2019-11-01] MEDS ORDERED: LABETALOL HCL IV 5 MG/ML 20ML IV PRN (13:27)
[2019-11-01] MEDS ORDERED: PROMETHAZINE HCL 12.5 MG in SODIUM CHLORIDE 0.9% 50 ML IV PRN (13:27)
--- NOTE | 2019-11-01 13:28 | Operative Report ---
PG Post Operative Report Pre & Post Diagnosis Operation Date: 11/01/19 07:00 Pre-Op Diagnosis: INGUINAL ABSCESS/WOUND INFECTION Post-Op Diagnosis: INGUINAL ABSCESS/WOUND INFECTION I identified the patient and participated in the time-out.: Yes Procedure Operation Date: 11/01/19 07:00 Actual Procedures p Inguinal / Groin Wound Debridement(Not Applicable) - Jah Almazan DO Surgeon Jah Almazan DO Cereal Chemist rani Etienne Estimated Blood Loss 5 Findings Consistent with Post-Op Diagnosis Specimens none Description of Procedure After informed consent was obtained the patient was taken to the operating room and placed in supine position. IV sedation was administered by anesthesia and titrated to effect. After adequate sedation the patient was placed in a frog- leg position and the entire thigh, labial area, and perineum were sterilely prepped and draped using Betadine solution. Using a 10 blade scalpel we further opened a large abscess cavity by de-bryant the skin. There was a moderate amount of purulent drainage. We debrided all of the necrotic tissue which was considerable. It extended posteriorly towards her anus as well as anteriorly up toward the anterior thigh. The necrotic tissue was excised completely. Once we had all the tissue removed down to pink granulation tissue we then thoroughly irrigated the wound. The sharp debridement was excisional and involved skin, fat and muscle. There was adequate hemostasis at the end of the procedure. The wound was packed with 2 inch iodoform packing gauze an ABD pad and tape. The patient was transferred to recovery in stable condition. My physician stylist assistant was present for the entire case. She helped expose the wound during my debridement as well as with dressing placement. I attest to the content of the Intraoperative Record and any orders documented therein. Any exceptions are noted below.
--- NOTE | 2019-11-01 13:41 | Anesthesiology Progress Note ---
Date of Service November 01, 2019 Anesthesia Post Procedure Vital Signs Vital Signs: Temp Pulse Pulse Resp BP Pulse Ox 11/01/19 13:35 80 19 164/82 H 94 11/01/19 13:25 82 18 150/71 H 94 11/01/19 13:16 36.6 C 82 20 156/97 H 93 11/01/19 12:14 36.6 C 79 20 164/76 H 95 11/01/19 07:26 36.9 C 78 18 157/76 H 97 10/31/19 23:42 36.9 C 81 22 145/71 H 96 10/31/19 20:55 37.2 C 85 20 158/79 H 93 10/31/19 18:16 80 20 157/69 H 97 10/31/19 16:04 84 20 157/73 H 93 10/31/19 14:19 86 20 153/63 H 95 Transfer of Care Handoff Completed per policy Notes Mental Status: alert / awake / arousable Patient Amnestic to Procedure: Yes Nausea / Vomiting: adequately controlled Pain: adequately controlled Airway Patency, RR, SpO2: stable & adequate BP & HR: stable & adequate Hydration State: stable & adequate Anesthetic Complications: no major complications apparent
[2019-11-01] MEDS ORDERED: INSULIN ASPART 100 UNITS/ML 3 ML PEN SC SCH (14:00)
--- NOTE | 2019-11-01 16:23 | Hospitalist Progress Note ---
Date of Service November 01, 2019 Assessment & Plan (1) Abscess of right groin: (2) S/P debridement: 64-year-old female who has significant past medical history of insulin- dependent type 2 DM, obesity hypoventilation syndrome, chronic right heart failure, CKD stage III, HTN, morbid obesity who presents to [facility] [place] ED secondary to foul-smelling wound in right inguinal region x6 days. Found to have right inguinal abscess S/p debridement Patient remains afebrile WBC improved from 12k to 11k CT scan of femur and pelvis reveal infiltration of subcutaneous fat involving right medial thigh, gas present within soft tissues, a finding which may indicate gangrene, no evidence of abscess. Continue broad antibiotics for now and narrow once culture results (3) DM2 (diabetes mellitus, type 2): Last A1c 6.7 on 10/21 Outpatient regimen of Lantus 50 units twice daily and NovoLog 15 units AC as per sliding scale Continue Lantus/NovoLog per protocol (4) CHF (congestive heart failure): Euvolemic Patient with history of diastolic CHF along with right heart failure in setting of obesity hypoventilation syndrome She did qualify for O2 at bedtime and with activity during last admission Weight today 166 kg, appears euvolemic Continue Lasix, Aldactone, metoprolol, Imdur Daily weights And I's and O's Heart healthy low-sodium diet (5) CKD (chronic kidney disease) stage 3, GFR 30-59 ml/min: Baseline creatinine 1.2 Cr 1.21 today Last admission creatinine peaked 2.48 likely secondary to ATN in setting of sepsis and dehydration Monitor BMP (6) HTN (hypertension): Continue metoprolol, Imdur, Aldactone, Lasix Lisinopril held on last admission due to NICOLETTE resumed yesterday in light of improved renal function Monitor Cr and K (7) Hypercalcemia: Ca corrected is 11 Monitor (8) Morbid obesity: Encourage weight loss Continue nocturnal oxygen at 2l/min and with activity Needs sleep study on discharge Not interested in trial of CPAP HS inpatient. Wants to get sleep study before CPAP/BIPAP BMI 59.1 (9) DVT prophylaxis: Heparin sq Follow-up: PCP Dr. Yeager upon discharge Subjective Patient seen after OR Had no complaints. Denied fevers, chills, nausea, vomiting Denied chest pain, shortness of breath Denied abdominal pain, dysuria, frequency Denied any pain at surg site Review of Systems Review of Systems: All systems reviewed and unremarkable except for mentioned above. Physical Exam Physical Exam: General: Morbid obesity, no acute distress Eyes: PERRL, conjunctivae normal, not pale, anicteric sclerae, EOM intact bilaterally ENMT: External ear and nose normal, oropharynx normal Neck: Normal visual inspection, no tracheal deviation Respiratory: Normal respiratory effort, no respiratory distress, Nasal cannula in situ on 2L/min, lungs clear to auscultation, no crackles and no wheezes Cardiovascular: Pulse is RRR. S1 S2 Gastrointestinal (Abdomen): Abdomen is distended, soft, non-tender to palpation, no guarding, no palpable hepatosplenomegaly, normal bowel sounds Musculoskeletal: No cyanosis or clubbing Skin: Clean dressing over right groin surgical site. Erythematous intercrural skin and under pannus Neurologic: Alert and oriented x 3, No focal weakness, sensation grossly intact Psychiatric: Alert and oriented x 3, euthymic affect Results & Data Vital Signs (Past 12 Hours) Vital Signs Temp Pulse Pulse Resp BP Pulse Ox 11/01/19 15:35 36.8 C 79 18 134/74 94 11/01/19 15:05 36.8 C 79 18 123/63 94 11/01/19 14:35 36.9 C 80 16 170/84 H 95 11/01/19 14:05 83 18 166/83 H 92 11/01/19 13:55 36.2 C L 83 17 151/70 H 92 11/01/19 13:45 82 17 155/65 H 92 11/01/19 13:35 80 19 164/82 H 94 11/01/19 13:25 82 18 150/71 H 94 11/01/19 13:16 36.6 C 82 20 156/97 H 93 11/01/19 12:14 36.6 C 79 20 164/76 H 95 11/01/19 07:26 36.9 C 78 18 157/76 H 97 Laboratory Results Laboratory Results - last 24 hr 10/31/19 11/01/19 11/01/19 20:42 06:22 06:22 WBC 11.21 H RBC 3.50 L Hgb 11.2 L Hct 35.5 L MCV 101.4 H MCH 32.0 MCHC 31.5 L RDW Std Deviation 51.2 H RDW Coeff of Avery 13.9 Plt Count 284 MPV 9.2 Immature Gran % (Auto) 2.1 Neut % (Auto) 72.9 Lymph % (Auto) 16.0 [place] % (Auto) 7.1 Eos % (Auto) 1.7 Baso % (Auto) 0.2 Immature Gran # (Auto) 0.24 H Neut # (Auto) 8.17 H Lymph # (Auto) 1.79 [place] # (Auto) 0.80 H Eos # (Auto) 0.19 Baso # (Auto) 0.02 Sodium 141 Potassium 3.5 D Chloride 107 Carbon Dioxide 29 Anion Gap 5.0 BUN 20 H Creatinine 1.21 H Est Cr Clr Drug Dosing 76.6 Est GFR ( Amer) 55.1 Est GFR (Non-Af Amer) 47.6 BUN/Creatinine Ratio 16.8 Glucose 127 H POC Glucose 115 H Calcium 9.7 Total Bilirubin 0.7 AST 12 L ALT 23 Alkaline Phosphatase 110 Total Protein 7.0 Albumin 2.4 L Globulin 4.6 H Albumin/Globulin Ratio 0.5 L 11/01/19 11/01/19 08:06 13:18 WBC RBC Hgb Hct MCV MCH MCHC RDW Std Deviation RDW Coeff of Avery Plt Count MPV Immature Gran % (Auto) Neut % (Auto) Lymph % (Auto) [place] % (Auto) Eos % (Auto) Baso % (Auto) Immature Gran # (Auto) Neut # (Auto) Lymph # (Auto) [place] # (Auto) Eos # (Auto) Baso # (Auto) Sodium Potassium Chloride Carbon Dioxide Anion Gap BUN Creatinine Est Cr Clr Drug Dosing Est GFR ( Amer) Est GFR (Non-Af Amer) BUN/Creatinine Ratio Glucose POC Glucose 132 H 175 H Calcium Total Bilirubin AST ALT Alkaline Phosphatase Total Protein Albumin Globulin Albumin/Globulin Ratio
[2019-11-01] MEDS: ASPIRIN 81 MG ECTAB PO SCH (21:35)
[2019-11-02] MEDS: PIPERACILLIN/TAZOBACTAM 4.5 GM in DEXTROSE 5% 100 ML IV SCH ×3 (02:00→18:28)
[2019-11-02] MEDS: CLINDAMYCIN 900 MG in DEXTROSE 5% 50 ML IV SCH ×3 (05:10→22:22)
[2019-11-02] MEDS: LEVOTHYROXINE SODIUM 50 MCG TABLET PO SCH (05:47)
[2019-11-02] MEDS: ISOSORBIDE DINITRATE 20 MG TAB PO SCH ×2 (05:47→13:05)
[2019-11-02] MEDS: HEPARIN SOD 5,000 UNIT/0.5 ML VIAL SQ SCH ×3 (05:51→22:26)
[2019-11-02 07:37] LABS: Hematocrit (blood only) 34.6 % (37-47); Hemoglobin 10.9 g/dL (12.0-16.0); Mean Corpuscular Hemoglobin 32.3 pg (25-34); Mean Corpuscular Hgb Conc 31.5 g/dL (32-36); Mean Corpuscular Volume 102.7 fL (80-100); Mean Platelet Volume 9.2 fL (7.4-10.4); Platelet Count 253 K/uL (130-400); RDW Coefficient of Variation 14.1 % (11.5-14.5); RDW Standard Deviation 52.6 fL (36.4-46.3); Red Blood Count 3.37 M/uL (4.2-5.4); White Blood Count 10.31 K/uL (4.8-10.8)
[2019-11-02 07:53] LABS: BUN Creatinine Ratio 19.9 (10-20); Calcium 9.8 mg/dl (8.5-10.1); Creatinine Clr Calc Pharmacy 66.2 ml/min; Est GFR (African American) 46.2; Est GFR (Non-African American) 39.9; Potassium 3.7 mmol/L (3.5-5.1)
[2019-11-02] MEDS: INSULIN ASPART 100 UNITS/ML 3 ML PEN SC SCH ×4 (08:47→22:28)
[2019-11-02] MEDS: INSULIN GLARGINE SOLOSTAR 100 UNITS/ML 3 ML PEN SC SCH ×2 (08:48→22:29)
[2019-11-02] MEDS: FUROSEMIDE 80 MG TAB PO SCH (08:50)
[2019-11-02] MEDS: SPIRONOLACTONE 25 MG TAB PO SCH (08:50)
[2019-11-02] MEDS: FLUCONAZOLE 100 MG TAB PO SCH (08:50)
[2019-11-02] MEDS: METOPROLOL SUCC 50MG EXT REL TAB PO SCH ×2 (08:51→22:17)
[2019-11-02] MEDS: VITAMIN B COMPLEX TAB PO SCH (08:51)
[2019-11-02] MEDS: CEROVITE ADV FORMULA TAB PO SCH (08:51)
[2019-11-02] MEDS: ASCORBIC ACID 500 MG TAB PO SCH ×2 (08:51→22:18)
[2019-11-02] MEDS: PANTOprazole 40 MG TAB PO SCH ×2 (08:51→22:18)
[2019-11-02] MEDS: ZINC SULFATE 220 MG CAPSULE PO SCH (08:52)
[2019-11-02] MEDS: lisinopriL 5 MG TAB PO SCH (08:52)
--- NOTE | 2019-11-02 09:52 | Surgery Progress Note ---
Date of Service November 02, 2019 Assessment & Plan (1) Abscess of right groin: POD#1 s/p debridement of right groin wound Wound culture pending; continue IV abx WBC 10 and patient afebrile she has zero pain and overall feels well met with wound care in her room and they will go ahead with plan to place an irrigating wound vac. Will leave this on for at least 24 hours prior to switching to a regular wound vac Appreciate wound care following as above. doing well. appreciate wound nurses applying vac. can go home with vac whenever primary team wants. Subjective Patient offers no complaints. Says she is feeling well after surgery. She denies any pain associated with the wound. Tolerating a diet and voiding well without issues. Physical Exam Physical Exam: awake/alert Respiratory: normal respiratory effort Skin: right groin wound much improved. wound surface overall clean and pink with mild slough. very minimal odor. iodoform packing removed with some serosang drainage Results & Data Vital Signs (Past 12 Hours) Vital Signs Temp Pulse Resp BP Pulse Ox 11/02/19 08:45 77 147/77 H 11/02/19 07:02 36.8 C 65 18 123/68 90 11/02/19 03:49 96 11/02/19 03:48 37 C 78 18 160/66 H 84 L 11/01/19 23:05 37 C 85 20 169/74 H 91 PG Care Time/CCT Total # of Minutes Spent Total Time Spent with Patient: Total time spent is greater than 50% in coordination of care (as documented) at patient's floor/unit and/or counseling patient:
--- NOTE | 2019-11-02 10:17 | Infectious Disease Progress Nt ---
Date of Service November 02, 2019 Assessment & Plan (1) Abscess of right groin: Patient with right groin abscess status post incision and drainage. For placement of irrigating wound VAC today. We will continue present antibiotics pending final culture results. Will follow. Subjective Patient seen in follow-up for right groin infection. Now status post incision and drainage. Placement of wound VAC pending. Patient denies any specific complaints today, pain controlled. Remains afebrile. Blood cultures remain negative, wound cultures are pending. Review of Systems Review of Systems: All systems reviewed & are unremarkable except as noted in HPI & below Physical Exam Constitutional: WD/WN, vitals as above + obese and comfortable; no acute distress Eyes: PERRL, conjunctivae normal, anicteric sclerae ENMT: external ear and nose normal, oropharynx normal Neck: trachea midline, no thyromegaly neck nontender Respiratory: normal respiratory effort, lungs clear to auscultation normal percussion; does not use accessory muscles Cardiovascular: Rate/Rhythm: regular rate and regular rhythm Heart Sounds: normal S1 and normal S2; no gallop, no murmur and no cardiac rub Vessels: normal peripheral pulses; no JVD Gastrointestinal (Abdomen): normal bowel sounds, soft, nontender, no hepatosplenomegaly Musculoskeletal: no cyanosis or clubbing, extremities motor strength 5/5 Spine: thoracic spine normal to inspection and lumbar spine normal to inspection; no cervical spinal tenderness Skin: no rashes, warm and dry normal turgor and + wound (Right groin wound looks improved, somewhat decreased surrounding erythema) Neurologic: patellar DTR's 2+ bilat, sensation intact no focal motor deficits Psychiatric: A+Ox3, euthymic affect Orientation: cooperative Lymphatic: no cervical or axillary lymphadenopathy no inguinal lymphadenopathy Results & Data Vital Signs (Past 12 Hours) Vital Signs Temp Pulse Resp BP Pulse Ox 11/02/19 08:45 77 147/77 H 11/02/19 07:02 36.8 C 65 18 123/68 90 11/02/19 03:49 96 11/02/19 03:48 37 C 78 18 160/66 H 84 L 11/01/19 23:05 37 C 85 20 169/74 H 91 Laboratory Results Short CBC 11/02/19 Range/Units 07:29 WBC 10.31 (4.8-10.8) K/uL Hgb 10.9 L (12.0-16.0) g/dL Hct 34.6 L (37-47) % Plt Count 253 (130-400) K/uL BMP 11/02/19 07:29 Sodium 140 Potassium 3.7 Chloride 105 Carbon Dioxide 29 BUN 28 H Creatinine 1.40 H Glucose 167 H Calcium 9.8 Diagnostic Findings Microbiology 10/31/19 12:18 Blood Aerobic Blood Culture - Preliminary No growth in Aerobic bottle after 24 hours. 10/31/19 12:18 Blood Anaerobic Blood Culture - Preliminary No growth in Anaerobic bottle after 24 hours. 10/31/19 12:22 Blood Aerobic Blood Culture - Preliminary No growth in Aerobic bottle after 24 hours. 10/31/19 12:22 Blood Anaerobic Blood Culture - Preliminary No growth in Anaerobic bottle after 24 hours. 11/01/19 00:30 Groin Gram Stain - Final PG Care Time/CCT Total # of Minutes Spent Total Time Spent with Patient: Total time spent is greater than 50% in coordination of care (as documented) at patient's floor/unit and/or counseling patient:
[2019-11-02] MEDS: DAPTOmycin 600 MG in SYRINGE 0 ML IV SCH (13:00)
--- NOTE | 2019-11-02 18:38 | Hospitalist Progress Note ---
Date of Service November 02, 2019 Assessment & Plan (1) Abscess of right groin: (2) S/P debridement: Patient is a 64 yr female with H/O Insulin-dependent type 2 DM, obesity hypoventilation syndrome, chronic right heart failure, CKD stage III, HTN, morbid obesity who presents to [facility] ED secondary to foul-smelling wound in right inguinal region x6 days. Right inguinal abscess S/P debridement of right groin wound POD#1 CT scan of femur and pelvis reveal infiltration of subcutaneous fat involving right medial thigh, gas present within soft tissues, a finding which may indicate gangrene, no evidence of abscess. Continue IV antibiotics Appreciate surgery, ID input Continue wound VAC Blood cultures: Negative to date Wound culture: Pending (3) DM2 (diabetes mellitus, type 2): Last A1c 6.7 on 10/21 Outpatient regimen of Lantus 50 units twice daily and NovoLog 15 units AC as per sliding scale Continue Lantus/NovoLog per protocol (4) CHF (congestive heart failure): Euvolemic H/O diastolic CHF along with right heart failure in setting of obesity hypoventilation syndrome She did qualify for O2 at bedtime and with activity during last admission Continue Lasix, Aldactone, metoprolol, Imdur Monitor daily weight, electrolytes, volume status (5) CKD (chronic kidney disease) stage 3, GFR 30-59 ml/min: Last admission creatinine peaked 2.48 likely secondary to ATN in setting of sepsis and dehydration Baseline creatinine 1.2 Monitor renal function (6) HTN (hypertension): Continue metoprolol, Imdur, Aldactone, Lasix Lisinopril held for now as creatinine slightly elevated Monitor (7) Hypercalcemia: Monitor (8) Morbid obesity: Encourage weight loss Continue nocturnal oxygen at 2l/min and with activity Needs sleep study on discharge Not interested in trial of CPAP HS inpatient. Wants to get sleep study before C PAP/BIPAP BMI 59.1 (9) DVT prophylaxis: Heparin SQ Code Status Full Code Follow-up: PCP Dr. Yeager upon discharge Subjective Patient is seen and examined at bedside States feeling well today Denies any wound pain at right groin Offers no complaints Family at bedside Review of Systems Review of Systems: All systems reviewed & are unremarkable except as noted in HPI & below Physical Exam Physical Exam: Physical Exam: Vitals signs as noted above General Appearance:Morbidly Obese, no apparent distress Head: normocephalic, Atraumatic Eyes: normal inspection, EOMI Neck: supple, Trachea midline Respiratory/Chest: Normal breath sounds, CTA Cardiovascular: S1, S2, No murmur Abdomen/GI:Soft, Non tender, Bowel sounds present Extremities/Musculoskelatal:normal inspection, no edema, R groin + wound Vac Neurologic/Psych:AAOX3, grossly no focal neurological deficits Skin: normal color, warm Results & Data Vital Signs (Past 12 Hours) Vital Signs Temp Pulse Pulse Resp BP Pulse Ox 11/02/19 15:06 36.8 C 72 16 151/73 H 95 11/02/19 11:55 36.6 C 78 18 142/82 H 97 11/02/19 08:45 77 147/77 H 11/02/19 07:02 36.8 C 65 18 123/68 90 Laboratory Results Short CBC 11/02/19 Range/Units 07:29 WBC 10.31 (4.8-10.8) K/uL Hgb 10.9 L (12.0-16.0) g/dL Hct 34.6 L (37-47) % Plt Count 253 (130-400) K/uL BMP 11/02/19 07:29 Sodium 140 Potassium 3.7 Chloride 105 Carbon Dioxide 29 BUN 28 H Creatinine 1.40 H Glucose 167 H Calcium 9.8
[2019-11-02] MEDS: ASPIRIN 81 MG ECTAB PO SCH (22:17)
[2019-11-03] MEDS: PIPERACILLIN/TAZOBACTAM 4.5 GM in DEXTROSE 5% 100 ML IV SCH ×3 (02:40→17:51)
[2019-11-03] MEDS: LEVOTHYROXINE SODIUM 50 MCG TABLET PO SCH (06:34)
[2019-11-03] MEDS: ISOSORBIDE DINITRATE 20 MG TAB PO SCH ×2 (06:34→13:20)
[2019-11-03] MEDS: CLINDAMYCIN 900 MG in DEXTROSE 5% 50 ML IV SCH ×3 (06:37→21:20)
[2019-11-03] MEDS: HEPARIN SOD 5,000 UNIT/0.5 ML VIAL SQ SCH ×3 (06:38→21:24)
--- NOTE | 2019-11-03 07:40 | Surgery Progress Note ---
Date of Service November 03, 2019 Assessment & Plan (1) Abscess of right groin: POD#1 right groin wound debridement doing very well post op, denies any pain and tolerating vac treatment well abx course per ID home wound vac care plans per wound care and medicine we will follow peripherally now. please call with any questions/concerns Subjective Patient with no complaints overnight. She feels well. Denies any groin pain. Wound vac held suction overnight. Physical Exam Physical Exam: awake/alert. using incentive spirometer Constitutional: well developed and well nourished; no acute distress Respiratory: normal respiratory effort Skin: right groin with irrigating wound vac in place, holding suction Results & Data Vital Signs (Past 12 Hours) Vital Signs Temp Pulse Pulse Resp BP BP Pulse Ox 11/03/19 07:28 37 C 73 20 150/71 H 96 11/03/19 06:33 71 145/74 H 11/02/19 23:10 37.0 C 77 18 165/77 H 97 11/02/19 22:14 80 162/83 H PG Care Time/CCT Total # of Minutes Spent Total Time Spent with Patient: Total time spent is greater than 50% in coordination of care (as documented) at patient's floor/unit and/or counseling patient:
[2019-11-03 08:16] LABS: Hematocrit (blood only) 33.5 % (37-47); Hemoglobin 10.6 g/dL (12.0-16.0); Mean Corpuscular Hemoglobin 32.3 pg (25-34); Mean Corpuscular Hgb Conc 31.6 g/dL (32-36); Mean Corpuscular Volume 102.1 fL (80-100); Mean Platelet Volume 9.3 fL (7.4-10.4); Nucleated RBC # (auto) 0.02 K/uL (0-0); Nucleated RBC % (auto) 0.3 %; Platelet Count 254 K/uL (130-400); RDW Coefficient of Variation 13.8 % (11.5-14.5); RDW Standard Deviation 51.7 fL (36.4-46.3); Red Blood Count 3.28 M/uL (4.2-5.4); White Blood Count 8.77 K/uL (4.8-10.8)
[2019-11-03 08:29] LABS: BUN Creatinine Ratio 19.6 (10-20); Est GFR (African American) 54.6; Est GFR (Non-African American) 47.1; Potassium 3.6 mmol/L (3.5-5.1)
[2019-11-03] MEDS: CEROVITE ADV FORMULA TAB PO SCH (09:32)
[2019-11-03] MEDS: SPIRONOLACTONE 25 MG TAB PO SCH (09:32)
[2019-11-03] MEDS: FLUCONAZOLE 100 MG TAB PO SCH (09:32)
[2019-11-03] MEDS: METOPROLOL SUCC 50MG EXT REL TAB PO SCH ×2 (09:32→21:18)
[2019-11-03] MEDS: PANTOprazole 40 MG TAB PO SCH ×2 (09:32→21:18)
[2019-11-03] MEDS: ZINC SULFATE 220 MG CAPSULE PO SCH (09:32)
[2019-11-03] MEDS: VITAMIN B COMPLEX TAB PO SCH (09:32)
[2019-11-03] MEDS: ASCORBIC ACID 500 MG TAB PO SCH ×2 (09:32→21:20)
[2019-11-03] MEDS: FUROSEMIDE 80 MG TAB PO SCH (09:32)
[2019-11-03] MEDS: INSULIN GLARGINE SOLOSTAR 100 UNITS/ML 3 ML PEN SC SCH ×2 (09:34→21:22)
[2019-11-03] MEDS: INSULIN ASPART 100 UNITS/ML 3 ML PEN SC SCH ×4 (09:34→21:21)
--- NOTE | 2019-11-03 10:41 | Infectious Disease Progress Nt ---
Date of Service November 03, 2019 Assessment & Plan (1) Abscess of right groin: 64-year-old female with right groin abscess status post I&D, now with wound VAC in place. Patient to continue on present antibiotics pending further culture results. Hopefully will be able to transition to oral antibiotics once results are available. Will follow. Subjective Patient seen in follow-up for right groin abscess. Wound VAC in place, denies any significant pain. Remains afebrile. Wound cultures with pinpoint growth, identification and sensitivities pending. Tolerating antibiotics without apparent difficulty. Review of Systems Review of Systems: All systems reviewed & are unremarkable except as noted in HPI & below Physical Exam Constitutional: WD/WN, vitals as above + obese and comfortable; no acute distress Eyes: PERRL, conjunctivae normal, anicteric sclerae ENMT: external ear and nose normal, oropharynx normal Neck: trachea midline, no thyromegaly neck nontender Respiratory: normal respiratory effort, lungs clear to auscultation normal percussion; does not use accessory muscles Cardiovascular: Rate/Rhythm: regular rate and regular rhythm Heart Sounds: normal S1 and normal S2; no gallop, no murmur and no cardiac rub Vessels: normal peripheral pulses; no JVD Gastrointestinal (Abdomen): normal bowel sounds, soft, nontender, no hepatosplenomegaly Musculoskeletal: no cyanosis or clubbing, extremities motor strength 5/5 Spine: thoracic spine normal to inspection and lumbar spine normal to inspection; no cervical spinal tenderness Skin: no rashes, warm and dry normal turgor and + wound (Wound VAC in place right groin, less surrounding erythema) Neurologic: moves all extremities and awake; no focal motor deficits Psychiatric: A+Ox3, euthymic affect Orientation: cooperative Lymphatic: no cervical or axillary lymphadenopathy no inguinal lymphadenopathy Results & Data Vital Signs (Past 12 Hours) Vital Signs Temp Pulse Pulse Resp BP BP Pulse Ox 11/03/19 07:28 37 C 73 20 150/71 H 96 11/03/19 06:33 71 145/74 H 11/02/19 23:10 37.0 C 77 18 165/77 H 97 Laboratory Results Short CBC 11/03/19 Range/Units 07:52 WBC 8.77 (4.8-10.8) K/uL Hgb 10.6 L (12.0-16.0) g/dL Hct 33.5 L (37-47) % Plt Count 254 (130-400) K/uL BMP 11/03/19 07:52 Sodium 138 Potassium 3.6 Chloride 105 Carbon Dioxide 28 BUN 24 H Creatinine 1.22 H Glucose 163 H Calcium 10.0 Diagnostic Findings Microbiology 11/01/19 00:30 Groin Gram Stain - Final 11/01/19 00:30 Groin Deep Wound Culture - Preliminary Pin-point growth present, reincubating. 10/31/19 12:18 Blood Aerobic Blood Culture - Preliminary No growth in Aerobic bottle after 48 hours. 10/31/19 12:18 Blood Anaerobic Blood Culture - Preliminary No growth in Anaerobic bottle after 48 hours. 10/31/19 12:22 Blood Aerobic Blood Culture - Preliminary No growth in Aerobic bottle after 48 hours. 10/31/19 12:22 Blood Anaerobic Blood Culture - Preliminary No growth in Anaerobic bottle after 48 hours. PG Care Time/CCT Total # of Minutes Spent Total Time Spent with Patient: Total time spent is greater than 50% in coordination of care (as documented) at patient's floor/unit and/or counseling patient:
[2019-11-03] MEDS: DAPTOmycin 600 MG in SYRINGE 0 ML IV SCH (13:16)
[2019-11-03] MEDS: LACTOBACILLUS ACIDOPHILUS (FLORANEX) TAB PO SCH ×2 (17:50→21:18)
--- NOTE | 2019-11-03 18:16 | Hospitalist Progress Note ---
Date of Service November 03, 2019 Assessment & Plan (1) Abscess of right groin: (2) S/P debridement: Patient is a 64 yr female with H/O Insulin-dependent type 2 DM, obesity hypoventilation syndrome, chronic right heart failure, CKD stage III, HTN, morbid obesity who presents to [facility] ED secondary to foul-smelling wound in right inguinal region x6 days. Right inguinal abscess S/P debridement of right groin wound POD#2 CT scan of femur and pelvis reveal infiltration of subcutaneous fat involving right medial thigh, gas present within soft tissues, a finding which may indicate gangrene, no evidence of abscess. Continue IV antibiotics Appreciate surgery, ID input Continue wound VAC Blood cultures: Negative to date Wound culture: Gram-negative bacilli PT OT eval Adjust antibiotics based on wound cultures (3) DM2 (diabetes mellitus, type 2): Last A1c 6.7 on 10/21 Outpatient regimen of Lantus 50 units twice daily and NovoLog 15 units AC as per sliding scale Continue Lantus/NovoLog per protocol (4) CHF (congestive heart failure): Euvolemic H/O diastolic CHF along with right heart failure in setting of obesity hypoventilation syndrome She did qualify for O2 at bedtime and with activity during last admission Continue Lasix, Aldactone, metoprolol, Imdur Monitor daily weight, electrolytes, volume status (5) CKD (chronic kidney disease) stage 3, GFR 30-59 ml/min: Last admission creatinine peaked 2.48 likely secondary to ATN in setting of sepsis and dehydration Baseline creatinine 1.2 Monitor renal function (6) HTN (hypertension): Continue metoprolol, Imdur, Aldactone, Lasix Lisinopril held for now Monitor (7) Hypercalcemia: Monitor (8) Morbid obesity: Encourage weight loss Continue nocturnal oxygen at 2l/min and with activity Needs sleep study on discharge Not interested in trial of CPAP HS inpatient. Wants to get sleep study before CPAP/BIPAP BMI 59.1 (9) DVT prophylaxis: Heparin SQ Code Status Full Code Follow-up: PCP Dr. Yeager upon discharge Subjective Patient is seen and examined at bedside No complaints overnight Denies any chest pain, shortness of breath, dizziness, nausea, abdominal pain, right groin pain Wound cultures are growing gram-negative bacilli Review of Systems Review of Systems: All systems reviewed & are unremarkable except as noted in HPI & below Physical Exam Physical Exam: Physical Exam: Vitals signs as noted above General Appearance:Morbidly Obese, no apparent distress Head: normocephalic, Atraumatic Eyes: normal inspection, EOMI Neck: supple, Trachea midline Respiratory/Chest: Normal breath sounds, CTA Cardiovascular: S1, S2, No murmur Abdomen/GI:Soft, Non tender, Bowel sounds present Extremities/Musculoskelatal:normal inspection, no edema, R groin + wound Vac Neurologic/Psych:AAOX3, grossly no focal neurological deficits Skin: normal color, warm Results & Data Vital Signs (Past 12 Hours) Vital Signs Temp Pulse Pulse Resp BP BP Pulse Ox 11/03/19 15:43 37.1 C 81 16 151/73 H 94 11/03/19 07:28 37 C 73 20 150/71 H 96 11/03/19 06:33 71 145/74 H Laboratory Results Short CBC 11/03/19 Range/Units 07:52 WBC 8.77 (4.8-10.8) K/uL Hgb 10.6 L (12.0-16.0) g/dL Hct 33.5 L (37-47) % Plt Count 254 (130-400) K/uL BMP 11/03/19 07:52 Sodium 138 Potassium 3.6 Chloride 105 Carbon Dioxide 28 BUN 24 H Creatinine 1.22 H Glucose 163 H Calcium 10.0
[2019-11-03] MEDS: ASPIRIN 81 MG ECTAB PO SCH (21:18)
[2019-11-04] MEDS: PIPERACILLIN/TAZOBACTAM 4.5 GM in DEXTROSE 5% 100 ML IV SCH ×2 (02:49→09:29)
[2019-11-04] MEDS: CLINDAMYCIN 900 MG in DEXTROSE 5% 50 ML IV SCH (06:14)
[2019-11-04] MEDS: LEVOTHYROXINE SODIUM 50 MCG TABLET PO SCH (06:15)
[2019-11-04] MEDS: ISOSORBIDE DINITRATE 20 MG TAB PO SCH ×2 (06:16→13:16)
[2019-11-04] MEDS: HEPARIN SOD 5,000 UNIT/0.5 ML VIAL SQ SCH ×2 (06:17→14:35)
[2019-11-04 08:53] LABS: BUN Creatinine Ratio 19.8 (10-20); Calcium 10.2 mg/dl (8.5-10.1); Est GFR (African American) 54.6; Est GFR (Non-African American) 47.1; Potassium 3.4 mmol/L (3.5-5.1)
[2019-11-04] MEDS: METOPROLOL SUCC 50MG EXT REL TAB PO SCH (09:05)
[2019-11-04] MEDS: FLUCONAZOLE 100 MG TAB PO SCH (09:06)
[2019-11-04] MEDS: FUROSEMIDE 80 MG TAB PO SCH (09:06)
[2019-11-04] MEDS: ZINC SULFATE 220 MG CAPSULE PO SCH (09:06)
[2019-11-04] MEDS: VITAMIN B COMPLEX TAB PO SCH (09:06)
[2019-11-04] MEDS: ASCORBIC ACID 500 MG TAB PO SCH (09:06)
[2019-11-04] MEDS: PANTOprazole 40 MG TAB PO SCH (09:07)
[2019-11-04] MEDS: CEROVITE ADV FORMULA TAB PO SCH (09:07)
[2019-11-04] MEDS: SPIRONOLACTONE 25 MG TAB PO SCH (09:07)
[2019-11-04] MEDS: INSULIN GLARGINE SOLOSTAR 100 UNITS/ML 3 ML PEN SC SCH (09:07)
[2019-11-04] MEDS: LACTOBACILLUS ACIDOPHILUS (FLORANEX) TAB PO SCH ×2 (09:07→13:16)
[2019-11-04] MEDS: INSULIN ASPART 100 UNITS/ML 3 ML PEN SC SCH ×2 (09:08→13:15)
[2019-11-04] MEDS ORDERED: POTASSIUM CHLORIDE 20 MEQ TABCR PO STA (09:17)
[2019-11-04] MEDS ORDERED: ERTAPENEM SODIUM 1,000 MG in SODIUM CHLORIDE 0.9% 50 ML IV SCH (12:00)
[2019-11-04] MEDS ORDERED: SULFAMETHOXAZOLE/TRIMETHOPRIM DS 800/160MG TAB PO SCH (12:30)
--- NOTE | 2019-11-04 12:40 | Hospitalist Progress Note ---
Date of Service November 04, 2019 Assessment & Plan (1) Abscess of right groin: (2) S/P debridement: Patient is a 64 yr female with H/O Insulin-dependent type 2 DM, obesity hypoventilation syndrome, chronic right heart failure, CKD stage III, HTN, morbid obesity who presents to [facility] ED secondary to foul-smelling wound in right inguinal region x6 days. Right inguinal abscess S/P debridement of right groin wound POD#3 CT scan of femur and pelvis reveal infiltration of subcutaneous fat involving right medial thigh, gas present within soft tissues, a finding which may indicate gangrene, no evidence of abscess. IV antibiotics (clindamycin, ertapenem, daptomycin ) discontinued Plan to discharge on oral Bactrim to complete a two-week course of antibiotics Appreciate surgery, ID input Continue wound VAC Blood cultures: Negative to date Wound culture: Enterobacter cloacae PT OT eval--patient not interested in rehab placement Needs to follow-up with surgery, wound clinic upon discharge Will advised to hold off on potassium supplements while on Bactrim and to get BMP as outpatient (3) DM2 (diabetes mellitus, type 2): Last A1c 6.7 on 10/21 Outpatient regimen of Lantus 50 units twice daily and NovoLog 15 units AC as per sliding scale Continue Lantus/NovoLog per protocol (4) CHF (congestive heart failure): Euvolemic H/O diastolic CHF along with right heart failure in setting of obesity hy poventilation syndrome She did qualify for O2 at bedtime and with activity during last admission Continue Lasix, Aldactone, metoprolol, Imdur Monitor daily weight, electrolytes, volume status (5) CKD (chronic kidney disease) stage 3, GFR 30-59 ml/min: Last admission creatinine peaked 2.48 likely secondary to ATN in setting of sepsis and dehydration Baseline creatinine 1.2 Monitor renal function (6) HTN (hypertension): Continue metoprolol, Imdur, Aldactone, Lasix Lisinopril held for now Monitor (7) Hypercalcemia: Monitor (8) Morbid obesity: Encourage weight loss Continue nocturnal oxygen at 2l/min and with activity Needs sleep study on discharge Not interested in trial of CPAP HS inpatient. Wants to get sleep study before CPAP/BIPAP BMI 59.1 (9) DVT prophylaxis: Heparin SQ Code Status Full Code Follow-up: PCP Dr. Yeager upon discharge Disposition Plan to discharge home with home health Subjective Patient is seen and examined at bedside States feeling well Denies any chest pain, SOB, dizziness, nausea, abdominal pain, right groin pain Discussed with IDDr.Bell today Patient refuses rehab Review of Systems Review of Systems: All systems reviewed & are unremarkable except as noted in HPI & below Physical Exam Physical Exam: Physical Exam: Vitals signs as noted above General Appearance:Morbidly Obese, no apparent distress Head: normocephalic, Atraumatic Eyes: normal inspection, EOMI Neck: supple, Trachea midline Respiratory/Chest: Normal breath sounds, CTA Cardiovascular: S1, S2, No murmur Abdomen/GI:Soft, Non tender, Bowel sounds present Extremities/Musculoskelatal:normal inspection, no edema, R groin + wound Vac Neurologic/Psych:AAOX3, grossly no focal neurological deficits Skin: normal color, warm Results & Data Vital Signs (Past 12 Hours) Vital Signs Temp Pulse Resp BP Pulse Ox 11/04/19 08:07 36.8 C 67 20 139/70 91 Laboratory Results [facility] 11/04/19 07:40 Sodium 140 Potassium 3.4 L Chloride 105 Carbon Dioxide 29 BUN 24 H Creatinine 1.22 H Glucose 169 H Calcium 10.2 H
--- NOTE | 2019-11-04 14:08 | Discharge Summary ---
Date of Service November 04, 2019 Admission HPI Per Admitting Provider This is a 64-year-old female who has significant past medical history of insulin-dependent type 2 DM, obesity hypoventilation syndrome, chronic right heart failure, CKD stage III, HTN, morbid obesity who presents to [facility] ED secondary to foul-smelling wound in right inguinal region x6 days. Of significance patient recently confined 10/21 to 10/27/2019 secondary to sepsis from E. coli UTI, NICOLETTE secondary to ATN in setting of sepsis. She was treated with IV antibiotics and IV fluids. Her creatinine peaked at 2.48 and was downtrending at time of discharge. She was placed on IV antibiotics and transition to oral cefdinir in which she completed her course in the outpatient setting. Furthermore she did have a overnight pulse oximetry and two-step which revealed oxygen desaturation and she was prescribed 2 L of O2 at discharge. She was seen in outpatient clinic yesterday by PCP secondary to foul-smelling wound in right groin. Patient states wound started 2 days prior to discharge secondary to sitting on a toilet that was too small for her and, "my fat being pinched by the toilet seat." She denies significant pain, 12/09. Wound continue to worsen with significant purulent drainage. Approximately 2 days ago she noticed foul-smelling which has continued to worsen. This prompted her presentation today. She denies any fever, chills, sweats, lightheadedness, dizziness, syncope, chest pain, shortness of breath at rest, palpitations, cough, hemoptysis, nausea, vomiting, abdominal pain. She does have increased urgency and frequency with urination secondary to Lasix but denies dysuria or hematuria. Last BM was 2 days ago which is normal for her. In ED patient was found to have large right inguinal wound with foul-smelling purulent drainage. She remained hemodynamically stable, but did exhibit mild leukocytosis 12.3 1K. Further notable lab abnormalities include CRP 4.62, proBNP 1375, improvement in BUN/creatinine 25 and 1.17, glucose 65, corrected calcium 11.9. Chest x-ray revealed cardiomegaly with mild pulmonary vascular congestion and bibasilar airspace opacities likely secondary to atelectasis. CT scan of femur and pelvis reveal infiltration of subcutaneous fat involving right medial thigh, gas present within soft tissues, a finding which may indicate gangrene, no evidence of abscess. She received IV antibiotics in ED including daptomycin and Zosyn along with antifungal fluconazole. Admission Exam Per Admitting Provider Constitutional: WD/WN, morbidly obese, female, vitals as above, NAD, sitting up in bed, pleasant, conversing easily Head: Normocephalic, Atraumatic Eyes: PERRL, conjunctivae normal, anicteric sclerae ENMT: external ear and nose normal, oropharynx normal Neck: trachea midline, no thyromegaly normal visual inspection Respiratory: normal respiratory effort, lungs clear to auscultation, no wheeze, rales, rhonchi. Normal insp/exp effort, no accessory muscle use Cardiovascular: RRR, 1/6 MAX noted RUSB, no S3-S4, no edema Vessels: no JVD or carotid bruit Chest: normal inspection of chest Abdomen: Distended abdomen secondary to obesity, normal bowel sounds, firm, non tender, no hepatosplenomegaly Musculoskeletal: no cyanosis or clubbing Skin: no rashes, warm and dry normal turgor Neurologic: PERRL, EOMI, accommodation nl, no face palsy, no dysarthria CN's II-XI intact bilaterally and moves all extremities Psychiatric: A+Ox3, euthymic affect Lymphatic: no cervical or axillary lymphadenopathy : Right inguinal wound starting middle aspect of right groin and extending medially to posterior buttock, erythematous, purulent drainage, nontender. Bilateral hyperpigmentation to bilateral groin. Significant foul-smelling wound. Principal Diagnosis Right groin abscess Discharge Data Allergies Allergy/AdvReac Type Severity Reaction Status Date / Time adhesive Allergy Mild RASH Verified 10/21/19 04:06 Cipro Allergy Unknown HIVES Verified 06/19/16 14:58 ciprofloxacin Allergy Unknown HIVES Verified 10/21/19 04:06 nystatin Allergy Unknown MYCOLOG Verified 10/21/19 04:06 CREAM cephalexin AdvReac Intermediate GI SYMPTOMS Verified 10/21/19 04:06 morphine AdvReac Mild N/V Verified 10/21/19 04:06 CONFUSION Consultations 10/31/19 14:21 ED Decision to Admit Stat 10/31/19 15:22 Consult General Surgery Routine 10/31/19 19:16 Consult Case Management - Discharge Planning Routine Consult Infectious Diseases Routine Procedures Performed Operation Date: 11/01/19 07:00 Actual Procedures p Inguinal / Groin Wound Debridement(Not Applicable) - Jah Almazan, DO Pelvic CT: 1. Lower anterior abdominal wall skin thickening. 2. Infiltration of the subcutaneous fat involving the right medial thigh. There is gas present within the soft tissues, a finding which may indicate gangrene. 3. No evidence of abscess. 4. Cholelithiasis 5. Degenerative changes within the cervical spine with multilevel spinal stenosis Femur CT: Infiltration of the subcutaneous tissues involving the upper medial right thigh. There is associated gas within the subcutaneous fat extending down to the muscular fascial layer. The findings are consistent with an infectious process and may indicate gangrene. Surgical consultation is recommended in follow-up. Ordered Studies 10/31/19 12:13 CT femur RT wo con Stat CT pelvis wo con Stat Hospital Course (1) Abscess of right groin: (2) S/P debridement: Patient is a 64 yr female with H/O Insulin-dependent type 2 DM, obesity hypoventilation syndrome, chronic right heart failure, CKD stage III, HTN, morbid obesity who presents to [facility] ED secondary to foul-smelling wound in right inguinal region x6 days. Right inguinal abscess S/P debridement of right groin wound POD#3 CT scan of femur and pelvis reveal infiltration of subcutaneous fat involving right medial thigh, gas present within soft tissues, a finding which may indicate gangrene, no evidence of abscess. IV antibiotics (clindamycin, ertapenem, daptomycin ) discontinued Plan to discharge on oral Bactrim to complete a two-week course of antibiotics Appreciate surgery, ID input Continue wound VAC Blood cultures: Negative to date Wound culture: Enterobacter cloacae PT OT eval--patient not interested in rehab placement Needs to follow-up with surgery, wound clinic upon discharge Will advised to hold off on potassium supplements while on Bactrim and to get BMP as outpatient (3) DM2 (diabetes mellitus, type 2): Last A1c 6.7 on 10/21 Outpatient regimen of Lantus 50 units twice daily and NovoLog 15 units AC as per sliding scale Continue Lantus/NovoLog per protocol (4) CHF (congestive heart failure): Euvolemic H/O diastolic CHF along with right heart failure in setting of obesity hypoventilation syndrome She did qualify for O2 at bedtime and with activity during last admission Continue Lasix, Aldactone, metoprolol, Imdur Monitor daily weight, electrolytes, volume status (5) CKD (chronic kidney disease) stage 3, GFR 30-59 ml/min: Last admission creatinine peaked 2.48 likely secondary to ATN in setting of sepsis and dehydration Baseline creatinine 1.2 Monitor renal function (6) HTN (hypertension): Continue metoprolol, Imdur, Aldactone, Lasix Lisinopril held for now Monitor (7) Hypercalcemia: Monitor (8) Morbid obesity: Encourage weight loss Continue nocturnal oxygen at 2l/min and with activity Needs sleep study on discharge Not interested in trial of CPAP HS inpatient. Wants to get sleep study before CPAP/BIPAP BMI 59.1 (9) DVT prophylaxis: Heparin SQ Code Status Full Code Follow-up: PCP Dr. Yeager upon discharge Disposition Plan to discharge home with home health Total Time Total Time Spent Total Time Spent (In Minutes): 39 minutes Total Time Includes: Examination of the Patient, Discharge Planning, Medication Reconciliation, Communication With Other Providers and Other Discharge Plan Discharge Items Patient Disposition: Home - Home Health Services Reason For Visit: R INGUINAL ABSCESS/WOUND INFECTION Discharge Diagnosis: Right groin abscess Activity: Per Instructions section Exercise/Sports: Gradually increase as tolerated Non-emergency contact: Primary Care Provider and Surgeon Call non-emergency contact if: you have any medication questions, your symptoms worsen, your pain is not controlled, your pain is worsening, your pain is unusual for you, your pain is concerning for you, you have a fever, your wound has increased redness, your wound has increased drainage and your wound pain has increased Follow-up/Referrals: Selene Webb DO [Primary Care Provider] - Diet: Carb Consistent or DM2 and Heart Healthy Ambulatory Orders: Basic Metabolic Panel (Routine) Timeframe: 1 Week Location: Determined by Patient Ordered By: Filiberto Urrutia Add Attending Provider Instructions: Follow-up with your primary care physician on November 08, 2019 at 12:45 PM Follow-up with your surgeon Dr. Jah Almazan as per the recommendations from your surgeon Follow-up with wound clinic for wound care as recommended Complete the antibiotic course (Bactrim) for 2 week course as recommended by your infectious disease Dr. Mahmood Do not take your potassium supplements while on Bactrim as recommended Get blood test (Basic Metabolic Panel) in 1 week and follow-up with your physician with results Seek immediate medical attention if your symptoms reoccur or worsen Pending Studies at Discharge: No Stand-Alone Forms: My [facility], Smoking Cessation Medications and DC Order Prescriptions: New sulfamethoxazole-trimethoprim 800-160 mg Tablet 1 tab PO Q12 Qty: 27 RF: 0 Lactobacillus acidoph-L.bulgar [Floranex] 1 million cell Tablet 4 tab PO QIDM Qty: 60 RF: 0 Continued spironolactone 25 mg tablet 25 mg PO QAM RF: 0 levothyroxine 50 mcg tablet 50 mcg PO QAM RF: 0 esomeprazole magnesium 40 mg capsule,delayed release(DR/EC) 40 mg PO BID RF: 0 metoprolol succinate 50 mg tablet extended release 24 hr 100 mg PO BID RF: 0 furosemide 80 mg tablet 80 mg PO QAM RF: 0 isosorbide dinitrate 20 mg tablet 20 mg PO BID RF: 0 Novolog Flexpen U-100 Insulin 100 unit/mL (3 mL) insulin pen 0 unit SUBCUT AC RF: 0 Lantus Solostar U-100 Insulin 100 unit/mL (3 mL) insulin pen 50 unit SUBCUT AMPM RF: 0 lisinopril 5 mg tablet 5 mg PO QAM RF: 0 ascorbic acid (vitamin C) [Vitamin C] 1,000 mg Tablet 0 mg PO BID RF: 0 aspirin 81 mg Tablet,Delayed Release (Dr/Ec) 81 mg PO HS RF: 0 folic acid 1 mg Tablet 0 mg PO QAM RF: 0 zinc 50 mg Tablet 50 mg PO QAM RF: 0 B-complex with vitamin C [Super B Complex-Vitamin C] Tablet 1 tab PO QAM RF: 0 coenzyme Q10 [CoQ-10] 100 mg Capsule 100 mg PO QAM RF: 0 Ocuvite Adult 50 Plus 250-5-1 mg Capsule 1 cap PO QAM RF: 0 Potassium 99mg 99 mg PO QAM RF: 0 Discharge Orders: Discharge Order (Routine); Ordered 11/04/19 Ordered By: Filiberto Urrutia Admission Data Admit Date/Time: 11/01/19 10:24 Attending Provider: Filiberto Urrutia Admit Provider: Zachary Samayoa Primary Care Provider: Selene Webb Other Providers: [facility] ; Zachary Samayoa ; Jah Almazan ; Maricel Almanza Other Interventions: Discharge Summary Assessment (RN) Last Done: 11/04/19 15:07 DC Date/Time DO NOT enter until pt leaves facility: 11/04/19 17:28
--- NOTE | 2019-11-04 14:31 | Infectious Disease Progress Nt ---
Date of Service November 04, 2019 Assessment & Plan (1) Abscess of right groin: 64-year-old female with right groin abscess status post I&D, now with wound VAC in place. Enterobacter has grown from wound cultures, isolate is resistant to Zosyn. Given ciprofloxacin allergy, most appropriate oral alternative would be Bactrim, likely in the range of 2 weeks. Discussed with hospitalist. Subjective Patient seen in follow-up for right groin abscess. States feeling well Denies any chest pain, SOB, dizziness, nausea, abdominal pain, right groin pain Cultures growing Zosyn resistant Enterobacter. Review of Systems Review of Systems: All systems reviewed & are unremarkable except as noted in HPI & below Physical Exam Constitutional: WD/WN, vitals as above + obese and comfortable; no acute distress Eyes: PERRL, conjunctivae normal, anicteric sclerae ENMT: external ear and nose normal, oropharynx normal Neck: trachea midline, no thyromegaly neck nontender Respiratory: normal respiratory effort, lungs clear to auscultation normal percussion; does not use accessory muscles Cardiovascular: Rate/Rhythm: regular rate and regular rhythm Heart Sounds: normal S1 and normal S2; no gallop, no murmur and no cardiac rub Vessels: normal peripheral pulses; no JVD Gastrointestinal (Abdomen): normal bowel sounds, soft, nontender, no hepatosplenomegaly Musculoskeletal: no cyanosis or clubbing, extremities motor strength 5/5 Spine: thoracic spine normal to inspection and lumbar spine normal to inspection; no cervical spinal tenderness Skin: no rashes, warm and dry normal turgor and + wound (Wound VAC in place right groin, less surrounding erythema) Neurologic: patellar DTR's 2+ bilat, sensation intact moves all extremities and awake; no focal motor deficits Psychiatric: A+Ox3, euthymic affect Orientation: cooperative Lymphatic: no cervical or axillary lymphadenopathy no inguinal lymphadenopathy Results & Data Vital Signs (Past 12 Hours) Vital Signs Temp Pulse Resp BP Pulse Ox 11/04/19 12:52 36.9 C 77 20 138/71 94 11/04/19 08:07 36.8 C 67 20 139/70 91 Laboratory Results [facility] 11/04/19 07:40 Sodium 140 Potassium 3.4 L Chloride 105 Carbon Dioxide 29 BUN 24 H Creatinine 1.22 H Glucose 169 H Calcium 10.2 H Diagnostic Findings Microbiology 11/01/19 00:30 Groin Gram Stain - Final 11/01/19 00:30 Groin Deep Wound Culture - Preliminary Enterobacter cloacae 10/31/19 12:18 Blood Aerobic Blood Culture - Preliminary No growth in Aerobic bottle after 48 hours. 10/31/19 12:18 Blood Anaerobic Blood Culture - Preliminary No growth in Anaerobic bottle after 48 hours. 10/31/19 12:22 Blood Aerobic Blood Culture - Preliminary No growth in Aerobic bottle after 48 hours. 10/31/19 12:22 Blood Anaerobic Blood Culture - Preliminary No growth in Anaerobic bottle after 48 hours. PG Care Time/CCT Total # of Minutes Spent Total Time Spent with Patient: Total time spent is greater than 50% in coordination of care (as documented) at patient's floor/unit and/or counseling patient:
== END 2019-11-04 17:28 | disposition home health service (06) | DRG 580 ==
LOC: ED 11:17 → 3W 11:17 → SUATTDRO 15:22 → 3W 18:29 → SUATTDRO 11-01 10:24